=== PATIENT | male | born 1935 | race Caucasian/White ===

== ENCOUNTER 2016-07-31 14:08 | Inpatient (IN) | payer OTHER, BC ==
[2016-07-31] MEDS ORDERED: cefTAZidime PENTAHYDRATE 1 GM/50ML PRE-DOCKED (RESTRICTED TO ID) IVPB ONE (15:18)
[2016-07-31] MEDS ORDERED: ACETAMINOPHEN 325 MG TABLET (FP) PO ONE (15:20)
[2016-07-31] MEDS ORDERED: SODIUM CHLORIDE 500 ML IV STA (15:20)
[2016-07-31 15:59] LABS: MCH 38.5 pg (25.7-33.7); MCHC 33.9 g/dl (32.0-35.9); MEAN CELL VOLUME 113.4 fl (80-96); MEAN PLT VOLUME 7.4 fl (7.5-11.1); PLATELET COUNT 828 K/MM3 (134-434); RDW 15.4 % (11.9-15.9); WHITE BLOOD COUNT 18.1 K/mm3 (4.0-10.0)
[2016-07-31 16:08] LABS: URINE APPEARANCE TURBID; URINE BILIRUBIN NEGATIVE (NEGATIVE); URINE COLOR DKYELLOW; URINE GLUCOSE (UA) NEGATIVE (NEGATIVE); URINE KETONE NEGATIVE (NEGATIVE); URINE NITRITE NEGATIVE (NEGATIVE); URINE UROBILINOGEN NEGATIVE E.U./dl (0.2-1.0)
[2016-07-31 16:11] LABS: INR 1.41 (0.82-1.09); PROTHROMBIN TIME (PATIENT) 15.6 SEC (9.98-11.88)
[2016-07-31 16:12] LABS: URINE BLOOD 2+ (NEGATIVE); URINE LEUK ESTERASE 3+ (NEGATIVE); URINE PROTEIN 1+ (NEGATIVE)
[2016-07-31 16:14] LABS: URINE HYALINE CAST 4 /lpf; URINE MUCUS RARE; URINE RBC 10 /hpf (0-3); URINE WBC 479 /hpf (3-5)
--- NOTE | 2016-07-31 16:19 | PDOC ---
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 His PMD sent a urine sample which shows a UTI. PMD notes that the patient has resistance to PO antibiotics. The patient reports that he has diffused abdominal pain. Patient does ambulate with the help of a cane or with assistance. He reports diarrhea, once or twice a week, which is his baseline. The patient denies chest pain, shortness of breath, headache and dizziness. Denies fever, chills, nausea, vomit, diarrhea and constipation. Denies dysuria, frequency, urgency and hematuria. Allergies: Sulfa, doxycycline, Cymbalta Past surgical history: Cholecystectomy, splenectomy Social history: No alcohol, tobacco or drug use reported PMD - Dr. Ashish Schneider Griddle Attendant - Dr. Groves <Hernando Pineda - Last Filed: 07/31/16 16:41> <Suhas Grimes - Last Filed: 07/31/16 16:53> <Noemí Chamorro - Last Filed: 07/31/16 17:27> - General Chief Complaint: Urinary Problem Stated Complaint: UTI, (PCP SENT) Time Seen by Provider: 07/31/16 14:53 Past History <Hernando Pineda - Last Filed: 07/31/16 16:41> - Past Medical History Anemia: No Asthma: No Cancer: Yes (bladder CA) Cardiac Disorders: Yes (ATRIAL FIBRILLATION, CAD) CVA: Yes (R HEMIPARESIS) COPD: Yes CHF: Yes Dementia: No Diabetes: Yes (NIDDM) GI Disorders: Yes (GERD) Disorders: Yes (BPH, TURP) HTN: Yes Hypercholesterolemia: Yes Liver Disease: No Seizures: Yes Thyroid Disease: No - Surgical History Abdominal Surgery: Yes (spleenectomy) Appendectomy: No Cardiac Surgery: No Cholecystectomy: Yes Lung Surgery: No Neurologic Surgery: No Orthopedic Surgery: No - Immunization History Immunization Up to Date: Yes - Psycho/Social/Smoking Cessation Hx Anxiety: No Suicidal Ideation: No Smoking Status: No Smoking History: Never smoked Have you smoked in the past 12 months: No Number of Cigarettes Smoked Daily: 0 If you are a former smoker, when did you quit?: 2008 Hx Alcohol Use: No Drug/Substance Use Hx: Yes Substance Use Type: None Hx Substance Use Treatment: No <Suhas Grimes - Last Filed: 07/31/16 16:53> <Noemí Chamorro - Last Filed: 07/31/16 17:27> - Past Medical History Allergies/Adverse Reactions: Allergies Allergy/AdvReac Type Severity Reaction Status Date / Time doxycycline Allergy Mild Rash AND Verified 08/06/15 19:16 VOMITING Sulfa (Sulfonamide Allergy Verified 07/31/16 14:21 Antibiotics) duloxetine HCl AdvReac Severe HALLUCINATI Verified 08/06/15 19:16 [From Cyalta] ONS Home Medications: Ambulatory Orders Furosemide [Lasix -] 40 mg PO DAILY 03/25/15 Pantoprazole Sodium [Protonix -] 40 mg PO DAILY 03/25/15 Metformin HCl 500 mg PO BID 06/08/15 Albuterol Sulfate Inhaler - [Ventolin HFA Inhaler -] 2 inh PO Q4H 10/28/15 Albuterol 2.5/Ipratropium 0.5 [Duoneb -] 1 amp NEB QIDR amp 11/04/15 Dabigatran Etexilate Mesylate [Pradaxa -] 150 mg PO BID #60 cap 11/04/15 Digoxin 125 mcg PO DAILY #30 tablet 11/04/15 Diltiazem Cd [Cardizem Cd -] 120 mg PO DAILY #30 cap.cd.24h 11/04/15 Finasteride 5 mg PO DAILY #30 tablet 11/04/15 Fluoxetine HCl [Prozac] 10 mg PO DAILY #30 capsule 11/04/15 Hydroxyurea [Hydrea 500Mg Capsule -] 500 mg PO BID #60 capsule 11/04/15 Lamotrigine [Lamictal -] 25 mg PO DAILY #30 tablet 11/04/15 Magnesium Oxide [Mag-Ox -] 400 mg PO BID #30 tablet 11/04/15 Tamsulosin HCl 0.8 mg PO DAILY #30 cap.er.24h 11/04/15 Review of Systems - Review of Systems Able to Perform ROS?: Yes Comments:: 07/31/16 16:20 CONSTITUTIONAL: No fever, no chills, no fatigue EYES: No visual changes ENT: No ear pain, no sore throat CARDIOVASCULAR: No chest pain, no palpitations RESPIRATORY: No cough, no SOB GI: No abdominal pain, no nausea, no vomiting, no constipation, no diarrhea GENITOURINARY: No dysuria, no frequency, no hematuria MUSKULOSKELETAL: No backpain, no joint pain, no myalgias SKIN: No rash NEURO: No headache <Hernando Pineda - Last Filed: 07/31/16 16:41> *Physical Exam - Vital Signs Last Vital Signs Temp Pulse Resp BP Pulse Ox 97.7 F 60 18 129/55 97 07/31/16 14:12 07/31/16 14:12 07/31/16 14:12 07/31/16 14:12 07/31/16 14:12 - Physical Exam Comments: 07/31/16 16:21 CONSTITUTIONAL: Well-appearing; well-nourished; in no apparent distress HEAD: Normocephalic; atraumatic EYES: PERRL; EOM intact ENMT: External appears normal; normal oropharynx NECK: Supple; non-tender; no cervical lymphadenopathy CARD: +Irregularly irregular. Normal S1, S2; no murmurs, rubs, or gallops RESP: Normal chest excursion with respiration; breath sounds clear and equal bilaterally; no wheezes, rhonchi, or rales ABD: Soft, non-distended; non-tender; no palpable organomegaly, no palpable hernias EXT: Normal ROM in all four extremities; non-tender to palpation; distal pulses intact SKIN: Warm, dry, no rash NEURO: +right lower facial droop with flattening of nasal labial fold. Dense hemipligia right upper extremity, right lower extremity 2/5 strength. 5/5 strength in left upper and lower extremities. <Hernando Pineda - Last Filed: 07/31/16 16:41> - Vital Signs Last Vital Signs Temp Pulse Resp BP Pulse Ox 97.7 F 60 18 129/55 97 07/31/16 14:12 07/31/16 14:12 07/31/16 14:12 07/31/16 14:12 07/31/16 14:12 <Suhas Grimes - Last Filed: 07/31/16 16:53> - Vital Signs Last Vital Signs Temp Pulse Resp BP Pulse Ox 97.7 F 60 18 129/55 97 07/31/16 14:12 07/31/16 14:12 07/31/16 14:12 07/31/16 14:12 07/31/16 14:12 <Noemí Chamorro - Last Filed: 07/31/16 17:27> Heart Score/ECG Review - ECG Intrepretation Comment:: 07/31/16 17:24 EKG obtained at 16:43. Reviewed and interpreted by Dr. Grimes at 16:43. Afib with ventricular rate of 63 bpm. QTc interval of [address] elevation or depression to suggest infarction. No T wave morphology abnormality to suggest ischemia. <Noemí Chamorro - Last Filed: 07/31/16 17:27> ED Treatment Course - LABORATORY CBC & Chemistry Diagram: 07/31/16 15:30 07/31/16 15:30 - ADDITIONAL ORDERS Additional order review: Laboratory Results 07/31/16 07/31/16 15:30 15:30 INR 1.41 H Urine Color Dkyellow Urine Appearance Turbid Urine pH 7.0 Ur Specific [place] 1.008 Urine Protein 1+ H Urine Glucose (UA) Negative Urine Ketones Negative Urine Blood 2+ H Urine Nitrite Negative Urine Bilirubin Negative Urine Urobilinogen Negative Ur Leukocyte Esterase 3+ H Urine RBC 10 Urine WBC 479 Ur Epithelial Cells Rare Hyaline Casts 4 Urine Mucus Rare 07/31/16 15:30 RBC 2.72 L MCV 113.4 H MCHC 33.9 RDW 15.4 D MPV 7.4 L Neutrophils % Y Lymphocytes % Y <Hernando Pineda - Last Filed: 07/31/16 16:41> - LABORATORY CBC & Chemistry Diagram: 07/31/16 15:30 07/31/16 15:30 - ADDITIONAL ORDERS Additional order review: Laboratory Results 07/31/16 07/31/16 15:30 15:30 INR 1.41 H Urine Color Dkyellow Urine Appearance Turbid Urine pH 7.0 Ur Specific [place] 1.008 Urine Protein 1+ H Urine Glucose (UA) Negative Urine Ketones Negative Urine Blood 2+ H Urine Nitrite Negative Urine Bilirubin Negative Urine Urobilinogen Negative Ur Leukocyte Esterase 3+ H Urine RBC 10 Urine WBC 479 Ur Epithelial Cells Rare Hyaline Casts 4 Urine Mucus Rare 07/31/16 15:30 RBC 2.72 L MCV 113.4 H MCHC 33.9 RDW 15.4 D MPV 7.4 L Neutrophils % Y Lymphocytes % Y <Cornelio,Boris - Last Filed: 07/31/16 16:53> - LABORATORY CBC & Chemistry Diagram: 07/31/16 15:30 07/31/16 15:30 - ADDITIONAL ORDERS Additional order review: Laboratory Results 07/31/16 07/31/16 07/31/16 15:30 15:30 15:30 INR 1.41 H Sodium 134 L Potassium 4.0 D Chloride 94 L D Carbon Dioxide 30 D Anion Gap 10 BUN 18 Creatinine 1.5 H Creat Clearance w eGFR 45.03 Random Glucose 164 H D Calcium 8.5 Total Bilirubin 0.4 AST 12 L D ALT 8 L D Alkaline Phosphatase 207 H D Total Protein 5.9 L D Albumin 2.3 L Urine Color Dkyellow Urine Appearance Turbid Urine pH 7.0 Ur Specific [place] 1.008 Urine Protein 1+ H Urine Glucose (UA) Negative Urine Ketones Negative Urine Blood 2+ H Urine Nitrite Negative Urine Bilirubin Negative Urine Urobilinogen Negative Ur Leukocyte Esterase 3+ H Urine RBC 10 Urine WBC 479 Ur Epithelial Cells Rare Hyaline Casts 4 Urine Mucus Rare 07/31/16 15:30 RBC 2.72 L MCV 113.4 H MCHC 33.9 RDW 15.4 D MPV 7.4 L Neutrophils % 85.0 H D Lymphocytes % 7.0 L D Monocytes % 7.0 Eosinophils % 1.0 - Medications Given in the ED: ED Medications Discontinued Medications Generic Name Dose Route Start Last Admin Trade Name Freq PRN Reason Stop Dose Admin Acetaminophen 650 mg 07/31/16 15:20 07/31/16 16:28 Tylenol - PO 07/31/16 15:21 650 mg ONCE ONE Administration Ceftazidime 1 gm 07/31/16 15:18 07/31/16 16:28 Fortaz 1 Gm Ivpb (Pre-Docked) IVPB 07/31/16 15:19 1 gm ONCE ONE Administration Protocol Sodium Chloride 500 mls @ 500 mls/hr 07/31/16 15:20 07/31/16 16:28 Normal Saline - IV 07/31/16 16:19 500 mls/hr ASDIR STA Administration <Noemí Chamorro - Last Filed: 07/31/16 17:27> Medical Decision Making - Medical Decision Making 07/31/16 16:54 Patient is an 81-year-old male with multiple comorbidities, history of multidrug resistant UTIs, referred to the ER for pyuria caused by an organism that is resistant to all by mouth antibiotics. In the ER, patient is awake and alert, afebrile, nontoxic appearing. Review of previous medical records revealed urine culture positive for pseudomonas which was sensitive to ceftazidime. Review of infectious disease consultation also revealed the patient was started on ceftazidime previously. CBC reveals leukocytosis and proper cytosis. Urinalysis consistent with pyuria with hematuria. We'll administer 1 g of soft as. Will admit. <Suhas Grimes - Last Filed: 07/31/16 16:53> *DC/Admit/Observation/Transfer - Attestations Scribe Attestion: 07/31/16 16:21 Documentation prepared by Hernando Pineda, acting as medical imaging director for Suhas Grimes MD <Hernando Pineda - Last Filed: 07/31/16 16:41> - Discharge Dispostion Admit: Yes - Attestations Physician Attestion: 07/31/16 16:54 The documentation was prepared by the scribe under my direct supervision. I have reviewed the documentation which correctly represents the findings, medical decision-making and critical action taken by me. <Suhas Grimes - Last Filed: 07/31/16 16:53> <Noemí Chamorro - Last Filed: 07/31/16 17:27> Diagnosis at time of Disposition: UTI (urinary tract infection) Qualifiers: Urinary tract infection type: acute cystitis Hematuria presence: with hematuria Qualified Code(s): N30.01 - Acute cystitis with hematuria - Referrals
[2016-07-31] MEDS ORDERED: ACETAMINOPHEN 325 MG TABLET (FP) ONE (16:20)
[2016-07-31 16:23] LABS: ALBUMIN 2.3 g/dl (3.4-5.0); BILIRUBIN,TOTAL 0.4 mg/dL (0.2-1.0); CALCIUM 8.5 mg/dL (8.5-10.1); CREATININE 1.5 mg/dL (0.7-1.3); TOT PROT 5.9 g/dl (6.4-8.2)
[2016-07-31 16:48] LABS: PLATELET COMMENT2 NO CLOTTING DETECTED; PLATELET ESTIMATE INCREASED (NORMAL)
--- NOTE | 2016-07-31 18:05 | HP ---
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 His PMD sent a urine sample which shows a UTI. PMD notes that the patient has resistance to PO antibiotics. The patient reports that he has diffused abdominal pain. Patient does ambulate with the help of a cane or with assistance. He reports diarrhea, once or twice a week, which is his baseline. The patient denies chest pain, shortness of breath, headache and dizziness. Denies fever, chills, nausea, vomit, diarrhea and constipation. Denies dysuria, frequency, urgency and hematuria. History Source: Patient, Medical Record - Past Medical History DIRECTOR QUALITY SYSTEMS: Yes: CVA Cardiovascular: Yes: AFIB, CAD, Hyperlipdemia Pulmonary: Yes: COPD Gastrointestinal: Yes: Gastritis, GERD Renal/: Yes: BPH, Cancer (superficial bladder cancer) Heme/Onc: Yes: Myeloproliferative Synd (thrombocytosis) Endocrine: Yes: Diabetes Mellitus - Past Surgical History Past Surgical History: Yes: Cholecystectomy, Splenectomy, TURP - Smoking History Smoking history: Never smoked Have you smoked in the past 12 months: No Aproximately how many cigarettes per day: 0 If you are a former smoker, when did you quit?: 2008 - Alcohol/Substance Use Hx Alcohol Use: No - Social History ADL: Family Assistance (h/o CVA with excellent improvement. h/o r sided weakness with speech deficits. Returned to [place] in [place]. 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.) History of Recent Travel: No Home Medications - Allergies Allergies/Adverse Reactions: Allergies Allergy/AdvReac Type Severity Reaction Status Date / Time doxycycline Allergy Mild Rash AND Verified 08/06/15 19:16 VOMITING Sulfa (Sulfonamide Allergy Verified 07/31/16 14:21 Antibiotics) duloxetine HCl AdvReac Severe HALLUCINATI Verified 08/06/15 19:16 [From Cymbalta] ONS - Home Medications Home Medications: Ambulatory Orders Furosemide [Lasix -] 40 mg PO DAILY 03/25/15 Metformin HCl 500 mg PO DAILY 06/08/15 Dabigatran Etexilate Mesylate [Pradaxa -] 150 mg PO BID #60 cap 11/04/15 Digoxin 125 mcg PO DAILY #30 tablet 11/04/15 Finasteride 5 mg PO DAILY #30 tablet 11/04/15 Hydroxyurea [Hydrea 500Mg Capsule -] 500 mg PO BID #60 capsule 11/04/15 Magnesium Oxide [Mag-Ox -] 400 mg PO BID #30 tablet 11/04/15 Atorvastatin Ca [Lipitor] 10 mg PO HS 07/31/16 Fluoxetine HCl 10 mg PO DAILY 07/31/16 Gabapentin 100 mg PO BID 07/31/16 Tamsulosin HCl 0.4 mg PO BID 07/31/16 Review of Systems - Review of Systems Constitutional: reports: Loss of Appetite, Weakness Eyes: reports: No Symptoms HENT: reports: No Symptoms Neck: reports: No Symptoms Cardiovascular: reports: No Symptoms Respiratory: reports: No Symptoms Gastrointestinal: reports: No Symptoms Genitourinary: reports: Burning, Other Musculoskeletal: reports: No Symptoms Integumentary: reports: No Symptoms Neurological: reports: No Symptoms, Pre-Existing Deficit Endocrine: reports: No Symptoms Hematology/Lymphatic: reports: No Symptoms Psychiatric: reports: No Symptoms Physical Examination Vital Signs: Vital Signs Temperature 97.7 F 07/31/16 14:12 Pulse Rate 60 07/31/16 14:12 Respiratory Rate 18 07/31/16 14:12 Blood Pressure 129/55 07/31/16 14:12 O2 Sat by Pulse Oximetry (%) 97 07/31/16 14:12 Constitutional: Yes: Mild Distress Eyes: Yes: WNL HENT: Yes: WNL Neck: Yes: WNL Cardiovascular: Yes: WNL Respiratory: Yes: WNL Gastrointestinal: Yes: WNL Musculoskeletal: Yes: Muscle Weakness Extremities: Yes: WNL Edema: No Peripheral Pulses WNL: Yes Integumentary: Yes: WNL Wound/Incision: Yes: Clean/Dry Neurological: Yes: WNL ...Motor Strength: WNL Psychiatric: Yes: WNL Problem List - Problems (1) UTI (urinary tract infection) Code(s): N39.0 - URINARY TRACT INFECTION, SITE NOT SPECIFIED Qualifiers: Urinary tract infection type: acute cystitis Hematuria presence: with hematuria Qualified Code(s): N30.01 - Acute cystitis with hematuria (2) Abdominal pain Code(s): R10.9 - UNSPECIFIED ABDOMINAL PAIN (3) Acute cystitis Code(s): N30.00 - ACUTE CYSTITIS WITHOUT HEMATURIA (4) Acute kidney failure Code(s): N17.9 - ACUTE KIDNEY FAILURE, UNSPECIFIED (5) Afib Code(s): I48.91 - UNSPECIFIED ATRIAL FIBRILLATION (6) Anemia Code(s): D64.9 - ANEMIA, UNSPECIFIED Assessment/Plan IV ABX ZOSYN 3.375GM Q 8HRS OBTAIN URINE CULTURE FROM DR LIN DVT PROPHYLAXIS IVF RENAL AND ID EVAL
[2016-07-31] MEDS ORDERED: HYDROXYUREA 500 MG CAPSULE PO SCH (18:15)
[2016-07-31 18:32] VITALS: BMI 20.5
[2016-07-31] MEDS: MAGNESIUM OXIDE 400 MG TABLET (FP) PO SCH (21:48)
[2016-07-31] MEDS: GABAPENTIN 100 MG CAPSULE (FP) PO SCH (21:48)
[2016-07-31] MEDS: ATORVASTATIN CA 10 MG TABLET (FP) PO SCH (21:48)
[2016-07-31] MEDS: HYDROXYUREA 500 MG CAPSULE PO SCH (21:48)
[2016-07-31] MEDS: DABIGATRAN ETEXILATE MESYLATE 150 MG CAPSULE PO SCH (21:48)
[2016-08-01] MEDS: metFORMIN HCL 500 MG TABLET (FP) PO SCH ×3 (06:46→18:52)
[2016-08-01] MEDS: GABAPENTIN 100 MG CAPSULE (FP) PO SCH ×3 (06:46→23:08)
[2016-08-01 07:41] LABS: MCH 38.5 pg (25.7-33.7); MCHC 34.3 g/dl (32.0-35.9); MEAN CELL VOLUME 112.2 fl (80-96); MEAN PLT VOLUME 7.3 fl (7.5-11.1); PLATELET COUNT 750 K/MM3 (134-434); RDW 15.2 % (11.9-15.9); WHITE BLOOD COUNT 16.8 K/mm3 (4.0-10.0)
[2016-08-01 08:30] LABS: ANION GAP 8 (8-16); CALCIUM 8.7 mg/dL (8.5-10.1); CO2 32 mmol/L (21-32)
[2016-08-01 08:47] LABS: ALK PHOS 174 U/L (45-117); BILIRUBIN,TOTAL 0.3 mg/dL (0.2-1.0); CREATININE 1.2 mg/dL (0.7-1.3); DIGOXIN LEVEL 1.1527 ng/ml (0.8-2.0); GLUCOSE,RANDOM 79 mg/dL (74-106); SGOT/AST 10 U/L (15-37); SGPT/ALT < 6 U/L (12-78)
[2016-08-01] MEDS ORDERED: PT OWN MED DRAWER 7, Y5N ONE ×3 (09:12→21:08)
--- NOTE | 2016-08-01 10:45 | PN ---
Progress Note (short form) - Note Progress Note: Chief Complaint: Events noted, notes reviewed, denies any chest pain or dyspnea , UTI for IV antibiotics History of Present Illness: Seen and examined. Full consult dictated - Current Medication List Current Medications Acetaminophen (Tylenol -) 650 mg PO Q6H PRN PRN Reason: FEVER OR PAIN Atorvastatin Calcium (Lipitor -) 10 mg PO HS [facility] Last Admin: 07/31/16 21:48 Dose: 10 mg Dabigatran (Pradaxa -) 150 mg PO BID [facility] Last Admin: 07/31/16 21:48 Dose: 150 mg Digoxin (Lanoxin -) 0.125 mg PO DAILY [facility] Finasteride (Proscar -) 5 mg PO DAILY [facility] Fluoxetine HCl (Prozac -) 10 mg PO DAILY [facility] Furosemide (Lasix -) 40 mg PO DAILY [facility] Gabapentin (Neurontin -) 100 mg PO TID [facility] Last Admin: 08/01/16 06:46 Dose: 100 mg Hydroxyurea (Hydrea -) 500 mg PO BID [facility] Last Admin: 07/31/16 21:48 Dose: 500 mg Magnesium Oxide (Mag-Ox -) 400 mg PO BID [facility] Last Admin: 07/31/16 21:48 Dose: 400 mg Metformin HCl (Glucophage -) 500 mg PO BID@0700,1630 [facility] Last Admin: 08/01/16 06:46 Dose: 500 mg Tamsulosin HCl (Flomax -) 0.4 mg PO DAILY@0830 [facility] Review of Systems Cardiovascular: As noted above Respiratory: denies: Cough or Sputum Production Gastrointestinal: denies: Nausea, Vomiting, Diarrhea, Constipation or Abdominal Discomfort Musculoskeletal: No Symptoms Reported Endocrine: No Symptoms Reported - Objective Vital Signs: Last Vital Signs Temp Pulse Resp BP Pulse Ox 97.7 F 70 18 150/63 96 08/01/16 06:00 08/01/16 06:00 08/01/16 06:00 08/01/16 06:00 07/31/16 18:03 Constitutional: No Distress, Calm Neck: Supple Negative JVD NO Bruit Respiratory: Diminished Breath sounds at the Bases Cardiovascular: S1 S2 Irregularly Irregular Gastrointestinal: Soft Benign Normal Bowel Sounds Ext: No Edema Labs: CBC, BMP 08/01/16 06:15 08/01/16 06:15 Hepatic Panel Total Bilirubin 0.3 mg/dL (0.2-1.0) D 08/01/16 06:15 AST 10 U/L (15-37) L 08/01/16 06:15 ALT < 6 U/L (12-78) L D 08/01/16 06:15 Alkaline Phosphatase 174 U/L (45-117) H 08/01/16 06:15 Albumin 2.0 g/dl (3.4-5.0) L 08/01/16 06:15 INR, PTT INR 1.41 (0.82-1.09) H 07/31/16 15:30 Assessment/Plan ASSESSMENT: 1. UTI, uro-sepsis 2. LV diastolic dysfunction with chronic class I NYHA classification LV failure , currently euvolumic 3. Permanent AF [id number] score of 8 on A/C with NOAC's 4. CAD angina pectoris, stable 5. HTN 6. NIDDM 7. Hypercholesterolemia 8. History of fronto-temporal stroke with residual deficit 9. Mylelodysplastic syndrome, Anemia and thrombocytosis PLAN: 1. Antibiotics as per ID and primary service 2. To resume Cardizem CD, unless it was D/C as outpatient, office records to be reviewed 3. Recommend ACEI or ARBS unless it is absolutely contraindicated 4. Continue Lipitor 5. Continue Pradaxa with caution, and with close monitoring of CBC 6. Continue Digoxin with close monitoring of level [facility] Cleaning M.D.
[2016-08-01] MEDS: HYDROXYUREA 500 MG CAPSULE PO SCH ×2 (10:58→23:07)
[2016-08-01] MEDS: FUROSEMIDE 40 MG TABLET (FP) PO SCH (10:58)
[2016-08-01] MEDS: FINASTERIDE 5 MG TABLET (FP) PO SCH (10:58)
[2016-08-01] MEDS: DIGOXIN 0.125 MG TABLET (FP) PO SCH (10:58)
[2016-08-01] MEDS: TAMSULOSIN HCL 0.4 MG CAP.ER.24H (FP) PO SCH (10:58)
[2016-08-01] MEDS: MAGNESIUM OXIDE 400 MG TABLET (FP) PO SCH ×2 (10:58→23:07)
[2016-08-01] MEDS: DABIGATRAN ETEXILATE MESYLATE 150 MG CAPSULE PO SCH ×2 (10:59→23:08)
--- NOTE | 2016-08-01 11:27 | PN ---
Progress Note (short form) - Note Progress Note: ID Asymptomatic and afebrile Selected Entries 08/01/16 08/01/16 06:00 10:58 Temperature 97.7 F Pulse Rate 68 Respiratory 18 Rate Blood Pressure 150/63 Lung Clear Cor S1 S2 Abd Soft nontender Ext NO edema Microbiology Laboratory Tests 07/31/16 07/31/16 08/01/16 15:30 15:30 06:15 WBC 18.1 H D 16.8 H BUN Creatinine Ur Leukocyte Esterase 3+ H Urine WBC 479 08/01/16 06:15 WBC BUN 16 Creatinine 1.2 Ur Leukocyte Esterase Urine WBC Assessment Treat for UTI pseudomonas Plan Fortaz 1 gr q8H Vero MALDONADO Problem List - Problems (1) Leukocytosis Code(s): D72.829 - ELEVATED WHITE BLOOD CELL COUNT, UNSPECIFIED (2) UTI (urinary tract infection) Code(s): N39.0 - URINARY TRACT INFECTION, SITE NOT SPECIFIED Qualifiers: Urinary tract infection type: acute cystitis Hematuria presence: with hematuria Qualified Code(s): N30.01 - Acute cystitis with hematuria
--- NOTE | 2016-08-01 12:44 | PN ---
Progress Note, Physician Chief Complaint: AWAKE ALERT FEELS BETTER - Current Medication List Current Medications: Active Medications Acetaminophen (Tylenol -) 650 mg PO Q6H PRN PRN Reason: FEVER OR PAIN Atorvastatin Calcium (Lipitor -) 10 mg PO HS [facility] Last Admin: 07/31/16 21:48 Dose: 10 mg Dabigatran (Pradaxa -) 150 mg PO BID [facility] Last Admin: 08/01/16 10:59 Dose: 150 mg Digoxin (Lanoxin -) 0.125 mg PO DAILY [facility] Last Admin: 08/01/16 10:58 Dose: 0.125 mg Finasteride (Proscar -) 5 mg PO DAILY [facility] Last Admin: 08/01/16 10:58 Dose: 5 mg Fluoxetine HCl (Prozac -) 10 mg PO DAILY [facility] Furosemide (Lasix -) 40 mg PO DAILY [facility] Last Admin: 08/01/16 10:58 Dose: 40 mg Gabapentin (Neurontin -) 100 mg PO TID [facility] Last Admin: 08/01/16 06:46 Dose: 100 mg Hydroxyurea (Hydrea -) 500 mg PO BID [facility] Last Admin: 08/01/16 10:58 Dose: 500 mg Ceftazidime 1 gm/ Dextrose 50 mls @ 100 mls/hr IVPB Q8H-IV LIONEL PRN Reason: Protocol Magnesium Oxide (Mag-Ox -) 400 mg PO BID [facility] Last Admin: 08/01/16 10:58 Dose: 400 mg Metformin HCl (Glucophage -) 500 mg PO BID@0700,1630 [facility] Last Admin: 08/01/16 06:46 Dose: 500 mg Tamsulosin HCl (Flomax -) 0.4 mg PO DAILY@0830 [facility] Last Admin: 08/01/16 10:58 Dose: 0.4 mg - Objective Vital Signs: Vital Signs Temperature 97.7 F 08/01/16 06:00 Pulse Rate 68 08/01/16 10:58 Respiratory Rate 18 08/01/16 06:00 Blood Pressure 150/63 08/01/16 06:00 O2 Sat by Pulse Oximetry (%) 96 07/31/16 18:03 Constitutional: Yes: Mild Distress Eyes: Yes: WNL HENT: Yes: WNL Neck: Yes: WNL Cardiovascular: Yes: Pulse Irregular Respiratory: Yes: WNL Gastrointestinal: Yes: WNL Genitourinary: Yes: CVA Tenderness - Left, CVA Tenderness - Right Musculoskeletal: Yes: WNL Extremities: Yes: WNL Edema: No Peripheral Pulses WNL: Yes Integumentary: Yes: WNL Wound/Incision: Yes: Clean/Dry Neurological: Yes: WNL ...Motor Strength: WNL Labs: CBC, BMP 08/01/16 06:15 08/01/16 06:15 INR, PTT INR 1.41 (0.82-1.09) H 07/31/16 15:30 Problem List - Problems (1) UTI (urinary tract infection) Code(s): N39.0 - URINARY TRACT INFECTION, SITE NOT SPECIFIED Qualifiers: Urinary tract infection type: acute cystitis Hematuria presence: with hematuria Qualified Code(s): N30.01 - Acute cystitis with hematuria (2) Abdominal pain Code(s): R10.9 - UNSPECIFIED ABDOMINAL PAIN (3) Acute cystitis Code(s): N30.00 - ACUTE CYSTITIS WITHOUT HEMATURIA (4) Acute kidney failure Code(s): N17.9 - ACUTE KIDNEY FAILURE, UNSPECIFIED (5) Afib Code(s): I48.91 - UNSPECIFIED ATRIAL FIBRILLATION (6) Anemia Code(s): D64.9 - ANEMIA, UNSPECIFIED Assessment/Plan IV ABX FORTAZ IV PER ID OBTAIN URINE CULTURE FROM DR LIN DVT PROPHYLAXIS IVF RENAL AND ID EVAL
--- NOTE | 2016-08-01 12:54 | CONS ---
DATE OF CONSULTATION: 08/01/2016 Consultation requested by Bri Dumas MD; Ashish Schneider MD CHIEF COMPLAINT: Urinary tract infection, cardiovascular evaluation. The patient is an 81-year-old male known to our service with known history of coronary artery disease, angina pectoris, in addition, history of diastolic left ventricular dysfunction with chronic class 1 [place] [employer] classification left ventricular failure, permanent atrial fibrillation, on Pradaxa therapy, cerebrovascular disease with residual deficit, hypertensive cardiovascular disease, diabetes mellitus, hypercholesterolemia, chronic obstructive pulmonary disease, bladder carcinoma post intervention, and myeloproliferative disease, who presented to [facility] for management of a resistant urinary tract infection, possible urosepsis. Urine culture was obtained as an outpatient when patient had presented with hematuria and, upon evaluation, patient was noted to have resistant organism, requiring hospitalization and intravenous antibiotic therapy initiation. Patient denies any chest discomfort. Denies any dyspnea, orthopnea, paroxysmal nocturnal dyspnea or peripheral edema. Patient denies any palpitation, dizziness, lightheadedness, or syncope. PAST MEDICAL HISTORY: Coronary artery disease, angina pectoris, diastolic left ventricular dysfunction, with chronic class I [place] [employer] classification left ventricular failure, permanent atrial fibrillation, on anticoagulation therapy, [id number] score of 8, hypertensive cardiovascular disease, diabetes mellitus, hypercholesterolemia, cerebrovascular disease with residual deficit, chronic obstructive pulmonary disease, myeloproliferative syndrome, bladder carcinoma, post intervention, cholecystectomy, splenectomy. SOCIAL HISTORY: Noncontributory. FAMILY HISTORY: Positive for coronary artery disease. ALLERGIES: DOXYCYCLINE, SULFA, DULOXETINE. Medical therapy currently includes acetaminophen 650 mg every 6 hours as needed, Lipitor 10 mg once a day, Pradaxa 150 mg twice a day, digoxin 0.125 mg once a day, Proscar 5 mg once a day, Prozac 10 mg once a day, Lasix 40 mg once a day, Neurontin 100 mg 3 times a day, hydroxyurea 500 mg twice a day, magnesium oxide 400 mg twice a day, metformin 500 mg twice a day, Flomax 0.4 mg once a day. REVIEW OF SYSTEMS: Head and Neck: Denies headache, photophobia, blurring of vision. Respiratory: No cough or sputum production. Cardiovascular: As noted above. Gastrointestinal: Denies nausea, vomiting, diarrhea, abdominal discomfort. Genitourinary: As noted above. Musculoskeletal: Right-sided weakness. PHYSICAL EXAMINATION: Vital Signs: Blood pressure is 150/63 mmHg. Pulse rate is 70 beats per minute. Head and Neck: Pupils are equally reactive to light and accommodation. Extraocular muscles are intact. Anicteric sclerae. Negative JVD. No bruit appreciated. Chest: Clear to auscultation and percussion. Cardiovascular: S1, S2, irregularly irregular. No murmurs appreciated. Abdomen: Soft, benign. Normoactive bowel sound. Extremities: Negative edema. 1+ distal pulses. No calf tenderness. CBC revealed white cell count 16.8, hemoglobin 9.9, platelet count 750. Basic metabolic profile revealed sodium 140, potassium 3.9, BUN 16, creatinine 1.2, glucose 79, AST 10, ALT less than 6, INR 1.41. Chest x-ray report was noted. EKG not available. ASSESSMENT: 1. Urinary tract infection, urosepsis, for intravenous antibiotic therapy initiation. 2. Left ventricular diastolic dysfunction with chronic class 1 [place] [employer] classification left ventricular failure, currently euvolemic. 3. Permanent atrial fibrillation, [id number] score of 8, on anticoagulation therapy with Pradaxa. 4. Coronary artery disease, angina pectoris. 5. Hypertension. 6. Gpi-[id number] diabetes mellitus. 7. Hypercholesterolemia. 8. History of cerebrovascular disease with residual deficit. 9. History of myelodysplastic syndrome, anemia, thrombocytosis. PLAN: 1. Antibiotics as per ID and primary service. 2. To resume Cardizem CD therapy unless it was discontinued as outpatient. Office records are to be reviewed. 3. Recommend MISSAEL inhibitors or angiotensin receptor blockers unless it is absolutely contraindicated. 4. Continuation of Lipitor therapy. 5. Continuation of Pradaxa therapy with caution and with close monitoring of CBC. 6. Continuation of digoxin therapy with close monitoring of level. Thank you for the kind referral. IRMA HARO M.D. GANGA/[id number]
--- NOTE | 2016-08-01 14:24 | CONS ---
DATE OF CONSULTATION: DATE OF DICTATION: 08/01/2016 This is an 81-year-old male, from the custodial, with multiple co-morbidities, sent specifically to treat urinary tract infection, with a positive culture, from the facility, resistant to oral antibiotics. I do not currently have this urine culture but I am familiar with the patient, having treated him for urinary tract infections in the past. His last culture had a Pseudomonas, which was treated with ceftazidime. He has a history of a bladder cancer, in remission, with TURP and cystoscopy in October of 2015. He is also status post CVA with right hemiplegia, atrial fibrillation, on Pradaxa, diabetes, and myeloproliferative disorder. He has been afebrile here and appears at baseline, in no distress and no complaints. Additional past medical history includes cholecystectomy and splenectomy. Medications include Lasix, Protonix, metformin, albuterol, digoxin, Pradaxa, diltiazem, finasteride, Prozac, hydroxyurea, Lamictal, and tamsulosin. Allergies to DOXYCYCLINE, SULFA, and CYMBALTA. SOCIAL HISTORY: Former smoker, quit in 2008. Prior history of alcohol abuse. Family history reviewed and noncontributory. REVIEW OF SYSTEMS: Respiratory: No cough or shortness of breath. Cardiac: History of atrial fibrillation. No chest pain, palpitations, syncope. Gastrointestinal: No abdominal pain, nausea, vomiting, diarrhea. Genitourinary: Denies dysuria, hematuria. PHYSICAL EXAMINATION: General: An elderly male in no acute distress. Vital Signs: Temperature was 97.6, pulse 68, blood pressure 150/63, respirations 18. Neck: Supple without adenopathy. Lungs: Clear to percussion and auscultation with diminished breath sounds. Heart: S1, S2. Irregularly irregular rhythm without audible murmur. Abdomen: Soft, nontender, positive bowel sounds, no organomegaly. Extremities: Without clubbing, cyanosis or edema. The white count is 18.1, hemoglobin 10.5, hematocrit 30.9, platelets of 828, INR 1.41, BUN 16, creatinine 1.2, alkaline phosphatase 174, AST 10, bilirubin 0.3. Urinalysis with 3+ leukocyte esterase, 10 RBCs, 500 WBCs. Blood and urine cultures pending. ASSESSMENT: An 81-year-old male with a history of bladder tumor in the past, presents now for treatment of urinary tract infection resistant to oral antibiotics, according to the admitting notes. Previous urine cultures dated October 2015 with Pseudomonas aeruginosa. Currently the patient is afebrile and nontoxic but does have a leukocytosis. Would treat him with a dose of ceftazidime 1 g IV q.8 hours, pending blood and urine cultures. Additional medical problems include myelodysplastic syndrome, status post splenectomy, atrial fibrillation, hypertension, [id number] diabetes mellitus, history of stroke. MADISON LOBATO M.D. VINAY/[id number]
--- NOTE | 2016-08-01 15:00 | CONSULT ---
Consult Consult Specialty:: Nephrology ( Drs. Archer/ Vaughn) Reason for Consultation:: many thanks for the kind referral. 81 y/o male with multiple co-morbid conditions, CAD, Angina, Class 1 CHF, Ch. Atrial Fibrillation ,CVA, Hypercholesterolemia, COPD, CA Bladder, Myeloproliferative disorder, admitted for management of resistant urinary tract infection. has h/o cholecystectomy, Splenectomy - History of Present Illness Chief Complaint: urinary tract infection, with resistant organism. 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 Cardio/Vascular: Yes: AFIB, CAD, Hyperlipdemia Pulmonary: Yes: COPD Gastrointestinal: Yes: Gastritis, GERD Renal/: Yes: BPH, Cancer (superficial bladder cancer) Heme/Onc: Yes: Anemia Endocrine: Yes: Diabetes Mellitus - Past Surgical History Past Surgical History: Yes: Cholecystectomy, Splenectomy, TURP - Alcohol/Substance Use Hx Alcohol Use: No - Smoking History Smoking history: Never smoked Have you smoked in the past 12 months: No Aproximately how many cigarettes per day: 0 If you are a former smoker, when did you quit?: 2008 - Social History Usual Living Arrangement: Other (staying with neice) ADL: Family Assistance (h/o CVA with excellent improvement. h/o r sided weakness with speech deficits. Returned to [place] in ADL. 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.) History of Recent Travel: No Home Medications - Allergies Allergies/Adverse Reactions: Allergies Allergy/AdvReac Type Severity Reaction Status Date / Time doxycycline Allergy Mild Rash AND Verified 08/06/15 19:16 VOMITING Sulfa (Sulfonamide Allergy Verified 07/31/16 14:21 Antibiotics) duloxetine HCl AdvReac Severe HALLUCINATI Verified 08/06/15 19:16 [From Cymbalta] ONS - Home Medications Home Medications: Ambulatory Orders Furosemide [Lasix -] 40 mg PO DAILY 03/25/15 Metformin HCl 500 mg PO DAILY 06/08/15 Dabigatran Etexilate Mesylate [Pradaxa -] 150 mg PO BID #60 cap 11/04/15 Digoxin 125 mcg PO DAILY #30 tablet 11/04/15 Finasteride 5 mg PO DAILY #30 tablet 11/04/15 Hydroxyurea [Hydrea 500Mg Capsule -] 500 mg PO BID #60 capsule 11/04/15 Magnesium Oxide [Mag-Ox -] 400 mg PO BID #30 tablet 11/04/15 Atorvastatin Ca [Lipitor] 10 mg PO HS 07/31/16 Fluoxetine HCl 10 mg PO DAILY 07/31/16 Gabapentin 100 mg PO BID 07/31/16 Tamsulosin HCl 0.4 mg PO BID 07/31/16 Review of Systems - Review of Systems Constitutional: reports: No Symptoms Eyes: reports: No Symptoms Neck: reports: No Symptoms Genitourinary: reports: Burning, Urgency Musculoskeletal: reports: Back Pain Hematology/Lymphatic: reports: Easily Bruised Physical Exam Vital Signs: Vital Signs Temperature 97.7 F 08/01/16 06:00 Pulse Rate 68 08/01/16 10:58 Respiratory Rate 18 08/01/16 06:00 Blood Pressure 150/63 08/01/16 06:00 O2 Sat by Pulse Oximetry (%) 97 08/01/16 09:00 Constitutional: Yes: No Distress, Anxious Eyes: Yes: WNL HENT: Yes: Atraumatic, Normocephalic Neck: Yes: Supple Cardiovascular: Yes: Regular Rate and Rhythm, S1, S2 Respiratory: Yes: Diminished, Rhonchi Gastrointestinal: Yes: Normal Bowel Sounds, Soft Renal/: Yes: WNL, CVA Tenderness - Right Neurological: Yes: Alert Psychiatric: Yes: Alert Labs: CBC, BMP 08/01/16 06:15 08/01/16 06:15 Problem List - Problems (1) UTI (urinary tract infection) Code(s): N39.0 - URINARY TRACT INFECTION, SITE NOT SPECIFIED Qualifiers: Urinary tract infection type: acute cystitis Hematuria presence: with hematuria Qualified Code(s): N30.01 - Acute cystitis with hematuria (2) CHEMA (acute kidney injury) Code(s): N17.9 - ACUTE KIDNEY FAILURE, UNSPECIFIED (3) Abdominal pain Code(s): R10.9 - UNSPECIFIED ABDOMINAL PAIN (4) Acute cystitis Code(s): N30.00 - ACUTE CYSTITIS WITHOUT HEMATURIA (5) Acute kidney failure Code(s): N17.9 - ACUTE KIDNEY FAILURE, UNSPECIFIED (6) Afib Code(s): I48.91 - UNSPECIFIED ATRIAL FIBRILLATION (7) Anemia Code(s): D64.9 - ANEMIA, UNSPECIFIED (8) Cerebrovascular accident Code(s): I63.9 - CEREBRAL INFARCTION, UNSPECIFIED (9) Congestive heart failure Code(s): I50.9 - HEART FAILURE, UNSPECIFIED Qualifiers: Congestive heart failure type: unspecified congestive heart failure type Congestive heart failure chronicity: unspecified congestive heart failure chronicity Qualified Code(s): I50.9 - Heart failure, unspecified (10) Cystitis Code(s): N30.90 - CYSTITIS, UNSPECIFIED WITHOUT HEMATURIA (11) Diabetes Code(s): E11.9 - TYPE 2 DIABETES MELLITUS WITHOUT COMPLICATIONS Qualifiers: Diabetes mellitus type: type 2 Diabetes mellitus complication status: with unspecified complications Qualified Code(s): E11.8 - Type 2 diabetes mellitus with unspecified complications; Z79.4 - senior living (current) use of insulin (12) HTN (hypertension) Code(s): I10 - ESSENTIAL (PRIMARY) HYPERTENSION Qualifiers: Hypertension type: essential hypertension Qualified Code(s): I10 - Essential (primary) hypertension (13) Positive urine culture Code(s): R82.7 - ABNORMAL FINDINGS ON MICROBIOLOGICAL EXAMINAT * DO NOT USE * Assessment/Plan 81 y/o male admitted with Acute Urinary Tract Infection. Has multiple co-morbid conditions. On Imipenam Acute kidney failure superimposed on chronic Kidney disease, most likely because of Hemodynamic factors related to the Urosepsis, and Cardiac status. Agree with the current management. Will monitor the renal functions with you. Thank you. Daniela Archer MD
[2016-08-01] MEDS: FLUoxetine HCL 10 MG CAPSULE (FP) PO SCH (17:50)
[2016-08-01] MEDS: CEFTAZIDIME PENTAHYDRATE 1 GM in DEXTROSE 5%-WATER - 50 ML IVPB SCH (17:51)
[2016-08-01] MEDS: ATORVASTATIN CA 10 MG TABLET (FP) PO SCH (23:07)
[2016-08-02] MEDS ORDERED: PT OWN MED DRAWER 7, Y5N ONE ×5 (01:57→20:46)
[2016-08-02] MEDS: CEFTAZIDIME PENTAHYDRATE 1 GM in DEXTROSE 5%-WATER - 50 ML IVPB SCH ×3 (02:01→18:10)
[2016-08-02] MEDS: GABAPENTIN 100 MG CAPSULE (FP) PO SCH ×3 (06:58→22:26)
[2016-08-02] MEDS: metFORMIN HCL 500 MG TABLET (FP) PO SCH ×2 (06:59→18:06)
[2016-08-02 08:41] LABS: ALK PHOS 164 U/L (45-117); ANION GAP 8 (8-16); BILIRUBIN,TOTAL 0.5 mg/dL (0.2-1.0); CALCIUM 7.8 mg/dL (8.5-10.1); CO2 32 mmol/L (21-32); CREATININE 1.2 mg/dL (0.7-1.3); GLUCOSE,RANDOM 82 mg/dL (74-106); SGOT/AST 10 U/L (15-37); SGPT/ALT < 6 U/L (12-78); TOT PROT 5.2 g/dl (6.4-8.2)
[2016-08-02] MEDS: TAMSULOSIN HCL 0.4 MG CAP.ER.24H (FP) PO SCH (08:55)
[2016-08-02] MEDS: FINASTERIDE 5 MG TABLET (FP) PO SCH (09:01)
[2016-08-02] MEDS: DABIGATRAN ETEXILATE MESYLATE 150 MG CAPSULE PO SCH ×2 (09:01→22:27)
[2016-08-02] MEDS: HYDROXYUREA 500 MG CAPSULE PO SCH ×2 (09:01→22:24)
[2016-08-02] MEDS: FUROSEMIDE 40 MG TABLET (FP) PO SCH (09:01)
[2016-08-02] MEDS: DIGOXIN 0.125 MG TABLET (FP) PO SCH (09:01)
[2016-08-02] MEDS: MAGNESIUM OXIDE 400 MG TABLET (FP) PO SCH ×2 (09:01→22:26)
[2016-08-02] MEDS: FLUoxetine HCL 10 MG CAPSULE (FP) PO SCH (09:01)
--- NOTE | 2016-08-02 09:56 | PN ---
Progress Note, Physician Chief Complaint: ID Asymptomatic Ceftazidime started - Current Medication List Current Medications: Active Medications Acetaminophen (Tylenol -) 650 mg PO Q6H PRN PRN Reason: FEVER OR PAIN Atorvastatin Calcium (Lipitor -) 10 mg PO HS COUNTS INCLUDE 234 BEDS AT THE [facility] Last Admin: 08/01/16 23:07 Dose: 10 mg Dabigatran (Pradaxa -) 150 mg PO BID COUNTS INCLUDE 234 BEDS AT THE [facility] Last Admin: 08/02/16 09:01 Dose: 150 mg Digoxin (Lanoxin -) 0.125 mg PO DAILY COUNTS INCLUDE 234 BEDS AT THE [facility] Last Admin: 08/02/16 09:01 Dose: 0.125 mg Finasteride (Proscar -) 5 mg PO DAILY COUNTS INCLUDE 234 BEDS AT THE [facility] Last Admin: 08/02/16 09:01 Dose: 5 mg Fluoxetine HCl (Prozac -) 10 mg PO DAILY COUNTS INCLUDE 234 BEDS AT THE [facility] Last Admin: 08/02/16 09:01 Dose: 10 mg Furosemide (Lasix -) 40 mg PO DAILY COUNTS INCLUDE 234 BEDS AT THE [facility] Last Admin: 08/02/16 09:01 Dose: 40 mg Gabapentin (Neurontin -) 100 mg PO TID COUNTS INCLUDE 234 BEDS AT THE [facility] Last Admin: 08/02/16 06:58 Dose: 100 mg Hydroxyurea (Hydrea -) 500 mg PO BID COUNTS INCLUDE 234 BEDS AT THE [facility] Last Admin: 08/02/16 09:01 Dose: 500 mg Ceftazidime 1 gm/ Dextrose 50 mls @ 100 mls/hr IVPB Q8H-IV [facility] PRN Reason: Protocol Last Admin: 08/02/16 09:00 Dose: 100 mls/hr Magnesium Oxide (Mag-Ox -) 400 mg PO BID COUNTS INCLUDE 234 BEDS AT THE [facility] Last Admin: 08/02/16 09:01 Dose: 400 mg Metformin HCl (Glucophage -) 500 mg PO BID@0700,1630 COUNTS INCLUDE 234 BEDS AT THE [facility] Last Admin: 08/02/16 06:59 Dose: 500 mg Tamsulosin HCl (Flomax -) 0.4 mg PO DAILY@0830 COUNTS INCLUDE 234 BEDS AT THE [facility] Last Admin: 08/02/16 08:55 Dose: 0.4 mg - Objective Vital Signs: Vital Signs Temperature 97.7 F 08/02/16 06:00 Pulse Rate 68 08/02/16 09:01 Respiratory Rate 20 08/02/16 06:00 Blood Pressure 136/72 08/02/16 06:00 O2 Sat by Pulse Oximetry (%) 93 L 08/01/16 21:00 Constitutional: Yes: Well Nourished, No Distress Eyes: Yes: WNL, Conjunctiva Clear HENT: Yes: WNL, Atraumatic Neck: Yes: WNL, Supple Cardiovascular: Yes: Regular Rate and Rhythm, S1 Respiratory: Yes: WNL, Regular, CTA Bilaterally, Tachypnea Gastrointestinal: No: Tenderness, Tenderness, Epigastrium Edema: No Labs: CBC, BMP 08/01/16 06:15 08/02/16 06:15 INR, PTT INR 1.41 (0.82-1.09) H 07/31/16 15:30 Problem List - Problems (1) Leukocytosis Code(s): D72.829 - ELEVATED WHITE BLOOD CELL COUNT, UNSPECIFIED (2) UTI (urinary tract infection) Code(s): N39.0 - URINARY TRACT INFECTION, SITE NOT SPECIFIED Qualifiers: Urinary tract infection type: acute cystitis Hematuria presence: with hematuria Qualified Code(s): N30.01 - Acute cystitis with hematuria Assessment/Plan Microbiology 10/28/15 18:28 Urine - Urine Clean Catch Urine Culture - Final Pseudomonas Aeruginosa 07/31/16 16:55 Blood - Peripheral Venous Blood Culture - Preliminary NO GROWTH OBTAINED AFTER 24 HOURS, INCUBATION TO CONTINUE FOR 4 DAYS. 07/31/16 16:55 Blood - Peripheral Venous Blood Culture - Preliminary NO GROWTH OBTAINED AFTER 24 HOURS, INCUBATION TO CONTINUE FOR 4 DAYS. Laboratory Tests 07/31/16 08/01/16 08/02/16 15:30 06:15 06:15 WBC 18.1 H D 16.8 H Hgb 9.9 L Hct 28.9 L Plt Count 750 H BUN 16 Assessment On therapy Ceftazidime day 1 for urinary infection. Elevated WBC but has myelodysplasia Appears asymptomatic Plan Continue antibiotic another 24hours then reassess Check repeat CBC
--- NOTE | 2016-08-02 11:11 | PN ---
Progress Note, Physician Chief Complaint: in bed watching tv no distress elevated wbc but trending down and no fever - Current Medication List Current Medications: Active Medications Acetaminophen (Tylenol -) 650 mg PO Q6H PRN PRN Reason: FEVER OR PAIN Atorvastatin Calcium (Lipitor -) 10 mg PO HS [facility] Last Admin: 08/01/16 23:07 Dose: 10 mg Dabigatran (Pradaxa -) 150 mg PO BID [facility] Last Admin: 08/02/16 09:01 Dose: 150 mg Digoxin (Lanoxin -) 0.125 mg PO DAILY [facility] Last Admin: 08/02/16 09:01 Dose: 0.125 mg Finasteride (Proscar -) 5 mg PO DAILY [facility] Last Admin: 08/02/16 09:01 Dose: 5 mg Fluoxetine HCl (Prozac -) 10 mg PO DAILY [facility] Last Admin: 08/02/16 09:01 Dose: 10 mg Furosemide (Lasix -) 40 mg PO DAILY [facility] Last Admin: 08/02/16 09:01 Dose: 40 mg Gabapentin (Neurontin -) 100 mg PO TID [facility] Last Admin: 08/02/16 06:58 Dose: 100 mg Hydroxyurea (Hydrea -) 500 mg PO BID [facility] Last Admin: 08/02/16 09:01 Dose: 500 mg Ceftazidime 1 gm/ Dextrose 50 mls @ 100 mls/hr IVPB Q8H-IV [facility] PRN Reason: Protocol Last Admin: 08/02/16 09:00 Dose: 100 mls/hr Magnesium Oxide (Mag-Ox -) 400 mg PO BID [facility] Last Admin: 08/02/16 09:01 Dose: 400 mg Metformin HCl (Glucophage -) 500 mg PO BID@0700,1630 [facility] Last Admin: 08/02/16 06:59 Dose: 500 mg Tamsulosin HCl (Flomax -) 0.4 mg PO DAILY@0830 [facility] Last Admin: 08/02/16 08:55 Dose: 0.4 mg - Objective Vital Signs: Vital Signs Temperature 97.7 F 08/02/16 06:00 Pulse Rate 68 08/02/16 09:01 Respiratory Rate 20 08/02/16 06:00 Blood Pressure 136/72 08/02/16 06:00 O2 Sat by Pulse Oximetry (%) 93 L 08/01/16 21:00 Constitutional: Yes: Calm Cardiovascular: Yes: Regular Rate and Rhythm, S1, S2 Respiratory: Yes: CTA Bilaterally Gastrointestinal: Yes: Normal Bowel Sounds, Soft Edema: No Labs: CBC, BMP 08/01/16 06:15 08/02/16 06:15 INR, PTT INR 1.41 (0.82-1.09) H 07/31/16 15:30 Problem List - Problems (1) UTI (urinary tract infection) Assessment/Plan: iv fortax for another 24 hrs will recheck cbc in am Code(s): N39.0 - URINARY TRACT INFECTION, SITE NOT SPECIFIED Qualifiers: Urinary tract infection type: acute cystitis Hematuria presence: with hematuria Qualified Code(s): N30.01 - Acute cystitis with hematuria (2) Afib Assessment/Plan: pradaxa cardizem Code(s): I48.91 - UNSPECIFIED ATRIAL FIBRILLATION (3) Congestive heart failure Assessment/Plan: digoxin lasix Code(s): I50.9 - HEART FAILURE, UNSPECIFIED Qualifiers: Congestive heart failure type: unspecified congestive heart failure type Congestive heart failure chronicity: unspecified congestive heart failure chronicity Qualified Code(s): I50.9 - Heart failure, unspecified (4) Myelodysplasia (myelodysplastic syndrome) Assessment/Plan: hydroxyurea Code(s): D46.9 - MYELODYSPLASTIC SYNDROME, UNSPECIFIED
--- NOTE | 2016-08-02 12:13 | PN ---
Progress Note, Physician Chief Complaint: Does not feel well, but could not specify History of Present Illness: Patient was seen and examined. Awake and alert. Chart was reviewed Denies chest pain or shortness of breath - Current Medication List Current Medications: Active Medications Acetaminophen (Tylenol -) 650 mg PO Q6H PRN PRN Reason: FEVER OR PAIN Atorvastatin Calcium (Lipitor -) 10 mg PO HS [facility] Last Admin: 08/01/16 23:07 Dose: 10 mg Dabigatran (Pradaxa -) 150 mg PO BID [facility] Last Admin: 08/02/16 09:01 Dose: 150 mg Digoxin (Lanoxin -) 0.125 mg PO DAILY [facility] Last Admin: 08/02/16 09:01 Dose: 0.125 mg Finasteride (Proscar -) 5 mg PO DAILY [facility] Last Admin: 08/02/16 09:01 Dose: 5 mg Fluoxetine HCl (Prozac -) 10 mg PO DAILY [facility] Last Admin: 08/02/16 09:01 Dose: 10 mg Furosemide (Lasix -) 40 mg PO DAILY [facility] Last Admin: 08/02/16 09:01 Dose: 40 mg Gabapentin (Neurontin -) 100 mg PO TID [facility] Last Admin: 08/02/16 06:58 Dose: 100 mg Hydroxyurea (Hydrea -) 500 mg PO BID [facility] Last Admin: 08/02/16 09:01 Dose: 500 mg Ceftazidime 1 gm/ Dextrose 50 mls @ 100 mls/hr IVPB Q8H-IV [facility] PRN Reason: Protocol Last Admin: 08/02/16 09:00 Dose: 100 mls/hr Magnesium Oxide (Mag-Ox -) 400 mg PO BID [facility] Last Admin: 08/02/16 09:01 Dose: 400 mg Metformin HCl (Glucophage -) 500 mg PO BID@0700,1630 [facility] Last Admin: 08/02/16 06:59 Dose: 500 mg Tamsulosin HCl (Flomax -) 0.4 mg PO DAILY@0830 [facility] Last Admin: 08/02/16 08:55 Dose: 0.4 mg - Objective Vital Signs: Vital Signs Temperature 97.8 F 08/02/16 09:00 Pulse Rate 68 08/02/16 09:01 Respiratory Rate 18 08/02/16 09:00 Blood Pressure 126/52 08/02/16 09:00 O2 Sat by Pulse Oximetry (%) 93 L 08/02/16 09:00 Neck: Yes: Supple Cardiovascular: Yes: Pulse Irregular, S1, S2 Respiratory: Yes: Diminished Gastrointestinal: Yes: Normal Bowel Sounds, Soft. No: Tenderness Edema: No Labs: CBC, BMP 08/01/16 06:15 08/02/16 06:15 Problem List - Problems (1) UTI (urinary tract infection) Code(s): N39.0 - URINARY TRACT INFECTION, SITE NOT SPECIFIED Qualifiers: Urinary tract infection type: acute cystitis Hematuria presence: with hematuria Qualified Code(s): N30.01 - Acute cystitis with hematuria (2) Afib Code(s): I48.91 - UNSPECIFIED ATRIAL FIBRILLATION (3) Anemia Code(s): D64.9 - ANEMIA, UNSPECIFIED Qualifiers: Anemia type: unspecified type Qualified Code(s): D64.9 - Anemia, unspecified (4) Cerebrovascular accident Code(s): I63.9 - CEREBRAL INFARCTION, UNSPECIFIED (5) Diabetes Code(s): E11.9 - TYPE 2 DIABETES MELLITUS WITHOUT COMPLICATIONS Qualifiers: Diabetes mellitus type: type 2 Diabetes mellitus complication status: without complication Diabetes mellitus [facility] insulin use: without [facility] use Qualified Code(s): E11.9 - Type 2 diabetes mellitus without complications (6) Diastolic dysfunction Code(s): I51.9 - HEART DISEASE, UNSPECIFIED (7) HTN (hypertension) Code(s): I10 - ESSENTIAL (PRIMARY) HYPERTENSION Qualifiers: Hypertension type: essential hypertension Qualified Code(s): I10 - Essential (primary) hypertension (8) Hyperlipidemia Code(s): E78.5 - HYPERLIPIDEMIA, UNSPECIFIED Qualifiers: Hyperlipidemia type: pure hypercholesterolemia Qualified Code(s): E78.0 - Pure hypercholesterolemia (9) Myelodysplasia (myelodysplastic syndrome) Code(s): D46.9 - MYELODYSPLASTIC SYNDROME, UNSPECIFIED (10) Thrombocytopenia Code(s): D69.6 - THROMBOCYTOPENIA, UNSPECIFIED (11) CAD (coronary artery disease) Code(s): I25.10 - ATHSCL HEART DISEASE OF [place] CORONARY ARTERY W/O ANG PCTRS Qualifiers: Coronary Disease-Associated Artery/Lesion type: [place] artery [place] vs. transplanted heart: [place] heart Associated angina: without angina Qualified Code(s): I25.10 - Atherosclerotic heart disease of [place] coronary artery without angina pectoris Assessment/Plan 1. UTI 2. LV diastolic dysfunction with chronic class I NYHA classification LV failure , currently euvolumic 3. Permanent AF [id number] score of 8 on A/C with NOAC 4. CAD angina pectoris, stable 5. HTN 6. NIDDM 7. Hypercholesterolemia 8. History of fronto-temporal stroke with residual deficit 9. Mylelodysplastic syndrome, Anemia and thrombocytosis PLAN: 1. Antibiotics as per ID 2. To decide whether to give Cardizem 3. Recommend ACEI or ARB unless it is absolutely contraindicated 4. Continue Lipitor 5. Continue Pradaxa with caution and with close monitoring of CBC 6. Continue Digoxin with close monitoring of level Further plans are to follow Tc Bass MD
[2016-08-02 16:18] LABS: BASOPHIL 0.6 % (0-2.0); EOSINOPHIL 0.9 % (0-4.5); MCH 38.2 pg (25.7-33.7); MCHC 33.5 g/dl (32.0-35.9); MEAN CELL VOLUME 114.1 fl (80-96); MEAN PLT VOLUME 7.5 fl (7.5-11.1); NEUTROPHILS 77.3 % (42.8-82.8); PLATELET COUNT 817 K/MM3 (134-434); RDW 15.6 % (11.9-15.9); WHITE BLOOD COUNT 15.4 K/mm3 (4.0-10.0)
--- NOTE | 2016-08-02 16:18 | EKG ---
Test Reason : Blood Pressure : / mmHG Vent. Rate : 063 BPM Atrial Rate : 073 BPM P-R Int : 000 ms QRS Dur : 082 ms QT Int : 348 ms P-R-T Axes : 000 088 226 degrees QTc Int : 356 ms ATRIAL FIBRILLATION WITH PREMATURE VENTRICULAR COMPLEX LOW VOLTAGE QRS CANNOT RULE OUT SEPTAL INFARCT (CITED ON OR BEFORE 20-JUL-2007) ABNORMAL ECG WHEN COMPARED WITH ECG OF 28-OCT-2015 18:52, VENTRICULAR ECTOPIES ARE SEEN Confirmed by SUSIE CANNON MD ([id number]) on 08/02/2016 4:17:40 PM Referred By: Confirmed By:SUSIE CANNON MD
[2016-08-02] MEDS: ATORVASTATIN CA 10 MG TABLET (FP) PO SCH (22:24)
[2016-08-03] MEDS ORDERED: PT OWN MED DRAWER 7, Y5N ONE ×6 (00:59→21:29)
[2016-08-03] MEDS: CEFTAZIDIME PENTAHYDRATE 1 GM in DEXTROSE 5%-WATER - 50 ML IVPB SCH ×3 (01:08→17:29)
[2016-08-03] MEDS: GABAPENTIN 100 MG CAPSULE (FP) PO SCH ×3 (06:26→22:47)
[2016-08-03] MEDS: metFORMIN HCL 500 MG TABLET (FP) PO SCH (06:26)
[2016-08-03 07:36] LABS: BASOPHIL 0.8 % (0-2.0); MCH 37.6 pg (25.7-33.7); MCHC 33.2 g/dl (32.0-35.9); MEAN CELL VOLUME 113.3 fl (80-96); MEAN PLT VOLUME 7.3 fl (7.5-11.1); NEUTROPHILS 80.3 % (42.8-82.8); PLATELET COUNT 727 K/MM3 (134-434); RDW 15.2 % (11.9-15.9); WHITE BLOOD COUNT 15.4 K/mm3 (4.0-10.0)
[2016-08-03] MEDS: HYDROXYUREA 500 MG CAPSULE PO SCH ×2 (10:00→22:47)
[2016-08-03] MEDS: DIGOXIN 0.125 MG TABLET (FP) PO SCH (10:00)
[2016-08-03] MEDS: TAMSULOSIN HCL 0.4 MG CAP.ER.24H (FP) PO SCH (10:00)
[2016-08-03] MEDS: FUROSEMIDE 40 MG TABLET (FP) PO SCH (10:01)
[2016-08-03] MEDS: DABIGATRAN ETEXILATE MESYLATE 150 MG CAPSULE PO SCH ×2 (10:01→22:47)
[2016-08-03] MEDS: MAGNESIUM OXIDE 400 MG TABLET (FP) PO SCH ×2 (10:01→22:47)
[2016-08-03] MEDS: FINASTERIDE 5 MG TABLET (FP) PO SCH (10:01)
[2016-08-03] MEDS: FLUoxetine HCL 10 MG CAPSULE (FP) PO SCH (10:01)
--- NOTE | 2016-08-03 10:11 | PN ---
Progress Note, Physician Chief Complaint: wbc trending down day 4 of iv abx - Current Medication List Current Medications: Active Medications Acetaminophen (Tylenol -) 650 mg PO Q6H PRN PRN Reason: FEVER OR PAIN Atorvastatin Calcium (Lipitor -) 10 mg PO HS [facility] Last Admin: 08/02/16 22:24 Dose: 10 mg Dabigatran (Pradaxa -) 150 mg PO BID [facility] Last Admin: 08/03/16 10:01 Dose: 150 mg Digoxin (Lanoxin -) 0.125 mg PO DAILY [facility] Last Admin: 08/03/16 10:00 Dose: 0.125 mg Finasteride (Proscar -) 5 mg PO DAILY [facility] Last Admin: 08/03/16 10:01 Dose: 5 mg Fluoxetine HCl (Prozac -) 10 mg PO DAILY [facility] Last Admin: 08/03/16 10:01 Dose: 10 mg Furosemide (Lasix -) 40 mg PO DAILY [facility] Last Admin: 08/03/16 10:01 Dose: 40 mg Gabapentin (Neurontin -) 100 mg PO TID [facility] Last Admin: 08/03/16 06:26 Dose: 100 mg Hydroxyurea (Hydrea -) 500 mg PO BID [facility] Last Admin: 08/03/16 10:00 Dose: 500 mg Ceftazidime 1 gm/ Dextrose 50 mls @ 100 mls/hr IVPB Q8H-IV [facility] PRN Reason: Protocol Last Admin: 08/03/16 10:01 Dose: 100 mls/hr Magnesium Oxide (Mag-Ox -) 400 mg PO BID [facility] Last Admin: 08/03/16 10:01 Dose: 400 mg Metformin HCl (Glucophage -) 500 mg PO ACBK [facility] Last Admin: 08/03/16 06:26 Dose: 500 mg Tamsulosin HCl (Flomax -) 0.4 mg PO DAILY@0830 [facility] Last Admin: 08/03/16 10:00 Dose: 0.4 mg - Objective Vital Signs: Vital Signs Temperature 98.3 F 08/03/16 06:00 Pulse Rate 91 H 08/03/16 10:00 Respiratory Rate 20 08/03/16 06:00 Blood Pressure 131/66 08/03/16 06:00 O2 Sat by Pulse Oximetry (%) 93 L 08/02/16 21:00 Constitutional: Yes: Calm, Thin, Other ([place]) Cardiovascular: Yes: Pulse Irregular, S1, S2 Respiratory: Yes: CTA Bilaterally Gastrointestinal: Yes: Soft Edema: No Neurological: Yes: Alert, Oriented (to name) Labs: CBC, BMP 08/03/16 05:35 08/02/16 06:15 INR, PTT INR 1.41 (0.82-1.09) H 07/31/16 15:30 Problem List - Problems (1) UTI (urinary tract infection) Assessment/Plan: cbc trending down will have ID asses to see if more iv abx needed Code(s): N39.0 - URINARY TRACT INFECTION, SITE NOT SPECIFIED Qualifiers: Urinary tract infection type: acute cystitis Hematuria presence: with hematuria Qualified Code(s): N30.01 - Acute cystitis with hematuria (2) Afib Assessment/Plan: pradaxa cardizem Code(s): I48.91 - UNSPECIFIED ATRIAL FIBRILLATION (3) Congestive heart failure Assessment/Plan: digoxin lasix Code(s): I50.9 - HEART FAILURE, UNSPECIFIED Qualifiers: Congestive heart failure type: unspecified congestive heart failure type Congestive heart failure chronicity: unspecified congestive heart failure chronicity Qualified Code(s): I50.9 - Heart failure, unspecified (4) Myelodysplasia (myelodysplastic syndrome) Assessment/Plan: hydroxyurea Code(s): D46.9 - MYELODYSPLASTIC SYNDROME, UNSPECIFIED
--- NOTE | 2016-08-03 11:08 | CONSULT ---
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
--- NOTE | 2016-08-03 11:44 | PN ---
Progress Note (short form) - Note Progress Note: Renal Follow up for CHEMA Pt seen and examined at the bedside no acute complaints no sob or chest pain no fever or chills Vital Signs Temperature 97.6 F 08/03/16 10:00 Pulse Rate 91 H 08/03/16 10:00 Respiratory Rate 18 08/03/16 10:00 Blood Pressure 136/75 08/03/16 10:00 O2 Sat by Pulse Oximetry (%) 96 08/03/16 09:00 Intake & Output 07/31/16 08/01/16 08/02/16 08/03/16 23:59 23:59 23:59 23:59 Intake Total 380 789 8356 170 Output Total 1 1 Balance 632 306 5310 169 Weight 135 lb 157 lb 0.2 oz 156 lb 0.2 oz 153 lb 8 oz Gen: NAD HEENT: NC/AT CVS: RRR, No M/R Lungs: CTA Abd: soft NT/ND, No bladder distension Ext: No edema, clubbing or cyanosis CBC, BMP 08/03/16 05:35 08/02/16 06:15 Current Medications Acetaminophen (Tylenol -) 650 mg PO Q6H PRN PRN Reason: FEVER OR PAIN Atorvastatin Calcium (Lipitor -) 10 mg PO HS [facility] Last Admin: 08/02/16 22:24 Dose: 10 mg Dabigatran (Pradaxa -) 150 mg PO BID [facility] Last Admin: 08/03/16 10:01 Dose: 150 mg Digoxin (Lanoxin -) 0.125 mg PO DAILY [facility] Last Admin: 08/03/16 10:00 Dose: 0.125 mg Finasteride (Proscar -) 5 mg PO DAILY [facility] Last Admin: 08/03/16 10:01 Dose: 5 mg Fluoxetine HCl (Prozac -) 10 mg PO DAILY [facility] Last Admin: 08/03/16 10:01 Dose: 10 mg Furosemide (Lasix -) 40 mg PO DAILY [facility] Last Admin: 08/03/16 10:01 Dose: 40 mg Gabapentin (Neurontin -) 100 mg PO TID [facility] Last Admin: 08/03/16 06:26 Dose: 100 mg Hydroxyurea (Hydrea -) 500 mg PO BID [facility] Last Admin: 08/03/16 10:00 Dose: 500 mg Ceftazidime 1 gm/ Dextrose 50 mls @ 100 mls/hr IVPB Q8H-IV [facility] PRN Reason: Protocol Last Admin: 08/03/16 10:01 Dose: 100 mls/hr Magnesium Oxide (Mag-Ox -) 400 mg PO BID [facility] Last Admin: 08/03/16 10:01 Dose: 400 mg Metformin HCl (Glucophage -) 500 mg PO ACBK [facility] Last Admin: 08/03/16 06:26 Dose: 500 mg Tamsulosin HCl (Flomax -) 0.4 mg PO DAILY@0830 [facility] Last Admin: 08/03/16 10:00 Dose: 0.4 mg A/p 81 y/o Gentleman with PMhx of AFib, CVA, Hypertension, DM who presented with UTI and CHEMA with normal baseline renal function. #CHEMA secondary to hemodynamic changes from UTI Renal function now improve to baseline good urine output continue to trend BUN/Cr ok to start MISSAEL/ARB as per Cardiology will need to monitor renal function following (inpatient vs. outpatient) #UTI Continue IV Ceftazidime Gabe Mendes DO
--- NOTE | 2016-08-03 13:33 | PN ---
Progress Note, Physician Chief Complaint: Not in distress History of Present Illness: Patient was seen and examined. Awake and alert. Chart was reviewed Denies chest pain or shortness of breath Denies palpitations and denies abdominal pain - Current Medication List Current Medications: Active Medications Acetaminophen (Tylenol -) 650 mg PO Q6H PRN PRN Reason: FEVER OR PAIN Atorvastatin Calcium (Lipitor -) 10 mg PO HS [facility] Last Admin: 08/02/16 22:24 Dose: 10 mg Dabigatran (Pradaxa -) 150 mg PO BID [facility] Last Admin: 08/03/16 10:01 Dose: 150 mg Digoxin (Lanoxin -) 0.125 mg PO DAILY [facility] Last Admin: 08/03/16 10:00 Dose: 0.125 mg Finasteride (Proscar -) 5 mg PO DAILY [facility] Last Admin: 08/03/16 10:01 Dose: 5 mg Fluoxetine HCl (Prozac -) 10 mg PO DAILY [facility] Last Admin: 08/03/16 10:01 Dose: 10 mg Furosemide (Lasix -) 40 mg PO DAILY [facility] Last Admin: 08/03/16 10:01 Dose: 40 mg Gabapentin (Neurontin -) 100 mg PO TID [facility] Last Admin: 08/03/16 06:26 Dose: 100 mg Hydroxyurea (Hydrea -) 500 mg PO BID [facility] Last Admin: 08/03/16 10:00 Dose: 500 mg Ceftazidime 1 gm/ Dextrose 50 mls @ 100 mls/hr IVPB Q8H-IV [facility] PRN Reason: Protocol Last Admin: 08/03/16 10:01 Dose: 100 mls/hr Magnesium Oxide (Mag-Ox -) 400 mg PO BID [facility] Last Admin: 08/03/16 10:01 Dose: 400 mg Metformin HCl (Glucophage -) 500 mg PO ACBK [facility] Last Admin: 08/03/16 06:26 Dose: 500 mg Tamsulosin HCl (Flomax -) 0.4 mg PO DAILY@0830 [facility] Last Admin: 08/03/16 10:00 Dose: 0.4 mg - Objective Vital Signs: Vital Signs Temperature 97.6 F 08/03/16 10:00 Pulse Rate 91 H 08/03/16 10:00 Respiratory Rate 18 08/03/16 10:00 Blood Pressure 136/75 08/03/16 10:00 O2 Sat by Pulse Oximetry (%) 96 08/03/16 09:00 Neck: Yes: Supple Cardiovascular: Yes: Pulse Irregular, S1, S2 Respiratory: Yes: Diminished Gastrointestinal: Yes: Normal Bowel Sounds, Soft. No: Tenderness Edema: No Labs: CBC, BMP 08/03/16 05:35 08/02/16 06:15 Problem List - Problems (1) UTI (urinary tract infection) Code(s): N39.0 - URINARY TRACT INFECTION, SITE NOT SPECIFIED Qualifiers: Urinary tract infection type: acute cystitis Hematuria presence: with hematuria Qualified Code(s): N30.01 - Acute cystitis with hematuria (2) Afib Code(s): I48.91 - UNSPECIFIED ATRIAL FIBRILLATION Qualifiers: Atrial fibrillation type: persistent Qualified Code(s): I48.1 - Persistent atrial fibrillation (3) Anemia Code(s): D64.9 - ANEMIA, UNSPECIFIED Qualifiers: Anemia type: unspecified type Qualified Code(s): D64.9 - Anemia, unspecified (4) Cerebrovascular accident Code(s): I63.9 - CEREBRAL INFARCTION, UNSPECIFIED (5) Diabetes Code(s): E11.9 - TYPE 2 DIABETES MELLITUS WITHOUT COMPLICATIONS Qualifiers: Diabetes mellitus type: type 2 Diabetes mellitus complication status: without complication Diabetes mellitus adjunct [employer] for [employer] terminology insulin use: without usp use Qualified Code(s): E11.9 - Type 2 diabetes mellitus without complications (6) Diastolic dysfunction Code(s): I51.9 - HEART DISEASE, UNSPECIFIED (7) HTN (hypertension) Code(s): I10 - ESSENTIAL (PRIMARY) HYPERTENSION Qualifiers: Hypertension type: essential hypertension Qualified Code(s): I10 - Essential (primary) hypertension (8) Hyperlipidemia Code(s): E78.5 - HYPERLIPIDEMIA, UNSPECIFIED Qualifiers: Hyperlipidemia type: pure hypercholesterolemia Qualified Code(s): E78.0 - Pure hypercholesterolemia (9) Myelodysplasia (myelodysplastic syndrome) Code(s): D46.9 - MYELODYSPLASTIC SYNDROME, UNSPECIFIED (10) Thrombocytopenia Code(s): D69.6 - THROMBOCYTOPENIA, UNSPECIFIED (11) CAD (coronary artery disease) Code(s): I25.10 - ATHSCL HEART DISEASE OF [place] CORONARY ARTERY W/O ANG PCTRS Qualifiers: Coronary Disease-Associated Artery/Lesion type: [place] artery [place] vs. transplanted heart: [place] heart Associated angina: without angina Qualified Code(s): I25.10 - Atherosclerotic heart disease of [place] coronary artery without angina pectoris Assessment/Plan 1. UTI 2. LV diastolic dysfunction with chronic class I NYHA classification LV failure , currently euvolumic 3. Permanent AF [id number] score of 8 on A/C with NOAC 4. CAD angina pectoris, stable 5. HTN 6. NIDDM 7. Hypercholesterolemia 8. History of fronto-temporal stroke with residual deficit 9. Mylelodysplastic syndrome, Anemia and thrombocytosis PLAN: 1. Antibiotics as per ID 2. Consider Cardizem CD 120 mg QD as tolerated 3. Add Ramipril 2.5 mg once a day 4. Continue Lipitor 5. Continue Pradaxa with caution and with close monitoring of CBC 6. Continue Digoxin with close monitoring of level Further plans are to follow Tc Bass MD
--- NOTE | 2016-08-03 18:19 | PN ---
Progress Note, Physician - Current Medication List Current Medications: Active Medications Acetaminophen (Tylenol -) 650 mg PO Q6H PRN PRN Reason: FEVER OR PAIN Atorvastatin Calcium (Lipitor -) 10 mg PO HS [facility] Last Admin: 08/02/16 22:24 Dose: 10 mg Dabigatran (Pradaxa -) 150 mg PO BID [facility] Last Admin: 08/03/16 10:01 Dose: 150 mg Digoxin (Lanoxin -) 0.125 mg PO DAILY [facility] Last Admin: 08/03/16 10:00 Dose: 0.125 mg Diltiazem HCl (Cardizem Cd -) 120 mg PO DAILY [facility] Last Admin: 08/03/16 14:26 Dose: 120 mg Finasteride (Proscar -) 5 mg PO DAILY [facility] Last Admin: 08/03/16 10:01 Dose: 5 mg Fluoxetine HCl (Prozac -) 10 mg PO DAILY [facility] Last Admin: 08/03/16 10:01 Dose: 10 mg Furosemide (Lasix -) 40 mg PO DAILY [facility] Last Admin: 08/03/16 10:01 Dose: 40 mg Gabapentin (Neurontin -) 100 mg PO TID [facility] Last Admin: 08/03/16 14:26 Dose: 100 mg Hydroxyurea (Hydrea -) 500 mg PO BID [facility] Last Admin: 08/03/16 10:00 Dose: 500 mg Ceftazidime 1 gm/ Dextrose 50 mls @ 100 mls/hr IVPB Q8H-IV [facility] PRN Reason: Protocol Last Admin: 08/03/16 17:29 Dose: 100 mls/hr Magnesium Oxide (Mag-Ox -) 400 mg PO BID [facility] Last Admin: 08/03/16 10:01 Dose: 400 mg Metformin HCl (Glucophage -) 500 mg PO ACBK [facility] Last Admin: 08/03/16 06:26 Dose: 500 mg Ramipril (Altace -) 2.5 mg PO DAILY [facility] Tamsulosin HCl (Flomax -) 0.4 mg PO DAILY@0830 [facility] Last Admin: 08/03/16 10:00 Dose: 0.4 mg - Objective Vital Signs: Vital Signs Temperature 98.4 F 08/03/16 14:25 Pulse Rate 76 08/03/16 14:25 Respiratory Rate 18 08/03/16 14:25 Blood Pressure 131/75 08/03/16 14:25 O2 Sat by Pulse Oximetry (%) 96 02/14/17 09:00 Labs: CBC, BMP 08/03/16 05:35 08/02/16 06:15 INR, PTT INR 1.41 (0.82-1.09) H 07/31/16 15:30
--- NOTE | 2016-08-03 21:16 | PN ---
Progress Note, Physician History of Present Illness: Awake, responsive No complaints offered No urinary tract complaints Afebrile - Current Medication List Current Medications: Active Medications Acetaminophen (Tylenol -) 650 mg PO Q6H PRN PRN Reason: FEVER OR PAIN Atorvastatin Calcium (Lipitor -) 10 mg PO HS [facility] Last Admin: 08/02/16 22:24 Dose: 10 mg Dabigatran (Pradaxa -) 150 mg PO BID [facility] Last Admin: 08/03/16 10:01 Dose: 150 mg Digoxin (Lanoxin -) 0.125 mg PO DAILY [facility] Last Admin: 08/03/16 10:00 Dose: 0.125 mg Diltiazem HCl (Cardizem Cd -) 120 mg PO DAILY [facility] Last Admin: 08/03/16 14:26 Dose: 120 mg Finasteride (Proscar -) 5 mg PO DAILY [facility] Last Admin: 08/03/16 10:01 Dose: 5 mg Fluoxetine HCl (Prozac -) 10 mg PO DAILY [facility] Last Admin: 08/03/16 10:01 Dose: 10 mg Furosemide (Lasix -) 40 mg PO DAILY [facility] Last Admin: 08/03/16 10:01 Dose: 40 mg Gabapentin (Neurontin -) 100 mg PO TID [facility] Last Admin: 08/03/16 14:26 Dose: 100 mg Hydroxyurea (Hydrea -) 500 mg PO BID [facility] Last Admin: 08/03/16 10:00 Dose: 500 mg Ceftazidime 1 gm/ Dextrose 50 mls @ 100 mls/hr IVPB Q8H-IV [facility] PRN Reason: Protocol Last Admin: 08/03/16 17:29 Dose: 100 mls/hr Magnesium Oxide (Mag-Ox -) 400 mg PO BID [facility] Last Admin: 08/03/16 10:01 Dose: 400 mg Metformin HCl (Glucophage -) 500 mg PO ACBK [facility] Last Admin: 08/03/16 06:26 Dose: 500 mg Ramipril (Altace -) 2.5 mg PO DAILY [facility] Tamsulosin HCl (Flomax -) 0.4 mg PO DAILY@0830 [facility] Last Admin: 08/03/16 10:00 Dose: 0.4 mg - Objective Vital Signs: Vital Signs Temperature 98.4 F 08/03/16 18:43 Pulse Rate 76 08/03/16 18:43 Respiratory Rate 18 08/03/16 18:43 Blood Pressure 136/76 08/03/16 18:43 O2 Sat by Pulse Oximetry (%) 96 08/03/16 09:00 Constitutional: Yes: No Distress Eyes: Yes: Conjunctiva Clear Cardiovascular: Yes: Regular Rate and Rhythm, S1, S2 Respiratory: Yes: CTA Bilaterally Gastrointestinal: Yes: Normal Bowel Sounds, Soft Edema: No Labs: CBC, BMP 08/03/16 05:35 08/02/16 06:15 INR, PTT INR 1.41 (0.82-1.09) H 07/31/16 15:30 Assessment/Plan Pseudomonas UTI Leukocytosis/ MDS Continue ceftazidime
[2016-08-03] MEDS: ATORVASTATIN CA 10 MG TABLET (FP) PO SCH (22:47)
[2016-08-04] MEDS ORDERED: PT OWN MED DRAWER 7, Y5N ONE ×4 (02:06→20:29)
[2016-08-04] MEDS: CEFTAZIDIME PENTAHYDRATE 1 GM in DEXTROSE 5%-WATER - 50 ML IVPB SCH ×3 (02:37→17:47)
[2016-08-04] MEDS: GABAPENTIN 100 MG CAPSULE (FP) PO SCH ×3 (06:31→22:33)
[2016-08-04] MEDS: metFORMIN HCL 500 MG TABLET (FP) PO SCH (06:31)
--- NOTE | 2016-08-04 08:32 | PN ---
Progress Note, Physician - Current Medication List Current Medications: Active Medications Acetaminophen (Tylenol -) 650 mg PO Q6H PRN PRN Reason: FEVER OR PAIN Atorvastatin Calcium (Lipitor -) 10 mg PO HS [facility] Last Admin: 08/03/16 22:47 Dose: 10 mg Dabigatran (Pradaxa -) 150 mg PO BID [facility] Last Admin: 08/03/16 22:47 Dose: 150 mg Digoxin (Lanoxin -) 0.125 mg PO DAILY [facility] Last Admin: 08/03/16 10:00 Dose: 0.125 mg Diltiazem HCl (Cardizem Cd -) 120 mg PO DAILY [facility] Last Admin: 08/03/16 14:26 Dose: 120 mg Finasteride (Proscar -) 5 mg PO DAILY [facility] Last Admin: 08/03/16 10:01 Dose: 5 mg Fluoxetine HCl (Prozac -) 10 mg PO DAILY [facility] Last Admin: 08/03/16 10:01 Dose: 10 mg Furosemide (Lasix -) 40 mg PO DAILY [facility] Last Admin: 08/03/16 10:01 Dose: 40 mg Gabapentin (Neurontin -) 100 mg PO TID [facility] Last Admin: 08/04/16 06:31 Dose: 100 mg Hydroxyurea (Hydrea -) 500 mg PO BID [facility] Last Admin: 08/03/16 22:47 Dose: 500 mg Ceftazidime 1 gm/ Dextrose 50 mls @ 100 mls/hr IVPB Q8H-IV [facility] PRN Reason: Protocol Last Admin: 08/04/16 02:37 Dose: 100 mls/hr Magnesium Oxide (Mag-Ox -) 400 mg PO BID [facility] Last Admin: 08/03/16 22:47 Dose: 400 mg Metformin HCl (Glucophage -) 500 mg PO ACBK [facility] Last Admin: 08/04/16 06:31 Dose: 500 mg Ramipril (Altace -) 2.5 mg PO DAILY [facility] Tamsulosin HCl (Flomax -) 0.4 mg PO DAILY@0830 [facility] Last Admin: 08/03/16 10:00 Dose: 0.4 mg - Objective Vital Signs: Vital Signs Temperature 97.3 F L 08/04/16 06:00 Pulse Rate 66 08/04/16 06:00 Respiratory Rate 18 08/04/16 06:00 Blood Pressure 138/61 08/04/16 06:00 O2 Sat by Pulse Oximetry (%) 96 08/03/16 09:00 Cardiovascular: Yes: S1, S2 Respiratory: Yes: Regular, CTA Bilaterally Gastrointestinal: Yes: Normal Bowel Sounds, Soft Neurological: Yes: Pre-Existing Deficit Labs: CBC, BMP 08/03/16 05:35 08/02/16 06:15 INR, PTT INR 1.41 (0.82-1.09) H 07/31/16 15:30 Assessment/Plan - Problems (1) UTI (urinary tract infection) Assessment/Plan: cbc trending down will have ID asses to see if more iv abx needed Code(s): N39.0 - URINARY TRACT INFECTION, SITE NOT SPECIFIED Qualifiers: Urinary tract infection type: acute cystitis Hematuria presence: with hematuria Qualified Code(s): N30.01 - Acute cystitis with hematuria (2) Afib Assessment/Plan: pradaxa cardizem Code(s): I48.91 - UNSPECIFIED ATRIAL FIBRILLATION (3) Congestive heart failure Assessment/Plan: digoxin lasix Code(s): I50.9 - HEART FAILURE, UNSPECIFIED Qualifiers: Congestive heart failure type: unspecified congestive heart failure type Congestive heart failure chronicity: unspecified congestive heart failure chronicity Qualified Code(s): I50.9 - Heart failure, unspecified (4) Myelodysplasia (myelodysplastic syndrome) Assessment/Plan: hydroxyurea Code(s): D46.9 - MYELODYSPLASTIC SYNDROME, UNSPECIFIED
[2016-08-04] MEDS ORDERED: POTASSIUM CHLORIDE TABS 20 MEQ TABLET.ER (FP) PO ONE (09:00)
[2016-08-04] MEDS: FUROSEMIDE 40 MG TABLET (FP) PO SCH (09:29)
[2016-08-04] MEDS: MAGNESIUM OXIDE 400 MG TABLET (FP) PO SCH ×2 (09:29→22:32)
[2016-08-04] MEDS: FINASTERIDE 5 MG TABLET (FP) PO SCH (09:29)
[2016-08-04] MEDS: HYDROXYUREA 500 MG CAPSULE PO SCH ×2 (09:30→22:32)
[2016-08-04] MEDS: DIGOXIN 0.125 MG TABLET (FP) PO SCH (09:30)
[2016-08-04] MEDS: RAMIPRIL 2.5 MG CAPSULE (FP) PO SCH (09:30)
[2016-08-04] MEDS: TAMSULOSIN HCL 0.4 MG CAP.ER.24H (FP) PO SCH (09:30)
[2016-08-04] MEDS: DABIGATRAN ETEXILATE MESYLATE 150 MG CAPSULE PO SCH ×2 (09:31→22:32)
[2016-08-04] MEDS: FLUoxetine HCL 10 MG CAPSULE (FP) PO SCH (09:31)
[2016-08-04] MEDS: ACETAMINOPHEN 325 MG TABLET (FP) PO PRN (09:33)
--- NOTE | 2016-08-04 11:56 | PN ---
Progress Note, Physician History of Present Illness: Afebrile, no complaints. - Current Medication List Current Medications: Active Medications Acetaminophen (Tylenol -) 650 mg PO Q6H PRN PRN Reason: FEVER OR PAIN Last Admin: 08/04/16 09:33 Dose: 650 mg Atorvastatin Calcium (Lipitor -) 10 mg PO HS [facility] Last Admin: 08/03/16 22:47 Dose: 10 mg Dabigatran (Pradaxa -) 150 mg PO BID [facility] Last Admin: 08/04/16 09:31 Dose: 150 mg Digoxin (Lanoxin -) 0.125 mg PO DAILY [facility] Last Admin: 08/04/16 09:30 Dose: 0.125 mg Diltiazem HCl (Cardizem Cd -) 120 mg PO DAILY [facility] Last Admin: 08/04/16 09:30 Dose: 120 mg Finasteride (Proscar -) 5 mg PO DAILY [facility] Last Admin: 08/04/16 09:29 Dose: 5 mg Fluoxetine HCl (Prozac -) 10 mg PO DAILY [facility] Last Admin: 08/04/16 09:31 Dose: 10 mg Furosemide (Lasix -) 40 mg PO DAILY [facility] Last Admin: 08/04/16 09:29 Dose: 40 mg Gabapentin (Neurontin -) 100 mg PO TID [facility] Last Admin: 08/04/16 06:31 Dose: 100 mg Hydroxyurea (Hydrea -) 500 mg PO BID [facility] Last Admin: 08/04/16 09:30 Dose: 500 mg Ceftazidime 1 gm/ Dextrose 50 mls @ 100 mls/hr IVPB Q8H-IV [facility] PRN Reason: Protocol Last Admin: 08/04/16 09:30 Dose: 100 mls/hr Magnesium Oxide (Mag-Ox -) 400 mg PO BID [facility] Last Admin: 08/04/16 09:29 Dose: 400 mg Metformin HCl (Glucophage -) 500 mg PO ACBK [facility] Last Admin: 08/04/16 06:31 Dose: 500 mg Ramipril (Altace -) 2.5 mg PO DAILY [facility] Last Admin: 08/04/16 09:30 Dose: 2.5 mg Tamsulosin HCl (Flomax -) 0.4 mg PO DAILY@0830 [facility] Last Admin: 08/04/16 09:30 Dose: 0.4 mg - Objective Vital Signs: Vital Signs Temperature 98.5 F 08/04/16 09:06 Pulse Rate 73 08/04/16 09:30 Respiratory Rate 20 08/04/16 09:06 Blood Pressure 110/62 08/04/16 09:06 O2 Sat by Pulse Oximetry (%) 96 08/03/16 09:00 Constitutional: Yes: No Distress, Calm Neck: Yes: Supple Cardiovascular: Yes: Pulse Irregular Respiratory: Yes: Regular, Diminished Gastrointestinal: Yes: Normal Bowel Sounds, Soft Edema: No Labs: CBC, BMP 08/03/16 05:35 08/02/16 06:15 INR, PTT INR 1.41 (0.82-1.09) H 07/31/16 15:30 Problem List - Problems (1) CAD (coronary artery disease) Code(s): I25.10 - ATHSCL HEART DISEASE OF [place] CORONARY ARTERY W/O ANG PCTRS Qualifiers: Coronary Disease-Associated Artery/Lesion type: [place] artery [place] vs. transplanted heart: [place] heart Associated angina: without angina Qualified Code(s): I25.10 - Atherosclerotic heart disease of [place] coronary artery without angina pectoris (2) Afib Code(s): I48.91 - UNSPECIFIED ATRIAL FIBRILLATION Qualifiers: Atrial fibrillation type: persistent Qualified Code(s): I48.1 - Persistent atrial fibrillation (3) Cerebral infarction Code(s): I63.9 - CEREBRAL INFARCTION, UNSPECIFIED (4) Myelodysplasia (myelodysplastic syndrome) Code(s): D46.9 - MYELODYSPLASTIC SYNDROME, UNSPECIFIED (5) Positive urine culture Code(s): R82.7 - ABNORMAL FINDINGS ON MICROBIOLOGICAL EXAMINAT * DO NOT USE * (6) Diabetes Code(s): E11.9 - TYPE 2 DIABETES MELLITUS WITHOUT COMPLICATIONS Qualifiers: Diabetes mellitus type: type 2 Diabetes mellitus complication status: without complication Diabetes mellitus rodent exterminator insulin use: without correction use Qualified Code(s): E11.9 - Type 2 diabetes mellitus without complications (7) Diastolic dysfunction Code(s): I51.9 - HEART DISEASE, UNSPECIFIED (8) HTN (hypertension) Code(s): I10 - ESSENTIAL (PRIMARY) HYPERTENSION Qualifiers: Hypertension type: essential hypertension Qualified Code(s): I10 - Essential (primary) hypertension (9) Hyperlipidemia Code(s): E78.5 - HYPERLIPIDEMIA, UNSPECIFIED Qualifiers: Hyperlipidemia type: pure hypercholesterolemia Qualified Code(s): E78.0 - Pure hypercholesterolemia Assessment/Plan 1. Pseudomonas UTI 2. LV diastolic dysfunction with chronic class I NYHA classification LV failure , currently euvolumic 3. Permanent AF [id number] score of 8 on A/C with NOAC 4. CAD angina pectoris, stable 5. HTN 6. NIDDM 7. Hypercholesterolemia 8. History of fronto-temporal stroke with residual deficit 9. Mylelodysplastic syndrome, leukocytosis, anemia and thrombocytosis PLAN: 1. Antibiotic course as per ID 2. Continue Cardizem CD 120 mg QD as tolerated 3. Continue Ramipril 2.5 mg once a day 4. Continue Lipitor 10 qhs, Lasix 40 qd 5. Continue Pradaxa 150 bid with close monitoring of CBC 6. Continue Digoxin 0.125 qd with close monitoring of level 7. Replete K as you are
--- NOTE | 2016-08-04 13:29 | PN ---
Progress Note (short form) - Note Progress Note: Renal Follow up for CHEMA Pt seen and examined at the bedside no acute complaints No SOB, chest pain, Abd pain, N/V/D Vital Signs Temperature 98.5 F 08/04/16 09:06 Pulse Rate 73 08/04/16 09:30 Respiratory Rate 20 08/04/16 09:06 Blood Pressure 110/62 08/04/16 09:06 O2 Sat by Pulse Oximetry (%) 94 L 08/04/16 09:00 Intake & Output 08/01/16 08/02/16 08/03/16 08/04/16 23:59 23:59 23:59 23:59 Intake Total 950 1370 720 330 Output Total 1 1 Balance 949 1370 719 330 Weight 157 lb 0.2 oz 156 lb 0.2 oz 153 lb 8 oz Gen: NAD HEENT: NC/AT CVS: RRR, No M/R Lungs: CTA Abd: soft NT/ND, No bladder distension Ext: No edema, clubbing or cyanosis CBC, BMP 08/03/16 05:35 08/02/16 06:15 Current Medications Acetaminophen (Tylenol -) 650 mg PO Q6H PRN PRN Reason: FEVER OR PAIN Last Admin: 08/04/16 09:33 Dose: 650 mg Atorvastatin Calcium (Lipitor -) 10 mg PO HS [facility] Last Admin: 08/03/16 22:47 Dose: 10 mg Dabigatran (Pradaxa -) 150 mg PO BID [facility] Last Admin: 08/04/16 09:31 Dose: 150 mg Digoxin (Lanoxin -) 0.125 mg PO DAILY [facility] Last Admin: 08/04/16 09:30 Dose: 0.125 mg Diltiazem HCl (Cardizem Cd -) 120 mg PO DAILY [facility] Last Admin: 08/04/16 09:30 Dose: 120 mg Finasteride (Proscar -) 5 mg PO DAILY [facility] Last Admin: 08/04/16 09:29 Dose: 5 mg Fluoxetine HCl (Prozac -) 10 mg PO DAILY [facility] Last Admin: 08/04/16 09:31 Dose: 10 mg Furosemide (Lasix -) 40 mg PO DAILY [facility] Last Admin: 08/04/16 09:29 Dose: 40 mg Gabapentin (Neurontin -) 100 mg PO TID [facility] Last Admin: 08/04/16 06:31 Dose: 100 mg Hydroxyurea (Hydrea -) 500 mg PO BID [facility] Last Admin: 08/04/16 09:30 Dose: 500 mg Ceftazidime 1 gm/ Dextrose 50 mls @ 100 mls/hr IVPB Q8H-IV [facility] PRN Reason: Protocol Last Admin: 08/04/16 09:30 Dose: 100 mls/hr Magnesium Oxide (Mag-Ox -) 400 mg PO BID [facility] Last Admin: 08/04/16 09:29 Dose: 400 mg Metformin HCl (Glucophage -) 500 mg PO ACBK [facility] Last Admin: 08/04/16 06:31 Dose: 500 mg Ramipril (Altace -) 2.5 mg PO DAILY [facility] Last Admin: 08/04/16 09:30 Dose: 2.5 mg Tamsulosin HCl (Flomax -) 0.4 mg PO DAILY@0830 [facility] Last Admin: 08/04/16 09:30 Dose: 0.4 mg A/p 81 y/o Gentleman with PMhx of AFib, CVA, Hypertension, DM who presented with UTI and CHEMA with normal baseline renal function. #CHEMA secondary to hemodynamic changes from UTI Renal function improved no recent labs started on ACEi yesterday check BMP in AM to monitor BUN/Cr and K levels #UTI Continue IV Ceftazidime Gabe Mendes DO
--- NOTE | 2016-08-04 13:57 | CONSULT ---
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 ID consult managed abx for Pseudomonas aeroginosa UTI, now on Ceftazadine. He was was by Renal for CHEMA on CKD. Cardiology consult adjusted cardiac medications. He was seen by PT, and on he was Minimum to Moderate Assist in Transfers, and ambulated 12 feet Contact Guard x2 people with Quad Cane. He notes R body pain, but is unable to further clarify given aphasia and refuses R body exam. Physiatry is being consulted for further recommendations. 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 Cardio/Vascular: Yes: AFIB, CAD, Hyperlipdemia Pulmonary: Yes: COPD Gastrointestinal: Yes: Gastritis, GERD Renal/: Yes: BPH, Cancer (superficial bladder cancer) Endocrine: Yes: Diabetes Mellitus - Past Surgical History Past Surgical History: Yes: Cholecystectomy, Splenectomy, TURP - Alcohol/Substance Use Hx Alcohol Use: No - Smoking History Smoking history: Never smoked Have you smoked in the past 12 months: No Aproximately how many cigarettes per day: 0 If you are a former smoker, when did you quit?: 2008 - Social History Usual Living Arrangement: Other (staying with neice in house with stairs and ambulates with quad cane) ADL: Family Assistance (h/o CVA with excellent improvement. h/o r sided weakness with speech deficits. Returned to [place] in ADL. 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.) History of Recent Travel: No Home Medications - Allergies Allergies/Adverse Reactions: Allergies Allergy/AdvReac Type Severity Reaction Status Date / Time doxycycline Allergy Mild Rash AND Verified 08/06/15 19:16 VOMITING Sulfa (Sulfonamide Allergy Verified 07/31/16 14:21 Antibiotics) duloxetine HCl AdvReac Severe HALLUCINATI Verified 08/06/15 19:16 [From Cymbalta] ONS - Home Medications Home Medications: Ambulatory Orders Furosemide [Lasix -] 40 mg PO DAILY 03/25/15 Metformin HCl 500 mg PO DAILY 06/08/15 Dabigatran Etexilate Mesylate [Pradaxa -] 150 mg PO BID #60 cap 11/04/15 Digoxin 125 mcg PO DAILY #30 tablet 11/04/15 Finasteride 5 mg PO DAILY #30 tablet 11/04/15 Hydroxyurea [Hydrea 500Mg Capsule -] 500 mg PO BID #60 capsule 11/04/15 Magnesium Oxide [Mag-Ox -] 400 mg PO BID #30 tablet 11/04/15 Atorvastatin Ca [Lipitor] 10 mg PO HS 07/31/16 Fluoxetine HCl 10 mg PO DAILY 07/31/16 Gabapentin 100 mg PO BID 07/31/16 Tamsulosin HCl 0.4 mg PO BID 07/31/16 Family Disease History - Family Disease History Family History: Unable to Obtain Review of Systems Findings/Remarks: denies fevers, chills, changes in vision/ hearing, CP, SOB, abdominal pain, nausea, vomiting, constipation, diarrhea, numbness/ paresthesias. Notes R body/ RUE/ RLE pain since CVA as well as dysuria. Physical Exam Vital Signs: Vital Signs Temperature 98.5 F 08/04/16 09:06 Pulse Rate 73 08/04/16 09:30 Respiratory Rate 20 08/04/16 09:06 Blood Pressure 110/62 08/04/16 09:06 O2 Sat by Pulse Oximetry (%) 94 L 08/04/16 09:00 Musculoskeletal: Yes: Other (General: calm elderly M sitting in bed NAD, AAO x3, aphasic but follows commands and answers questions HEENT: NCAT OP clear N/M: L shoulder flexion to 120 degrees, 4+/5 LUE/ LLE, Pinprick Intact LUE / LLE. Refuses RUE/ RLE MMT/ ROM/ sensory exam, refuses reflex exam x4 extremities. 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 and aphasia, with chronic R body pain 13) BMI WNL 14) Up to date flu shot/ pneumovax Recommendations: 1) PT for bed mobility transfers ambulation stairs, caregiver training, strengthening/ stretching x4 extremities 2) Falls, safety precautions 3) Cardiopulmonary precautions, diabetic precautions 4) RUE edema- consider compression glove/ sleeve (would have to be custom- ordered); RUE elevation for edema control for short- term relief if patient amenable 5) Unable to better assess cause of pain as pt refuses exam 6) May increase gabapentin 100mg TID to max of 700mg BID (based on creatinine clearance 48) 7) DVT ppx: on Pradaxa 8) Denies constipation on current bowel regimen 9) Skin protection: float heels, q2 hour turning 10) Continue medical management 11) Discharge planning: depending on his progress and how much help he has at home, he may be able to return home with services, otherwise will need short- stay inpatient rehabilitation. Thank you for this referral.
--- NOTE | 2016-08-04 20:00 | CONSULT ---
Consult - text type - Consultation Consultation Note: The patient is a 81 year old male presenting with his family, with a significant past medical history of 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 His PMD sent a urine sample which shows a UTI. PMD notes that the patient has resistance to PO antibiotics. The patient reports that he has diffused abdominal pain. Patient does ambulate with the help of a cane or with assistance. He reports diarrhea, once or twice a week, which is his baseline. The patient denies chest pain, shortness of breath, headache and dizziness. Denies fever, chills, nausea, vomit, diarrhea and constipation. Denies dysuria, frequency, urgency and hematuria. Allergies: Sulfa, doxycycline, Cymbalta Past surgical history: Cholecystectomy, splenectomy Social history: No alcohol, tobacco or drug use reported - Past Medical History Cancer: Yes (bladder CA) Cardiac Disorders: Yes (ATRIAL FIBRILLATION, CAD) CVA: Yes (R HEMIPARESIS) COPD: Yes CHF: Yes Diabetes: Yes (NIDDM) GI Disorders: Yes (GERD) Disorders: Yes (BPH, TURP) HTN: Yes Hypercholesterolemia: Yes Seizures: Yes - Surgical History Abdominal Surgery: Yes (spleenectomy) - Psycho/Social/Smoking Cessation Hx nonsmoker - Past Medical History Allergies/Adverse Reactions: Allergies Allergy/AdvReac Type Severity Reaction Status Date / Time doxycycline Allergy Mild Rash AND Verified 08/06/15 19:16 VOMITING Sulfa (Sulfonamide Allergy Verified 07/31/16 14:21 Antibiotics) duloxetine HCl AdvReac Severe HALLUCINATI Verified 08/06/15 19:16 [From Cymbalta] ONS Home Medications: Ambulatory Orders Furosemide [Lasix -] 40 mg PO DAILY 03/25/15 Pantoprazole Sodium [Protonix -] 40 mg PO DAILY 03/25/15 Metformin HCl 500 mg PO BID 06/08/15 Albuterol Sulfate Inhaler - [Ventolin HFA Inhaler -] 2 inh PO Q4H 10/28/15 Albuterol 2.5/Ipratropium 0.5 [Duoneb -] 1 amp NEB QIDR amp 11/04/15 Dabigatran Etexilate Mesylate [Pradaxa -] 150 mg PO BID #60 cap 11/04/15 Digoxin 125 mcg PO DAILY #30 tablet 11/04/15 Diltiazem Cd [Cardizem Cd -] 120 mg PO DAILY #30 cap.cd.24h 11/04/15 Finasteride 5 mg PO DAILY #30 tablet 11/04/15 Fluoxetine HCl [Prozac] 10 mg PO DAILY #30 capsule 11/04/15 Hydroxyurea [Hydrea 500Mg Capsule -] 500 mg PO BID #60 capsule 11/04/15 Lamotrigine [Lamictal -] 25 mg PO DAILY #30 tablet 11/04/15 Magnesium Oxide [Mag-Ox -] 400 mg PO BID #30 tablet 11/04/15 Tamsulosin HCl 0.8 mg PO DAILY #30 cap.er.24h 11/04/15 - Vital Signs Last Vital Signs Temp Pulse Resp BP Pulse Ox 97.4 F L 66 22 104/50 94 L 08/04/16 19:21 08/04/16 19:21 08/04/16 19:21 08/04/16 19:21 08/04/16 09:00 HEENT: WIL, EOM Intact Oropharynx: No thrush, No mucositis Neck: Supple Nodes: Without adenopathy Breasts: Without masses Cor: RSR, No murmurs, No gallops Lungs: Clear to P&A Abd: Soft, Normal bowel sounds, No organomegaly Ext:No significant edema Skin: No rashes, Integument intact Labs reviewed Current Medications Acetaminophen (Tylenol -) 650 mg PO Q6H PRN PRN Reason: FEVER OR PAIN Last Admin: 08/04/16 09:33 Dose: 650 mg Atorvastatin Calcium (Lipitor -) 10 mg PO HS [facility] Last Admin: 08/03/16 22:47 Dose: 10 mg Dabigatran (Pradaxa -) 150 mg PO BID [facility] Last Admin: 08/04/16 09:31 Dose: 150 mg Digoxin (Lanoxin -) 0.125 mg PO DAILY [facility] Last Admin: 08/04/16 09:30 Dose: 0.125 mg Diltiazem HCl (Cardizem Cd -) 120 mg PO DAILY [facility] Last Admin: 08/04/16 09:30 Dose: 120 mg Finasteride (Proscar -) 5 mg PO DAILY [facility] Last Admin: 08/04/16 09:29 Dose: 5 mg Fluoxetine HCl (Prozac -) 10 mg PO DAILY [facility] Last Admin: 08/04/16 09:31 Dose: 10 mg Furosemide (Lasix -) 40 mg PO DAILY [facility] Last Admin: 08/04/16 09:29 Dose: 40 mg Gabapentin (Neurontin -) 100 mg PO TID [facility] Last Admin: 08/04/16 14:43 Dose: 100 mg Hydroxyurea (Hydrea -) 500 mg PO BID [facility] Last Admin: 08/04/16 09:30 Dose: 500 mg Ceftazidime 1 gm/ Dextrose 50 mls @ 100 mls/hr IVPB Q8H-IV [facility] PRN Reason: Protocol Last Admin: 08/04/16 17:47 Dose: 100 mls/hr Magnesium Oxide (Mag-Ox -) 400 mg PO BID [facility] Last Admin: 08/04/16 09:29 Dose: 400 mg Metformin HCl (Glucophage -) 500 mg PO ACBK [facility] Last Admin: 08/04/16 06:31 Dose: 500 mg Ramipril (Altace -) 2.5 mg PO DAILY [facility] Last Admin: 08/04/16 09:30 Dose: 2.5 mg Tamsulosin HCl (Flomax -) 0.4 mg PO DAILY@0830 [facility] Last Admin: 08/04/16 09:30 Dose: 0.4 mg a/p Patient is an 81-year-old male with multiple comorbidities, history of multidrug resistant UTIs, referred for pyuria . Being treated for pseudomonas UTI Afib/h/o CVA--on pradaxa MPD --on hydrea 500mg bid will increase to 500mg bid TUE, WEd, Tue, Sat, Sun and 1000mg AM and 500mg PM on Tuesday and h/o gi bleed. on pradaxa for afib. has not been on ASA 81mg Monitor CBC /renal function even as out patient once every 2 weeks and titrate hydrea
[2016-08-04] MEDS: ATORVASTATIN CA 10 MG TABLET (FP) PO SCH (22:32)
[2016-08-05] MEDS: CEFTAZIDIME PENTAHYDRATE 1 GM in DEXTROSE 5%-WATER - 50 ML IVPB SCH ×3 (02:36→18:09)
[2016-08-05] MEDS: GABAPENTIN 100 MG CAPSULE (FP) PO SCH ×3 (06:52→21:38)
[2016-08-05] MEDS: metFORMIN HCL 500 MG TABLET (FP) PO SCH (06:52)
[2016-08-05 09:05] LABS: CALCIUM 8.1 mg/dL (8.5-10.1); CREATININE 1.5 mg/dL (0.7-1.3); MAGNESIUM 2.2 mg/dL (1.8-2.4); PHOSPHOROUS 3.6 mg/dL (2.5-4.9)
[2016-08-05] MEDS ORDERED: PT OWN MED DRAWER 7, Y5N ONE ×3 (09:33→21:05)
[2016-08-05] MEDS: RAMIPRIL 2.5 MG CAPSULE (FP) PO SCH (09:36)
[2016-08-05] MEDS: TAMSULOSIN HCL 0.4 MG CAP.ER.24H (FP) PO SCH (09:36)
[2016-08-05] MEDS: DABIGATRAN ETEXILATE MESYLATE 150 MG CAPSULE PO SCH ×2 (09:36→21:38)
[2016-08-05] MEDS: FINASTERIDE 5 MG TABLET (FP) PO SCH (09:37)
[2016-08-05] MEDS: DIGOXIN 0.125 MG TABLET (FP) PO SCH (09:37)
[2016-08-05] MEDS: HYDROXYUREA 500 MG CAPSULE PO SCH ×3 (09:37→21:36)
[2016-08-05] MEDS: FLUoxetine HCL 10 MG CAPSULE (FP) PO SCH (09:37)
[2016-08-05] MEDS: MAGNESIUM OXIDE 400 MG TABLET (FP) PO SCH ×2 (09:37→21:38)
[2016-08-05] MEDS: FUROSEMIDE 40 MG TABLET (FP) PO SCH (09:37)
--- NOTE | 2016-08-05 12:36 | PN ---
Progress Note (short form) - Note Progress Note: Renal Follow up for CHEMA Pt seen and examined at the bedside no acute complaints Vital Signs Temperature 98.3 F 08/05/16 09:57 Pulse Rate 76 08/05/16 09:57 Respiratory Rate 20 08/05/16 09:57 Blood Pressure 120/73 08/05/16 09:57 O2 Sat by Pulse Oximetry (%) 94 L 08/04/16 21:00 Intake & Output 08/02/16 08/03/16 08/04/16 08/05/16 23:59 23:59 23:59 23:59 Intake Total 0810 603 2199 250 Output Total 1 Balance 4168 804 1758 250 Weight 156 lb 0.2 oz 153 lb 8 oz Gen: NAD HEENT: NC/AT CVS: RRR, No M/R Lungs: CTA Abd: soft NT/ND, No bladder distension Ext: No edema, clubbing or cyanosis CBC, BMP 08/03/16 05:35 08/05/16 06:00 Current Medications Acetaminophen (Tylenol -) 650 mg PO Q6H PRN PRN Reason: FEVER OR PAIN Last Admin: 08/04/16 09:33 Dose: 650 mg Atorvastatin Calcium (Lipitor -) 10 mg PO HS [facility] Last Admin: 08/04/16 22:32 Dose: 10 mg Dabigatran (Pradaxa -) 150 mg PO BID [facility] Last Admin: 08/05/16 09:36 Dose: 150 mg Digoxin (Lanoxin -) 0.125 mg PO DAILY [facility] Last Admin: 08/05/16 09:37 Dose: 0.125 mg Diltiazem HCl (Cardizem Cd -) 120 mg PO DAILY [facility] Last Admin: 08/05/16 09:37 Dose: 120 mg Finasteride (Proscar -) 5 mg PO DAILY [facility] Last Admin: 08/05/16 09:37 Dose: 5 mg Fluoxetine HCl (Prozac -) 10 mg PO DAILY [facility] Last Admin: 08/05/16 09:37 Dose: 10 mg Furosemide (Lasix -) 40 mg PO DAILY [facility] Last Admin: 08/05/16 09:37 Dose: 40 mg Gabapentin (Neurontin -) 100 mg PO TID [facility] Last Admin: 08/05/16 06:52 Dose: 100 mg Hydroxyurea (Hydrea -) 500 mg PO BID [facility] Last Admin: 08/05/16 09:37 Dose: 500 mg Hydroxyurea (Hydrea -) 500 mg PO TuTh@1000 [facility] Last Admin: 08/05/16 09:41 Dose: 500 mg Ceftazidime 1 gm/ Dextrose 50 mls @ 100 mls/hr IVPB Q8H-IV [facility] PRN Reason: Protocol Last Admin: 08/05/16 09:36 Dose: 100 mls/hr Magnesium Oxide (Mag-Ox -) 400 mg PO BID [facility] Last Admin: 08/05/16 09:37 Dose: 400 mg Metformin HCl (Glucophage -) 500 mg PO ACBK [facility] Last Admin: 08/05/16 06:52 Dose: 500 mg Ramipril (Altace -) 2.5 mg PO DAILY [facility] Last Admin: 08/05/16 09:36 Dose: 2.5 mg Tamsulosin HCl (Flomax -) 0.4 mg PO DAILY@0830 [facility] Last Admin: 08/05/16 09:36 Dose: 0.4 mg A/p 81 y/o Gentleman with PMhx of AFib, CVA, Hypertension, DM who presented with UTI and CHEMA with normal baseline renal function. #CHEMA secondary to hemodynamic changes from UTI Cr peaked to 1.5 today -> ? secondary to ACEi? as there is no obvious change in clinical status (no hypotension or nephrotoxin exposure) Can continue ACEi and trend BUN/cr for now no hyperkalemia continue treatment of UTI keep MAP > 65 #UTI Continue IV Ceftazidime Gabe Mendes DO
--- NOTE | 2016-08-05 14:44 | PN ---
Progress Note, Physician Chief Complaint: patient on iv abx - Current Medication List Current Medications: Active Medications Acetaminophen (Tylenol -) 650 mg PO Q6H PRN PRN Reason: FEVER OR PAIN Last Admin: 08/04/16 09:33 Dose: 650 mg Atorvastatin Calcium (Lipitor -) 10 mg PO HS [facility] Last Admin: 08/04/16 22:32 Dose: 10 mg Dabigatran (Pradaxa -) 150 mg PO BID [facility] Last Admin: 08/05/16 09:36 Dose: 150 mg Digoxin (Lanoxin -) 0.125 mg PO DAILY [facility] Last Admin: 08/05/16 09:37 Dose: 0.125 mg Diltiazem HCl (Cardizem Cd -) 120 mg PO DAILY [facility] Last Admin: 08/05/16 09:37 Dose: 120 mg Finasteride (Proscar -) 5 mg PO DAILY [facility] Last Admin: 08/05/16 09:37 Dose: 5 mg Fluoxetine HCl (Prozac -) 10 mg PO DAILY [facility] Last Admin: 08/05/16 09:37 Dose: 10 mg Furosemide (Lasix -) 40 mg PO DAILY [facility] Last Admin: 08/05/16 09:37 Dose: 40 mg Gabapentin (Neurontin -) 100 mg PO TID [facility] Last Admin: 08/05/16 06:52 Dose: 100 mg Hydroxyurea (Hydrea -) 500 mg PO BID [facility] Last Admin: 08/05/16 09:37 Dose: 500 mg Hydroxyurea (Hydrea -) 500 mg PO TuTh@1000 [facility] Last Admin: 08/05/16 09:41 Dose: 500 mg Ceftazidime 1 gm/ Dextrose 50 mls @ 100 mls/hr IVPB Q8H-IV [facility]ION[facility] PRN Reason: Protocol Last Admin: 08/05/16 09:36 Dose: 100 mls/hr Magnesium Oxide (Mag-Ox -) 400 mg PO BID [facility] Last Admin: 08/05/16 09:37 Dose: 400 mg Metformin HCl (Glucophage -) 500 mg PO ACBK [facility] Last Admin: 08/05/16 06:52 Dose: 500 mg Ramipril (Altace -) 2.5 mg PO DAILY [facility] Last Admin: 08/05/16 09:36 Dose: 2.5 mg Tamsulosin HCl (Flomax -) 0.4 mg PO DAILY@0830 [facility] Last Admin: 08/05/16 09:36 Dose: 0.4 mg - Objective Vital Signs: Vital Signs Temperature 98.3 F 08/05/16 09:57 Pulse Rate 76 08/05/16 09:57 Respiratory Rate 20 08/05/16 09:57 Blood Pressure 120/73 08/05/16 09:57 O2 Sat by Pulse Oximetry (%) 93 L 08/05/16 09:00 Constitutional: Yes: Calm, Other ([place]) Cardiovascular: Yes: Regular Rate and Rhythm, S1, S2 Respiratory: Yes: CTA Bilaterally Gastrointestinal: Yes: Normal Bowel Sounds, Soft Neurological: Yes: Alert, Oriented Labs: CBC, BMP 08/03/16 05:35 08/05/16 06:00 INR, PTT INR 1.41 (0.82-1.09) H 07/31/16 15:30 Problem List - Problems (1) UTI (urinary tract infection) Assessment/Plan: continue iv abx for total 10 days today is day5 Microbiology 07/31/16 15:30 Urine - Urine Clean Catch Urine Culture - Final Pseudomonas Aeruginosa Code(s): N39.0 - URINARY TRACT INFECTION, SITE NOT SPECIFIED Qualifiers: Urinary tract infection type: acute cystitis Hematuria presence: with hematuria Qualified Code(s): N30.01 - Acute cystitis with hematuria (2) Afib Assessment/Plan: pradaxa cardizem Code(s): I48.91 - UNSPECIFIED ATRIAL FIBRILLATION Qualifiers: Atrial fibrillation type: persistent Qualified Code(s): I48.1 - Persistent atrial fibrillation (3) Congestive heart failure Assessment/Plan: digoxin lasix Code(s): I50.9 - HEART FAILURE, UNSPECIFIED Qualifiers: Congestive heart failure type: unspecified congestive heart failure type Congestive heart failure chronicity: unspecified congestive heart failure chronicity Qualified Code(s): I50.9 - Heart failure, unspecified (4) Myelodysplasia (myelodysplastic syndrome) Assessment/Plan: hydroxyurea per heme Code(s): D46.9 - MYELODYSPLASTIC SYNDROME, UNSPECIFIED (5) Malignant neoplasm of bladder Assessment/Plan: ficcozola consult bllader Ultrasound Code(s): C67.9 - MALIGNANT NEOPLASM OF BLADDER, UNSPECIFIED Qualifiers: Bladder location: trigone of urinary bladder Qualified Code(s): C67.0 - Malignant neoplasm of trigone of bladder (6) CHEMA (acute kidney injury) Assessment/Plan: now improved on acei Code(s): N17.9 - ACUTE KIDNEY FAILURE, UNSPECIFIED
--- NOTE | 2016-08-05 14:51 | PN ---
Progress Note (short form) - Note Progress Note: ID Ceftazidime Afebrile Selected Entries 08/05/16 09:57 Temperature 98.3 F Pulse Rate 76 Respiratory 20 Rate Blood Pressure 120/73 Lung Clear Cor S1 S2 RR Abd Soft notender Laboratory Tests 08/03/16 08/05/16 05:35 06:00 WBC 15.4 H Hgb 9.9 L Hct 29.7 L Plt Count 727 H Creatinine 1.5 H D Assessment Pseudomonal infection vs colonization with bladder tumor Plan Patient is asymptomatic would consider stopping his antibiotics completely as likely to remain colonized Discussed with Dr Cara Pham MD Problem List - Problems (1) Leukocytosis Code(s): D72.829 - ELEVATED WHITE BLOOD CELL COUNT, UNSPECIFIED (2) UTI (urinary tract infection) Code(s): N39.0 - URINARY TRACT INFECTION, SITE NOT SPECIFIED Qualifiers: Qualified Code(s): N30.01 - Acute cystitis with hematuria
--- NOTE | 2016-08-05 16:14 | PN ---
Progress Note, Physician History of Present Illness: Afebrile, no complaints. - Current Medication List Current Medications: Active Medications Acetaminophen (Tylenol -) 650 mg PO Q6H PRN PRN Reason: FEVER OR PAIN Last Admin: 08/04/16 09:33 Dose: 650 mg Atorvastatin Calcium (Lipitor -) 10 mg PO HS [facility] Last Admin: 08/04/16 22:32 Dose: 10 mg Dabigatran (Pradaxa -) 150 mg PO BID [facility] Last Admin: 08/05/16 09:36 Dose: 150 mg Digoxin (Lanoxin -) 0.125 mg PO DAILY [facility] Last Admin: 08/05/16 09:37 Dose: 0.125 mg Diltiazem HCl (Cardizem Cd -) 120 mg PO DAILY [facility] Last Admin: 08/05/16 09:37 Dose: 120 mg Finasteride (Proscar -) 5 mg PO DAILY [facility] Last Admin: 08/05/16 09:37 Dose: 5 mg Fluoxetine HCl (Prozac -) 10 mg PO DAILY [facility] Last Admin: 08/05/16 09:37 Dose: 10 mg Furosemide (Lasix -) 40 mg PO DAILY [facility] Last Admin: 08/05/16 09:37 Dose: 40 mg Gabapentin (Neurontin -) 100 mg PO TID [facility] Last Admin: 08/05/16 15:27 Dose: 100 mg Hydroxyurea (Hydrea -) 500 mg PO BID [facility] Last Admin: 08/05/16 09:37 Dose: 500 mg Hydroxyurea (Hydrea -) 500 mg PO TuTh@1000 [facility] Last Admin: 08/05/16 09:41 Dose: 500 mg Ceftazidime 1 gm/ Dextrose 50 mls @ 100 mls/hr IVPB Q8H-IV [facility] PRN Reason: Protocol Last Admin: 08/05/16 09:36 Dose: 100 mls/hr Magnesium Oxide (Mag-Ox -) 400 mg PO BID [facility] Last Admin: 08/05/16 09:37 Dose: 400 mg Metformin HCl (Glucophage -) 500 mg PO ACBK [facility] Last Admin: 08/05/16 06:52 Dose: 500 mg Ramipril (Altace -) 2.5 mg PO DAILY [facility] Last Admin: 08/05/16 09:36 Dose: 2.5 mg Tamsulosin HCl (Flomax -) 0.4 mg PO DAILY@0830 [facility] Last Admin: 08/05/16 09:36 Dose: 0.4 mg - Objective Vital Signs: Vital Signs Temperature 98.5 F 08/05/16 15:57 Pulse Rate 86 08/05/16 15:57 Respiratory Rate 20 08/05/16 09:57 Blood Pressure 115/63 08/05/16 15:57 O2 Sat by Pulse Oximetry (%) 93 L 08/05/16 09:00 Constitutional: Yes: No Distress, Calm Neck: Yes: Supple Cardiovascular: Yes: Pulse Irregular Respiratory: Yes: Regular, Diminished Gastrointestinal: Yes: Normal Bowel Sounds, Soft Edema: No Labs: CBC, BMP 08/03/16 05:35 08/05/16 06:00 INR, PTT INR 1.41 (0.82-1.09) H 07/31/16 15:30 Problem List - Problems (1) CAD (coronary artery disease) Code(s): I25.10 - ATHSCL HEART DISEASE OF [place] CORONARY ARTERY W/O ANG PCTRS Qualifiers: Coronary Disease-Associated Artery/Lesion type: [place] artery [place] vs. transplanted heart: [place] heart Associated angina: without angina Qualified Code(s): I25.10 - Atherosclerotic heart disease of [place] coronary artery without angina pectoris (2) Afib Code(s): I48.91 - UNSPECIFIED ATRIAL FIBRILLATION Qualifiers: Atrial fibrillation type: persistent Qualified Code(s): I48.1 - Persistent atrial fibrillation (3) Cerebral infarction Code(s): I63.9 - CEREBRAL INFARCTION, UNSPECIFIED (4) Myelodysplasia (myelodysplastic syndrome) Code(s): D46.9 - MYELODYSPLASTIC SYNDROME, UNSPECIFIED (5) Positive urine culture Code(s): R82.7 - ABNORMAL FINDINGS ON MICROBIOLOGICAL EXAMINAT * DO NOT USE * (6) Diabetes Code(s): E11.9 - TYPE 2 DIABETES MELLITUS WITHOUT COMPLICATIONS Qualifiers: Diabetes mellitus type: type 2 Diabetes mellitus complication status: without complication Diabetes mellitus superintendent terminal insulin use: without superintendent terminal use Qualified Code(s): E11.9 - Type 2 diabetes mellitus without complications (7) Diastolic dysfunction Code(s): I51.9 - HEART DISEASE, UNSPECIFIED (8) HTN (hypertension) Code(s): I10 - ESSENTIAL (PRIMARY) HYPERTENSION Qualifiers: Hypertension type: essential hypertension Qualified Code(s): I10 - Essential (primary) hypertension (9) Hyperlipidemia Code(s): E78.5 - HYPERLIPIDEMIA, UNSPECIFIED Qualifiers: Hyperlipidemia type: pure hypercholesterolemia Qualified Code(s): E78.0 - Pure hypercholesterolemia (10) CHEMA (acute kidney injury) Code(s): N17.9 - ACUTE KIDNEY FAILURE, UNSPECIFIED Assessment/Plan 1. Pseudomonas UTI 2. LV diastolic dysfunction with chronic class I NYHA classification LV failure , currently euvolumic 3. Permanent AF [id number] score of 8 on A/C with NOAC 4. CAD angina pectoris, stable 5. HTN 6. NIDDM 7. Hypercholesterolemia 8. History of fronto-temporal stroke with residual deficit 9. Mylelodysplastic syndrome, leukocytosis, anemia and thrombocytosis 10. CHEMA PLAN: 1. Antibiotic course d/marie per ID 2. Continue Cardizem CD 120 mg QD as tolerated 3. Continue Ramipril 2.5 mg once a day with caution and monitor renal recovery 4. Continue Lipitor 10 qhs, Lasix 40 qd 5. Continue Pradaxa 150 bid with close monitoring of CBC 6. Continue Digoxin 0.125 qd with close monitoring of level
--- NOTE | 2016-08-05 20:15 | PN ---
Progress Note (short form) - Note Progress Note: Patient seen and examined NO new c/o Last Vital Signs Temp Pulse Resp BP Pulse Ox 97.7 F 68 20 123/54 93 L 08/05/16 18:05 08/05/16 18:05 08/05/16 18:05 08/05/16 18:05 08/05/16 09:00 HEENT: WIL, EOM Intact Oropharynx: No thrush, No mucositis Cor: RSR, No murmurs, No gallops Lungs: Clear to P&A Abd: Soft, Normal bowel sounds, No organomegaly Ext:No significant edema Skin: No rashes, Integument intact Abnormal Lab Results 08/05/16 06:00 BUN 24 H D Creatinine 1.5 H D Random Glucose 71 L Calcium 8.1 L Current Medications Acetaminophen (Tylenol -) 650 mg PO Q6H PRN PRN Reason: FEVER OR PAIN Last Admin: 08/04/16 09:33 Dose: 650 mg Atorvastatin Calcium (Lipitor -) 10 mg PO HS [facility] Last Admin: 08/04/16 22:32 Dose: 10 mg Dabigatran (Pradaxa -) 150 mg PO BID [facility] Last Admin: 08/05/16 09:36 Dose: 150 mg Digoxin (Lanoxin -) 0.125 mg PO DAILY [facility] Last Admin: 08/05/16 09:37 Dose: 0.125 mg Diltiazem HCl (Cardizem Cd -) 120 mg PO DAILY [facility] Last Admin: 08/05/16 09:37 Dose: 120 mg Finasteride (Proscar -) 5 mg PO DAILY [facility] Last Admin: 08/05/16 09:37 Dose: 5 mg Fluoxetine HCl (Prozac -) 10 mg PO DAILY [facility] Last Admin: 08/05/16 09:37 Dose: 10 mg Furosemide (Lasix -) 40 mg PO DAILY [facility] Last Admin: 08/05/16 09:37 Dose: 40 mg Gabapentin (Neurontin -) 100 mg PO TID [facility] Last Admin: 08/05/16 15:27 Dose: 100 mg Hydroxyurea (Hydrea -) 500 mg PO BID [facility] Last Admin: 08/05/16 09:37 Dose: 500 mg Hydroxyurea (Hydrea -) 500 mg PO TuTh@1000 [facility] Last Admin: 08/05/16 09:41 Dose: 500 mg Ceftazidime 1 gm/ Dextrose 50 mls @ 100 mls/hr IVPB Q8H-IV [facility] PRN Reason: Protocol Last Admin: 08/05/16 18:09 Dose: 100 mls/hr Magnesium Oxide (Mag-Ox -) 400 mg PO BID [facility] Last Admin: 08/05/16 09:37 Dose: 400 mg Metformin HCl (Glucophage -) 500 mg PO ACBK [facility] Last Admin: 08/05/16 06:52 Dose: 500 mg Ramipril (Altace -) 2.5 mg PO DAILY [facility] Last Admin: 08/05/16 09:36 Dose: 2.5 mg Tamsulosin HCl (Flomax -) 0.4 mg PO DAILY@0830 [facility] Last Admin: 08/05/16 09:36 Dose: 0.4 mg A/P Patient is an 81-year-old male with multiple comorbidities, history of multidrug resistant UTIs, referred for pyuria . Being treated for pseudomonas UTI Afib/h/o CVA--on pradaxa MPD --on hydrea 500mg bid will increase to 500mg bid TUE, Tue, Tue, Sat, Tue and 1000mg AM and 500mg PM on Tuesday and h/o gi bleed. on pradaxa for afib. has not been on ASA 81mg. will discuss with cardiology/gi team Monitor CBC /renal function even as out patient once every 2 weeks and titrate hydrea
[2016-08-05] MEDS: ATORVASTATIN CA 10 MG TABLET (FP) PO SCH (21:37)
[2016-08-06] MEDS ORDERED: PT OWN MED DRAWER 7, Y5N ONE ×5 (01:50→21:24)
[2016-08-06] MEDS: ACETAMINOPHEN 325 MG TABLET (FP) PO PRN (01:53)
[2016-08-06] MEDS: CEFTAZIDIME PENTAHYDRATE 1 GM in DEXTROSE 5%-WATER - 50 ML IVPB SCH ×3 (01:54→18:12)
[2016-08-06] MEDS: GABAPENTIN 100 MG CAPSULE (FP) PO SCH ×3 (06:17→21:32)
[2016-08-06] MEDS: metFORMIN HCL 500 MG TABLET (FP) PO SCH (06:17)
[2016-08-06 08:14] LABS: BASOPHIL 1.3 % (0-2.0); EOSINOPHIL 2.2 % (0-4.5); MCH 38.9 pg (25.7-33.7); MCHC 33.3 g/dl (32.0-35.9); MEAN CELL VOLUME 116.6 fl (80-96); MEAN PLT VOLUME 7.2 fl (7.5-11.1); NEUTROPHILS 73.2 % (42.8-82.8); PLATELET COUNT 597 K/MM3 (134-434); RDW 15.9 % (11.9-15.9); WHITE BLOOD COUNT 11.9 K/mm3 (4.0-10.0)
[2016-08-06 09:31] LABS: ALBUMIN 1.8 g/dl (3.4-5.0); ANION GAP 9 (8-16); BILIRUBIN,TOTAL 0.3 mg/dL (0.2-1.0); CALCIUM 7.7 mg/dL (8.5-10.1); CO2 31 mmol/L (21-32); CREATININE 1.5 mg/dL (0.7-1.3); GLUCOSE,RANDOM 73 mg/dL (74-106); MAGNESIUM 2.5 mg/dL (1.8-2.4); PHOSPHOROUS 3.4 mg/dL (2.5-4.9); SGOT/AST 7 U/L (15-37); SGPT/ALT < 6 U/L (12-78)
[2016-08-06 09:32] LABS: ALK PHOS 135 U/L (45-117)
--- NOTE | 2016-08-06 09:51 | DS ---
Physical Examination Vital Signs: Vital Signs Temperature 98.2 F 08/06/16 06:00 Pulse Rate 100 H 08/06/16 06:00 Respiratory Rate 18 08/06/16 06:00 Blood Pressure 149/76 08/06/16 06:00 O2 Sat by Pulse Oximetry (%) 95 08/05/16 21:00 Constitutional: Yes: Calm, Thin, Other ([place]) Cardiovascular: Yes: Regular Rate and Rhythm, S1, S2 Respiratory: Yes: CTA Bilaterally Gastrointestinal: Yes: Normal Bowel Sounds, Soft Edema: No Neurological: Yes: Alert, Oriented Labs: CBC, BMP 08/06/16 05:48 08/06/16 05:48 Discharge Summary Reason For Visit: UTI Current Active Problems CAD (coronary artery disease) (Acute) Thrombocytopenia (Acute) UTI (urinary tract infection) (Acute) Hospital Course: PCP: Ashish Schneider - Admission Chief Complaint: FAILED ON PO ABX FOR UTI, CULTURE +SENS TO IV ABX ONLY History of Present Illness: The patient is a 81 year old male presenting with his family, with a significant past medical history of 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 His PMD sent a urine sample which shows a UTI. PMD notes that the patient has resistance to PO antibiotics. The patient reports that he has diffused abdominal pain. Patient does ambulate with the help of a cane or with assistance. He reports diarrhea, once or twice a week, which is his baseline. The patient denies chest pain, shortness of breath, headache and dizziness. Denies fever, chills, nausea, vomit, diarrhea and constipation. Denies dysuria, frequency, urgency and hematuria. History Source: Patient, Medical Record - Past Medical History HAND I BLOCKER: Yes: CVA Cardiovascular: Yes: AFIB, CAD, Hyperlipdemia Pulmonary: Yes: COPD Gastrointestinal: Yes: Gastritis, GERD Renal/: Yes: BPH, Cancer (superficial bladder cancer) Heme/Onc: Yes: Myeloproliferative Synd (thrombocytosis) Endocrine: Yes: Diabetes Mellitus got 6 days of iv abx - Instructions Referrals: Ashish Schneider MD [Primary Care Provider] - - Home Medications Comprehensive Discharge Medication List: Ambulatory Orders Furosemide [Lasix -] 40 mg PO DAILY 03/25/15 Metformin HCl 500 mg PO DAILY 06/08/15 Dabigatran Etexilate Mesylate [Pradaxa -] 150 mg PO BID #60 cap 11/04/15 Digoxin 125 mcg PO DAILY #30 tablet 11/04/15 Finasteride 5 mg PO DAILY #30 tablet 11/04/15 Hydroxyurea [Hydrea 500Mg Capsule -] 500 mg PO BID #60 capsule 11/04/15 Magnesium Oxide [Mag-Ox -] 400 mg PO BID #30 tablet 11/04/15 Atorvastatin Ca [Lipitor] 10 mg PO HS 07/31/16 Fluoxetine HCl 10 mg PO DAILY 07/31/16 Gabapentin 100 mg PO BID 07/31/16 Tamsulosin HCl 0.4 mg PO BID 07/31/16
[2016-08-06] MEDS: FUROSEMIDE 40 MG TABLET (FP) PO SCH (10:09)
[2016-08-06] MEDS: RAMIPRIL 2.5 MG CAPSULE (FP) PO SCH (10:09)
[2016-08-06] MEDS: DIGOXIN 0.125 MG TABLET (FP) PO SCH (10:09)
[2016-08-06] MEDS: FINASTERIDE 5 MG TABLET (FP) PO SCH (10:09)
[2016-08-06] MEDS: TAMSULOSIN HCL 0.4 MG CAP.ER.24H (FP) PO SCH (10:09)
[2016-08-06] MEDS: DABIGATRAN ETEXILATE MESYLATE 150 MG CAPSULE PO SCH ×2 (10:10→21:32)
[2016-08-06] MEDS: HYDROXYUREA 500 MG CAPSULE PO SCH ×2 (10:10→21:31)
[2016-08-06] MEDS: FLUoxetine HCL 10 MG CAPSULE (FP) PO SCH (10:10)
[2016-08-06] MEDS: MAGNESIUM OXIDE 400 MG TABLET (FP) PO SCH ×2 (10:10→21:32)
--- NOTE | 2016-08-06 10:12 | PN ---
Progress Note, Physician Chief Complaint: spoke to niece she says the urine was thick purulent she wants 7 days of abx - Current Medication List Current Medications: Active Medications Acetaminophen (Tylenol -) 650 mg PO Q6H PRN PRN Reason: FEVER OR PAIN Last Admin: 08/06/16 01:53 Dose: 650 mg Atorvastatin Calcium (Lipitor -) 10 mg PO HS [facility] Last Admin: 08/05/16 21:37 Dose: 10 mg Dabigatran (Pradaxa -) 150 mg PO BID [facility] Last Admin: 08/05/16 21:38 Dose: 150 mg Digoxin (Lanoxin -) 0.125 mg PO DAILY [facility] Last Admin: 08/05/16 09:37 Dose: 0.125 mg Diltiazem HCl (Cardizem Cd -) 120 mg PO DAILY [facility] Last Admin: 08/05/16 09:37 Dose: 120 mg Finasteride (Proscar -) 5 mg PO DAILY [facility] Last Admin: 08/05/16 09:37 Dose: 5 mg Fluoxetine HCl (Prozac -) 10 mg PO DAILY [facility] Last Admin: 08/05/16 09:37 Dose: 10 mg Furosemide (Lasix -) 40 mg PO DAILY [facility] Last Admin: 08/05/16 09:37 Dose: 40 mg Gabapentin (Neurontin -) 100 mg PO TID [facility] Last Admin: 08/06/16 06:17 Dose: 100 mg Hydroxyurea (Hydrea -) 500 mg PO BID [facility] Last Admin: 08/05/16 21:36 Dose: 500 mg Hydroxyurea (Hydrea -) 500 mg PO TuTh@1000 [facility] Last Admin: 08/05/16 09:41 Dose: 500 mg Ceftazidime 1 gm/ Dextrose 50 mls @ 100 mls/hr IVPB Q8H-IV [facility] PRN Reason: Protocol Last Admin: 08/06/16 01:54 Dose: 100 mls/hr Magnesium Oxide (Mag-Ox -) 400 mg PO BID [facility] Last Admin: 08/05/16 21:38 Dose: 400 mg Metformin HCl (Glucophage -) 500 mg PO ACBK [facility] Last Admin: 08/06/16 06:17 Dose: 500 mg Ramipril (Altace -) 2.5 mg PO DAILY [facility] Last Admin: 08/05/16 09:36 Dose: 2.5 mg Tamsulosin HCl (Flomax -) 0.4 mg PO DAILY@0830 [facility] Last Admin: 08/05/16 09:36 Dose: 0.4 mg - Objective Vital Signs: Vital Signs Temperature 98.2 F 08/06/16 06:00 Pulse Rate 100 H 08/06/16 06:00 Respiratory Rate 18 08/06/16 06:00 Blood Pressure 149/76 08/06/16 06:00 O2 Sat by Pulse Oximetry (%) 95 08/05/16 21:00 Constitutional: Yes: Calm, Thin, Other ([place] Cardiovascular: Yes: Regular Rate and Rhythm, S1, S2 Respiratory: Yes: CTA Bilaterally Gastrointestinal: Yes: Normal Bowel Sounds, Soft Neurological: Yes: Alert, Oriented Labs: CBC, BMP 08/06/16 05:48 08/06/16 05:48 INR, PTT INR 1.41 (0.82-1.09) H 07/31/16 15:30 Problem List - Problems (1) UTI (urinary tract infection) Assessment/Plan: continue iv abx for total 7 days today is day5 as it was astarted on 08/01 in evening Microbiology 07/31/16 15:30 Urine - Urine Clean Catch Urine Culture - Final Pseudomonas Aeruginosa Code(s): N39.0 - URINARY TRACT INFECTION, SITE NOT SPECIFIED Qualifiers: Urinary tract infection type: acute cystitis Hematuria presence: with hematuria Qualified Code(s): N30.01 - Acute cystitis with hematuria (2) Afib Code(s): I48.91 - UNSPECIFIED ATRIAL FIBRILLATION Qualifiers: Atrial fibrillation type: persistent Qualified Code(s): I48.1 - Persistent atrial fibrillation (3) Congestive heart failure Code(s): I50.9 - HEART FAILURE, UNSPECIFIED Qualifiers: Congestive heart failure type: unspecified congestive heart failure type Congestive heart failure chronicity: unspecified congestive heart failure chronicity Qualified Code(s): I50.9 - Heart failure, unspecified (4) Myelodysplasia (myelodysplastic syndrome) Code(s): D46.9 - MYELODYSPLASTIC SYNDROME, UNSPECIFIED (5) Malignant neoplasm of bladder Code(s): C67.9 - MALIGNANT NEOPLASM OF BLADDER, UNSPECIFIED Qualifiers: Bladder location: trigone of urinary bladder Qualified Code(s): C67.0 - Malignant neoplasm of trigone of bladder (6) CHEMA (acute kidney injury) Code(s): N17.9 - ACUTE KIDNEY FAILURE, UNSPECIFIED
--- NOTE | 2016-08-06 12:42 | PN ---
Progress Note (short form) - Note Progress Note: Renal Follow up for CHEMA Pt seen and examined at the bedside no complaints. no sob, chest pain, fever or chills Vital Signs Temperature 98.2 F 08/06/16 06:00 Pulse Rate 62 08/06/16 10:09 Respiratory Rate 18 08/06/16 06:00 Blood Pressure 149/76 08/06/16 06:00 O2 Sat by Pulse Oximetry (%) 95 08/05/16 21:00 Intake & Output 08/03/16 08/04/16 08/05/16 08/06/16 23:59 23:59 23:59 23:59 Intake Total 720 1370 1250 170 Output Total 1 Balance 719 1370 1250 170 Weight 153 lb 8 oz Gen: NAD HEENT: NC/AT CVS: RRR, No M/R Lungs: CTA Abd: soft NT/ND, No bladder distension Ext: No edema, clubbing or cyanosis CBC, BMP 08/06/16 05:48 08/06/16 05:48 Current Medications Acetaminophen (Tylenol -) 650 mg PO Q6H PRN PRN Reason: FEVER OR PAIN Last Admin: 08/06/16 01:53 Dose: 650 mg Atorvastatin Calcium (Lipitor -) 10 mg PO HS [facility] Last Admin: 08/05/16 21:37 Dose: 10 mg Dabigatran (Pradaxa -) 150 mg PO BID [facility] Last Admin: 08/06/16 10:10 Dose: 150 mg Digoxin (Lanoxin -) 0.125 mg PO DAILY [facility] Last Admin: 08/06/16 10:09 Dose: 0.125 mg Diltiazem HCl (Cardizem Cd -) 120 mg PO DAILY [facility] Last Admin: 08/06/16 10:09 Dose: 120 mg Finasteride (Proscar -) 5 mg PO DAILY [facility] Last Admin: 08/06/16 10:09 Dose: 5 mg Fluoxetine HCl (Prozac -) 10 mg PO DAILY [facility] Last Admin: 08/06/16 10:10 Dose: 10 mg Furosemide (Lasix -) 40 mg PO DAILY [facility] Last Admin: 08/06/16 10:09 Dose: 40 mg Gabapentin (Neurontin -) 100 mg PO TID [facility] Last Admin: 08/06/16 06:17 Dose: 100 mg Hydroxyurea (Hydrea -) 500 mg PO BID [facility] Last Admin: 08/06/16 10:10 Dose: 500 mg Hydroxyurea (Hydrea -) 500 mg PO TuTh@1000 [facility] Last Admin: 08/05/16 09:41 Dose: 500 mg Ceftazidime 1 gm/ Dextrose 50 mls @ 100 mls/hr IVPB Q8H-IV [facility] PRN Reason: Protocol Last Admin: 08/06/16 10:10 Dose: 100 mls/hr Magnesium Oxide (Mag-Ox -) 400 mg PO BID [facility] Last Admin: 08/06/16 10:10 Dose: 400 mg Metformin HCl (Glucophage -) 500 mg PO ACBK [facility] Last Admin: 08/06/16 06:17 Dose: 500 mg Ramipril (Altace -) 2.5 mg PO DAILY [facility] Last Admin: 08/06/16 10:09 Dose: 2.5 mg Tamsulosin HCl (Flomax -) 0.4 mg PO DAILY@0830 [facility] Last Admin: 08/06/16 10:09 Dose: 0.4 mg A/p 81 y/o Gentleman with PMhx of AFib, CVA, Hypertension, DM who presented with UTI and CHEMA with normal baseline renal function. 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
--- NOTE | 2016-08-06 17:46 | PN ---
Progress Note (short form) - Note Progress Note: Patient seen and examined No complaints of chest pains, SOB, GI upset, dysuria Last Vital Signs Temp Pulse Resp BP Pulse Ox 97.7 F 71 20 117/51 95 08/06/16 14:41 08/06/16 14:41 08/06/16 14:41 08/06/16 14:41 08/06/16 09:00 HEENT: WIL, EOM Intact Oropharynx: No thrush, No mucositis Cor: atrial fib Lungs: Diminished breath sounds bilaterally Abd: Soft, Normal bowel sounds, No organomegaly Ext:No significant edema Skin: No rashes, Integument intact CBC, BMP 08/06/16 05:48 08/06/16 05:48 Current Medications Generic Name Dose Route Start Last Admin Trade Name Freq PRN Reason Stop Dose Admin Acetaminophen 650 mg 07/31/16 18:07 08/06/16 01:53 Tylenol - PO 650 mg Q6H PRN Administration FEVER OR PAIN Atorvastatin Calcium 10 mg 07/31/16 22:00 08/05/16 21:37 Lipitor - PO 10 mg HS [facility] Administration Dabigatran 150 mg 07/31/16 22:00 08/06/16 10:10 Pradaxa - PO 150 mg BID [facility] Administration Digoxin 0.125 mg 08/01/16 10:00 08/06/16 10:09 Lanoxin - PO 0.125 mg DAILY [facility] Administration Diltiazem HCl 120 mg 08/03/16 13:45 08/06/16 10:09 Cardizem Cd - PO 120 mg DAILY [facility] Administration Finasteride 5 mg 08/01/16 10:00 08/06/16 10:09 Proscar - PO 5 mg DAILY [facility] Administration Fluoxetine HCl 10 mg 08/01/16 10:00 08/06/16 10:10 Prozac - PO 10 mg DAILY [facility] Administration Furosemide 40 mg 08/01/16 10:00 08/06/16 10:09 Lasix - PO 40 mg DAILY [facility] Administration Gabapentin 100 mg 07/31/16 22:00 08/06/16 14:00 Neurontin - PO 100 mg TID [facility] Administration Hydroxyurea 500 mg 07/31/16 22:00 08/06/16 10:10 Hydrea - PO 500 mg BID [facility] Administration Hydroxyurea 500 mg 08/05/16 10:00 08/05/16 09:41 Hydrea - PO 500 mg TuTh@1000 [facility] Administration Ceftazidime 1 gm/ Dextrose 50 mls @ 100 mls/hr 08/01/16 18:00 08/06/16 10:10 IVPB 100 mls/hr Q8H-IV [facility] Administration Protocol Magnesium Oxide 400 mg 07/31/16 22:00 08/06/16 10:10 Mag-Ox - PO 400 mg BID [facility] Administration Metformin HCl 500 mg 08/03/16 07:00 08/06/16 06:17 Glucophage - PO 500 mg ACBK [facility] Administration Ramipril 2.5 mg 08/04/16 10:00 08/06/16 10:09 Altace - PO 2.5 mg DAILY [facility] Administration Tamsulosin HCl 0.4 mg 08/01/16 08:30 08/06/16 10:09 Flomax - PO 0.4 mg DAILY@0830 [facility] Administration Impression: History of resistant UTI on antibiotics Hx of multiple strokes Hx of MPD Atrial fib - on Pradaxa HX of GI bleeding Ideally ASA-81 mg daily should be considered to decrease risk of thrombotic events from MPD. Pradaxa per Rx for AF. Hydrea regimen as previously outlined with careful monitoring of CBC q 2 weeks.
--- NOTE | 2016-08-06 17:49 | PN ---
Progress Note, Physician History of Present Illness: Afebrile, no complaints. - Current Medication List Current Medications: Active Medications Acetaminophen (Tylenol -) 650 mg PO Q6H PRN PRN Reason: FEVER OR PAIN Last Admin: 08/06/16 01:53 Dose: 650 mg Atorvastatin Calcium (Lipitor -) 10 mg PO HS [facility] Last Admin: 08/05/16 21:37 Dose: 10 mg Dabigatran (Pradaxa -) 150 mg PO BID [facility] Last Admin: 08/06/16 10:10 Dose: 150 mg Digoxin (Lanoxin -) 0.125 mg PO DAILY [facility] Last Admin: 08/06/16 10:09 Dose: 0.125 mg Diltiazem HCl (Cardizem Cd -) 120 mg PO DAILY [facility] Last Admin: 08/06/16 10:09 Dose: 120 mg Finasteride (Proscar -) 5 mg PO DAILY [facility] Last Admin: 08/06/16 10:09 Dose: 5 mg Fluoxetine HCl (Prozac -) 10 mg PO DAILY [facility] Last Admin: 08/06/16 10:10 Dose: 10 mg Furosemide (Lasix -) 40 mg PO DAILY [facility] Last Admin: 08/06/16 10:09 Dose: 40 mg Gabapentin (Neurontin -) 100 mg PO TID [facility] Last Admin: 08/06/16 14:00 Dose: 100 mg Hydroxyurea (Hydrea -) 500 mg PO BID [facility] Last Admin: 08/06/16 10:10 Dose: 500 mg Hydroxyurea (Hydrea -) 500 mg PO TuTh@1000 [facility] Last Admin: 08/05/16 09:41 Dose: 500 mg Ceftazidime 1 gm/ Dextrose 50 mls @ 100 mls/hr IVPB Q8H-IV [facility] PRN Reason: Protocol Last Admin: 08/06/16 10:10 Dose: 100 mls/hr Magnesium Oxide (Mag-Ox -) 400 mg PO BID [facility] Last Admin: 08/06/16 10:10 Dose: 400 mg Metformin HCl (Glucophage -) 500 mg PO ACBK [facility] Last Admin: 08/06/16 06:17 Dose: 500 mg Ramipril (Altace -) 2.5 mg PO DAILY [facility] Last Admin: 08/06/16 10:09 Dose: 2.5 mg Tamsulosin HCl (Flomax -) 0.4 mg PO DAILY@0830 [facility] Last Admin: 08/06/16 10:09 Dose: 0.4 mg - Objective Vital Signs: Vital Signs Temperature 97.7 F 08/06/16 14:41 Pulse Rate 71 08/06/16 14:41 Respiratory Rate 20 08/06/16 14:41 Blood Pressure 117/51 08/06/16 14:41 O2 Sat by Pulse Oximetry (%) 95 08/06/16 09:00 Constitutional: Yes: No Distress, Calm Neck: Yes: Supple Cardiovascular: Yes: Pulse Irregular Respiratory: Yes: Regular, Diminished Gastrointestinal: Yes: Normal Bowel Sounds, Soft Edema: Yes Edema: LLE: Trace, RLE: Trace Labs: CBC, BMP 08/06/16 05:48 08/06/16 05:48 INR, PTT INR 1.41 (0.82-1.09) H 07/31/16 15:30 Problem List - Problems (1) CAD (coronary artery disease) Code(s): I25.10 - ATHSCL HEART DISEASE OF [place] CORONARY ARTERY W/O ANG PCTRS Qualifiers: Coronary Disease-Associated Artery/Lesion type: [place] artery [place] vs. transplanted heart: [place] heart Associated angina: without angina Qualified Code(s): I25.10 - Atherosclerotic heart disease of [place] coronary artery without angina pectoris (2) Afib Code(s): I48.91 - UNSPECIFIED ATRIAL FIBRILLATION Qualifiers: Atrial fibrillation type: persistent Qualified Code(s): I48.1 - Persistent atrial fibrillation (3) Cerebral infarction Code(s): I63.9 - CEREBRAL INFARCTION, UNSPECIFIED (4) Myelodysplasia (myelodysplastic syndrome) Code(s): D46.9 - MYELODYSPLASTIC SYNDROME, UNSPECIFIED (5) Positive urine culture Code(s): R82.7 - ABNORMAL FINDINGS ON MICROBIOLOGICAL EXAMINAT * DO NOT USE * (6) Diabetes Code(s): E11.9 - TYPE 2 DIABETES MELLITUS WITHOUT COMPLICATIONS Qualifiers: Diabetes mellitus type: type 2 Diabetes mellitus complication status: without complication Diabetes mellitus jail insulin use: without jail use Qualified Code(s): E11.9 - Type 2 diabetes mellitus without complications (7) Diastolic dysfunction Code(s): I51.9 - HEART DISEASE, UNSPECIFIED (8) HTN (hypertension) Code(s): I10 - ESSENTIAL (PRIMARY) HYPERTENSION Qualifiers: Hypertension type: essential hypertension Qualified Code(s): I10 - Essential (primary) hypertension (9) Hyperlipidemia Code(s): E78.5 - HYPERLIPIDEMIA, UNSPECIFIED Qualifiers: Hyperlipidemia type: pure hypercholesterolemia Qualified Code(s): E78.0 - Pure hypercholesterolemia (10) CHEMA (acute kidney injury) Code(s): N17.9 - ACUTE KIDNEY FAILURE, UNSPECIFIED Assessment/Plan 1. Pseudomonas UTI 2. LV diastolic dysfunction with chronic class I NYHA classification LV failure , currently euvolumic 3. Permanent AF [id number] score of 8 on A/C with NOAC 4. CAD angina pectoris, stable 5. HTN 6. NIDDM 7. Hypercholesterolemia 8. History of fronto-temporal stroke with residual deficit 9. Mylelodysplastic syndrome, leukocytosis, anemia and thrombocytosis 10. CHEMA PLAN: 1. Antibiotic course d/marie per ID 2. Continue Cardizem CD 120 mg QD as tolerated 3. Continue Ramipril 2.5 mg once a day with caution and monitor renal recovery 4. Continue Lipitor 10 qhs, Lasix 40 qd 5. Continue Pradaxa 150 bid and start ASA 81 qd per heme with close monitoring of CBC 6. Continue Digoxin 0.125 qd with close monitoring of level
[2016-08-06] MEDS: ATORVASTATIN CA 10 MG TABLET (FP) PO SCH (21:32)
[2016-08-07] MEDS ORDERED: PT OWN MED DRAWER 7, Y5N ONE ×4 (01:57→16:27)
[2016-08-07] MEDS: CEFTAZIDIME PENTAHYDRATE 1 GM in DEXTROSE 5%-WATER - 50 ML IVPB SCH ×3 (02:13→17:22)
[2016-08-07] MEDS: GABAPENTIN 100 MG CAPSULE (FP) PO SCH ×3 (06:12→21:28)
[2016-08-07] MEDS: metFORMIN HCL 500 MG TABLET (FP) PO SCH (06:12)
[2016-08-07] MEDS ORDERED: ASPIRIN 81 MG CHEWABLE TABLETS PO SCH (10:00)
[2016-08-07] MEDS: FUROSEMIDE 40 MG TABLET (FP) PO SCH (10:12)
[2016-08-07] MEDS: HYDROXYUREA 500 MG CAPSULE PO SCH ×2 (10:13→21:28)
[2016-08-07] MEDS: FINASTERIDE 5 MG TABLET (FP) PO SCH (10:13)
[2016-08-07] MEDS: DABIGATRAN ETEXILATE MESYLATE 150 MG CAPSULE PO SCH ×2 (10:13→21:28)
[2016-08-07] MEDS: MAGNESIUM OXIDE 400 MG TABLET (FP) PO SCH ×2 (10:13→21:28)
[2016-08-07] MEDS: DIGOXIN 0.125 MG TABLET (FP) PO SCH (10:13)
[2016-08-07] MEDS: RAMIPRIL 2.5 MG CAPSULE (FP) PO SCH (10:13)
[2016-08-07] MEDS: TAMSULOSIN HCL 0.4 MG CAP.ER.24H (FP) PO SCH (10:13)
[2016-08-07] MEDS: FLUoxetine HCL 10 MG CAPSULE (FP) PO SCH (10:16)
--- NOTE | 2016-08-07 12:19 | PN ---
Progress Note (short form) - Note Progress Note: on IV abx for uti bladder wall thickening on sono (has had this finding in the past) no hematuria no intervention at this time
--- NOTE | 2016-08-07 12:37 | PN ---
Progress Note (short form) - Note Progress Note: Renal Follow up for CHEMA Pt seen and examined at the bedside no complaints Vital Signs Temperature 98.1 F 08/07/16 10:00 Pulse Rate 99 H 08/07/16 10:13 Respiratory Rate 20 08/07/16 10:00 Blood Pressure 131/71 08/07/16 10:00 O2 Sat by Pulse Oximetry (%) 92 L 08/06/16 21:00 Intake & Output 08/04/16 08/05/16 08/06/16 08/07/16 23:59 23:59 23:59 23:59 Intake Total 1370 1250 1220 220 Output Total 1100 Balance 1370 1250 120 220 Gen: NAD HEENT: NC/AT CVS: RRR, No M/R Lungs: CTA Abd: soft NT/ND, No bladder distension Ext: No edema, clubbing or cyanosis CBC, BMP 08/06/16 05:48 08/06/16 05:48 Current Medications Acetaminophen (Tylenol -) 650 mg PO Q6H PRN PRN Reason: FEVER OR PAIN Last Admin: 08/06/16 01:53 Dose: 650 mg Aspirin (Asa -) 81 mg PO DAILY [facility] Last Admin: 08/07/16 10:13 Dose: 81 mg Atorvastatin Calcium (Lipitor -) 10 mg PO HS [facility] Last Admin: 08/06/16 21:32 Dose: 10 mg Dabigatran (Pradaxa -) 150 mg PO BID [facility] Last Admin: 08/07/16 10:13 Dose: 150 mg Digoxin (Lanoxin -) 0.125 mg PO DAILY [facility] Last Admin: 08/07/16 10:13 Dose: 0.125 mg Diltiazem HCl (Cardizem Cd -) 120 mg PO DAILY [facility] Last Admin: 08/07/16 10:13 Dose: 120 mg Finasteride (Proscar -) 5 mg PO DAILY [facility] Last Admin: 08/07/16 10:13 Dose: 5 mg Fluoxetine HCl (Prozac -) 10 mg PO DAILY [facility] Last Admin: 08/07/16 10:16 Dose: 10 mg Furosemide (Lasix -) 40 mg PO DAILY [facility] Last Admin: 08/07/16 10:12 Dose: 40 mg Gabapentin (Neurontin -) 100 mg PO TID [facility] Last Admin: 08/07/16 06:12 Dose: 100 mg Hydroxyurea (Hydrea -) 500 mg PO BID [facility] Last Admin: 08/07/16 10:13 Dose: 500 mg Hydroxyurea (Hydrea -) 500 mg PO TuTh@1000 [facility] Last Admin: 08/05/16 09:41 Dose: 500 mg Ceftazidime 1 gm/ Dextrose 50 mls @ 100 mls/hr IVPB Q8H-IV [facility] PRN Reason: Protocol Last Admin: 08/07/16 10:12 Dose: 100 mls/hr Magnesium Oxide (Mag-Ox -) 400 mg PO BID [facility] Last Admin: 08/07/16 10:13 Dose: 400 mg Metformin HCl (Glucophage -) 500 mg PO ACBK [facility] Last Admin: 08/07/16 06:12 Dose: 500 mg Ramipril (Altace -) 2.5 mg PO DAILY [facility] Last Admin: 08/07/16 10:13 Dose: 2.5 mg Tamsulosin HCl (Flomax -) 0.4 mg PO DAILY@0830 [facility] Last Admin: 08/07/16 10:13 Dose: 0.4 mg A/p 81 y/o Gentleman with PMhx of AFib, CVA, Hypertension, DM who presented with UTI and CHEMA with normal baseline renal function. #CHEMA secondary to hemodynamic changes from UTI no new labs today Check BMP in AM Continue ACEi for now #Hypertensin BP is at [place] on current meds #Anemia Hgb slowly downtrending Check stool occult blood and iron studies no indication for transfusion #UTI Continue IV Ceftazidime Gabe Mendes DO
--- NOTE | 2016-08-07 12:38 | PN ---
Progress Note, Physician Chief Complaint: calm at baseline - Current Medication List Current Medications: Active Medications Acetaminophen (Tylenol -) 650 mg PO Q6H PRN PRN Reason: FEVER OR PAIN Last Admin: 08/06/16 01:53 Dose: 650 mg Aspirin (Asa -) 81 mg PO DAILY [facility] Last Admin: 08/07/16 10:13 Dose: 81 mg Atorvastatin Calcium (Lipitor -) 10 mg PO HS [facility] Last Admin: 08/06/16 21:32 Dose: 10 mg Dabigatran (Pradaxa -) 150 mg PO BID [facility] Last Admin: 08/07/16 10:13 Dose: 150 mg Digoxin (Lanoxin -) 0.125 mg PO DAILY [facility] Last Admin: 08/07/16 10:13 Dose: 0.125 mg Diltiazem HCl (Cardizem Cd -) 120 mg PO DAILY [facility] Last Admin: 08/07/16 10:13 Dose: 120 mg Finasteride (Proscar -) 5 mg PO DAILY [facility] Last Admin: 08/07/16 10:13 Dose: 5 mg Fluoxetine HCl (Prozac -) 10 mg PO DAILY [facility] Last Admin: 08/07/16 10:16 Dose: 10 mg Furosemide (Lasix -) 40 mg PO DAILY [facility] Last Admin: 08/07/16 10:12 Dose: 40 mg Gabapentin (Neurontin -) 100 mg PO TID [facility] Last Admin: 08/07/16 06:12 Dose: 100 mg Hydroxyurea (Hydrea -) 500 mg PO BID [facility] Last Admin: 08/07/16 10:13 Dose: 500 mg Hydroxyurea (Hydrea -) 500 mg PO TuTh@1000 [facility] Last Admin: 08/05/16 09:41 Dose: 500 mg Ceftazidime 1 gm/ Dextrose 50 mls @ 100 mls/hr IVPB Q8H-IV [facility] PRN Reason: Protocol Last Admin: 08/07/16 10:12 Dose: 100 mls/hr Magnesium Oxide (Mag-Ox -) 400 mg PO BID [facility] Last Admin: 08/07/16 10:13 Dose: 400 mg Metformin HCl (Glucophage -) 500 mg PO ACBK [facility] Last Admin: 08/07/16 06:12 Dose: 500 mg Ramipril (Altace -) 2.5 mg PO DAILY [facility] Last Admin: 08/07/16 10:13 Dose: 2.5 mg Tamsulosin HCl (Flomax -) 0.4 mg PO DAILY@0830 [facility] Last Admin: 08/07/16 10:13 Dose: 0.4 mg - Objective Vital Signs: Vital Signs Temperature 98.1 F 08/07/16 10:00 Pulse Rate 99 H 08/07/16 10:13 Respiratory Rate 20 08/07/16 10:00 Blood Pressure 131/71 08/07/16 10:00 O2 Sat by Pulse Oximetry (%) 92 L 08/06/16 21:00 Labs: CBC, BMP 08/06/16 05:48 08/06/16 05:48 INR, PTT INR 1.41 (0.82-1.09) H 07/31/16 15:30 Problem List - Problems (1) CAD (coronary artery disease) Code(s): I25.10 - ATHSCL HEART DISEASE OF [place] CORONARY ARTERY W/O ANG PCTRS Qualifiers: Coronary Disease-Associated Artery/Lesion type: [place] artery [place] vs. transplanted heart: [place] heart Associated angina: without angina Qualified Code(s): I25.10 - Atherosclerotic heart disease of [place] coronary artery without angina pectoris (2) UTI (urinary tract infection) Code(s): N39.0 - URINARY TRACT INFECTION, SITE NOT SPECIFIED Qualifiers: Urinary tract infection type: acute cystitis Hematuria presence: with hematuria Qualified Code(s): N30.01 - Acute cystitis with hematuria (3) Afib Code(s): I48.91 - UNSPECIFIED ATRIAL FIBRILLATION Qualifiers: Atrial fibrillation type: persistent Qualified Code(s): I48.1 - Persistent atrial fibrillation Assessment/Plan (1) UTI (urinary tract infection) Assessment/Plan: continue iv abx for total 7 days today is day6 as it was astarted on 08/01 in evening Microbiology 07/31/16 15:30 Urine - Urine Clean Catch Urine Culture - Final Pseudomonas Aeruginosa Code(s): N39.0 - URINARY TRACT INFECTION, SITE NOT SPECIFIED Qualifiers: Urinary tract infection type: acute cystitis Hematuria presence: with hematuria Qualified Code(s): N30.01 - Acute cystitis with hematuria (2) Afib Code(s): I48.91 - UNSPECIFIED ATRIAL FIBRILLATION Qualifiers: Atrial fibrillation type: persistent Qualified Code(s): I48.1 - Persistent atrial fibrillation (3) Congestive heart failure Code(s): I50.9 - HEART FAILURE, UNSPECIFIED Qualifiers: Congestive heart failure type: unspecified congestive heart failure type Congestive heart failure chronicity: unspecified congestive heart failure chronicity Qualified Code(s): I50.9 - Heart failure, unspecified (4) Myelodysplasia (myelodysplastic syndrome) Code(s): D46.9 - MYELODYSPLASTIC SYNDROME, UNSPECIFIED (5) Malignant neoplasm of bladder Code(s): C67.9 - MALIGNANT NEOPLASM OF BLADDER, UNSPECIFIED Qualifiers: Bladder location: trigone of urinary bladder Qualified Code(s): C67.0 - Malignant neoplasm of trigone of bladder (6) CHEMA (acute kidney injury) Code(s): N17.9 - ACUTE KIDNEY FAILURE, UNSPECIFIED [employer]
--- NOTE | 2016-08-07 14:18 | PN ---
Progress Note, Physician Chief Complaint: Not in distress History of Present Illness: Patient was seen and examined. Awake and alert. Chart was reviewed Denies chest pain or shortness of breath - Current Medication List Current Medications: Active Medications Acetaminophen (Tylenol -) 650 mg PO Q6H PRN PRN Reason: FEVER OR PAIN Last Admin: 08/06/16 01:53 Dose: 650 mg Aspirin (Asa -) 81 mg PO DAILY [facility] Last Admin: 08/07/16 10:13 Dose: 81 mg Atorvastatin Calcium (Lipitor -) 10 mg PO HS [facility] Last Admin: 08/06/16 21:32 Dose: 10 mg Dabigatran (Pradaxa -) 150 mg PO BID [facility] Last Admin: 08/07/16 10:13 Dose: 150 mg Digoxin (Lanoxin -) 0.125 mg PO DAILY [facility] Last Admin: 08/07/16 10:13 Dose: 0.125 mg Diltiazem HCl (Cardizem Cd -) 120 mg PO DAILY [facility] Last Admin: 08/07/16 10:13 Dose: 120 mg Finasteride (Proscar -) 5 mg PO DAILY [facility] Last Admin: 08/07/16 10:13 Dose: 5 mg Fluoxetine HCl (Prozac -) 10 mg PO DAILY [facility] Last Admin: 08/07/16 10:16 Dose: 10 mg Furosemide (Lasix -) 40 mg PO DAILY [facility] Last Admin: 08/07/16 10:12 Dose: 40 mg Gabapentin (Neurontin -) 100 mg PO TID [facility] Last Admin: 08/07/16 06:12 Dose: 100 mg Hydroxyurea (Hydrea -) 500 mg PO BID [facility] Last Admin: 08/07/16 10:13 Dose: 500 mg Hydroxyurea (Hydrea -) 500 mg PO TuTh@1000 [facility] Last Admin: 08/05/16 09:41 Dose: 500 mg Ceftazidime 1 gm/ Dextrose 50 mls @ 100 mls/hr IVPB Q8H-IV [facility] PRN Reason: Protocol Last Admin: 08/07/16 10:12 Dose: 100 mls/hr Magnesium Oxide (Mag-Ox -) 400 mg PO BID [facility] Last Admin: 08/07/16 10:13 Dose: 400 mg Metformin HCl (Glucophage -) 500 mg PO ACBK [facility] Last Admin: 08/07/16 06:12 Dose: 500 mg Ramipril (Altace -) 2.5 mg PO DAILY [facility] Last Admin: 08/07/16 10:13 Dose: 2.5 mg Tamsulosin HCl (Flomax -) 0.4 mg PO DAILY@0830 [facility] Last Admin: 08/07/16 10:13 Dose: 0.4 mg - Objective Vital Signs: Vital Signs Temperature 98.0 F 08/07/16 14:00 Pulse Rate 82 08/07/16 14:00 Respiratory Rate 20 08/07/16 14:00 Blood Pressure 108/60 08/07/16 14:00 O2 Sat by Pulse Oximetry (%) 93 L 08/07/16 10:00 Neck: Yes: Supple Cardiovascular: Yes: Pulse Irregular, S1, S2 Respiratory: Yes: Diminished Gastrointestinal: Yes: Normal Bowel Sounds, Soft. No: Tenderness Edema: No Labs: CBC, BMP 08/06/16 05:48 08/06/16 05:48 Problem List - Problems (1) UTI (urinary tract infection) Code(s): N39.0 - URINARY TRACT INFECTION, SITE NOT SPECIFIED Qualifiers: Urinary tract infection type: acute cystitis Hematuria presence: with hematuria Qualified Code(s): N30.01 - Acute cystitis with hematuria (2) Afib Code(s): I48.91 - UNSPECIFIED ATRIAL FIBRILLATION Qualifiers: Atrial fibrillation type: persistent Qualified Code(s): I48.1 - Persistent atrial fibrillation (3) Anemia Code(s): D64.9 - ANEMIA, UNSPECIFIED Qualifiers: Anemia type: unspecified type Qualified Code(s): D64.9 - Anemia, unspecified (4) Cerebrovascular accident Code(s): I63.9 - CEREBRAL INFARCTION, UNSPECIFIED (5) Diabetes Code(s): E11.9 - TYPE 2 DIABETES MELLITUS WITHOUT COMPLICATIONS Qualifiers: Diabetes mellitus type: type 2 Diabetes mellitus complication status: without complication Diabetes mellitus intermediate manager insulin use: without penitentiary use Qualified Code(s): E11.9 - Type 2 diabetes mellitus without complications (6) Diastolic dysfunction Code(s): I51.9 - HEART DISEASE, UNSPECIFIED (7) HTN (hypertension) Code(s): I10 - ESSENTIAL (PRIMARY) HYPERTENSION Qualifiers: Hypertension type: essential hypertension Qualified Code(s): I10 - Essential (primary) hypertension (8) Hyperlipidemia Code(s): E78.5 - HYPERLIPIDEMIA, UNSPECIFIED Qualifiers: Hyperlipidemia type: pure hypercholesterolemia Qualified Code(s): E78.0 - Pure hypercholesterolemia (9) Myelodysplasia (myelodysplastic syndrome) Code(s): D46.9 - MYELODYSPLASTIC SYNDROME, UNSPECIFIED (10) Thrombocytopenia Code(s): D69.6 - THROMBOCYTOPENIA, UNSPECIFIED (11) CAD (coronary artery disease) Code(s): I25.10 - ATHSCL HEART DISEASE OF [place] CORONARY ARTERY W/O ANG PCTRS Qualifiers: Coronary Disease-Associated Artery/Lesion type: [place] artery [place] vs. transplanted heart: [place] heart Associated angina: without angina Qualified Code(s): I25.10 - Atherosclerotic heart disease of [place] coronary artery without angina pectoris Assessment/Plan 1. UTI 2. LV diastolic dysfunction with chronic class I NYHA classification LV failure , currently euvolumic 3. Permanent AF [id number] score of 8 on A/C with NOAC 4. CAD angina pectoris, stable 5. HTN 6. NIDDM 7. Hypercholesterolemia 8. History of fronto-temporal stroke with residual deficit 9. Mylelodysplastic syndrome, Anemia and thrombocytosis PLAN: 1. Antibiotics as per ID 2. Consider Cardizem CD 120 mg QD as tolerated 3. Continue Ramipril 2.5 mg once a day 4. Continue Lipitor 5. Continue Pradaxa with caution and with close monitoring of CBC 6. Continue Digoxin with close monitoring of level Further plans are to follow Tc Bass MD
[2016-08-07] MEDS: ATORVASTATIN CA 10 MG TABLET (FP) PO SCH (21:27)
[2016-08-07] MEDS: ACETAMINOPHEN 325 MG TABLET (FP) PO PRN (21:48)
[2016-08-08] MEDS: CEFTAZIDIME PENTAHYDRATE 1 GM in DEXTROSE 5%-WATER - 50 ML IVPB SCH ×3 (01:20→21:14)
[2016-08-08] MEDS: ACETAMINOPHEN 325 MG TABLET (FP) PO PRN (02:58)
[2016-08-08] MEDS: GABAPENTIN 100 MG CAPSULE (FP) PO SCH ×3 (06:29→22:30)
[2016-08-08] MEDS: metFORMIN HCL 500 MG TABLET (FP) PO SCH (06:29)
[2016-08-08 08:07] LABS: BASOPHIL 1.2 % (0-2.0); EOSINOPHIL 1.4 % (0-4.5); MCHC 32.9 g/dl (32.0-35.9); MEAN CELL VOLUME 115.7 fl (80-96); MEAN PLT VOLUME 7.3 fl (7.5-11.1); NEUTROPHILS 76.1 % (42.8-82.8); PLATELET COUNT 473 K/MM3 (134-434); RDW 15.9 % (11.9-15.9); WHITE BLOOD COUNT 11.4 K/mm3 (4.0-10.0)
[2016-08-08] MEDS: TAMSULOSIN HCL 0.4 MG CAP.ER.24H (FP) PO SCH (09:14)
--- NOTE | 2016-08-08 09:21 | PN ---
Progress Note, Physician Chief Complaint: no complaints listening to headphones - Current Medication List Current Medications: Active Medications Acetaminophen (Tylenol -) 650 mg PO Q6H PRN PRN Reason: FEVER OR PAIN Last Admin: 08/08/16 02:58 Dose: 650 mg Aspirin (Asa -) 81 mg PO DAILY [facility] Last Admin: 08/07/16 10:13 Dose: 81 mg Atorvastatin Calcium (Lipitor -) 10 mg PO HS [facility] Last Admin: 08/07/16 21:27 Dose: 10 mg Dabigatran (Pradaxa -) 150 mg PO BID [facility] Last Admin: 08/07/16 21:28 Dose: 150 mg Digoxin (Lanoxin -) 0.125 mg PO DAILY [facility] Last Admin: 08/07/16 10:13 Dose: 0.125 mg Diltiazem HCl (Cardizem Cd -) 120 mg PO DAILY [facility] Last Admin: 08/07/16 10:13 Dose: 120 mg Finasteride (Proscar -) 5 mg PO DAILY [facility] Last Admin: 08/07/16 10:13 Dose: 5 mg Fluoxetine HCl (Prozac -) 10 mg PO DAILY [facility] Last Admin: 08/07/16 10:16 Dose: 10 mg Furosemide (Lasix -) 40 mg PO DAILY [facility] Last Admin: 08/07/16 10:12 Dose: 40 mg Gabapentin (Neurontin -) 100 mg PO TID [facility] Last Admin: 08/08/16 06:29 Dose: 100 mg Hydroxyurea (Hydrea -) 500 mg PO BID [facility] Last Admin: 08/07/16 21:28 Dose: 500 mg Hydroxyurea (Hydrea -) 500 mg PO TuTh@1000 [facility] Last Admin: 08/05/16 09:41 Dose: 500 mg Ceftazidime 1 gm/ Dextrose 50 mls @ 100 mls/hr IVPB Q8H-IV [facility] PRN Reason: Protocol Last Admin: 08/08/16 01:20 Dose: 100 mls/hr Magnesium Oxide (Mag-Ox -) 400 mg PO BID [facility] Last Admin: 08/07/16 21:28 Dose: 400 mg Metformin HCl (Glucophage -) 500 mg PO ACBK [facility] Last Admin: 08/08/16 06:29 Dose: 500 mg Ramipril (Altace -) 2.5 mg PO DAILY [facility] Last Admin: 08/07/16 10:13 Dose: 2.5 mg Tamsulosin HCl (Flomax -) 0.4 mg PO DAILY@0830 [facility] Last Admin: 08/08/16 09:14 Dose: 0.4 mg - Objective Vital Signs: Vital Signs Temperature 97.3 F L 08/08/16 06:00 Pulse Rate 80 08/08/16 06:00 Respiratory Rate 18 08/08/16 06:00 Blood Pressure 115/45 08/08/16 06:00 O2 Sat by Pulse Oximetry (%) 94 L 08/07/16 22:00 Constitutional: Yes: Calm Neck: Yes: WNL Cardiovascular: Yes: WNL Respiratory: Yes: WNL Gastrointestinal: Yes: WNL Edema: No Labs: CBC, BMP 08/08/16 07:15 INR, PTT INR 1.41 (0.82-1.09) H 07/31/16 15:30 Problem List - Problems (1) CAD (coronary artery disease) Code(s): I25.10 - ATHSCL HEART DISEASE OF [place] CORONARY ARTERY W/O ANG PCTRS Qualifiers: Coronary Disease-Associated Artery/Lesion type: [place] artery [place] vs. transplanted heart: [place] heart Associated angina: without angina Qualified Code(s): I25.10 - Atherosclerotic heart disease of [place] coronary artery without angina pectoris (2) UTI (urinary tract infection) Code(s): N39.0 - URINARY TRACT INFECTION, SITE NOT SPECIFIED Qualifiers: Urinary tract infection type: acute cystitis Hematuria presence: with hematuria Qualified Code(s): N30.01 - Acute cystitis with hematuria (3) Afib Code(s): I48.91 - UNSPECIFIED ATRIAL FIBRILLATION Qualifiers: Atrial fibrillation type: persistent Qualified Code(s): I48.1 - Persistent atrial fibrillation (4) Anemia Code(s): D64.9 - ANEMIA, UNSPECIFIED Qualifiers: Anemia type: unspecified type Qualified Code(s): D64.9 - Anemia, unspecified Assessment/Plan (1) UTI (urinary tract infection) Assessment/Plan: continue iv abx for total 7 days today is day7 as it was astarted on 08/01 in evening f/u with id Microbiology 07/31/16 15:30 Urine - Urine Clean Catch Urine Culture - Final Pseudomonas Aeruginosa Code(s): N39.0 - URINARY TRACT INFECTION, SITE NOT SPECIFIED Qualifiers: Urinary tract infection type: acute cystitis Hematuria presence: with hematuria Qualified Code(s): N30.01 - Acute cystitis with hematuria (2) Afib Code(s): I48.91 - UNSPECIFIED ATRIAL FIBRILLATION Qualifiers: Atrial fibrillation type: persistent Qualified Code(s): I48.1 - Persistent atrial fibrillation noac stopped 2/2 gib (3) Congestive heart failure Code(s): I50.9 - HEART FAILURE, UNSPECIFIED Qualifiers: Congestive heart failure type: unspecified congestive heart failure type Congestive heart failure chronicity: unspecified congestive heart failure chronicity Qualified Code(s): I50.9 - Heart failure, unspecified (4) Myelodysplasia (myelodysplastic syndrome) Code(s): D46.9 - MYELODYSPLASTIC SYNDROME, UNSPECIFIED appreciate heme note asa stopped 2/2 gib (5) Malignant neoplasm of bladder Code(s): C67.9 - MALIGNANT NEOPLASM OF BLADDER, UNSPECIFIED Qualifiers: Bladder location: trigone of urinary bladder Qualified Code(s): C67.0 - Malignant neoplasm of trigone of bladder (6) CHEMA (acute kidney injury) Code(s): N17.9 - ACUTE KIDNEY FAILURE, UNSPECIFIED (7) Anemia Code(s): D64.9 - ANEMIA, UNSPECIFIED Qualifiers: Anemia type: unspecified type Qualified Code(s): D64.9 - Anemia, unspecified hgb 9 -> 6 fobt +wally - prbc x 2 with lasix - 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
[2016-08-08] MEDS ORDERED: PT OWN MED DRAWER 7, Y5N ONE ×3 (09:33→16:25)
[2016-08-08] MEDS: FUROSEMIDE 40 MG TABLET (FP) PO SCH (09:35)
[2016-08-08] MEDS: DIGOXIN 0.125 MG TABLET (FP) PO SCH (09:35)
[2016-08-08] MEDS: HYDROXYUREA 500 MG CAPSULE PO SCH ×2 (09:35→22:30)
[2016-08-08] MEDS: FINASTERIDE 5 MG TABLET (FP) PO SCH (09:35)
[2016-08-08] MEDS: MAGNESIUM OXIDE 400 MG TABLET (FP) PO SCH ×2 (09:35→22:29)
[2016-08-08] MEDS: FLUoxetine HCL 10 MG CAPSULE (FP) PO SCH (09:38)
[2016-08-08 09:40] LABS: CALCIUM 7.7 mg/dL (8.5-10.1); CREATININE 1.7 mg/dL (0.7-1.3); MAGNESIUM 2.8 mg/dL (1.8-2.4); PHOSPHOROUS 3.4 mg/dL (2.5-4.9)
[2016-08-08 09:41] LABS: FERRITIN 15.725 ng/ml (16.4-293.9)
[2016-08-08 10:45] LABS: ACANTHOCYTES 1+; ANISOCYTOSIS 2+; FRAGMENTED CELL 1+; HYPOCHROMIA 2+; MICROCYTOSIS 1+; OVALOCYTES 1+; POIKILOCYTOSIS 3+; POLYCHROMASIA 1+; TEAR DROP CELLS 1+
[2016-08-08] MEDS: INSULIN SLIDING SCALE (NOVOLOG) 1 VIAL SQ SCH ×3 (12:18→22:05)
--- NOTE | 2016-08-08 14:37 | CON.GI ---
Consult Consult Specialty:: GI Referred by:: Dr Schneider Reason for Consultation:: GI bleed - History of Present Illness Chief Complaint: Diffuse abdominal pain History of Present Illness: 81 M with h/o CVA, AF on AC, DM, MDS with thrombocytosis on hydroxyurea, HTN, Bladder Ca, admitted with UTI. Called because of anemia and acute drop in Hgb. Hgb 10.3-->5.7. Nurse reports black stool yesterday, none today. No abdominal pain at rest. 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 Cardio/Vascular: Yes: AFIB, CAD, Hyperlipdemia Pulmonary: Yes: COPD Gastrointestinal: Yes: Gastritis, GERD Renal/: Yes: BPH, Cancer (superficial bladder cancer) Endocrine: Yes: Diabetes Mellitus - Past Surgical History Past Surgical History: Yes: Cholecystectomy, Splenectomy, TURP - Alcohol/Substance Use Hx Alcohol Use: No - Smoking History Smoking history: Never smoked Have you smoked in the past 12 months: No Aproximately how many cigarettes per day: 0 If you are a former smoker, when did you quit?: 2008 - Social History Usual Living Arrangement: Other (staying with neice in house with stairs and ambulates with quad cane) ADL: Family Assistance (h/o CVA with excellent improvement. h/o r sided weakness with speech deficits. Returned to [place] in ADL. 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.) History of Recent Travel: No Home Medications - Allergies Allergies/Adverse Reactions: Allergies Allergy/AdvReac Type Severity Reaction Status Date / Time doxycycline Allergy Mild Rash AND Verified 08/06/15 19:16 VOMITING Sulfa (Sulfonamide Allergy Verified 07/31/16 14:21 Antibiotics) duloxetine HCl AdvReac Severe HALLUCINATI Verified 08/06/15 19:16 [From Cymbalta] ONS - Home Medications Home Medications: Ambulatory Orders Furosemide [Lasix -] 40 mg PO DAILY 03/25/15 Metformin HCl 500 mg PO DAILY 06/08/15 Dabigatran Etexilate Mesylate [Pradaxa -] 150 mg PO BID #60 cap 11/04/15 Digoxin 125 mcg PO DAILY #30 tablet 11/04/15 Finasteride 5 mg PO DAILY #30 tablet 11/04/15 Magnesium Oxide [Mag-Ox -] 400 mg PO BID #30 tablet 11/04/15 Atorvastatin Ca [Lipitor] 10 mg PO HS 07/31/16 Fluoxetine HCl 10 mg PO DAILY 07/31/16 Gabapentin 100 mg PO BID 07/31/16 Tamsulosin HCl 0.4 mg PO BID 07/31/16 Atorvastatin Ca [Lipitor] 10 mg PO HS tablet 08/06/16 Dabigatran Etexilate Mesylate [Pradaxa -] 150 mg PO BID cap 08/06/16 Digoxin [Lanoxin -] 0.125 mg PO DAILY tablet 08/06/16 Diltiazem Cd [Cardizem Cd -] 120 mg PO DAILY cap.cd.24h 08/06/16 Finasteride [Proscar -] 5 mg PO DAILY tablet 08/06/16 Fluoxetine HCl [Prozac -] 10 mg PO DAILY capsule 08/06/16 Furosemide [Lasix -] 40 mg PO DAILY tablet 08/06/16 Gabapentin [Neurontin -] 100 mg PO TID capsule 08/06/16 Hydroxyurea [Hydrea 500Mg Capsule -] 500 mg PO BID capsule 08/06/16 Hydroxyurea [Hydrea 500Mg Capsule -] 500 mg PO TuTh@1000 capsule 08/06/16 Magnesium Oxide [Mag-Ox -] 400 mg PO BID tablet 08/06/16 Metformin HCl [Glucophage -] 500 mg PO ACBK tablet 08/06/16 Ramipril [Altace] 2.5 mg PO DAILY capsule 08/06/16 Tamsulosin HCl [Flomax -] 0.4 mg PO DAILY@0830 cap.er.24h 08/06/16 Physical Exam-GI Vital Signs: Vital Signs Temperature 97.6 F 08/08/16 14:12 Pulse Rate 63 08/08/16 14:12 Respiratory Rate 18 08/08/16 14:12 Blood Pressure 96/48 08/08/16 14:12 O2 Sat by Pulse Oximetry (%) 94 L 08/07/16 22:00 Constitutional: Yes: Well Nourished, No Distress HENT: Yes: Normocephalic Neck: Yes: Supple Cardiovascular: Yes: Pulse Irregular Respiratory: Yes: Accessory Muscle Use Gastrointestinal Inspection: Yes: WNL ...Auscultate: Yes: Hyperactive Bowel Sounds ...Palpate: Yes: Soft, Tenderness, Rebound (LLQ) Labs: CBC, BMP 08/08/16 07:15 08/08/16 07:15 INR, PTT INR 1.41 (0.82-1.09) H 07/31/16 15:30 Assessment/Plan 81 M with above history now with UGIB and significant drop in Hgb. Assessment: UGIB-patient had EGD and colon exactly 1 year ago, done by myself. Normal colon , no bleed on upper endoscopy but review of the photos suggests possible gastric varix, which may be the source of the bleeding. No active bleeding at this time. Plan: Will need EGD. Re-check H&H and transfuse to Hgb >8.0. Will do tomorrow. Start octreotide drip Start protonix drip Transfer to ICU if repeat Hgb suggests significant bleed Repeat CBC stat to verify acute drop U/S with doppler to assess liver and poss splenic vein thrombosis IF he has gastric varices, may need to be transferred to [facility] for definitive management with cyanoacrylate glue. Notify me if bleeding resumes MD Antoine [phone]
[2016-08-08] MEDS ORDERED: OCTREOTIDE ACETATE 1,200 MCG in DEXTROSE 5%-WATER - 488 ML IVPB SCH (15:30)
--- NOTE | 2016-08-08 15:49 | PN ---
Progress Note (short form) - Note Progress Note: Renal Follow up for CHEMA Pt seen and examined at the bedside reports discomfort in his abd and legs + melena denies cp or sob Cr bumped to 1.7, Hgb was 5.8 today Vital Signs Temperature 98.5 F 08/08/16 15:28 Pulse Rate 62 08/08/16 15:28 Respiratory Rate 28 H 08/08/16 15:28 Blood Pressure 93/41 08/08/16 15:28 O2 Sat by Pulse Oximetry (%) 94 L 08/07/16 22:00 Intake & Output 08/05/16 08/06/16 08/07/16 08/08/16 23:59 23:59 23:59 23:59 Intake Total 1250 1220 1170 350 Output Total 1100 Balance 8759 427 1398 350 Gen: NAD HEENT: NC/AT CVS: RRR, No M/R Lungs: CTA Abd: soft NT/ND, No bladder distension Ext: No edema, clubbing or cyanosis CBC, BMP 08/08/16 07:15 08/08/16 07:15 Current Medications Acetaminophen (Tylenol -) 650 mg PO Q6H PRN PRN Reason: FEVER OR PAIN Last Admin: 08/08/16 02:58 Dose: 650 mg Atorvastatin Calcium (Lipitor -) 10 mg PO HS [facility] Last Admin: 08/07/16 21:27 Dose: 10 mg Digoxin (Lanoxin -) 0.125 mg PO DAILY [facility] Last Admin: 08/08/16 09:35 Dose: 0.125 mg Diltiazem HCl (Cardizem Cd -) 120 mg PO DAILY [facility] Last Admin: 08/08/16 09:35 Dose: 120 mg Finasteride (Proscar -) 5 mg PO DAILY [facility] Last Admin: 08/08/16 09:35 Dose: 5 mg Fluoxetine HCl (Prozac -) 10 mg PO DAILY [facility] Last Admin: 08/08/16 09:38 Dose: 10 mg Furosemide (Lasix -) 40 mg PO DAILY [facility] Last Admin: 08/08/16 09:35 Dose: 40 mg Furosemide (Lasix Injection -) 20 mg IVPUSH BID@0600,1400 [facility] Stop: 08/09/16 06:01 Gabapentin (Neurontin -) 100 mg PO TID [facility] Last Admin: 08/08/16 14:01 Dose: 100 mg Hydroxyurea (Hydrea -) 500 mg PO BID [facility] Last Admin: 08/08/16 09:35 Dose: 500 mg Hydroxyurea (Hydrea -) 500 mg PO TuTh@1000 [facility] Last Admin: 08/05/16 09:41 Dose: 500 mg Ceftazidime 1 gm/ Dextrose 50 mls @ 100 mls/hr IVPB Q8H-IV [facility] PRN Reason: Protocol Last Admin: 08/08/16 11:45 Dose: 100 mls/hr Octreotide Acetate 1,200 mcg/ (Dextrose) 500 mls @ 20.83 mls/hr IVPB ASDIR [facility] PRN Reason: 50 MCG/HR Insulin Aspart (Novolog Vial Sliding Scale -) 0 vial SQ ACHS [facility] PRN Reason: Protocol Last Admin: 08/08/16 12:18 Dose: Not Given Magnesium Oxide (Mag-Ox -) 400 mg PO BID [facility] Last Admin: 08/08/16 09:35 Dose: 400 mg Ramipril (Altace -) 2.5 mg PO DAILY [facility] Last Admin: 08/07/16 10:13 Dose: 2.5 mg Tamsulosin HCl (Flomax -) 0.4 mg PO DAILY@0830 [facility] Last Admin: 08/08/16 09:14 Dose: 0.4 mg A/p 81 y/o Gentleman with PMhx of AFib, CVA, Hypertension, DM who presented with UTI and CHEMA with normal baseline renal function. #CHEMA Cr scooby to 1.7 today likely related to renal hypoperufsion from acute anemia/ blood loss Hold ACEi for now Transfuse to keep Hgb >7 keep MAP > 65 avoid nephrotoxins holding IVF as pt getting blood re-evaulate for need for fluid in AM #Anemia secondary to GIB + Melena getting PRBC transfusion Gi follow up #UTI Continue IV Ceftazidime Gabe Mendes DO
[2016-08-08 16:28] LABS: MCH 36.5 pg (25.7-33.7); MCHC 32.8 g/dl (32.0-35.9); MEAN CELL VOLUME 111.1 fl (80-96); MEAN PLT VOLUME 7.6 fl (7.5-11.1); PLATELET COUNT 423 K/MM3 (134-434); RDW 18.9 % (11.9-15.9)
[2016-08-08] MEDS: FUROSEMIDE 40 MG/4 ML INJECTABLE VIAL IVPUSH SCH ×2 (18:00→23:05)
[2016-08-08] MEDS: PANTOPRAZOLE SODIUM 80 MG in SODIUM CHLORIDE 100 ML IVPB SCH (18:30)
--- NOTE | 2016-08-08 20:59 | CONSULT ---
Consult Consult Specialty:: Pulm/CC - History of Present Illness History of Present Illness: Pt is an 81yr old man with PMHx of HTN, CHF, a-fib (on Pradaxa), CVA with rt side residual, myeloproliferative disorder with associated thrombocytosis, bladder CA and DM. he presents to the ER on 07/31 from PCP office for UTI and abdominal pain and diarrhea. Pt found to have pseudomonas UTI. Now transferred to the ICU after drop in hemoglobin to 5.8 with episode of melana and concern for gastric varix. Limited assessment due to limited hearing. Pt denies chest pain/sob/n/v/diarrhea. Endorses diffuse abdominal and bilateral foot pain. - History Source History Provided By: Patient Limitations to Obtaining History: Poor Historian (and hard of hearing) - Past Medical History DIRECTOR CLIENT SERVICES: Yes: CVA Cardio/Vascular: Yes: AFIB, CAD, Hyperlipdemia Pulmonary: Yes: COPD Gastrointestinal: Yes: Gastritis, GERD Renal/: Yes: BPH, Cancer (superficial bladder cancer) Endocrine: Yes: Diabetes Mellitus - Past Surgical History Past Surgical History: Yes: Cholecystectomy, Splenectomy, TURP - Alcohol/Substance Use Hx Alcohol Use: No - Smoking History Smoking history: Never smoked Have you smoked in the past 12 months: No Aproximately how many cigarettes per day: 0 If you are a former smoker, when did you quit?: 2008 - Social History Usual Living Arrangement: Other (staying with neice in house with stairs and ambulates with quad cane) ADL: Family Assistance (h/o CVA with excellent improvement. h/o r sided weakness with speech deficits. Returned to I in ADL. 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.) History of Recent Travel: No Home Medications - Allergies Allergies/Adverse Reactions: Allergies Allergy/AdvReac Type Severity Reaction Status Date / Time doxycycline Allergy Mild Rash AND Verified 08/06/15 19:16 VOMITING Sulfa (Sulfonamide Allergy Verified 07/31/16 14:21 Antibiotics) duloxetine HCl AdvReac Severe HALLUCINATI Verified 08/06/15 19:16 [From Cymbalta] ONS - Home Medications Home Medications: Ambulatory Orders Furosemide [Lasix -] 40 mg PO DAILY 03/25/15 Metformin HCl 500 mg PO DAILY 06/08/15 Dabigatran Etexilate Mesylate [Pradaxa -] 150 mg PO BID #60 cap 11/04/15 Digoxin 125 mcg PO DAILY #30 tablet 11/04/15 Finasteride 5 mg PO DAILY #30 tablet 11/04/15 Magnesium Oxide [Mag-Ox -] 400 mg PO BID #30 tablet 11/04/15 Atorvastatin Ca [Lipitor] 10 mg PO HS 07/31/16 Fluoxetine HCl 10 mg PO DAILY 07/31/16 Gabapentin 100 mg PO BID 07/31/16 Tamsulosin HCl 0.4 mg PO BID 07/31/16 Atorvastatin Ca [Lipitor] 10 mg PO HS tablet 08/06/16 Dabigatran Etexilate Mesylate [Pradaxa -] 150 mg PO BID cap 08/06/16 Digoxin [Lanoxin -] 0.125 mg PO DAILY tablet 08/06/16 Diltiazem Cd [Cardizem Cd -] 120 mg PO DAILY cap.cd.24h 08/06/16 Finasteride [Proscar -] 5 mg PO DAILY tablet 08/06/16 Fluoxetine HCl [Prozac -] 10 mg PO DAILY capsule 08/06/16 Furosemide [Lasix -] 40 mg PO DAILY tablet 08/06/16 Gabapentin [Neurontin -] 100 mg PO TID capsule 08/06/16 Hydroxyurea [Hydrea 500Mg Capsule -] 500 mg PO BID capsule 08/06/16 Hydroxyurea [Hydrea 500Mg Capsule -] 500 mg PO TuTh@1000 capsule 08/06/16 Magnesium Oxide [Mag-Ox -] 400 mg PO BID tablet 08/06/16 Metformin HCl [Glucophage -] 500 mg PO ACBK tablet 08/06/16 Ramipril [Altace] 2.5 mg PO DAILY capsule 08/06/16 Tamsulosin HCl [Flomax -] 0.4 mg PO DAILY@0830 cap.er.24h 08/06/16 Review of Systems - Review of Systems Cardiovascular: denies: Chest Pain Respiratory: denies: SOB Gastrointestinal: reports: Melena Physical Exam Vital Signs: Vital Signs Period Temp Pulse Resp BP Sys/Vidal Pulse Ox Last 24 Hr 97.3 F-98.5 F 62-91 18-28 93-134/41-57 94 Intake & Output 08/05/16 08/06/16 08/07/16 08/08/16 23:59 23:59 23:59 23:59 Intake Total 1250 1220 1170 350 Output Total 1100 Balance 4925 260 7323 350 Constitutional: Yes: Well Nourished, No Distress, Calm Eyes: Yes: WNL, Other (pupils bilaterally sluggish) HENT: Yes: WNL, Other (glasses) Cardiovascular: Yes: Pulse Irregular, S1, S2 Respiratory: Yes: Other (no adventitious breath sounds appreciated). No: Rales , Rhonchi, Wheezes Gastrointestinal: Yes: Normal Bowel Sounds, Tenderness ...Rectal Exam: Yes: Deferred Extremities: Yes: Cool, Other (bilateral foot pain to touch) Edema: No Peripheral Pulses WNL: Yes (+2 bilateral pedal pulses) Integumentary: Yes: Skin Tear (BLE) Neurological: Yes: Confusion Labs: Abnormal Lab Results 08/08/16 08/08/16 08/08/16 07:15 07:15 10:20 WBC 11.4 H RBC 1.49 L D Hgb 5.7 L* D Hct 17.2 L D MCV 115.7 H RDW Plt Count 473 H D MPV 7.3 L Retic Count Sodium 135 L Potassium 5.2 H Chloride 97 L BUN 75 H D Creatinine 1.7 H Calcium 7.7 L Magnesium 2.8 H Ferritin 15.725 L Crossmatch See Detail 08/08/16 08/08/16 11:45 15:55 WBC 14.0 H RBC 1.83 L D Hgb 6.7 L* D Hct 20.3 L D MCV 111.1 H RDW 18.9 H D Plt Count MPV Retic Count 2.96 H D Sodium Potassium Chloride BUN Creatinine Calcium Magnesium Ferritin Crossmatch Imaging - Results Ultrasound: Report Reviewed Assessment/Plan Pt is an 81yr old man with PMHx of HTN, CHF, a-fib (on Pradaxa), CVA with rt side residual, myeloproliferative disorder with associated thrombocytosis, bladder CA and DM. Now in the ICU for management of pseudomonas UTI, CHEMA and GIB with concern for gastric varix. Pulm: -O2 support prn for sat >94% -Incentive spirometer -f/u chest xray in a.m to rule out vascular congestion ID: -ID following -Antibiotics per ID GI: GI bleed with concern for gastric varix -Dr. Schultz following -PPI/Octreotide -Monitor h/h -Hold a/c -NPO for EGD in a.m Cardiovascular -Cardiology following -BP/Rate control -Lasix prn -Monitor h/h in setting of GIB, transfuse for hemoglobin >8 -Consider lower extremity imaging as pt with significant BLE pain with minimal touch Renal/Urology -Renal following -Monitor BUN/Cr -Renal dose medication -Continue Finasteride/flomax -I/Os Heme: -Heme following -Continue Hydrea Neuro -Will increase neurontin 100TID --> 2OO tid -Pain management Endo: -BGM -Glycemic control Prophylactic -Fall precautions -Aspiration precautions
[2016-08-08] MEDS: ATORVASTATIN CA 10 MG TABLET (FP) PO SCH (22:29)
[2016-08-08 23:54] LABS: BASOPHIL 1.1 % (0-2.0); EOSINOPHIL 0.7 % (0-4.5); MCH 35.1 pg (25.7-33.7); MCHC 33.9 g/dl (32.0-35.9); MEAN CELL VOLUME 103.4 fl (80-96); MEAN PLT VOLUME 7.3 fl (7.5-11.1); NEUTROPHILS 73.2 % (42.8-82.8); PLATELET COUNT 387 K/MM3 (134-434); WHITE BLOOD COUNT 13.9 K/mm3 (4.0-10.0)
[2016-08-09] MEDS: PANTOPRAZOLE SODIUM 80 MG in SODIUM CHLORIDE 100 ML IVPB SCH ×2 (02:53→15:05)
[2016-08-09] MEDS: CEFTAZIDIME PENTAHYDRATE 1 GM in DEXTROSE 5%-WATER - 50 ML IVPB SCH ×3 (03:39→17:03)
[2016-08-09 04:16] LABS: CALCIUM 7.7 mg/dL (8.5-10.1); CREATININE 1.7 mg/dL (0.7-1.3); MAGNESIUM 2.8 mg/dL (1.8-2.4); PHOSPHOROUS 4.2 mg/dL (2.5-4.9)
[2016-08-09] MEDS: FUROSEMIDE 40 MG/4 ML INJECTABLE VIAL IVPUSH SCH (05:01)
[2016-08-09] MEDS: GABAPENTIN 100 MG CAPSULE (FP) PO SCH ×3 (05:01→22:50)
[2016-08-09] MEDS ORDERED: DEXTROSE 50%-WATER 50 ML VIAL IVPUSH ONE (05:40)
[2016-08-09] MEDS ORDERED: INSULIN REGULAR HUMAN 100 UNITS/ML *VIAL IVPUSH ONE (05:41)
[2016-08-09 06:06] LABS: SERUM IRON 25 ug/dL (38-169); TOTAL IRON BINDING CAPACITY 203 ug/dL (250-450); UIBC 178 ug/dL (111-343)
[2016-08-09] MEDS: INSULIN SLIDING SCALE (NOVOLOG) 1 VIAL SQ SCH ×4 (06:15→22:56)
[2016-08-09] MEDS ORDERED: CALCIUM CHLORIDE 1 GM/10 ML *DISP.SYRIN ONE (07:54)
[2016-08-09] MEDS ORDERED: ePHEDrine SULFATE 50 MG/1 ML AMPULE ONE (07:54)
[2016-08-09] MEDS ORDERED: PHENYLEPHRINE HCL 10 MG/1 ML SINGLE DOSE VIAL ONE (07:54)
[2016-08-09] MEDS ORDERED: LIDOCAINE HCL/PF 1% SDV 5ML VIAL ONE (07:54)
[2016-08-09] MEDS: TAMSULOSIN HCL 0.4 MG CAP.ER.24H (FP) PO SCH (08:19)
[2016-08-09] MEDS ORDERED: PT OWN MED DRAWER 7, Y5N ONE ×3 (08:42→22:53)
--- NOTE | 2016-08-09 08:49 | PN ---
Progress Note (short form) - Note Progress Note: ADDENDUM: S/P endoscopy. Normal exam with no sign of bleeding Similar experience last year. Colon done last year with only hemorrhoids and diverticulosis. Likely diverticular bleed. Will manage conservatively. diabetic diet as ordered. Would hold AC for the next 24 hours. Please notify me if bleeding resumes
--- NOTE | 2016-08-09 08:54 | PN ---
Progress Note, Physician History of Present Illness: awake s/p egd - Current Medication List Current Medications: Active Medications Acetaminophen (Tylenol -) 650 mg PO Q6H PRN PRN Reason: FEVER OR PAIN Last Admin: 08/08/16 02:58 Dose: 650 mg Atorvastatin Calcium (Lipitor -) 10 mg PO HS [facility] Last Admin: 08/08/16 22:29 Dose: 10 mg Digoxin (Lanoxin -) 0.125 mg PO DAILY [facility] Last Admin: 08/08/16 09:35 Dose: 0.125 mg Diltiazem HCl (Cardizem Cd -) 120 mg PO DAILY [facility] Last Admin: 08/08/16 09:35 Dose: 120 mg Finasteride (Proscar -) 5 mg PO DAILY [facility] Last Admin: 08/08/16 09:35 Dose: 5 mg Fluoxetine HCl (Prozac -) 10 mg PO DAILY [facility] Last Admin: 08/08/16 09:38 Dose: 10 mg Furosemide (Lasix -) 40 mg PO DAILY [facility] Last Admin: 08/08/16 09:35 Dose: 40 mg Gabapentin (Neurontin -) 200 mg PO TID [facility] Last Admin: 08/09/16 05:01 Dose: Not Given Hydroxyurea (Hydrea -) 500 mg PO BID [facility] Last Admin: 08/08/16 22:30 Dose: 500 mg Hydroxyurea (Hydrea -) 500 mg PO TuTh@1000 [facility] Last Admin: 08/05/16 09:41 Dose: 500 mg Ceftazidime 1 gm/ Dextrose 50 mls @ 100 mls/hr IVPB Q8H-IV [facility] PRN Reason: Protocol Last Admin: 08/09/16 03:39 Dose: 100 mls/hr Octreotide Acetate 1,200 mcg/ (Dextrose) 500 mls @ 20.83 mls/hr IVPB ASDIR [facility] PRN Reason: 50 MCG/HR Last Admin: 08/08/16 19:45 Dose: 20.83 mls/hr Pantoprazole Sodium 80 mg/ (Sodium Chloride) 100 mls @ 10 mls/hr IVPB Q10H [facility] PRN Reason: 8 MG/HR Last Admin: 08/09/16 02:53 Dose: 10 mls/hr Insulin Aspart (Novolog Vial Sliding Scale -) 0 vial SQ ACHS [facility] PRN Reason: Protocol Last Admin: 08/09/16 06:15 Dose: 4 units Magnesium Oxide (Mag-Ox -) 400 mg PO BID [facility] Last Admin: 08/08/16 22:29 Dose: 400 mg Tamsulosin HCl (Flomax -) 0.4 mg PO DAILY@0830 [facility] Last Admin: 08/09/16 08:19 Dose: Not Given - Objective Vital Signs: Vital Signs Temperature 97.5 F L 08/09/16 08:25 Pulse Rate 78 08/09/16 08:25 Respiratory Rate 21 08/09/16 08:25 Blood Pressure 111/66 08/09/16 08:25 O2 Sat by Pulse Oximetry (%) 96 08/09/16 08:13 Cardiovascular: Yes: S1, S2 Respiratory: Yes: Regular, CTA Bilaterally Gastrointestinal: Yes: Normal Bowel Sounds, Soft. No: Tenderness Labs: CBC, BMP 08/08/16 23:41 08/09/16 00:20 INR, PTT INR 1.41 (0.82-1.09) H 07/31/16 15:30 Assessment/Plan (1) UTI (urinary tract infection) Assessment/Plan: continue iv abx for total 7 days dc abx f/u with id Microbiology 07/31/16 15:30 Urine - Urine Clean Catch Urine Culture - Final Pseudomonas Aeruginosa Code(s): N39.0 - URINARY TRACT INFECTION, SITE NOT SPECIFIED Qualifiers: Urinary tract infection type: acute cystitis Hematuria presence: with hematuria Qualified Code(s): N30.01 - Acute cystitis with hematuria (2) Afib Code(s): I48.91 - UNSPECIFIED ATRIAL FIBRILLATION Qualifiers: Atrial fibrillation type: persistent Qualified Code(s): I48.1 - Persistent atrial fibrillation no ac--- stopped 2/2 gib (3) Congestive heart failure monitor Code(s): I50.9 - HEART FAILURE, UNSPECIFIED Qualifiers: Congestive heart failure type: unspecified congestive heart failure type Congestive heart failure chronicity: unspecified congestive heart failure chronicity Qualified Code(s): I50.9 - Heart failure, unspecified (4) Myelodysplasia (myelodysplastic syndrome) Code(s): D46.9 - MYELODYSPLASTIC SYNDROME, UNSPECIFIED appreciate heme note asa stopped 2/2 gib (5) Malignant neoplasm of bladder Code(s): C67.9 - MALIGNANT NEOPLASM OF BLADDER, UNSPECIFIED Qualifiers: Bladder location: trigone of urinary bladder Qualified Code(s): C67.0 - Malignant neoplasm of trigone of bladder (6) CHEMA (acute kidney injury) Code(s): N17.9 - ACUTE KIDNEY FAILURE, UNSPECIFIED (7) Anemia Code(s): D64.9 - ANEMIA, UNSPECIFIED Qualifiers: Anemia type: unspecified type Qualified Code(s): D64.9 - Anemia, unspecified hgb 9 -> 6 fobt +wally - prbc x 2 with lasix - gi--s/p egd - monitor labs
[2016-08-09 09:04] LABS: BASOPHIL 1.1 % (0-2.0); MCH 34.3 pg (25.7-33.7); MCHC 34.2 g/dl (32.0-35.9); MEAN CELL VOLUME 100.1 fl (80-96); MEAN PLT VOLUME 7.5 fl (7.5-11.1); NEUTROPHILS 71.4 % (42.8-82.8); PLATELET COUNT 287 K/MM3 (134-434); RDW 19.8 % (11.9-15.9); WHITE BLOOD COUNT 12.8 K/mm3 (4.0-10.0)
[2016-08-09 09:19] LABS: INR 2.17 (0.82-1.09); PROTHROMBIN TIME (PATIENT) 24.2 SEC (9.98-11.88)
[2016-08-09 09:22] LABS: ACTIVATED PTT 76.6 SECONDS (26.9-34.4)
[2016-08-09] MEDS: HYDROXYUREA 500 MG CAPSULE PO SCH ×2 (09:50→23:25)
[2016-08-09] MEDS: DIGOXIN 0.125 MG TABLET (FP) PO SCH (09:50)
[2016-08-09] MEDS: FLUoxetine HCL 10 MG CAPSULE (FP) PO SCH (09:51)
[2016-08-09] MEDS: MAGNESIUM OXIDE 400 MG TABLET (FP) PO SCH ×2 (09:51→22:51)
[2016-08-09] MEDS: FUROSEMIDE 40 MG TABLET (FP) PO SCH (09:51)
[2016-08-09] MEDS: FINASTERIDE 5 MG TABLET (FP) PO SCH (09:51)
--- NOTE | 2016-08-09 10:50 | PN ---
Progress Note, Physician History of Present Illness: Underwent endoscopic evaluation for acute anemia and GI bleed referable to diverticular since resolved. A/c to be resumed after 24 hrs per GI recs. Receiving pRBC. - Current Medication List Current Medications: Active Medications Acetaminophen (Tylenol -) 650 mg PO Q6H PRN PRN Reason: FEVER OR PAIN Last Admin: 08/08/16 02:58 Dose: 650 mg Atorvastatin Calcium (Lipitor -) 10 mg PO HS [facility] Last Admin: 08/08/16 22:29 Dose: 10 mg Digoxin (Lanoxin -) 0.125 mg PO DAILY [facility] Last Admin: 08/09/16 09:50 Dose: 0.125 mg Diltiazem HCl (Cardizem Cd -) 120 mg PO DAILY [facility] Last Admin: 08/09/16 09:50 Dose: 120 mg Finasteride (Proscar -) 5 mg PO DAILY [facility] Last Admin: 08/09/16 09:51 Dose: 5 mg Fluoxetine HCl (Prozac -) 10 mg PO DAILY [facility] Last Admin: 08/09/16 09:51 Dose: 10 mg Furosemide (Lasix -) 40 mg PO DAILY [facility] Last Admin: 08/09/16 09:51 Dose: 40 mg Gabapentin (Neurontin -) 200 mg PO TID [facility] Last Admin: 08/09/16 05:01 Dose: Not Given Hydroxyurea (Hydrea -) 500 mg PO BID [facility] Last Admin: 08/09/16 09:50 Dose: 500 mg Hydroxyurea (Hydrea -) 500 mg PO TuTh@1000 [facility] Last Admin: 08/05/16 09:41 Dose: 500 mg Ceftazidime 1 gm/ Dextrose 50 mls @ 100 mls/hr IVPB Q8H-IV [facility] PRN Reason: Protocol Last Admin: 08/09/16 09:37 Dose: 100 mls/hr Octreotide Acetate 1,200 mcg/ (Dextrose) 500 mls @ 20.83 mls/hr IVPB [facility] PRN Reason: 50 MCG/HR Last Admin: 08/08/16 19:45 Dose: 20.83 mls/hr Pantoprazole Sodium 80 mg/ (Sodium Chloride) 100 mls @ 10 mls/hr IVPB Q10H [facility] PRN Reason: 8 MG/HR Last Admin: 08/09/16 02:53 Dose: 10 mls/hr Insulin Aspart (Novolog Vial Sliding Scale -) 0 vial SQ ACHS [facility] PRN Reason: Protocol Last Admin: 08/09/16 06:15 Dose: 4 units Magnesium Oxide (Mag-Ox -) 400 mg PO BID [facility] Last Admin: 08/09/16 09:51 Dose: 400 mg Tamsulosin HCl (Flomax -) 0.4 mg PO DAILY@0830 [facility] Last Admin: 08/09/16 08:19 Dose: Not Given - Objective Vital Signs: Vital Signs Temperature 97.5 F L 08/09/16 10:13 Pulse Rate 82 08/09/16 10:13 Respiratory Rate 22 08/09/16 10:13 Blood Pressure 110/66 08/09/16 10:13 O2 Sat by Pulse Oximetry (%) 96 08/09/16 08:13 Constitutional: Yes: No Distress, Calm Neck: Yes: Supple Cardiovascular: Yes: Regular Rate and Rhythm Respiratory: Yes: Regular, Diminished Gastrointestinal: Yes: Soft, Hypoactive Bowel Sounds Edema: No Labs: CBC, BMP 08/09/16 08:45 INR, PTT INR 2.17 (0.82-1.09) H D 08/09/16 08:45 Problem List - Problems (1) CAD (coronary artery disease) Code(s): I25.10 - ATHSCL HEART DISEASE OF [place] CORONARY ARTERY W/O ANG PCTRS Qualifiers: Coronary Disease-Associated Artery/Lesion type: [place] artery [place] vs. transplanted heart: [place] heart Associated angina: without angina Qualified Code(s): I25.10 - Atherosclerotic heart disease of [place] coronary artery without angina pectoris (2) Afib Code(s): I48.91 - UNSPECIFIED ATRIAL FIBRILLATION Qualifiers: Atrial fibrillation type: persistent Qualified Code(s): I48.1 - Persistent atrial fibrillation (3) Cerebral infarction Code(s): I63.9 - CEREBRAL INFARCTION, UNSPECIFIED (4) Myelodysplasia (myelodysplastic syndrome) Code(s): D46.9 - MYELODYSPLASTIC SYNDROME, UNSPECIFIED (5) Positive urine culture Code(s): R82.7 - ABNORMAL FINDINGS ON MICROBIOLOGICAL EXAMINAT * DO NOT USE * (6) Diabetes Code(s): E11.9 - TYPE 2 DIABETES MELLITUS WITHOUT COMPLICATIONS Qualifiers: Diabetes mellitus type: type 2 Diabetes mellitus complication status: without complication 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9 - ACUTE KIDNEY FAILURE, UNSPECIFIED Assessment/Plan 1. Pseudomonas UTI post abx course 2. LV diastolic dysfunction with chronic class I NYHA classification LV failure , currently euvolumic 3. Permanent AF [id number] score of 8 on A/C with NOAC 4. CAD angina pectoris, stable 5. HTN 6. NIDDM 7. Hypercholesterolemia 8. History of fronto-temporal stroke with residual deficit 9. Mylelodysplastic syndrome, leukocytosis, anemia and thrombocytosis 10. CHEMA 11. Resolved diverticular bleed PLAN: 1. Continue Cardizem CD 120 mg QD as tolerated 2. Continue Ramipril 2.5 mg once a day with caution and monitor renal recovery 3. Continue Lipitor 10 qhs, Lasix 40 qd 4. Resume Pradaxa 150 bid tomorrow per GI recs, ASA will need to be d/marie despite MDS due to recurrent GI bleed 5. Continue Digoxin 0.125 qd with close monitoring of level 6. Protonix gtt and d/c Octreotide gtt 7. Monitor Hgb post transfusion and transfuse for Hgb<8.0
[2016-08-09 11:00] LABS: ALBUMIN 1.8 g/dl (3.4-5.0); BILIRUBIN,TOTAL 0.6 mg/dL (0.2-1.0); CALCIUM 7.7 mg/dL (8.5-10.1); CREATININE 1.9 mg/dL (0.7-1.3); MAGNESIUM 2.7 mg/dL (1.8-2.4); PHOSPHOROUS 3.4 mg/dL (2.5-4.9); TOT PROT 4.3 g/dl (6.4-8.2)
--- NOTE | 2016-08-09 11:57 | PN ---
Progress Note (short form) - Note Progress Note: Patient seen and examined Transferred down to ICU after GI bleeding and fall in Hct. This associated with the administration of ASA-81 mg. Underwent EGD - no obvious bleeding site detected - presumed diverticular bleed. Last Vital Signs Temp Pulse Resp BP Pulse Ox 97.5 F L 82 22 110/66 96 08/09/16 10:13 08/09/16 10:13 08/09/16 10:13 08/09/16 10:13 08/09/16 08:13 HEENT: WIL, EOM Intact Oropharynx: No thrush, No mucositis, dentures -upper and lower Cor: irregular rhythm Lungs:diminished breath sounds , rales at bases Abd: Soft, Normal bowel sounds, No organomegaly Ext:No significant edema Skin: No rashes, Integument intact right sided hemiparesis CBC, BMP 08/09/16 08:45 08/09/16 08:45 INR, PTT INR 2.17 (0.82-1.09) H D 08/09/16 08:45 Abnormal Lab Results 08/08/16 08/08/16 08/08/16 07:15 10:20 11:45 WBC RBC Hgb Hct MCV RDW MPV Retic Count 2.96 H D INR PTT (Actin FS) Sodium Potassium Chloride BUN Creatinine Random Glucose Calcium Magnesium Iron 25 L TIBC 203 L Iron Saturation 12 L AST ALT B-Natriuretic Peptide Total Protein Albumin Crossmatch See Detail 08/08/16 08/08/16 08/09/16 15:55 23:41 00:20 WBC 14.0 H 13.9 H RBC 1.83 L D 2.09 L Hgb 6.7 L* D 7.3 L Hct 20.3 L D 21.6 L MCV 111.1 H 103.4 H RDW 18.9 H D 22.0 H D MPV 7.3 L Retic Count INR PTT (Actin FS) Sodium 135 L Potassium 5.6 H Chloride 96 L BUN 90 H Creatinine 1.7 H Random Glucose 229 H D Calcium 7.7 L Magnesium 2.8 H Iron TIBC Iron Saturation AST ALT B-Natriuretic Peptide Total Protein Albumin Crossmatch 08/09/16 08/09/16 08/09/16 08:45 08:45 08:45 WBC 12.8 H RBC 2.22 L Hgb 7.6 L Hct 22.2 L MCV 100.1 H RDW 19.8 H MPV Retic Count INR 2.17 H D PTT (Actin FS) 76.6 H D Sodium Potassium Chloride BUN 85 H Creatinine 1.9 H Random Glucose 118 H D Calcium 7.7 L Magnesium 2.7 H Iron TIBC Iron Saturation AST 9 L D ALT 7 L B-Natriuretic Peptide Total Protein 4.3 L Albumin 1.8 L Crossmatch 08/09/16 08:45 WBC RBC Hgb Hct MCV RDW MPV Retic Count INR PTT (Actin FS) Sodium Potassium Chloride BUN Creatinine Random Glucose Calcium Magnesium Iron TIBC Iron Saturation AST ALT B-Natriuretic Peptide 924.01 H Total Protein Albumin Crossmatch Current Medications Generic Name Dose Route Start Last Admin Trade Name Freq PRN Reason Stop Dose Admin Acetaminophen 650 mg 07/31/16 18:07 08/08/16 02:58 Tylenol - PO 650 mg Q6H PRN Administration FEVER OR PAIN Atorvastatin Calcium 10 mg 07/31/16 22:00 08/08/16 22:29 Lipitor - PO 10 mg HS [facility] Administration Digoxin 0.125 mg 08/01/16 10:00 08/09/16 09:50 Lanoxin - PO 0.125 mg DAILY [facility] Administration Diltiazem HCl 120 mg 08/03/16 13:45 08/09/16 09:50 Cardizem Cd - PO 120 mg DAILY [facility] Administration Finasteride 5 mg 08/01/16 10:00 08/09/16 09:51 Proscar - PO 5 mg DAILY [facility] Administration Fluoxetine HCl 10 mg 08/01/16 10:00 08/09/16 09:51 Prozac - PO 10 mg DAILY [facility] Administration Furosemide 40 mg 08/01/16 10:00 08/09/16 09:51 Lasix - PO 40 mg DAILY [facility] Administration Gabapentin 200 mg 08/08/16 22:00 08/09/16 05:01 Neurontin - PO Not Given TID [facility] Hydroxyurea 500 mg 07/31/16 22:00 08/09/16 09:50 Hydrea - PO 500 mg BID [facility] Administration Hydroxyurea 500 mg 08/05/16 10:00 08/05/16 09:41 Hydrea - PO 500 mg TuTh@1000 [facility] Administration Ceftazidime 1 gm/ Dextrose 50 mls @ 100 mls/hr 08/01/16 18:00 08/09/16 09:37 IVPB 100 mls/hr Q8H-IV [facility] Administration Protocol Pantoprazole Sodium 80 mg/ 100 mls @ 10 mls/hr 08/08/16 17:30 08/09/16 02:53 Sodium Chloride IVPB 10 mls/hr Q10H [facility] Administration 8 MG/HR Insulin Aspart 0 vial 08/08/16 11:00 08/09/16 11:38 Novolog Vial Sliding Scale - SQ Not Given ACHS [facility] Protocol Magnesium Oxide 400 mg 07/31/16 22:00 08/09/16 09:51 Mag-Ox - PO 400 mg BID [facility] Administration Tamsulosin HCl 0.4 mg 08/01/16 08:30 08/09/16 08:19 Flomax - PO Not Given DAILY@0830 [facility] Impression: GI bleed presumed diverticular disease. Occurred on Pradaxa and with institution of ASA. MPD- on hydrea Anemia- for transfusion to HCT> 25% Atrial fib Multiple strokes Prolonged INR- etiology unclear- LFT's grossly normal , Pradaxa should not increase level to such magnitude . ?? meds, ?? antibiotics ?? 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
--- NOTE | 2016-08-09 12:02 | PN ---
Progress Note (short form) - Note Progress Note: Renal Follow up for CHEMA Pt seen and examined in the ICU awake and alert s/p EGD without source of bleeding getting 4th unit of prbc no further stools as per nurse pt without complaints. Vital Signs Temperature 97.5 F L 08/09/16 10:13 Pulse Rate 68 08/09/16 11:46 Respiratory Rate 22 08/09/16 11:46 Blood Pressure 121/50 08/09/16 11:46 O2 Sat by Pulse Oximetry (%) 96 08/09/16 08:13 Intake & Output 08/06/16 08/07/16 08/08/16 08/09/16 23:59 23:59 23:59 23:59 Intake Total 1220 2877 144 8096 Output Total 1100 520 Balance 120 6955 875 7342 Weight 151 lb 11.2 oz Gen: NAD HEENT: NC/AT CVS: RRR, No M/R Lungs: CTA Abd: soft NT/ND, No bladder distension Ext: No edema, clubbing or cyanosis CBC, BMP 08/09/16 08:45 08/09/16 08:45 Current Medications Acetaminophen (Tylenol -) 650 mg PO Q6H PRN PRN Reason: FEVER OR PAIN Last Admin: 08/08/16 02:58 Dose: 650 mg Atorvastatin Calcium (Lipitor -) 10 mg PO HS [facility]PL[facility] Last Admin: 08/08/16 22:29 Dose: 10 mg Digoxin (Lanoxin -) 0.125 mg PO DAILY [facility] Last Admin: 08/09/16 09:50 Dose: 0.125 mg Diltiazem HCl (Cardizem Cd -) 120 mg PO DAILY [facility] Last Admin: 08/09/16 09:50 Dose: 120 mg Finasteride (Proscar -) 5 mg PO DAILY [facility] Last Admin: 08/09/16 09:51 Dose: 5 mg Fluoxetine HCl (Prozac -) 10 mg PO DAILY [facility] Last Admin: 08/09/16 09:51 Dose: 10 mg Furosemide (Lasix -) 40 mg PO DAILY [facility] Last Admin: 08/09/16 09:51 Dose: 40 mg Gabapentin (Neurontin -) 200 mg PO TID [facility] Last Admin: 08/09/16 05:01 Dose: Not Given Hydroxyurea (Hydrea -) 500 mg PO BID [facility] Last Admin: 02/20/17 09:50 Dose: 500 mg Hydroxyurea (Hydrea -) 500 mg PO TuTh@1000 [facility] Last Admin: 08/05/16 09:41 Dose: 500 mg Ceftazidime 1 gm/ Dextrose 50 mls @ 100 mls/hr IVPB Q8H-IV [facility] PRN Reason: Protocol Last Admin: 08/09/16 09:37 Dose: 100 mls/hr Pantoprazole Sodium 80 mg/ (Sodium Chloride) 100 mls @ 10 mls/hr IVPB Q10H [facility] PRN Reason: 8 MG/HR Last Admin: 08/09/16 02:53 Dose: 10 mls/hr Insulin Aspart (Novolog Vial Sliding Scale -) 0 vial SQ ACHS [facility] PRN Reason: Protocol Last Admin: 08/09/16 11:38 Dose: Not Given Magnesium Oxide (Mag-Ox -) 400 mg PO BID [facility] Last Admin: 08/09/16 09:51 Dose: 400 mg Phytonadione ([place] Injection -) 5 mg SQ ONCE ONE Stop: 08/09/16 11:59 Tamsulosin HCl (Flomax -) 0.4 mg PO DAILY@0830 [facility] Last Admin: 08/09/16 08:19 Dose: Not Given A/p 81 y/o Gentleman with PMhx of AFib, CVA, Hypertension, DM who presented with UTI and CHEMA with normal baseline renal function. #CHEMA Renal function worsening in setting of acute bleed and hypovolemia consider holding all standing diuretics as pt with high bun and rising Cr Can give PRN IV lasix as needed trend BUN/Cr expect improvement with PRBC transfusion Check UA, FeUrea No indication for [employer]PER at [facility] time #Anemia secondary to GIB Continue Managemetn as per GI #UTI Continue IV Ceftazidime Gabe Mendes DO
[2016-08-09] MEDS ORDERED: PHYTONADIONE 10 MG/1 ML AMP SQ ONE (12:30)
--- NOTE | 2016-08-09 12:54 | PN ---
Progress Note (short form) - Note Progress Note: Patient seen and examined in the ICU. Awake and alert. No active bleeding noted on EGD. Will be receiving pRBCs and FFP. Denies CP or SOB. Constitutional: Yes: No Distress Eyes: Yes: WNL, (+) Pallor HENT: Yes: WNL, Other (glasses) Cardiovascular: Yes: Pulse Irregular, S1, S2 Respiratory: Yes: Few scattered Rhonchi, No Wheezes Gastrointestinal: Yes: Normal Bowel Sounds, Tenderness ...Rectal Exam: Yes: Deferred Extremities: Yes: (+) PP Edema: No Peripheral Pulses WNL: Yes (+2 bilateral pedal pulses) Integumentary: Yes: Skin Tear (BLE) Neurological: Yes: Confusion Labs: Laboratory Results - last 24 hr 08/08/16 08/08/16 08/08/16 07:15 10:20 15:55 WBC 14.0 H RBC 1.83 L D Hgb 6.7 L* D Hct 20.3 L D MCV 111.1 H MCHC 32.8 RDW 18.9 H D Plt Count 423 MPV 7.6 Neutrophils % Lymphocytes % Monocytes % Eosinophils % Basophils % INR PTT (Actin FS) Sodium Potassium Chloride Carbon Dioxide Anion Gap BUN Creatinine Creat Clearance w eGFR POC Glucometer Random Glucose Calcium Phosphorus Magnesium Iron 25 L TIBC 203 L Iron Saturation 12 L Total Bilirubin AST ALT Alkaline Phosphatase B-Natriuretic Peptide Total Protein Albumin Ur Random Sodium Ur Random Potassium Ur Random Chloride Urine Creatinine Blood Type O POSITIVE Antibody Screen Negative Crossmatch See Detail 08/08/16 08/08/16 08/08/16 17:18 22:03 23:41 WBC 13.9 H RBC 2.09 L Hgb 7.3 L Hct 21.6 L MCV 103.4 H MCHC 33.9 RDW 22.0 H D Plt Count 387 MPV 7.3 L Neutrophils % 73.2 Lymphocytes % 17.6 D Monocytes % 7.4 Eosinophils % 0.7 Basophils % 1.1 INR PTT (Actin FS) Sodium Potassium Chloride Carbon Dioxide Anion Gap BUN Creatinine Creat Clearance w eGFR POC Glucometer [phone] Random Glucose Calcium Phosphorus Magnesium Iron TIBC Iron Saturation Total Bilirubin AST ALT Alkaline Phosphatase B-Natriuretic Peptide Total Protein Albumin Ur Random Sodium Ur Random Potassium Ur Random Chloride Urine Creatinine Blood Type Antibody Screen Crossmatch 08/09/16 08/09/16 08/09/16 00:20 06:00 06:00 WBC RBC Hgb Hct MCV MCHC RDW Plt Count MPV Neutrophils % Lymphocytes % Monocytes % Eosinophils % Basophils % INR PTT (Actin FS) Sodium 135 L Potassium 5.6 H Chloride 96 L Carbon Dioxide 30 Anion Gap 9 BUN 90 H Creatinine 1.7 H Creat Clearance w eGFR POC Glucometer Random Glucose 229 H D Calcium 7.7 L Phosphorus 4.2 D Magnesium 2.8 H Iron TIBC Iron Saturation Total Bilirubin AST ALT Alkaline Phosphatase B-Natriuretic Peptide Total Protein Albumin Ur Random Sodium 41 Ur Random Potassium 37.9 Ur Random Chloride 55 Urine Creatinine 15.8 Blood Type Antibody Screen Crossmatch 08/09/16 08/09/16 08/09/16 06:09 08:45 08:45 WBC 12.8 H RBC 2.22 L Hgb 7.6 L Hct 22.2 L MCV 100.1 H MCHC 34.2 RDW 19.8 H Plt Count 287 D MPV 7.5 Neutrophils % 71.4 Lymphocytes % 16.3 Monocytes % 8.2 Eosinophils % 3.0 D Basophils % 1.1 INR PTT (Actin FS) Sodium 139 Potassium 4.6 Chloride 101 Carbon Dioxide 29 Anion Gap 9 BUN 85 H Creatinine 1.9 H Creat Clearance w eGFR 34.28 POC Glucometer [phone] Random Glucose 118 H D Calcium 7.7 L Phosphorus 3.4 Magnesium 2.7 H Iron TIBC Iron Saturation Total Bilirubin 0.6 D AST 9 L D ALT 7 L Alkaline Phosphatase 84 D B-Natriuretic Peptide Total Protein 4.3 L Albumin 1.8 L Ur Random Sodium Ur Random Potassium Ur Random Chloride Urine Creatinine Blood Type Antibody Screen Crossmatch 08/09/16 08/09/16 08/09/16 08:45 08:45 11:37 WBC RBC Hgb Hct MCV MCHC RDW Plt Count MPV Neutrophils % Lymphocytes % Monocytes % Eosinophils % Basophils % INR 2.17 H D PTT (Actin FS) 76.6 H D Sodium Potassium Chloride Carbon Dioxide Anion Gap BUN Creatinine Creat Clearance w eGFR POC Glucometer 98.38986 Random Glucose Calcium Phosphorus Magnesium Iron TIBC Iron Saturation Total Bilirubin AST ALT Alkaline Phosphatase B-Natriuretic Peptide 924.01 H Total Protein Albumin Ur Random Sodium Ur Random Potassium Ur Random Chloride Urine Creatinine Blood Type Antibody Screen Crossmatch Assessment/Plan (1) UTI (urinary tract infection) Assessment/Plan: Code(s): N39.0 - URINARY TRACT INFECTION, SITE NOT SPECIFIED Qualifiers: Urinary tract infection type: acute cystitis Hematuria presence: with hematuria Qualified Code(s): N30.01 - Acute cystitis with hematuria (2) Afib Code(s): I48.91 - UNSPECIFIED ATRIAL FIBRILLATION Qualifiers: Atrial fibrillation type: persistent Qualified Code(s): I48.1 - Persistent atrial fibrillation (3) Congestive heart failure Code(s): I50.9 - HEART FAILURE, UNSPECIFIED Qualifiers: Congestive heart failure type: unspecified congestive heart failure type Congestive heart failure chronicity: unspecified congestive heart failure chronicity Qualified Code(s): I50.9 - Heart failure, unspecified (4) Myelodysplasia (myelodysplastic syndrome) Code(s): D46.9 - MYELODYSPLASTIC SYNDROME, UNSPECIFIED (5) Malignant neoplasm of bladder Code(s): C67.9 - MALIGNANT NEOPLASM OF BLADDER, UNSPECIFIED Qualifiers: Bladder location: trigone of urinary bladder Qualified Code(s): 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
[2016-08-09 20:15] LABS: BASOPHIL 1.7 % (0-2.0); EOSINOPHIL 4.8 % (0-4.5); MCH 33.1 pg (25.7-33.7); MEAN CELL VOLUME 97.2 fl (80-96); MEAN PLT VOLUME 8.1 fl (7.5-11.1); NEUTROPHILS 73.7 % (42.8-82.8); PLATELET COUNT 248 K/MM3 (134-434); RDW 17.2 % (11.9-15.9); WHITE BLOOD COUNT 12.5 K/mm3 (4.0-10.0)
[2016-08-09 20:50] LABS: INR 1.8 (0.82-1.09)
[2016-08-09] MEDS: ATORVASTATIN CA 10 MG TABLET (FP) PO SCH (22:50)
[2016-08-10] MEDS: CEFTAZIDIME PENTAHYDRATE 1 GM in DEXTROSE 5%-WATER - 50 ML IVPB SCH ×3 (02:42→17:30)
[2016-08-10] MEDS: INSULIN SLIDING SCALE (NOVOLOG) 1 VIAL SQ SCH ×4 (05:59→22:48)
[2016-08-10] MEDS: GABAPENTIN 100 MG CAPSULE (FP) PO SCH ×3 (06:01→22:47)
[2016-08-10 07:40] LABS: BASOPHIL 1.8 % (0-2.0); EOSINOPHIL 5.2 % (0-4.5); MCH 32.2 pg (25.7-33.7); MCHC 34.5 g/dl (32.0-35.9); MEAN CELL VOLUME 93.4 fl (80-96); MEAN PLT VOLUME 7.7 fl (7.5-11.1); NEUTROPHILS 72.5 % (42.8-82.8); PLATELET COUNT 204 K/MM3 (134-434); RDW 14.6 % (11.9-15.9); WHITE BLOOD COUNT 11.7 K/mm3 (4.0-10.0)
[2016-08-10 08:04] LABS: INR 1.55 (0.82-1.09); PROTHROMBIN TIME (PATIENT) 17.2 SEC (9.98-11.88)
[2016-08-10 08:07] LABS: ACTIVATED PTT 62.2 SECONDS (26.9-34.4)
[2016-08-10 08:57] LABS: ALBUMIN 1.7 g/dl (3.4-5.0); BILIRUBIN,TOTAL 0.4 mg/dL (0.2-1.0); CALCIUM 7.1 mg/dL (8.5-10.1); CREATININE 1.7 mg/dL (0.7-1.3); MAGNESIUM 2.4 mg/dL (1.8-2.4)
--- NOTE | 2016-08-10 09:16 | PN ---
Progress Note, Physician Chief Complaint: Not in distress Events noted. Being transfused PRBC History of Present Illness: Patient was seen and examined. Awake and alert. Chart was reviewed Denies chest pain or shortness of breath Post GI work up for diverticular disease and anemia. No active bleed today - Current Medication List Current Medications: Active Medications Acetaminophen (Tylenol -) 650 mg PO Q6H PRN PRN Reason: FEVER OR PAIN Last Admin: 08/08/16 02:58 Dose: 650 mg Atorvastatin Calcium (Lipitor -) 10 mg PO HS [facility] Last Admin: 08/09/16 22:50 Dose: 10 mg Digoxin (Lanoxin -) 0.125 mg PO DAILY [facility] Last Admin: 08/09/16 09:50 Dose: 0.125 mg Diltiazem HCl (Cardizem Cd -) 120 mg PO DAILY [facility] Last Admin: 08/09/16 09:50 Dose: 120 mg Finasteride (Proscar -) 5 mg PO DAILY [facility] Last Admin: 08/09/16 09:51 Dose: 5 mg Fluoxetine HCl (Prozac -) 10 mg PO DAILY [facility] Last Admin: 08/09/16 09:51 Dose: 10 mg Gabapentin (Neurontin -) 200 mg PO TID [facility] Last Admin: 08/10/16 06:01 Dose: 200 mg Hydroxyurea (Hydrea -) 500 mg PO BID [facility] Last Admin: 08/09/16 23:25 Dose: 500 mg Hydroxyurea (Hydrea -) 500 mg PO TuTh@1000 [facility] Last Admin: 08/05/16 09:41 Dose: 500 mg Ceftazidime 1 gm/ Dextrose 50 mls @ 100 mls/hr IVPB Q8H-IV [facility] PRN Reason: Protocol Last Admin: 08/10/16 02:42 Dose: 100 mls/hr Pantoprazole Sodium 80 mg/ (Sodium Chloride) 100 mls @ 10 mls/hr IVPB Q10H [facility] PRN Reason: 8 MG/HR Last Admin: 08/09/16 15:05 Dose: 10 mls/hr Insulin Aspart (Novolog Vial Sliding Scale -) 0 vial SQ ACHS [facility] PRN Reason: Protocol Last Admin: 08/10/16 05:59 Dose: 2 units Magnesium Oxide (Mag-Ox -) 400 mg PO BID [facility] Last Admin: 08/09/16 22:51 Dose: 400 mg Tamsulosin HCl (Flomax -) 0.4 mg PO DAILY@0830 [facility] Last Admin: 08/09/16 08:19 Dose: Not Given - Objective Vital Signs: Vital Signs Temperature 97.8 F 08/10/16 05:48 Pulse Rate 66 08/10/16 08:00 Respiratory Rate 18 08/10/16 08:00 Blood Pressure 109/46 08/10/16 08:00 O2 Sat by Pulse Oximetry (%) 95 08/09/16 20:37 Neck: Yes: Supple Cardiovascular: Yes: Regular Rate and Rhythm, S1, S2 Respiratory: Yes: Diminished Gastrointestinal: Yes: Normal Bowel Sounds, Soft. No: Tenderness Edema: No Labs: CBC, BMP 08/10/16 07:25 08/10/16 07:25 INR, PTT INR 1.55 (0.82-1.09) H 08/10/16 07:25 Problem List - Problems (1) UTI (urinary tract infection) Code(s): N39.0 - URINARY TRACT INFECTION, SITE NOT SPECIFIED Qualifiers: Urinary tract infection type: acute cystitis Hematuria presence: with hematuria Qualified Code(s): N30.01 - Acute cystitis with hematuria (2) Afib Code(s): I48.91 - UNSPECIFIED ATRIAL FIBRILLATION Qualifiers: Atrial fibrillation type: persistent Qualified Code(s): I48.1 - Persistent atrial fibrillation (3) Anemia Code(s): D64.9 - ANEMIA, UNSPECIFIED Qualifiers: Anemia type: unspecified type Qualified Code(s): D64.9 - Anemia, unspecified (4) Cerebrovascular accident Code(s): I63.9 - CEREBRAL INFARCTION, UNSPECIFIED (5) Diabetes Code(s): E11.9 - TYPE 2 DIABETES MELLITUS WITHOUT COMPLICATIONS Qualifiers: Diabetes mellitus type: type 2 Diabetes mellitus complication status: without complication 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: without equipment operator intermodal yard use Qualified Code(s): E11.9 - Type 2 diabetes mellitus without complications (6) Diastolic dysfunction Code(s): I51.9 - HEART DISEASE, UNSPECIFIED (7) HTN (hypertension) Code(s): I10 - ESSENTIAL (PRIMARY) HYPERTENSION Qualifiers: Hypertension type: essential hypertension Qualified Code(s): I10 - Essential (primary) hypertension (8) Hyperlipidemia Code(s): E78.5 - HYPERLIPIDEMIA, UNSPECIFIED Qualifiers: Hyperlipidemia type: pure hypercholesterolemia Qualified Code(s): E78.0 - Pure hypercholesterolemia (9) Myelodysplasia (myelodysplastic syndrome) Code(s): D46.9 - MYELODYSPLASTIC SYNDROME, UNSPECIFIED (10) Thrombocytopenia Code(s): D69.6 - THROMBOCYTOPENIA, UNSPECIFIED (11) CAD (coronary artery disease) Code(s): I25.10 - ATHSCL HEART DISEASE OF [place] CORONARY ARTERY W/O ANG PCTRS Qualifiers: Coronary Disease-Associated Artery/Lesion type: [place] artery [place] vs. transplanted heart: [place] heart Associated angina: without angina Qualified Code(s): I25.10 - Atherosclerotic heart disease of [place] coronary artery without angina pectoris Assessment/Plan 1. Pseudomonas UTI 2. LV diastolic dysfunction with chronic class I NYHA classification LV failure , currently euvolumic 3. Permanent AF [id number] score of 8 on A/C with NOAC 4. CAD angina pectoris, stable 5. HTN 6. NIDDM 7. Hypercholesterolemia 8. History of fronto-temporal stroke with residual deficit 9. Mylelodysplastic syndrome, leukocytosis, anemia and thrombocytosis 10. CHEMA 11. Resolved diverticular bleed PLAN: 1. Continue Cardizem CD 120 mg QD as tolerated 2. Continue Ramipril 2.5 mg once a day with caution and monitor renal function 3. Continue Lipitor 10 mg QHS and Lasix 40 mg QD 4. Pradaxa is to be resumed as soon as when cleared by GI - longer duration off this would pose risk of stroke 5. Continue Digoxin 0.125 mg QD with close monitoring of level 6. Protonix IV 7. Transfuse PRBC for Hgb<8.0 and monitor CBC closely Further plans are to follow Tc Bass MD
--- NOTE | 2016-08-10 09:18 | PN ---
Progress Note, Physician History of Present Illness: GETTING PRBC RETENTION [facility] [place] - Current Medication List Current Medications: Active Medications Acetaminophen (Tylenol -) 650 mg PO Q6H PRN PRN Reason: FEVER OR PAIN Last Admin: 08/08/16 02:58 Dose: 650 mg Atorvastatin Calcium (Lipitor -) 10 mg PO HS [facility] Last Admin: 08/09/16 22:50 Dose: 10 mg Digoxin (Lanoxin -) 0.125 mg PO DAILY [facility] Last Admin: 08/09/16 09:50 Dose: 0.125 mg Diltiazem HCl (Cardizem Cd -) 120 mg PO DAILY [facility] Last Admin: 08/09/16 09:50 Dose: 120 mg Finasteride (Proscar -) 5 mg PO DAILY [facility] Last Admin: 08/09/16 09:51 Dose: 5 mg Fluoxetine HCl (Prozac -) 10 mg PO DAILY [facility] Last Admin: 08/09/16 09:51 Dose: 10 mg Gabapentin (Neurontin -) 200 mg PO TID [facility] Last Admin: 08/10/16 06:01 Dose: 200 mg Hydroxyurea (Hydrea -) 500 mg PO BID [facility] Last Admin: 08/09/16 23:25 Dose: 500 mg Hydroxyurea (Hydrea -) 500 mg PO TuTh@1000 [facility] Last Admin: 08/05/16 09:41 Dose: 500 mg Ceftazidime 1 gm/ Dextrose 50 mls @ 100 mls/hr IVPB Q8H-IV [facility] PRN Reason: Protocol Last Admin: 08/10/16 02:42 Dose: 100 mls/hr Pantoprazole Sodium 80 mg/ (Sodium Chloride) 100 mls @ 10 mls/hr IVPB Q10H [facility] PRN Reason: 8 MG/HR Last Admin: 08/09/16 15:05 Dose: 10 mls/hr Insulin Aspart (Novolog Vial Sliding Scale -) 0 vial SQ ACHS [facility] PRN Reason: Protocol Last Admin: 08/10/16 05:59 Dose: 2 units Magnesium Oxide (Mag-Ox -) 400 mg PO BID [facility] Last Admin: 08/09/16 22:51 Dose: 400 mg Tamsulosin HCl (Flomax -) 0.4 mg PO DAILY@0830 [facility] Last Admin: 08/09/16 08:19 Dose: Not Given - Objective Vital Signs: Vital Signs Temperature 97.8 F 08/10/16 05:48 Pulse Rate 66 08/10/16 08:00 Respiratory Rate 18 08/10/16 08:00 Blood Pressure 109/46 08/10/16 08:00 O2 Sat by Pulse Oximetry (%) 95 08/09/16 20:37 Cardiovascular: Yes: Tachycardia, S1, S2 Respiratory: Yes: Regular, CTA Bilaterally Gastrointestinal: Yes: Normal Bowel Sounds, Soft Labs: CBC, BMP 08/10/16 07:25 08/10/16 07:25 INR, PTT INR 1.55 (0.82-1.09) H 08/10/16 07:25 Assessment/Plan (1) UTI (urinary tract infection) Assessment/Plan: continue iv abx for total 7 days dc abx f/u with id Microbiology 07/31/16 15:30 Urine - Urine Clean Catch Urine Culture - Final Pseudomonas Aeruginosa Code(s): N39.0 - URINARY TRACT INFECTION, SITE NOT SPECIFIED Qualifiers: Urinary tract infection type: acute cystitis Hematuria presence: with hematuria Qualified Code(s): N30.01 - Acute cystitis with hematuria (2) Afib Code(s): I48.91 - UNSPECIFIED ATRIAL FIBRILLATION Qualifiers: Atrial fibrillation type: persistent Qualified Code(s): I48.1 - Persistent atrial fibrillation no ac--- stopped 2/2 gib (3) Congestive heart failure monitor Code(s): I50.9 - HEART FAILURE, UNSPECIFIED Qualifiers: Congestive heart failure type: unspecified congestive heart failure type Congestive heart failure chronicity: unspecified congestive heart failure chronicity Qualified Code(s): I50.9 - Heart failure, unspecified (4) Myelodysplasia (myelodysplastic syndrome) Code(s): D46.9 - MYELODYSPLASTIC SYNDROME, UNSPECIFIED appreciate heme note asa stopped 2/2 gib (5) Malignant neoplasm of bladder Code(s): C67.9 - MALIGNANT NEOPLASM OF BLADDER, UNSPECIFIED Qualifiers: Bladder location: trigone of urinary bladder Qualified Code(s): 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
[2016-08-10] MEDS ORDERED: PT OWN MED DRAWER 7, Y5N ONE ×2 (09:20→17:25)
[2016-08-10] MEDS: DIGOXIN 0.125 MG TABLET (FP) PO SCH (09:21)
[2016-08-10] MEDS: TAMSULOSIN HCL 0.4 MG CAP.ER.24H (FP) PO SCH (09:21)
[2016-08-10] MEDS: HYDROXYUREA 500 MG CAPSULE PO SCH ×3 (09:22→22:47)
[2016-08-10] MEDS: MAGNESIUM OXIDE 400 MG TABLET (FP) PO SCH ×2 (09:22→22:47)
[2016-08-10] MEDS: FLUoxetine HCL 10 MG CAPSULE (FP) PO SCH (09:23)
[2016-08-10] MEDS: FINASTERIDE 5 MG TABLET (FP) PO SCH (09:23)
[2016-08-10] MEDS: PANTOPRAZOLE SODIUM 80 MG in SODIUM CHLORIDE 100 ML IVPB SCH ×4 (09:24→22:47)
--- NOTE | 2016-08-10 13:27 | PN ---
Teaching Attending Note Name of Resident: Corey Campbell ATTENDING PHYSICIAN STATEMENT I saw and evaluated the patient. I reviewed the resident's note and discussed the case with the resident. I agree with the resident's findings and plan as documented. SUBJECTIVE: Patient seen and examined in the ICU. Awake and alert. Required additional pRBCs transfusion. No obvious source of significant loss. Intake & Output 08/07/16 08/08/16 08/09/16 08/10/16 23:59 23:59 23:59 23:59 Intake Total 1612 745 8383 400 Output Total 1220 800 Balance 8777 745 1465 -400 Weight 151 lb 11.2 oz 152 lb Last Vital Signs Temp Pulse Resp BP Pulse Ox 98 F 64 18 118/56 95 08/10/16 10:00 08/10/16 12:00 08/10/16 12:00 08/10/16 12:00 08/09/16 20:37 Active Medications Acetaminophen (Tylenol -) 650 mg PO Q6H PRN PRN Reason: FEVER OR PAIN Last Admin: 08/08/16 02:58 Dose: 650 mg Atorvastatin Calcium (Lipitor -) 10 mg PO HS [facility] Last Admin: 08/09/16 22:50 Dose: 10 mg Digoxin (Lanoxin -) 0.125 mg PO DAILY [facility] Last Admin: 08/10/16 09:21 Dose: 0.125 mg Diltiazem HCl (Cardizem Cd -) 120 mg PO DAILY [facility] Last Admin: 08/10/16 09:22 Dose: 120 mg Finasteride (Proscar -) 5 mg PO DAILY [facility] Last Admin: 08/10/16 09:23 Dose: 5 mg Fluoxetine HCl (Prozac -) 10 mg PO DAILY [facility] Last Admin: 08/10/16 09:23 Dose: 10 mg Gabapentin (Neurontin -) 200 mg PO TID [facility] Last Admin: 08/10/16 13:15 Dose: 200 mg Hydroxyurea (Hydrea -) 500 mg PO BID [facility] Last Admin: 08/10/16 09:22 Dose: 500 mg Hydroxyurea (Hydrea -) 500 mg PO TuTh@1000 [facility] Last Admin: 08/10/16 09:24 Dose: 500 mg Ceftazidime 1 gm/ Dextrose 50 mls @ 100 mls/hr IVPB Q8H-IV [facility] PRN Reason: Protocol Last Admin: 08/10/16 09:25 Dose: 100 mls/hr Pantoprazole Sodium 80 mg/ (Sodium Chloride) 100 mls @ 10 mls/hr IVPB Q10H [facility] PRN Reason: 8 MG/HR Last Admin: 08/10/16 09:24 Dose: 10 mls/hr Insulin Aspart (Novolog Vial Sliding Scale -) 0 vial SQ ACHS [facility] PRN Reason: Protocol Last Admin: 08/10/16 12:57 Dose: Not Given Magnesium Oxide (Mag-Ox -) 400 mg PO BID [facility] Last Admin: 08/10/16 09:22 Dose: 400 mg Tamsulosin HCl (Flomax -) 0.4 mg PO DAILY@0830 [facility] Last Admin: 08/10/16 09:21 Dose: 0.4 mg Constitutional: Yes: No Distress Eyes: Yes: WNL, (+) Pallor HENT: Yes: WNL, Other (glasses) Cardiovascular: Yes: Pulse Irregular, S1, S2 Respiratory: Yes: Few scattered Rhonchi, No Wheezes Gastrointestinal: Yes: Normal Bowel Sounds, Tenderness ...Rectal Exam: Yes: Deferred Extremities: Yes: (+) PP Edema: No Peripheral Pulses WNL: Yes (+2 bilateral pedal pulses) Integumentary: Yes: Skin Tear (BLE) Neurological: Yes: Confusion Labs: Laboratory Results - last 24 hr 08/08/16 08/09/16 08/09/16 10:20 16:19 19:35 WBC 12.5 H RBC 1.98 L Hgb 6.6 L* D Hct 19.3 L MCV 97.2 H MCHC 34.0 RDW 17.2 H D Plt Count 248 MPV 8.1 Neutrophils % 73.7 Lymphocytes % 11.8 D Monocytes % 8.0 Eosinophils % 4.8 H Basophils % 1.7 INR PTT (Actin FS) Sodium Potassium Chloride Carbon Dioxide Anion Gap BUN Creatinine Creat Clearance w eGFR POC Glucometer [phone] Random Glucose Calcium Phosphorus Magnesium Total Bilirubin AST ALT Alkaline Phosphatase Total Protein Albumin Stool Occult Blood Blood Type O POSITIVE Antibody Screen Negative Crossmatch See Detail 08/09/16 08/09/16 08/09/16 19:35 19:35 22:00 WBC RBC Hgb Hct MCV MCHC RDW Plt Count MPV Neutrophils % Lymphocytes % Monocytes % Eosinophils % Basophils % INR 1.80 H PTT (Actin FS) 72.6 H Sodium Potassium Chloride Carbon Dioxide Anion Gap BUN Creatinine Creat Clearance w eGFR POC Glucometer Random Glucose Calcium Phosphorus Magnesium Total Bilirubin AST ALT Alkaline Phosphatase Total Protein Albumin Stool Occult Blood Positive Blood Type Antibody Screen Crossmatch 08/09/16 08/10/16 08/10/16 22:51 00:15 05:30 WBC RBC Hgb Hct MCV MCHC RDW Plt Count MPV Neutrophils % Lymphocytes % Monocytes % Eosinophils % Basophils % INR PTT (Actin FS) Sodium Potassium Chloride Carbon Dioxide Anion Gap BUN Creatinine Creat Clearance w eGFR POC Glucometer [phone] Random Glucose Calcium Phosphorus Magnesium Total Bilirubin AST ALT Alkaline Phosphatase Total Protein Albumin Stool Occult Blood Positive Trace Blood Type Antibody Screen Crossmatch 08/10/16 08/10/16 08/10/16 05:57 07:25 07:25 WBC 11.7 H RBC 2.47 L D Hgb 8.0 L D Hct 23.1 L D MCV 93.4 MCHC 34.5 RDW 14.6 D Plt Count 204 MPV 7.7 Neutrophils % 72.5 Lymphocytes % 12.1 Monocytes % 8.4 Eosinophils % 5.2 H Basophils % 1.8 INR 1.55 H PTT (Actin FS) 62.2 H Sodium Potassium Chloride Carbon Dioxide Anion Gap BUN Creatinine Creat Clearance w eGFR POC Glucometer [phone] Random Glucose Calcium Phosphorus Magnesium Total Bilirubin AST ALT Alkaline Phosphatase Total Protein Albumin Stool Occult Blood Blood Type Antibody Screen Crossmatch 08/10/16 07:25 WBC RBC Hgb Hct MCV MCHC RDW Plt Count MPV Neutrophils % Lymphocytes % Monocytes % Eosinophils % Basophils % INR PTT (Actin FS) Sodium 143 Potassium 5.0 Chloride 106 Carbon Dioxide 30 Anion Gap 7 L BUN 86 H Creatinine 1.7 H Creat Clearance w eGFR 38.97 POC Glucometer Random Glucose 123 H Calcium 7.1 L Phosphorus 3.0 Magnesium 2.4 Total Bilirubin 0.4 D AST 7 L D ALT 10 L D Alkaline Phosphatase 68 Total Protein 4.0 L Albumin 1.7 L Stool Occult Blood Blood Type Antibody Screen Crossmatch Assessment/Plan (1) UTI (urinary tract infection) Assessment/Plan: Code(s): N39.0 - URINARY TRACT INFECTION, SITE NOT SPECIFIED Qualifiers: Urinary tract infection type: acute cystitis Hematuria presence: with hematuria Qualified Code(s): N30.01 - Acute cystitis with hematuria (2) Afib Code(s): I48.91 - UNSPECIFIED ATRIAL FIBRILLATION Qualifiers: Atrial fibrillation type: persistent Qualified Code(s): I48.1 - Persistent atrial fibrillation (3) Congestive heart failure Code(s): I50.9 - HEART FAILURE, UNSPECIFIED Qualifiers: Congestive heart failure type: unspecified congestive heart failure type Congestive heart failure chronicity: unspecified congestive heart failure chronicity Qualified Code(s): I50.9 - Heart failure, unspecified (4) Myelodysplasia (myelodysplastic syndrome) Code(s): D46.9 - MYELODYSPLASTIC SYNDROME, UNSPECIFIED (5) Malignant neoplasm of bladder Code(s): C67.9 - MALIGNANT NEOPLASM OF BLADDER, UNSPECIFIED Qualifiers: Bladder location: trigone of urinary bladder Qualified Code(s): 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
--- NOTE | 2016-08-10 14:50 | PN ---
Physical Exam: SUBJECTIVE: Patient seen and examined at bedside in ICU. Resting comfortably in bed & states he feels much better today after blood transfusion. Afebrile with good O2 saturation on 3L NC. No signs of active bleeding at present. OBJECTIVE: Vital Signs Period Temp Pulse Resp BP Sys/Vidal Pulse Ox Last 24 Hr 97.8 F-98.4 F 58-94 18-25 93-125/45-79 95 GENERAL: The patient is awake, alert, and fully oriented, in no acute distress. HEENT: Atraumatic, EOMI, PERRLA, No lymphadenopathy, moist membranes LUNGS: Breath sounds equal, clear to auscultation bilaterally HEART: Regular rate and rhythm, S1, S2 without murmur, rub or gallop. ABDOMEN: Soft, nondistended, normoactive bowel sounds but midlly tender to palpation RLQ EXTREMITIES: 2+ pulses, warm, well-perfused, no edema. NEUROLOGICAL: Cranial nerves II through XII grossly intact. Normal speech, gait not observed. PSYCH: Normal mood, normal affect. SKIN: Warm, dry, normal turgor, no rashes or lesions noted Laboratory Results - last 24 hr 08/08/16 08/09/16 08/09/16 10:20 16:19 19:35 WBC 12.5 H RBC 1.98 L Hgb 6.6 L* D Hct 19.3 L MCV 97.2 H MCHC 34.0 RDW 17.2 H D Plt Count 248 MPV 8.1 Neutrophils % 73.7 Lymphocytes % 11.8 D Monocytes % 8.0 Eosinophils % 4.8 H Basophils % 1.7 INR PTT (Actin FS) Sodium Potassium Chloride Carbon Dioxide Anion Gap BUN Creatinine Creat Clearance w eGFR POC Glucometer [phone] Random Glucose Calcium Phosphorus Magnesium Total Bilirubin AST ALT Alkaline Phosphatase Total Protein Albumin Stool Occult Blood Blood Type O POSITIVE Antibody Screen Negative Crossmatch See Detail 08/09/16 08/09/16 08/09/16 19:35 19:35 22:00 WBC RBC Hgb Hct MCV MCHC RDW Plt Count MPV Neutrophils % Lymphocytes % Monocytes % Eosinophils % Basophils % INR 1.80 H PTT (Actin FS) 72.6 H Sodium Potassium Chloride Carbon Dioxide Anion Gap BUN Creatinine Creat Clearance w eGFR POC Glucometer Random Glucose Calcium Phosphorus Magnesium Total Bilirubin AST ALT Alkaline Phosphatase Total Protein Albumin Stool Occult Blood Positive Blood Type Antibody Screen Crossmatch 08/09/16 08/10/16 08/10/16 22:51 00:15 05:30 WBC RBC Hgb Hct MCV MCHC RDW Plt Count MPV Neutrophils % Lymphocytes % Monocytes % Eosinophils % Basophils % INR PTT (Actin FS) Sodium Potassium Chloride Carbon Dioxide Anion Gap BUN Creatinine Creat Clearance w eGFR POC Glucometer [phone] Random Glucose Calcium Phosphorus Magnesium Total Bilirubin AST ALT Alkaline Phosphatase Total Protein Albumin Stool Occult Blood Positive Trace Blood Type Antibody Screen Crossmatch 08/10/16 08/10/16 08/10/16 05:57 07:25 07:25 WBC 11.7 H RBC 2.47 L D Hgb 8.0 L D Hct 23.1 L D MCV 93.4 MCHC 34.5 RDW 14.6 D Plt Count 204 MPV 7.7 Neutrophils % 72.5 Lymphocytes % 12.1 Monocytes % 8.4 Eosinophils % 5.2 H Basophils % 1.8 INR 1.55 H PTT (Actin FS) 62.2 H Sodium Potassium Chloride Carbon Dioxide Anion Gap BUN Creatinine Creat Clearance w eGFR POC Glucometer [phone] Random Glucose Calcium Phosphorus Magnesium Total Bilirubin AST ALT Alkaline Phosphatase Total Protein Albumin Stool Occult Blood Blood Type Antibody Screen Crossmatch 08/10/16 07:25 WBC RBC Hgb Hct MCV MCHC RDW Plt Count MPV Neutrophils % Lymphocytes % Monocytes % Eosinophils % Basophils % INR PTT (Actin FS) Sodium 143 Potassium 5.0 Chloride 106 Carbon Dioxide 30 Anion Gap 7 L BUN 86 H Creatinine 1.7 H Creat Clearance w eGFR 38.97 POC Glucometer Random Glucose 123 H Calcium 7.1 L Phosphorus 3.0 Magnesium 2.4 Total Bilirubin 0.4 D AST 7 L D ALT 10 L D Alkaline Phosphatase 68 Total Protein 4.0 L Albumin 1.7 L Stool Occult Blood Blood Type Antibody Screen Crossmatch Active Medications Generic Name Dose Route Start Last Admin Trade Name Freq PRN Reason Stop Dose Admin Acetaminophen 650 mg 07/31/16 18:07 08/08/16 02:58 Tylenol - PO 650 mg Q6H PRN Administration FEVER OR PAIN Atorvastatin Calcium 10 mg 07/31/16 22:00 08/09/16 22:50 Lipitor - PO 10 mg HS [facility] Administration Digoxin 0.125 mg 08/01/16 10:00 08/10/16 09:21 Lanoxin - PO 0.125 mg DAILY [facility] Administration Diltiazem HCl 120 mg 08/03/16 13:45 08/10/16 09:22 Cardizem Cd - PO 120 mg DAILY [facility] Administration Finasteride 5 mg 08/01/16 10:00 08/10/16 09:23 Proscar - PO 5 mg DAILY [facility] Administration Fluoxetine HCl 10 mg 08/01/16 10:00 08/10/16 09:23 Prozac - PO 10 mg DAILY [facility] Administration Gabapentin 200 mg 08/08/16 22:00 08/10/16 13:15 Neurontin - PO 200 mg TID [facility] Administration Hydroxyurea 500 mg 07/31/16 22:00 08/10/16 09:22 Hydrea - PO 500 mg BID [facility] Administration Hydroxyurea 500 mg 08/05/16 10:00 08/10/16 09:24 Hydrea - PO 500 mg TuTh@1000 [facility] Administration Ceftazidime 1 gm/ Dextrose 50 mls @ 100 mls/hr 08/01/16 18:00 08/10/16 09:25 IVPB 100 mls/hr Q8H-IV [facility] Administration Protocol Pantoprazole Sodium 80 mg/ 100 mls @ 10 mls/hr 08/08/16 17:30 08/10/16 09:24 Sodium Chloride IVPB 10 mls/hr Q10H [facility] Administration 8 MG/HR Insulin Aspart 0 vial 08/08/16 11:00 08/10/16 12:57 Novolog Vial Sliding Scale - SQ Not Given ACHS [facility] Protocol Magnesium Oxide 400 mg 07/31/16 22:00 08/10/16 09:22 Mag-Ox - PO 400 mg BID [facility] Administration Tamsulosin HCl 0.4 mg 08/01/16 08:30 08/10/16 09:21 Flomax - PO 0.4 mg DAILY@0830 [facility] Administration ASSESSMENT/PLAN: 81 year old male with PMH of GERD, HTN, CHF, a-fib (on Pradaxa), CVA with rt side residual, myeloproliferative disorder, bladder CA and DM. Seen in ED for Pseudomonas UTI. Sent to ICU after Hg drop to 5.8. Concern for gastric varices. #Acute GI Bleed, likely diverticular -no active bleeding noted on endoscopy, but low Hg noted last night with (+) FOBT, so was given 3u PRBC STAT -STAT Abdomen CT last night showed multiple diverticulae & partial vs complete SBO (patient has had BM since then) -has received 7units of PRBC thus far -monitoring H/H -Holding Pradaxa -continue PPI -on clear liquid diet, may upgrade later today -discussed case with GI, no bleeding scans are necessary at this moment, but patient will likely need outpatient capsule study #Pseudomonal UTI -Ceftazidime, day 10 -ID following #CHF/HTN -continue Digoxin, Enalapril -Holding Lasix due to renal function #A-Fib, on pradaxa -continue Cardizem CD 120mg but still holding AC for now -given Vitamin K & FFP yesterday for elevated INR, will trend -cardiology following #Acute on chronic renal failure -continue Flomax, Finasteride -monitoring renal function, stable at present -avoid nephrotoxic meds #Myeloproliferative disorder -continue Hydroxyurea -may be cause of elevated INR -heme/onc following #DM -ISS w/ FS ACHS Prophylaxis/FEN -SCDs, holding AC due to bleed, PPI -Clear liquid diet, monitoring electrolytes Visit type - Emergency Visit Emergency Visit: Yes ED Registration Date: 07/31/16 Care time: The patient presented to the Emergency Department on the above date and was hospitalized for further evaluation of their emergent condition. - New Patient This patient is new to me today: Yes Date on this admission: 08/10/16 - Critical Care Critical Care patient: Yes Total Critical Care Time (in minutes): 45 Critical Care Statement: The care of this patient involved high complexity decision making to prevent further life threatening deterioration of the patient 's condition and/or to evalute & treat vital organ system(s) failure or risk of failure.
[2016-08-10 17:37] LABS: BASOPHIL 1.9 % (0-2.0); EOSINOPHIL 5.3 % (0-4.5); MCH 30.9 pg (25.7-33.7); MEAN CELL VOLUME 90.9 fl (80-96); MEAN PLT VOLUME 8.1 fl (7.5-11.1); NEUTROPHILS 63.6 % (42.8-82.8); PLATELET COUNT 235 K/MM3 (134-434); RDW 15.9 % (11.9-15.9); WHITE BLOOD COUNT 11.6 K/mm3 (4.0-10.0)
--- NOTE | 2016-08-10 18:20 | PN ---
Progress Note (short form) - Note Progress Note: Patient seen and examined Black tarry melanotic stools Received 1 unit of packed cells with Hct 23%- 25%. Received 2 units of packed cells last P.M. Coagulation studies remain elevated with elevated INR and PTT. Last Vital Signs Temp Pulse Resp BP Pulse Ox 97.8 F 58 L 18 96/48 95 08/10/16 14:00 08/10/16 16:00 08/10/16 16:00 08/10/16 16:00 08/09/16 20:37 CBC, BMP 08/10/16 16:00 08/10/16 07:25 Oropharynx- no thrush, mucositis Cor:atrial fib Lungs: rales and diminished breath sounds bilaterally Abd: Soft, Normal bowel sounds, No organomegaly Ext:No significant edema Skin: No rashes, Integument intact Foey catheter Right sided hemiparesis Current Medications Generic Name Dose Route Start Last Admin Trade Name Freq PRN Reason Stop Dose Admin Acetaminophen 650 mg 07/31/16 18:07 08/08/16 02:58 Tylenol - PO 650 mg Q6H PRN Administration FEVER OR PAIN Atorvastatin Calcium 10 mg 07/31/16 22:00 08/09/16 22:50 Lipitor - PO 10 mg HS [facility] Administration Digoxin 0.125 mg 08/01/16 10:00 08/10/16 09:21 Lanoxin - PO 0.125 mg DAILY [facility] Administration Diltiazem HCl 120 mg 08/03/16 13:45 08/10/16 09:22 Cardizem Cd - PO 120 mg DAILY [facility] Administration Finasteride 5 mg 08/01/16 10:00 08/10/16 09:23 Proscar - PO 5 mg DAILY [facility] Administration Fluoxetine HCl 10 mg 08/01/16 10:00 08/10/16 09:23 Prozac - PO 10 mg DAILY [facility] Administration Gabapentin 200 mg 08/08/16 22:00 08/10/16 13:15 Neurontin - PO 200 mg TID [facility] Administration Hydroxyurea 500 mg 07/31/16 22:00 08/10/16 09:22 Hydrea - PO 500 mg BID [facility] Administration Hydroxyurea 500 mg 08/05/16 10:00 08/10/16 09:24 Hydrea - PO 500 mg TuTh@1000 [facility] Administration Ceftazidime 1 gm/ Dextrose 50 mls @ 100 mls/hr 08/01/16 18:00 08/10/16 17:30 IVPB 100 mls/hr Q8H-IV [facility] Administration Protocol Pantoprazole Sodium 80 mg/ 100 mls @ 10 mls/hr 08/08/16 17:30 08/10/16 09:24 Sodium Chloride IVPB 10 mls/hr Q10H [facility] Administration 8 MG/HR Insulin Aspart 0 vial 08/08/16 11:00 08/10/16 17:22 Novolog Vial Sliding Scale - SQ 2 units ACHS [facility] Administration Protocol Magnesium Oxide 400 mg 07/31/16 22:00 08/10/16 09:22 Mag-Ox - PO 400 mg BID [facility] Administration Tamsulosin HCl 0.4 mg 08/01/16 08:30 08/10/16 09:21 Flomax - PO 0.4 mg DAILY@0830 [facility] Administration Impression: GI bleeding Coagulopathy For transfusion of packed cells, and FFP, Vitamin K. Problem List - Problems (1) Acute cystitis Assessment/Plan: Reynolds in place, clear urine output Code(s): N30.00 - ACUTE CYSTITIS WITHOUT HEMATURIA (2) Afib Assessment/Plan: Chronic atrial fib- off a/c in view of GI bleeding. Code(s): I48.91 - UNSPECIFIED ATRIAL FIBRILLATION Qualifiers: Atrial fibrillation type: persistent Qualified Code(s): I48.1 - Persistent atrial fibrillation (3) Cerebral infarction Assessment/Plan: s/p cerebral infarct with right sided weakness Code(s): I63.9 - CEREBRAL INFARCTION, UNSPECIFIED (4) Leukocytosis Assessment/Plan: Myeloproliferative Disorder on hydrea therapy Code(s): D72.829 - ELEVATED WHITE BLOOD CELL COUNT, UNSPECIFIED (5) Rectal bleeding Assessment/Plan: Black tarry stool. Negative EGD. Bleeding seems to be coming from high up in gut however. Code(s): K62.5 - HEMORRHAGE OF ANUS AND RECTUM (6) Coagulopathy Assessment/Plan: Elevated INR/PTT. Unclear etiology. ?? Occult liver disease, ?? meds, ?? poor intake, ?? MPD , ?? CHF, ?? infection Plan for Vitamin K and FFP. Code(s): D68.9 - COAGULATION DEFECT, UNSPECIFIED
[2016-08-10] MEDS ORDERED: PHYTONADIONE 10 MG/1 ML AMP SQ ONE (18:33)
--- NOTE | 2016-08-10 19:02 | PN ---
Progress Note (short form) - Note Progress Note: Renal Follow up for CHEMA Pt seen and examined in the ICU awake and alert no acute complaints Vital Signs Temperature 97.8 F 08/10/16 14:00 Pulse Rate 76 08/10/16 18:00 Respiratory Rate 18 08/10/16 18:00 Blood Pressure 90/46 08/10/16 18:00 O2 Sat by Pulse Oximetry (%) 95 08/09/16 20:37 Intake & Output 08/07/16 08/08/16 08/09/16 08/10/16 23:59 23:59 23:59 23:59 Intake Total 9120 007 8981 920 Output Total 1220 2000 Balance 2732 957 8384 -1080 Weight 151 lb 11.2 oz 152 lb Gen: NAD HEENT: NC/AT CVS: RRR, No M/R Lungs: CTA Abd: soft NT/ND, No bladder distension Ext: No edema, clubbing or cyanosis CBC, BMP 08/10/16 16:00 08/10/16 07:25 Current Medications Acetaminophen (Tylenol -) 650 mg PO Q6H PRN PRN Reason: FEVER OR PAIN Last Admin: 08/08/16 02:58 Dose: 650 mg Atorvastatin Calcium (Lipitor -) 10 mg PO HS [facility] Last Admin: 08/09/16 22:50 Dose: 10 mg Digoxin (Lanoxin -) 0.125 mg PO DAILY [facility] Last Admin: 08/10/16 09:21 Dose: 0.125 mg Diltiazem HCl (Cardizem Cd -) 120 mg PO DAILY [facility] Last Admin: 08/10/16 09:22 Dose: 120 mg Finasteride (Proscar -) 5 mg PO DAILY [facility] Last Admin: 08/10/16 09:23 Dose: 5 mg Fluoxetine HCl (Prozac -) 10 mg PO DAILY [facility] Last Admin: 08/10/16 09:23 Dose: 10 mg Gabapentin (Neurontin -) 200 mg PO TID [facility] Last Admin: 08/10/16 13:15 Dose: 200 mg Hydroxyurea (Hydrea -) 500 mg PO BID [facility] Last Admin: 08/10/16 09:22 Dose: 500 mg Hydroxyurea (Hydrea -) 500 mg PO TuTh@1000 [facility] Last Admin: 08/10/16 09:24 Dose: 500 mg Ceftazidime 1 gm/ Dextrose 50 mls @ 100 mls/hr IVPB Q8H-IV [facility] PRN Reason: Protocol Last Admin: 08/10/16 17:30 Dose: 100 mls/hr Pantoprazole Sodium 80 mg/ (Sodium Chloride) 100 mls @ 10 mls/hr IVPB Q10H [facility] PRN Reason: 8 MG/HR Last Admin: 08/10/16 09:24 Dose: 10 mls/hr Insulin Aspart (Novolog Vial Sliding Scale -) 0 vial SQ ACHS [facility] PRN Reason: Protocol Last Admin: 08/10/16 17:22 Dose: 2 units Magnesium Oxide (Mag-Ox -) 400 mg PO BID [facility] Last Admin: 08/10/16 09:22 Dose: 400 mg Tamsulosin HCl (Flomax -) 0.4 mg PO DAILY@0830 [facility] Last Admin: 08/10/16 09:21 Dose: 0.4 mg A/p 81 y/o Gentleman with PMhx of AFib, CVA, Hypertension, DM who presented with UTI and CHEMA with normal baseline renal function. #CHEMA Renal function worsening in setting of acute bleed and hypovolemia Cr with mild improvement today pt is non-oliguric Continue Proscar and Flomax s/p prbc transfusion holding aCEi and diuretics at this time #Anemia secondary to GIB Continue Management as per GI #UTI Continue IV Ceftazidime Gabe Mendes DO
[2016-08-10 22:35] LABS: BASOPHIL 1.4 % (0-2.0); EOSINOPHIL 6.6 % (0-4.5); MCHC 35.1 g/dl (32.0-35.9); MEAN CELL VOLUME 91.1 fl (80-96); MEAN PLT VOLUME 8.5 fl (7.5-11.1); NEUTROPHILS 63.7 % (42.8-82.8); PLATELET COUNT 251 K/MM3 (134-434); RDW 16.2 % (11.9-15.9); WHITE BLOOD COUNT 10.2 K/mm3 (4.0-10.0)
[2016-08-10 22:46] LABS: INR 1.35 (0.82-1.09); PROTHROMBIN TIME (PATIENT) 14.9 SEC (9.98-11.88)
[2016-08-10] MEDS: ATORVASTATIN CA 10 MG TABLET (FP) PO SCH (22:47)
[2016-08-10 22:48] LABS: ACTIVATED PTT 49.2 SECONDS (26.9-34.4)
[2016-08-11] MEDS: CEFTAZIDIME PENTAHYDRATE 1 GM in DEXTROSE 5%-WATER - 50 ML IVPB SCH ×2 (02:00→09:02)
[2016-08-11] MEDS: PANTOPRAZOLE SODIUM 80 MG in SODIUM CHLORIDE 100 ML IVPB SCH ×2 (05:38→18:38)
[2016-08-11] MEDS: GABAPENTIN 100 MG CAPSULE (FP) PO SCH ×3 (06:09→21:20)
[2016-08-11] MEDS: INSULIN SLIDING SCALE (NOVOLOG) 1 VIAL SQ SCH ×4 (06:10→21:20)
[2016-08-11 06:41] LABS: BASOPHIL 1.2 % (0-2.0); EOSINOPHIL 6.4 % (0-4.5); MCH 31.3 pg (25.7-33.7); MCHC 34.1 g/dl (32.0-35.9); MEAN CELL VOLUME 91.8 fl (80-96); MEAN PLT VOLUME 8.2 fl (7.5-11.1); NEUTROPHILS 67.9 % (42.8-82.8); PLATELET COUNT 249 K/MM3 (134-434); RDW 16.4 % (11.9-15.9); WHITE BLOOD COUNT 12.6 K/mm3 (4.0-10.0)
[2016-08-11 06:58] LABS: INR 1.23 (0.82-1.09); PROTHROMBIN TIME (PATIENT) 13.6 SEC (9.98-11.88)
[2016-08-11 07:09] LABS: ALBUMIN 2.2 g/dl (3.4-5.0); CALCIUM 8.1 mg/dL (8.5-10.1); CREATININE 1.3 mg/dL (0.7-1.3); MAGNESIUM 2.6 mg/dL (1.8-2.4); PHOSPHOROUS 3.1 mg/dL (2.5-4.9)
[2016-08-11 07:11] LABS: BILIRUBIN,TOTAL 0.5 mg/dL (0.2-1.0); TOT PROT 4.6 g/dl (6.4-8.2)
--- NOTE | 2016-08-11 08:42 | PN ---
Progress Note, Physician History of Present Illness: S/P PRBC RETENTION [facility] IN COMFORTABLE-NO COMPLAINTS - Current Medication List Current Medications: Active Medications Acetaminophen (Tylenol -) 650 mg PO Q6H PRN PRN Reason: FEVER OR PAIN Last Admin: 08/08/16 02:58 Dose: 650 mg Atorvastatin Calcium (Lipitor -) 10 mg PO HS [facility] Last Admin: 08/10/16 22:47 Dose: 10 mg Digoxin (Lanoxin -) 0.125 mg PO DAILY [facility] Last Admin: 08/10/16 09:21 Dose: 0.125 mg Diltiazem HCl (Cardizem Cd -) 120 mg PO DAILY [facility] Last Admin: 08/10/16 09:22 Dose: 120 mg Finasteride (Proscar -) 5 mg PO DAILY [facility] Last Admin: 08/10/16 09:23 Dose: 5 mg Fluoxetine HCl (Prozac -) 10 mg PO DAILY [facility] Last Admin: 08/10/16 09:23 Dose: 10 mg Gabapentin (Neurontin -) 200 mg PO TID [facility] Last Admin: 08/11/16 06:09 Dose: 200 mg Hydroxyurea (Hydrea -) 500 mg PO BID [facility] Last Admin: 08/10/16 22:47 Dose: 500 mg Hydroxyurea (Hydrea -) 500 mg PO TuTh@1000 [facility] Last Admin: 08/10/16 09:24 Dose: 500 mg Ceftazidime 1 gm/ Dextrose 50 mls @ 100 mls/hr IVPB Q8H-IV [facility] PRN Reason: Protocol Last Admin: 08/11/16 02:00 Dose: 100 mls/hr Pantoprazole Sodium 80 mg/ (Sodium Chloride) 100 mls @ 10 mls/hr IVPB Q10H [facility] PRN Reason: 8 MG/HR Last Admin: 08/11/16 05:38 Dose: 10 mls/hr Insulin Aspart (Novolog Vial Sliding Scale -) 0 vial SQ ACHS [facility] PRN Reason: Protocol Last Admin: 08/11/16 06:10 Dose: 2 units Magnesium Oxide (Mag-Ox -) 400 mg PO BID [facility] Last Admin: 08/10/16 22:47 Dose: 400 mg Tamsulosin HCl (Flomax -) 0.4 mg PO DAILY@0830 [facility] Last Admin: 08/10/16 09:21 Dose: 0.4 mg - Objective Vital Signs: Vital Signs Temperature 98.6 F 02/22/17 06:00 Pulse Rate 60 08/11/16 08:00 Respiratory Rate 16 08/11/16 08:00 Blood Pressure 123/77 08/11/16 08:00 O2 Sat by Pulse Oximetry (%) 95 08/10/16 20:00 Cardiovascular: Yes: S1, S2 Respiratory: Yes: Regular, CTA Bilaterally Gastrointestinal: Yes: Normal Bowel Sounds, Soft Labs: CBC, BMP 08/11/16 05:20 08/11/16 05:20 INR, PTT INR 1.23 (0.82-1.09) H 08/11/16 05:20 Assessment/Plan (1) UTI (urinary tract infection) Assessment/Plan: continue iv abx for total 7 days dc abx f/u with id Microbiology 07/31/16 15:30 Urine - Urine Clean Catch Urine Culture - Final Pseudomonas Aeruginosa Code(s): N39.0 - URINARY TRACT INFECTION, SITE NOT SPECIFIED Qualifiers: Urinary tract infection type: acute cystitis Hematuria presence: with hematuria Qualified Code(s): N30.01 - Acute cystitis with hematuria (2) Afib Code(s): I48.91 - UNSPECIFIED ATRIAL FIBRILLATION Qualifiers: Atrial fibrillation type: persistent Qualified Code(s): I48.1 - Persistent atrial fibrillation no ac--- stopped 2/2 gib (3) Congestive heart failure monitor Code(s): I50.9 - HEART FAILURE, UNSPECIFIED Qualifiers: Congestive heart failure type: unspecified congestive heart failure type Congestive heart failure chronicity: unspecified congestive heart failure chronicity Qualified Code(s): I50.9 - Heart failure, unspecified (4) Myelodysplasia (myelodysplastic syndrome) Code(s): D46.9 - MYELODYSPLASTIC SYNDROME, UNSPECIFIED appreciate heme note asa stopped 2/2 gib (5) Malignant neoplasm of bladder Code(s): C67.9 - MALIGNANT NEOPLASM OF BLADDER, UNSPECIFIED Qualifiers: Bladder location: trigone of urinary bladder Qualified Code(s): C67.0 - Malignant neoplasm of trigone of bladder (6) CHEMA (acute kidney injury)--Retention [facility] Code(s): N17.9 - ACUTE KIDNEY FAILURE, UNSPECIFIED (7) Anemia Code(s): D64.9 - ANEMIA, UNSPECIFIED Qualifiers: Anemia type: unspecified type Qualified Code(s): D64.9 - Anemia, unspecified hgb 8.8 fobt +wally - prbc x 3 with lasix - gi--s/p egd - monitor labs
[2016-08-11] MEDS ORDERED: PT OWN MED DRAWER 7, Y5N ONE ×3 (08:59→20:48)
[2016-08-11] MEDS: TAMSULOSIN HCL 0.4 MG CAP.ER.24H (FP) PO SCH (09:03)
[2016-08-11] MEDS: DIGOXIN 0.125 MG TABLET (FP) PO SCH (09:03)
[2016-08-11] MEDS: FINASTERIDE 5 MG TABLET (FP) PO SCH (09:04)
[2016-08-11] MEDS: FLUoxetine HCL 10 MG CAPSULE (FP) PO SCH (09:04)
[2016-08-11] MEDS: HYDROXYUREA 500 MG CAPSULE PO SCH ×2 (09:04→21:52)
[2016-08-11] MEDS: MAGNESIUM OXIDE 400 MG TABLET (FP) PO SCH ×2 (09:04→21:20)
--- NOTE | 2016-08-11 11:18 | PN ---
Addendum entered and electronically signed by Corey Campbell RES 08/11/16 12:47: Stopped Ceftazidime. Original Note: Physical Exam: SUBJECTIVE: Patient seen and examined at bedside in ICU. Afebrile overnight and in a pleasant mood. Reports no new complaints and had multiple BM's last night. No signs of active bleeding. OBJECTIVE: Vital Signs Period Temp Pulse Resp BP Sys/Vidal Pulse Ox Last 24 Hr 97.3 F-98.6 F 54-76 16-20 90-125/45-77 94-95 GENERAL: The patient is awake, alert, and fully oriented, in no acute distress. HEENT: Atraumatic, EOMI, PERRLA, No lymphadenopathy, moist membranes LUNGS: Breath sounds equal, clear to auscultation bilaterally HEART: Regular rate and rhythm, S1, S2 without murmur, rub or gallop. ABDOMEN: Soft, nondistended, normoactive bowel sounds but mildly tender to palpation RLQ EXTREMITIES: 2+ pulses, warm, well-perfused, no edema. NEUROLOGICAL: Cranial nerves II through XII grossly intact. Normal speech, gait not observed. PSYCH: Normal mood, normal affect. SKIN: Warm, dry, normal turgor, no rashes or lesions noted Laboratory Results - last 24 hr 08/08/16 08/10/16 08/10/16 10:20 05:30 16:00 WBC 11.6 H RBC 2.84 L Hgb 8.8 L Hct 25.8 L MCV 90.9 MCHC 34.0 RDW 15.9 Plt Count 235 MPV 8.1 Neutrophils % 63.6 Lymphocytes % 18.6 D Monocytes % 10.6 H Eosinophils % 5.3 H Basophils % 1.9 INR PTT (Actin FS) Sodium Potassium Chloride Carbon Dioxide Anion Gap BUN Creatinine Creat Clearance w eGFR Random Glucose Calcium Phosphorus Magnesium Total Bilirubin AST ALT Alkaline Phosphatase Total Protein Albumin Stool Occult Blood Trace Crossmatch See Detail 08/10/16 08/10/16 08/10/16 22:00 22:00 22:00 WBC 10.2 H RBC 2.61 L Hgb 8.4 L Hct 23.8 L MCV 91.1 MCHC 35.1 RDW 16.2 H Plt Count 251 MPV 8.5 Neutrophils % 63.7 Lymphocytes % 15.3 Monocytes % 13.0 H Eosinophils % 6.6 H Basophils % 1.4 INR 1.35 H Cancelled PTT (Actin FS) 49.2 H Sodium Potassium Chloride Carbon Dioxide Anion Gap BUN Creatinine Creat Clearance w eGFR Random Glucose Calcium Phosphorus Magnesium Total Bilirubin AST ALT Alkaline Phosphatase Total Protein Albumin Stool Occult Blood Crossmatch 08/11/16 08/11/16 08/11/16 05:20 05:20 05:20 WBC 12.6 H RBC 2.81 L Hgb 8.8 L Hct 25.8 L MCV 91.8 MCHC 34.1 RDW 16.4 H Plt Count 249 MPV 8.2 Neutrophils % 67.9 Lymphocytes % 14.1 Monocytes % 10.4 H Eosinophils % 6.4 H Basophils % 1.2 INR 1.23 H PTT (Actin FS) 50.0 H Sodium 145 Potassium 4.3 Chloride 106 Carbon Dioxide 33 H Anion Gap 6 L BUN 79 H Creatinine 1.3 D Creat Clearance w eGFR 53.12 Random Glucose 120 H Calcium 8.1 L Phosphorus 3.1 Magnesium 2.6 H Total Bilirubin 0.5 D AST 6 L ALT 10 L Alkaline Phosphatase 73 Total Protein 4.6 L Albumin 2.2 L D Stool Occult Blood Crossmatch Active Medications Generic Name Dose Route Start Last Admin Trade Name Freq PRN Reason Stop Dose Admin Acetaminophen 650 mg 07/31/16 18:07 08/08/16 02:58 Tylenol - PO 650 mg Q6H PRN Administration FEVER OR PAIN Atorvastatin Calcium 10 mg 07/31/16 22:00 08/10/16 22:47 Lipitor - PO 10 mg HS [facility] Administration Digoxin 0.125 mg 08/01/16 10:00 08/11/16 09:03 Lanoxin - PO 0.125 mg DAILY [facility] Administration Diltiazem HCl 120 mg 08/03/16 13:45 08/11/16 09:04 Cardizem Cd - PO 120 mg DAILY [facility] Administration Finasteride 5 mg 08/01/16 10:00 08/11/16 09:04 Proscar - PO 5 mg DAILY [facility] Administration Fluoxetine HCl 10 mg 08/01/16 10:00 08/11/16 09:04 Prozac - PO 10 mg DAILY [facility] Administration Gabapentin 200 mg 08/08/16 22:00 08/11/16 06:09 Neurontin - PO 200 mg TID [facility] Administration Hydroxyurea 500 mg 07/31/16 22:00 08/11/16 09:04 Hydrea - PO 500 mg BID [facility] Administration Hydroxyurea 500 mg 08/05/16 10:00 08/10/16 09:24 Hydrea - PO 500 mg TuTh@1000 [facility] Administration Ceftazidime 1 gm/ Dextrose 50 mls @ 100 mls/hr 08/01/16 18:00 08/11/16 09:02 IVPB 100 mls/hr Q8H-IV [facility] Administration Protocol Pantoprazole Sodium 80 mg/ 100 mls @ 10 mls/hr 08/08/16 17:30 08/11/16 05:38 Sodium Chloride IVPB 10 mls/hr Q10H [facility] Administration 8 MG/HR Insulin Aspart 0 vial 08/08/16 11:00 08/11/16 06:10 Novolog Vial Sliding Scale - SQ 2 units ACHS [facility] Administration Protocol Magnesium Oxide 400 mg 07/31/16 22:00 08/11/16 09:04 Mag-Ox - PO 400 mg BID [facility] Administration Tamsulosin HCl 0.4 mg 08/01/16 08:30 08/11/16 09:03 Flomax - PO 0.4 mg DAILY@0830 [facility] Administration ASSESSMENT/PLAN: 81 year old male with PMH of GERD, HTN, CHF, a-fib (on Pradaxa), CVA with rt side residual, myeloproliferative disorder, bladder CA and DM. Seen in ED for Pseudomonas UTI. Sent to ICU after Hg drop to 5.8. Concern for gastric varices. #Acute GI Bleed, likely diverticular -hemoglobin stable over last 24 hours -had multiple dark bowel movements overnight -has received 7units of PRBC thus far -monitoring H/H -Pradaxa still being held -continue PPI -on clear liquid diet -discussed case with GI, no bleeding scans are necessary at this moment, but patient will likely need outpatient capsule study #Pseudomonal UTI -Ceftazidime, day 11 -ID following #CHF/HTN -continue Digoxin -Holding Lasix & Enalapril due to renal function #A-Fib, on pradaxa -continue Cardizem CD 120mg but still holding AC for now -given Vitamin K & FFP yesterday for elevated INR -cardiology following #Acute on chronic renal failure -continue Flomax, Finasteride -monitoring renal function, stable at present -avoid nephrotoxic meds #Myeloproliferative disorder -continue Hydroxyurea -may be cause of elevated INR -heme/onc following #DM -ISS w/ FS ACHS Prophylaxis/FEN -SCDs, holding AC due to bleed, PPI -Clear liquid diet, monitoring electrolytes Dispo: not actively bleeding & H/H stable, can be observed on floors Visit type - Emergency Visit Emergency Visit: Yes ED Registration Date: 07/31/16 Care time: The patient presented to the Emergency Department on the above date and was hospitalized for further evaluation of their emergent condition. - New Patient This patient is new to me today: No - Critical Care Critical Care patient: Yes Total Critical Care Time (in minutes): 45 Critical Care Statement: The care of this patient involved high complexity decision making to prevent further life threatening deterioration of the patient 's condition and/or to evalute & treat vital organ system(s) failure or risk of failure.
--- NOTE | 2016-08-11 11:48 | PN ---
Progress Note (short form) - Note Progress Note: Renal Follow up for CHEMA Pt seen and examined in the ICU awake and alert denies any pain denies any difficulty breathing good urine output Vital Signs Temperature 97.3 F L 08/11/16 10:00 Pulse Rate 75 08/11/16 11:22 Respiratory Rate 16 08/11/16 11:22 Blood Pressure 104/70 08/11/16 11:22 O2 Sat by Pulse Oximetry (%) 94 L 08/11/16 09:00 Intake & Output 08/08/16 08/09/16 08/10/16 08/11/16 23:59 23:59 23:59 23:59 Intake Total 705 5007 920 1270 Output Total 1220 3000 800 Balance 705 3537 -2080 470 Weight 151 lb 11.2 oz 152 lb 153 lb 6.4 oz Gen: NAD HEENT: NC/AT CVS: RRR, No M/R Lungs: CTA Abd: soft NT/ND, No bladder distension Ext: No edema, clubbing or cyanosis CBC, BMP 08/11/16 05:20 08/11/16 05:20 Laboratory Tests 08/11/16 05:20 Calcium 8.1 L Phosphorus 3.1 Magnesium 2.6 H Albumin 2.2 L D Current Medications Acetaminophen (Tylenol -) 650 mg PO Q6H PRN PRN Reason: FEVER OR PAIN Last Admin: 08/08/16 02:58 Dose: 650 mg Atorvastatin Calcium (Lipitor -) 10 mg PO HS [facility] Last Admin: 08/10/16 22:47 Dose: 10 mg Digoxin (Lanoxin -) 0.125 mg PO DAILY [facility] Last Admin: 08/11/16 09:03 Dose: 0.125 mg Diltiazem HCl (Cardizem Cd -) 120 mg PO DAILY [facility] Last Admin: 08/11/16 09:04 Dose: 120 mg Finasteride (Proscar -) 5 mg PO DAILY [facility] Last Admin: 08/11/16 09:04 Dose: 5 mg Fluoxetine HCl (Prozac -) 10 mg PO DAILY [facility] Last Admin: 08/11/16 09:04 Dose: 10 mg Gabapentin (Neurontin -) 200 mg PO TID [facility] Last Admin: 08/11/16 06:09 Dose: 200 mg Hydroxyurea (Hydrea -) 500 mg PO BID [facility] Last Admin: 08/11/16 09:04 Dose: 500 mg Hydroxyurea (Hydrea -) 500 mg PO TuTh@1000 [facility] Last Admin: 08/10/16 09:24 Dose: 500 mg Ceftazidime 1 gm/ Dextrose 50 mls @ 100 mls/hr IVPB Q8H-IV [facility] PRN Reason: Protocol Last Admin: 08/11/16 09:02 Dose: 100 mls/hr Pantoprazole Sodium 80 mg/ (Sodium Chloride) 100 mls @ 10 mls/hr IVPB Q10H [facility] PRN Reason: 8 MG/HR Last Admin: 08/11/16 05:38 Dose: 10 mls/hr Insulin Aspart (Novolog Vial Sliding Scale -) 0 vial SQ ACHS [facility] PRN Reason: Protocol Last Admin: 08/11/16 06:10 Dose: 2 units Magnesium Oxide (Mag-Ox -) 400 mg PO BID [facility] Last Admin: 08/11/16 09:04 Dose: 400 mg Tamsulosin HCl (Flomax -) 0.4 mg PO DAILY@0830 [facility] Last Admin: 08/11/16 09:03 Dose: 0.4 mg A/p 81 y/o Gentleman with PMhx of AFib, CVA, Hypertension, DM who presented with UTI and CHEMA with normal baseline renal function. #CHEMA secondary to acute GIB/Hemodynamic injury Renal function now improving toward baseline BUN remains elevated -? secondary to GIB pt is non-oliguric can resume Lasix as needed for SOB/increased RR (currently appears comfortable) holding ACEi for now (BP remains marginal) #Anemia secondary to GIB s/p upper endoscopy w/o clear source of bleeding for capsule endoscopy as outpatient trend CBC #UTI Continue IV Ceftazidime Gabe Mendes DO
--- NOTE | 2016-08-11 12:43 | PN ---
Progress Note, Physician History of Present Illness: Dark stools overnight, but Hgb stable, denies chest pain or dyspnea. - Current Medication List Current Medications: Active Medications Acetaminophen (Tylenol -) 650 mg PO Q6H PRN PRN Reason: FEVER OR PAIN Last Admin: 08/08/16 02:58 Dose: 650 mg Atorvastatin Calcium (Lipitor -) 10 mg PO HS [facility] Last Admin: 08/10/16 22:47 Dose: 10 mg Digoxin (Lanoxin -) 0.125 mg PO DAILY [facility] Last Admin: 08/11/16 09:03 Dose: 0.125 mg Diltiazem HCl (Cardizem Cd -) 120 mg PO DAILY [facility] Last Admin: 08/11/16 09:04 Dose: 120 mg Finasteride (Proscar -) 5 mg PO DAILY [facility] Last Admin: 08/11/16 09:04 Dose: 5 mg Fluoxetine HCl (Prozac -) 10 mg PO DAILY [facility] Last Admin: 08/11/16 09:04 Dose: 10 mg Gabapentin (Neurontin -) 200 mg PO TID [facility] Last Admin: 08/11/16 06:09 Dose: 200 mg Hydroxyurea (Hydrea -) 500 mg PO BID [facility] Last Admin: 08/11/16 09:04 Dose: 500 mg Hydroxyurea (Hydrea -) 500 mg PO TuTh@1000 [facility] Last Admin: 08/10/16 09:24 Dose: 500 mg Ceftazidime 1 gm/ Dextrose 50 mls @ 100 mls/hr IVPB Q8H-IV [facility] PRN Reason: Protocol Last Admin: 08/11/16 09:02 Dose: 100 mls/hr Pantoprazole Sodium 80 mg/ (Sodium Chloride) 100 mls @ 10 mls/hr IVPB Q10H [facility] PRN Reason: 8 MG/HR Last Admin: 08/11/16 05:38 Dose: 10 mls/hr Insulin Aspart (Novolog Vial Sliding Scale -) 0 vial SQ ACHS [facility] PRN Reason: Protocol Last Admin: 08/11/16 12:16 Dose: 4 units Magnesium Oxide (Mag-Ox -) 400 mg PO BID [facility] Last Admin: 08/11/16 09:04 Dose: 400 mg Tamsulosin HCl (Flomax -) 0.4 mg PO DAILY@0830 [facility] Last Admin: 08/11/16 09:03 Dose: 0.4 mg - Objective Vital Signs: Vital Signs Temperature 97.3 F L 08/11/16 10:00 Pulse Rate 75 08/11/16 12:00 Respiratory Rate 16 08/11/16 12:00 Blood Pressure 104/70 08/11/16 12:00 O2 Sat by Pulse Oximetry (%) 94 L 08/11/16 09:00 Constitutional: Yes: No Distress Neck: Yes: Supple Cardiovascular: Yes: Pulse Irregular Respiratory: Yes: Regular, Diminished Gastrointestinal: Yes: Normal Bowel Sounds, Soft Edema: No Labs: CBC, BMP 08/11/16 05:20 08/11/16 05:20 INR, PTT INR 1.23 (0.82-1.09) H 08/11/16 05:20 Problem List - Problems (1) CAD (coronary artery disease) Code(s): I25.10 - ATHSCL HEART DISEASE OF [place] CORONARY ARTERY W/O ANG PCTRS Qualifiers: Coronary Disease-Associated Artery/Lesion type: [place] artery [place] vs. transplanted heart: [place] heart Associated angina: without angina Qualified Code(s): I25.10 - Atherosclerotic heart disease of [place] coronary artery without angina pectoris (2) Afib Code(s): I48.91 - UNSPECIFIED ATRIAL FIBRILLATION Qualifiers: Atrial fibrillation type: persistent Qualified Code(s): I48.1 - Persistent atrial fibrillation (3) Cerebral infarction Code(s): I63.9 - CEREBRAL INFARCTION, UNSPECIFIED (4) Myelodysplasia (myelodysplastic syndrome) Code(s): D46.9 - MYELODYSPLASTIC SYNDROME, UNSPECIFIED (5) Positive urine culture Code(s): R82.7 - ABNORMAL FINDINGS ON MICROBIOLOGICAL EXAMINAT * DO NOT USE * (6) Diabetes Code(s): E11.9 - TYPE 2 DIABETES MELLITUS WITHOUT COMPLICATIONS Qualifiers: Diabetes mellitus type: type 2 Diabetes mellitus complication status: without complication Diabetes mellitus tank terminal gauger insulin use: without tank terminal gauger use Qualified Code(s): E11.9 - Type 2 diabetes mellitus without complications (7) Diastolic dysfunction Code(s): I51.9 - HEART DISEASE, UNSPECIFIED (8) HTN (hypertension) Code(s): I10 - ESSENTIAL (PRIMARY) HYPERTENSION Qualifiers: Hypertension type: essential hypertension Qualified Code(s): I10 - Essential (primary) hypertension (9) Hyperlipidemia Code(s): E78.5 - HYPERLIPIDEMIA, UNSPECIFIED Qualifiers: Hyperlipidemia type: pure hypercholesterolemia Qualified Code(s): E78.0 - Pure hypercholesterolemia (10) CHEMA (acute kidney injury) Code(s): N17.9 - ACUTE KIDNEY FAILURE, UNSPECIFIED Assessment/Plan 1. Pseudomonas UTI on abx course 2. LV diastolic dysfunction with chronic class I NYHA classification LV failure , currently euvolumic 3. Permanent AF [id number] score of 8 on A/C with NOAC 4. CAD angina pectoris, stable 5. HTN 6. NIDDM 7. Hypercholesterolemia 8. History of fronto-temporal stroke with residual deficit 9. Mylelodysplastic syndrome, leukocytosis, anemia and thrombocytosis 10. Acute on CKD resolved 11. Resolved diverticular bleed PLAN: 1. Continue Cardizem CD 120 mg QD 2. Resume Ramipril 2.5 mg once a day with renal recovery 3. Continue Lipitor 10 qhs 4. Resume Pradaxa 150 bid once hemostasis assured, ASA d/marie despite MDS due to recurrent GI bleed 5. Continue Digoxin 0.125 qd with close monitoring of level 6. Protonix gtt and complete abx course 7. Monitor Hgb post transfusion and transfuse for Hgb<8.0
--- NOTE | 2016-08-11 12:43 | PN ---
Teaching Attending Note Name of Resident: Corey Campbell ATTENDING PHYSICIAN STATEMENT I saw and evaluated the patient. I reviewed the resident's note and discussed the case with the resident. I agree with the resident's findings and plan as documented. SUBJECTIVE: Pt seen and examined in the ICU. Dark stools overnight but H/H stable this AM. Denies shortness of breath or chest pain. No abdominal pain. OBJECTIVE: Last Vital Signs Temp Pulse Resp BP Pulse Ox 97.3 F L 75 16 104/70 94 L 08/11/16 10:00 08/11/16 12:00 08/11/16 12:00 08/11/16 12:00 08/11/16 09:00 Intake & Output 08/08/16 08/09/16 08/10/16 08/11/16 23:59 23:59 23:59 23:59 Intake Total 705 5007 920 1270 Output Total 1220 3000 800 Balance 705 3787 -2080 470 Weight 151 lb 11.2 oz 152 lb 153 lb 6.4 oz Gen: NAD at rest Heart: RRR Lung: decreased breath sounds at the bases Abd: soft, mild TTP RLQ, no rebound Ext: no edema CBC, BMP 08/11/16 05:20 08/11/16 05:20 Active Medications Acetaminophen (Tylenol -) 650 mg PO Q6H PRN PRN Reason: FEVER OR PAIN Last Admin: 08/08/16 02:58 Dose: 650 mg Atorvastatin Calcium (Lipitor -) 10 mg PO HS [facility] Last Admin: 08/10/16 22:47 Dose: 10 mg Digoxin (Lanoxin -) 0.125 mg PO DAILY [facility] Last Admin: 08/11/16 09:03 Dose: 0.125 mg Diltiazem HCl (Cardizem Cd -) 120 mg PO DAILY [facility] Last Admin: 08/11/16 09:04 Dose: 120 mg Finasteride (Proscar -) 5 mg PO DAILY [facility] Last Admin: 08/11/16 09:04 Dose: 5 mg Fluoxetine HCl (Prozac -) 10 mg PO DAILY [facility] Last Admin: 08/11/16 09:04 Dose: 10 mg Gabapentin (Neurontin -) 200 mg PO TID [facility] Last Admin: 08/11/16 06:09 Dose: 200 mg Hydroxyurea (Hydrea -) 500 mg PO BID [facility] Last Admin: 08/11/16 09:04 Dose: 500 mg Hydroxyurea (Hydrea -) 500 mg PO TuTh@1000 [facility] Last Admin: 08/10/16 09:24 Dose: 500 mg Ceftazidime 1 gm/ Dextrose 50 mls @ 100 mls/hr IVPB Q8H-IV [facility] PRN Reason: Protocol Last Admin: 08/11/16 09:02 Dose: 100 mls/hr Pantoprazole Sodium 80 mg/ (Sodium Chloride) 100 mls @ 10 mls/hr IVPB Q10H [facility] PRN Reason: 8 MG/HR Last Admin: 08/11/16 05:38 Dose: 10 mls/hr Insulin Aspart (Novolog Vial Sliding Scale -) 0 vial SQ ACHS [facility] PRN Reason: Protocol Last Admin: 08/11/16 12:16 Dose: 4 units Magnesium Oxide (Mag-Ox -) 400 mg PO BID [facility] Last Admin: 08/11/16 09:04 Dose: 400 mg Tamsulosin HCl (Flomax -) 0.4 mg PO DAILY@0830 [facility] Last Admin: 08/11/16 09:03 Dose: 0.4 mg ASSESSMENT AND PLAN: GI Bleed likely Diverticular Acute Blood Loss Anemia UTI Atrial Fibrillation h/o CVA CHF HTN DM - monitor H/H - continue protonix - resume anticoagulation when ok with GI - d/c antibiotics - rate controlled - advance diet per GI - OOB to chair - rehab/PT - can monitor on floor
[2016-08-11] MEDS ORDERED: ACETAMINOPHEN 325 MG TABLET (FP) PO PRN (12:56)
[2016-08-11 16:38] LABS: MCH 31.7 pg (25.7-33.7); MCHC 34.5 g/dl (32.0-35.9); PLATELET COUNT 300 K/MM3 (134-434); RDW 16.6 % (11.9-15.9); WHITE BLOOD COUNT 11.8 K/mm3 (4.0-10.0)
[2016-08-11] MEDS: ATORVASTATIN CA 10 MG TABLET (FP) PO SCH (21:20)
[2016-08-12] MEDS: GABAPENTIN 100 MG CAPSULE (FP) PO SCH ×3 (05:55→21:48)
--- NOTE | 2016-08-12 07:15 | PN ---
Progress Note, Physician History of Present Illness: S/P PRBC RETENTION [place] IN COMFORTABLE-NO COMPLAINTS - Current Medication List Current Medications: Active Medications Acetaminophen (Tylenol -) 650 mg PO Q6H PRN PRN Reason: FEVER OR PAIN Atorvastatin Calcium (Lipitor -) 10 mg PO HS [facility] Last Admin: 08/11/16 21:20 Dose: 10 mg Digoxin (Lanoxin -) 0.125 mg PO DAILY [facility] Diltiazem HCl (Cardizem Cd -) 120 mg PO DAILY [facility] Finasteride (Proscar -) 5 mg PO DAILY [facility] Fluoxetine HCl (Prozac -) 10 mg PO DAILY [facility] Gabapentin (Neurontin -) 200 mg PO TID [facility] Last Admin: 08/12/16 05:55 Dose: 200 mg Hydroxyurea (Hydrea -) 500 mg PO BID [facility] Last Admin: 08/11/16 21:52 Dose: 500 mg Hydroxyurea (Hydrea -) 500 mg PO TuTh@1000 [facility] Pantoprazole Sodium 80 mg/ (Sodium Chloride) 100 mls @ 10 mls/hr IVPB Q10H [facility] PRN Reason: 8 MG/HR Last Admin: 08/11/16 18:38 Dose: 10 mls/hr Insulin Aspart (Novolog Vial Sliding Scale -) 1 vial SQ ACHS [facility] PRN Reason: Protocol Last Admin: 08/11/16 21:20 Dose: 2 units Magnesium Oxide (Mag-Ox -) 400 mg PO BID [facility] Last Admin: 08/11/16 21:20 Dose: 400 mg Tamsulosin HCl (Flomax -) 0.4 mg PO DAILY@0830 [facility] - Objective Vital Signs: Vital Signs Temperature 98 F 08/12/16 06:27 Pulse Rate 68 08/12/16 06:27 Respiratory Rate 20 08/12/16 06:27 Blood Pressure 119/52 08/12/16 06:27 O2 Sat by Pulse Oximetry (%) 100 08/11/16 19:43 Cardiovascular: Yes: S1, S2 Respiratory: Yes: Regular, CTA Bilaterally Gastrointestinal: Yes: Normal Bowel Sounds, Soft Labs: CBC, BMP 08/11/16 15:15 08/11/16 05:20 INR, PTT INR 1.23 (0.82-1.09) H 08/11/16 05:20 Assessment/Plan (1) UTI (urinary tract infection) Assessment/Plan: continue iv abx for total 7 days dc abx f/u with id Microbiology 07/31/16 15:30 Urine - Urine Clean Catch Urine Culture - Final Pseudomonas Aeruginosa Code(s): N39.0 - URINARY TRACT INFECTION, SITE NOT SPECIFIED Qualifiers: Urinary tract infection type: acute cystitis Hematuria presence: with hematuria Qualified Code(s): N30.01 - Acute cystitis with hematuria (2) Afib Code(s): I48.91 - UNSPECIFIED ATRIAL FIBRILLATION Qualifiers: Atrial fibrillation type: persistent Qualified Code(s): I48.1 - Persistent atrial fibrillation no ac--- stopped 2/2 gib (3) Congestive heart failure monitor Code(s): I50.9 - HEART FAILURE, UNSPECIFIED Qualifiers: Congestive heart failure type: unspecified congestive heart failure type Congestive heart failure chronicity: unspecified congestive heart failure chronicity Qualified Code(s): I50.9 - Heart failure, unspecified (4) Myelodysplasia (myelodysplastic syndrome) Code(s): D46.9 - MYELODYSPLASTIC SYNDROME, UNSPECIFIED appreciate heme note asa stopped 2/2 gib (5) Malignant neoplasm of bladder Code(s): C67.9 - MALIGNANT NEOPLASM OF BLADDER, UNSPECIFIED Qualifiers: Bladder location: trigone of urinary bladder Qualified Code(s): C67.0 - Malignant neoplasm of trigone of bladder (6) CHEMA (acute kidney injury)--Retention [place] [facility] Code(s): N17.9 - ACUTE KIDNEY FAILURE, UNSPECIFIED (7) Anemia Code(s): D64.9 - ANEMIA, UNSPECIFIED Qualifiers: Anemia type: unspecified type Qualified Code(s): D64.9 - Anemia, unspecified hgb 8.5 fobt +wally - prbc x 3 with lasix - gi--s/p egd - monitor labs
[2016-08-12] MEDS ORDERED: PT OWN MED DRAWER 7, Y5N ONE ×3 (07:47→21:06)
[2016-08-12] MEDS: PANTOPRAZOLE SODIUM 80 MG in SODIUM CHLORIDE 100 ML IVPB SCH ×3 (07:51→11:39)
[2016-08-12 08:25] LABS: EOSINOPHIL 5.3 % (0-4.5); MCH 31.5 pg (25.7-33.7); MCHC 33.7 g/dl (32.0-35.9); MEAN CELL VOLUME 93.4 fl (80-96); MEAN PLT VOLUME 8.1 fl (7.5-11.1); NEUTROPHILS 76.6 % (42.8-82.8); PLATELET COUNT 309 K/MM3 (134-434); RDW 16.9 % (11.9-15.9)
[2016-08-12 08:40] LABS: INR 1.13 (0.82-1.09); PROTHROMBIN TIME (PATIENT) 12.5 SEC (9.98-11.88)
[2016-08-12 08:43] LABS: ACTIVATED PTT 39.5 SECONDS (26.9-34.4)
[2016-08-12] MEDS: INSULIN SLIDING SCALE (NOVOLOG) 1 VIAL SQ SCH ×4 (09:09→21:58)
[2016-08-12 09:11] LABS: ALBUMIN 2.2 g/dl (3.4-5.0); BILIRUBIN,TOTAL 0.4 mg/dL (0.2-1.0); CALCIUM 7.7 mg/dL (8.5-10.1); CREATININE 1.2 mg/dL (0.7-1.3); MAGNESIUM 2.7 mg/dL (1.8-2.4); PHOSPHOROUS 2.7 mg/dL (2.5-4.9); TOT PROT 4.9 g/dl (6.4-8.2)
--- NOTE | 2016-08-12 10:13 | PN ---
Progress Note (short form) - Note Progress Note: PULMONARY c/o leg pain but no shortness of breath or chest pain. Last Vital Signs Temp Pulse Resp BP Pulse Ox 98 F 68 20 119/52 100 08/12/16 06:27 08/12/16 06:27 08/12/16 06:27 08/12/16 06:27 08/11/16 19:43 Gen: NAD at rest Heart: RRR Lung: decreased breath sounds at the bases Abd: soft, nontender Ext: no edema CBC, BMP 08/12/16 07:00 08/12/16 07:00 Active Medications Acetaminophen (Tylenol -) 650 mg PO Q6H PRN PRN Reason: FEVER OR PAIN Atorvastatin Calcium (Lipitor -) 10 mg PO HS [facility] Last Admin: 08/11/16 21:20 Dose: 10 mg Digoxin (Lanoxin -) 0.125 mg PO DAILY [facility] Diltiazem HCl (Cardizem Cd -) 120 mg PO DAILY [facility] Finasteride (Proscar -) 5 mg PO DAILY [facility] Fluoxetine HCl (Prozac -) 10 mg PO DAILY [facility] Gabapentin (Neurontin -) 200 mg PO TID [facility] Last Admin: 08/12/16 05:55 Dose: 200 mg Hydroxyurea (Hydrea -) 500 mg PO BID [facility] Last Admin: 08/11/16 21:52 Dose: 500 mg Hydroxyurea (Hydrea -) 500 mg PO TuTh@1000 [facility] Pantoprazole Sodium 80 mg/ (Sodium Chloride) 100 mls @ 10 mls/hr IVPB Q10H [facility] PRN Reason: 8 MG/HR Last Admin: 08/12/16 07:51 Dose: 8 mls/hr Insulin Aspart (Novolog Vial Sliding Scale -) 1 vial SQ ACHS [facility] PRN Reason: Protocol Last Admin: 08/12/16 09:09 Dose: Not Given Magnesium Oxide (Mag-Ox -) 400 mg PO BID [facility] Last Admin: 08/11/16 21:20 Dose: 400 mg Tamsulosin HCl (Flomax -) 0.4 mg PO DAILY@0830 [facility] A/P GI Bleed likely Diverticular Acute Blood Loss Anemia UTI Atrial Fibrillation LV Diastolic Dysfunction h/o CVA HTN DM - monitor H/H - continue protonix - resume anticoagulation when ok with GI - rate controlled - advance diet per GI - OOB to chair - rehab/PT - DVT prophylaxis
[2016-08-12] MEDS: DIGOXIN 0.125 MG TABLET (FP) PO SCH (11:11)
[2016-08-12] MEDS: MAGNESIUM OXIDE 400 MG TABLET (FP) PO SCH ×2 (11:11→21:48)
[2016-08-12] MEDS: TAMSULOSIN HCL 0.4 MG CAP.ER.24H (FP) PO SCH (11:11)
[2016-08-12] MEDS: FINASTERIDE 5 MG TABLET (FP) PO SCH (11:11)
[2016-08-12] MEDS: HYDROXYUREA 500 MG CAPSULE PO SCH ×3 (14:01→21:49)
[2016-08-12] MEDS: FLUoxetine HCL 10 MG CAPSULE (FP) PO SCH (14:02)
--- NOTE | 2016-08-12 14:07 | PN ---
Progress Note (short form) - Note Progress Note: Renal Follow up for CHEMA Pt seen and examined at the bedside no acute complaints no sob or chest pain Gen: NAD HEENT: NC/AT CVS: RRR, No M/R Lungs: Dec BS lung bases Abd: soft NT/ND, No bladder distension Ext: 1-2+ sacral edema CBC, BMP 08/12/16 07:00 08/12/16 07:00 Current Medications Acetaminophen (Tylenol -) 650 mg PO Q6H PRN PRN Reason: FEVER OR PAIN Atorvastatin Calcium (Lipitor -) 10 mg PO HS [facility] Last Admin: 08/11/16 21:20 Dose: 10 mg Digoxin (Lanoxin -) 0.125 mg PO DAILY [facility] Last Admin: 08/12/16 11:11 Dose: 0.125 mg Diltiazem HCl (Cardizem Cd -) 120 mg PO DAILY [facility] Last Admin: 08/12/16 11:11 Dose: 120 mg Finasteride (Proscar -) 5 mg PO DAILY [facility] Last Admin: 08/12/16 11:11 Dose: 5 mg Fluoxetine HCl (Prozac -) 10 mg PO DAILY [facility] Last Admin: 08/12/16 14:02 Dose: 10 mg Gabapentin (Neurontin -) 200 mg PO TID [facility] Last Admin: 08/12/16 14:03 Dose: 200 mg Hydroxyurea (Hydrea -) 500 mg PO BID [facility] Last Admin: 08/12/16 14:01 Dose: 500 mg Hydroxyurea (Hydrea -) 500 mg PO TuTh@1000 [facility] Last Admin: 08/12/16 14:01 Dose: 500 mg Pantoprazole Sodium 80 mg/ (Sodium Chloride) 100 mls @ 10 mls/hr IVPB Q10H [facility] PRN Reason: 8 MG/HR Last Admin: 08/12/16 11:39 Dose: Not Given Insulin Aspart (Novolog Vial Sliding Scale -) 1 vial SQ ACHS [facility] PRN Reason: Protocol Last Admin: 08/12/16 11:15 Dose: 2 units Magnesium Oxide (Mag-Ox -) 400 mg PO BID [facility] Last Admin: 08/12/16 11:11 Dose: 400 mg Tamsulosin HCl (Flomax -) 0.4 mg PO DAILY@0830 [facility] Last Admin: 08/12/16 11:11 Dose: 0.4 mg A/p 81 y/o Gentleman with PMhx of AFib, CVA, Hypertension, DM who presented with UTI and CHEMA with normal baseline renal function. #CHEMA secondary to acute GIB/Hemodynamic injury Renal function improve and at baseline restart Lasix 40mg BID as pt developing edema Restart ACEi in a few days if renal function stable on diuretics #Anemia secondary to GIB s/p upper endoscopy w/o clear source of bleeding for capsule endoscopy as outpatient trend CBC Gabe Mendes DO
[2016-08-12] MEDS: FUROSEMIDE 40 MG TABLET (FP) PO SCH (16:00)
--- NOTE | 2016-08-12 16:33 | PN ---
Progress Note, Physician History of Present Illness: Hgb stable, denies chest pain or dyspnea, undergoing voiding trial. - Current Medication List Current Medications: Active Medications Acetaminophen (Tylenol -) 650 mg PO Q6H PRN PRN Reason: FEVER OR PAIN Atorvastatin Calcium (Lipitor -) 10 mg PO HS [facility] Last Admin: 08/11/16 21:20 Dose: 10 mg Digoxin (Lanoxin -) 0.125 mg PO DAILY [facility] Last Admin: 08/12/16 11:11 Dose: 0.125 mg Diltiazem HCl (Cardizem Cd -) 120 mg PO DAILY [facility] Last Admin: 08/12/16 11:11 Dose: 120 mg Finasteride (Proscar -) 5 mg PO DAILY [facility] Last Admin: 08/12/16 11:11 Dose: 5 mg Fluoxetine HCl (Prozac -) 10 mg PO DAILY [facility] Last Admin: 08/12/16 14:02 Dose: 10 mg Furosemide (Lasix -) 40 mg PO BID@0600,1400 [facility] Last Admin: 08/12/16 16:00 Dose: 40 mg Gabapentin (Neurontin -) 200 mg PO TID [facility] Last Admin: 08/12/16 14:03 Dose: 200 mg Hydroxyurea (Hydrea -) 500 mg PO BID [facility] Last Admin: 08/12/16 14:01 Dose: 500 mg Hydroxyurea (Hydrea -) 500 mg PO TuTh@1000 [facility] Last Admin: 08/12/16 14:01 Dose: 500 mg Pantoprazole Sodium 80 mg/ (Sodium Chloride) 100 mls @ 10 mls/hr IVPB Q10H [facility] PRN Reason: 8 MG/HR Last Admin: 08/12/16 11:39 Dose: Not Given Insulin Aspart (Novolog Vial Sliding Scale -) 1 vial SQ ACHS [facility] PRN Reason: Protocol Last Admin: 08/12/16 11:15 Dose: 2 units Magnesium Oxide (Mag-Ox -) 400 mg PO BID [facility] Last Admin: 08/12/16 11:11 Dose: 400 mg Tamsulosin HCl (Flomax -) 0.4 mg PO DAILY@0830 [facility] Last Admin: 08/12/16 11:11 Dose: 0.4 mg - Objective Vital Signs: Vital Signs Temperature 97.4 F L 08/12/16 15:40 Pulse Rate 72 08/12/16 15:40 Respiratory Rate 18 08/12/16 15:40 Blood Pressure 122/54 08/12/16 15:40 O2 Sat by Pulse Oximetry (%) 100 08/11/16 19:43 Constitutional: Yes: No Distress, Calm Neck: Yes: Supple Cardiovascular: Yes: Pulse Irregular Respiratory: Yes: Regular, Diminished Gastrointestinal: Yes: Normal Bowel Sounds, Soft Edema: Yes Labs: CBC, BMP 08/12/16 07:00 08/12/16 07:00 INR, PTT INR 1.13 (0.82-1.09) 08/12/16 07:00 Problem List - Problems (1) CAD (coronary artery disease) Code(s): I25.10 - ATHSCL HEART DISEASE OF [place] CORONARY ARTERY W/O ANG PCTRS Qualifiers: Coronary Disease-Associated Artery/Lesion type: [place] artery [place] vs. transplanted heart: [place] heart Associated angina: without angina Qualified Code(s): I25.10 - Atherosclerotic heart disease of [place] coronary artery without angina pectoris (2) Afib Code(s): I48.91 - UNSPECIFIED ATRIAL FIBRILLATION Qualifiers: Atrial fibrillation type: persistent Qualified Code(s): I48.1 - Persistent atrial fibrillation (3) Cerebral infarction Code(s): I63.9 - CEREBRAL INFARCTION, UNSPECIFIED (4) Myelodysplasia (myelodysplastic syndrome) Code(s): D46.9 - MYELODYSPLASTIC SYNDROME, UNSPECIFIED (5) Diabetes Code(s): E11.9 - TYPE 2 DIABETES MELLITUS WITHOUT COMPLICATIONS Qualifiers: Diabetes mellitus type: type 2 Diabetes mellitus complication status: without complication Diabetes mellitus long term care social worker insulin use: without long term care social worker use Qualified Code(s): E11.9 - Type 2 diabetes mellitus without complications (6) Diastolic dysfunction Code(s): I51.9 - HEART DISEASE, UNSPECIFIED (7) HTN (hypertension) Code(s): I10 - ESSENTIAL (PRIMARY) HYPERTENSION Qualifiers: Hypertension type: essential hypertension Qualified Code(s): I10 - Essential (primary) hypertension (8) Hyperlipidemia Code(s): E78.5 - HYPERLIPIDEMIA, UNSPECIFIED Qualifiers: Hyperlipidemia type: pure hypercholesterolemia Qualified Code(s): E78.0 - Pure hypercholesterolemia Assessment/Plan 1. Pseudomonas UTI completed abx course 2. LV diastolic dysfunction with chronic class I NYHA classification LV failure , currently euvolumic 3. Permanent AF [id number] score of 8 on A/C with NOAC 4. CAD angina pectoris, stable 5. HTN 6. NIDDM 7. Hypercholesterolemia 8. History of fronto-temporal stroke with residual deficit 9. Mylelodysplastic syndrome, leukocytosis, anemia and thrombocytosis 10. Acute on CKD resolved 11. Resolved diverticular bleed PLAN: 1. Continue Cardizem CD 120 mg QD 2. Continue Lasix 40 bid and resume Ramipril 2.5 mg once a day with renal recovery 3. Continue Lipitor 10 qhs 4. Resume Pradaxa 150 bid once hemostasis assured, d/w GI, ASA d/marie despite MDS due to recurrent GI bleed 5. Continue Digoxin 0.125 qd with close monitoring of level 6. Change Protonix gtt to Protonix 40 qd 7. Monitor Hgb post transfusion and transfuse for Hgb<8.0
[2016-08-12] MEDS: ATORVASTATIN CA 10 MG TABLET (FP) PO SCH (21:48)
[2016-08-12] MEDS: DABIGATRAN ETEXILATE MESYLATE 150 MG CAPSULE PO SCH (21:48)
[2016-08-13] MEDS: GABAPENTIN 100 MG CAPSULE (FP) PO SCH ×3 (05:44→21:22)
[2016-08-13] MEDS: FUROSEMIDE 40 MG TABLET (FP) PO SCH ×2 (05:44→15:04)
[2016-08-13] MEDS: INSULIN SLIDING SCALE (NOVOLOG) 1 VIAL SQ SCH ×4 (06:11→21:24)
[2016-08-13 07:51] LABS: BASOPHIL 1.3 % (0-2.0); EOSINOPHIL 5.3 % (0-4.5); MCH 31.6 pg (25.7-33.7); MCHC 33.4 g/dl (32.0-35.9); MEAN CELL VOLUME 94.6 fl (80-96); NEUTROPHILS 70.8 % (42.8-82.8); PLATELET COUNT 342 K/MM3 (134-434); RDW 16.2 % (11.9-15.9); WHITE BLOOD COUNT 12.1 K/mm3 (4.0-10.0)
[2016-08-13 08:20] LABS: CALCIUM 7.5 mg/dL (8.5-10.1); CREATININE 1.2 mg/dL (0.7-1.3); MAGNESIUM 2.5 mg/dL (1.8-2.4); PHOSPHOROUS 2.4 mg/dL (2.5-4.9)
[2016-08-13] MEDS ORDERED: PT OWN MED DRAWER 7, Y5N ONE ×2 (09:22→11:08)
[2016-08-13] MEDS: DIGOXIN 0.125 MG TABLET (FP) PO SCH (09:25)
[2016-08-13] MEDS: HYDROXYUREA 500 MG CAPSULE PO SCH ×2 (09:25→21:22)
[2016-08-13] MEDS: TAMSULOSIN HCL 0.4 MG CAP.ER.24H (FP) PO SCH (09:25)
[2016-08-13] MEDS: PANTOPRAZOLE 40 MG TABLET (FP) PO SCH (09:26)
[2016-08-13] MEDS: MAGNESIUM OXIDE 400 MG TABLET (FP) PO SCH ×2 (09:26→21:23)
[2016-08-13] MEDS: FLUoxetine HCL 10 MG CAPSULE (FP) PO SCH (09:26)
[2016-08-13] MEDS: FINASTERIDE 5 MG TABLET (FP) PO SCH (09:26)
[2016-08-13] MEDS: DABIGATRAN ETEXILATE MESYLATE 150 MG CAPSULE PO SCH ×2 (09:26→21:21)
--- NOTE | 2016-08-13 12:01 | PN ---
Progress Note, Physician History of Present Illness: S/P PRBC RETENTION [place] IN COMFORTABLE-NO COMPLAINTS - Current Medication List Current Medications: Active Medications Acetaminophen (Tylenol -) 650 mg PO Q6H PRN PRN Reason: FEVER OR PAIN Atorvastatin Calcium (Lipitor -) 10 mg PO HS [facility] Last Admin: 08/12/16 21:48 Dose: 10 mg Dabigatran (Pradaxa -) 150 mg PO BID [facility] Last Admin: 08/13/16 09:26 Dose: 150 mg Digoxin (Lanoxin -) 0.125 mg PO DAILY [facility] Last Admin: 08/13/16 09:25 Dose: 0.125 mg Diltiazem HCl (Cardizem Cd -) 120 mg PO DAILY [facility] Last Admin: 08/13/16 09:25 Dose: 120 mg Finasteride (Proscar -) 5 mg PO DAILY [facility] Last Admin: 08/13/16 09:26 Dose: 5 mg Fluoxetine HCl (Prozac -) 10 mg PO DAILY [facility] Last Admin: 08/13/16 09:26 Dose: 10 mg Furosemide (Lasix -) 40 mg PO BID@0600,1400 [facility] Last Admin: 08/13/16 05:44 Dose: 40 mg Gabapentin (Neurontin -) 200 mg PO TID [facility] Last Admin: 08/13/16 05:44 Dose: 200 mg Hydroxyurea (Hydrea -) 500 mg PO BID [facility] Last Admin: 08/13/16 09:25 Dose: 500 mg Hydroxyurea (Hydrea -) 500 mg PO TuTh@1000 [facility] Last Admin: 08/12/16 14:01 Dose: 500 mg Insulin Aspart (Novolog Vial Sliding Scale -) 1 vial SQ ACHS [facility] PRN Reason: Protocol Last Admin: 08/13/16 06:11 Dose: Not Given Magnesium Oxide (Mag-Ox -) 400 mg PO BID [facility] Last Admin: 08/13/16 09:26 Dose: 400 mg Pantoprazole Sodium (Protonix -) 40 mg PO DAILY [facility] Last Admin: 08/13/16 09:26 Dose: 40 mg Tamsulosin HCl (Flomax -) 0.4 mg PO DAILY@0830 [facility] Last Admin: 08/13/16 09:25 Dose: 0.4 mg - Objective Vital Signs: Vital Signs Temperature 98.3 F 08/13/16 06:10 Pulse Rate 63 08/13/16 09:25 Respiratory Rate 18 08/13/16 06:10 Blood Pressure 110/60 08/13/16 06:10 O2 Sat by Pulse Oximetry (%) 96 08/12/16 21:00 Cardiovascular: Yes: Regular Rate and Rhythm Respiratory: Yes: Regular, CTA Bilaterally Gastrointestinal: Yes: Normal Bowel Sounds, Soft Labs: CBC, BMP 08/13/16 06:30 08/13/16 06:30 INR, PTT INR 1.13 (0.82-1.09) 08/12/16 07:00 Assessment/Plan (1) UTI (urinary tract infection) Assessment/Plan: continue iv abx for total 7 days dc abx f/u with id Microbiology 07/31/16 15:30 Urine - Urine Clean Catch Urine Culture - Final Pseudomonas Aeruginosa Code(s): N39.0 - URINARY TRACT INFECTION, SITE NOT SPECIFIED Qualifiers: Urinary tract infection type: acute cystitis Hematuria presence: with hematuria Qualified Code(s): N30.01 - Acute cystitis with hematuria (2) Afib Code(s): I48.91 - UNSPECIFIED ATRIAL FIBRILLATION Qualifiers: Atrial fibrillation type: persistent Qualified Code(s): I48.1 - Persistent atrial fibrillation on ac--- monitor (3) Congestive heart failure monitor Code(s): I50.9 - HEART FAILURE, UNSPECIFIED Qualifiers: Congestive heart failure type: unspecified congestive heart failure type Congestive heart failure chronicity: unspecified congestive heart failure chronicity Qualified Code(s): I50.9 - Heart failure, unspecified (4) Myelodysplasia (myelodysplastic syndrome) Code(s): D46.9 - MYELODYSPLASTIC SYNDROME, UNSPECIFIED appreciate heme note asa stopped 2/2 gib (5) Malignant neoplasm of bladder Code(s): C67.9 - MALIGNANT NEOPLASM OF BLADDER, UNSPECIFIED Qualifiers: Bladder location: trigone of urinary bladder Qualified Code(s): C67.0 - Malignant neoplasm of trigone of bladder (6) CHEMA (acute kidney injury)--Retention [facility] Code(s): N17.9 - ACUTE KIDNEY FAILURE, UNSPECIFIED (7) Anemia Code(s): D64.9 - ANEMIA, UNSPECIFIED Qualifiers: Anemia type: unspecified type Qualified Code(s): D64.9 - Anemia, unspecified hgb 8.5 fobt +wally - prbc x 3 with lasix - gi--s/p egd - monitor labs
--- NOTE | 2016-08-13 13:09 | PN ---
Progress Note (short form) - Note Progress Note: Renal Follow up for CHEMA Pt seen and examined at the bedside no complaints Vital Signs Temperature 98.3 F 08/13/16 06:10 Pulse Rate 63 08/13/16 09:25 Respiratory Rate 18 08/13/16 06:10 Blood Pressure 110/60 08/13/16 06:10 O2 Sat by Pulse Oximetry (%) 96 08/12/16 21:00 Intake & Output 08/10/16 08/11/16 08/12/16 08/13/16 23:59 23:59 23:59 23:59 Intake Total 920 2380 600 Output Total 3000 2200 600 Balance -2080 180 0 Weight 152 lb 153 lb 6.4 oz Gen: NAD HEENT: NC/AT CVS: RRR, No M/R Lungs: Dec BS lung bases Abd: soft NT/ND, No bladder distension Ext: 1-2+ sacral edema CBC, BMP 08/13/16 06:30 08/13/16 06:30 Current Medications Acetaminophen (Tylenol -) 650 mg PO Q6H PRN PRN Reason: FEVER OR PAIN Atorvastatin Calcium (Lipitor -) 10 mg PO HS [facility] Last Admin: 08/12/16 21:48 Dose: 10 mg Dabigatran (Pradaxa -) 150 mg PO BID [facility] Last Admin: 08/13/16 09:26 Dose: 150 mg Digoxin (Lanoxin -) 0.125 mg PO DAILY [facility] Last Admin: 08/13/16 09:25 Dose: 0.125 mg Diltiazem HCl (Cardizem Cd -) 120 mg PO DAILY [facility] Last Admin: 08/13/16 09:25 Dose: 120 mg Finasteride (Proscar -) 5 mg PO DAILY [facility] Last Admin: 08/13/16 09:26 Dose: 5 mg Fluoxetine HCl (Prozac -) 10 mg PO DAILY [facility] Last Admin: 08/13/16 09:26 Dose: 10 mg Furosemide (Lasix -) 40 mg PO BID@0600,1400 [facility] Last Admin: 08/13/16 05:44 Dose: 40 mg Gabapentin (Neurontin -) 200 mg PO TID [facility] Last Admin: 08/13/16 05:44 Dose: 200 mg Hydroxyurea (Hydrea -) 500 mg PO BID [facility] Last Admin: 08/13/16 09:25 Dose: 500 mg Hydroxyurea (Hydrea -) 500 mg PO TuTh@1000 [facility] Last Admin: 08/12/16 14:01 Dose: 500 mg Insulin Aspart (Novolog Vial Sliding Scale -) 1 vial SQ ACHS [facility] PRN Reason: Protocol Last Admin: 08/13/16 12:43 Dose: Not Given Magnesium Oxide (Mag-Ox -) 400 mg PO BID [facility] Last Admin: 08/13/16 09:26 Dose: 400 mg Pantoprazole Sodium (Protonix -) 40 mg PO DAILY [facility] Last Admin: 08/13/16 09:26 Dose: 40 mg Tamsulosin HCl (Flomax -) 0.4 mg PO DAILY@0830 [facility] Last Admin: 08/13/16 09:25 Dose: 0.4 mg A/p 81 y/o Gentleman with PMhx of AFib, CVA, Hypertension, DM who presented with UTI and CHEMA with normal baseline renal function. #CHEMA secondary to acute GIB/Hemodynamic injury Renal function improved and stable continue lasix BID Trend BUN/Cr holid off ACEi for now #Anemia secondary to GIB s/p upper endoscopy w/o clear source of bleeding for capsule endoscopy as outpatient trend CBC Hgb stable Gabe Mendes DO
[2016-08-13] MEDS ORDERED: INSULIN (NOVOLOG MIX 70/30) 100 UNITS/ML MDV SQ ONE (17:58)
[2016-08-13] MEDS ORDERED: INSULIN (NOVOLOG) ASPART 100 UNITS/ML 10ML VIAL ONE (17:58)
[2016-08-13] MEDS: ATORVASTATIN CA 10 MG TABLET (FP) PO SCH (21:21)
[2016-08-14] MEDS: GABAPENTIN 100 MG CAPSULE (FP) PO SCH ×3 (05:56→21:28)
[2016-08-14] MEDS: FUROSEMIDE 40 MG TABLET (FP) PO SCH (05:56)
[2016-08-14] MEDS: INSULIN SLIDING SCALE (NOVOLOG) 1 VIAL SQ SCH ×4 (06:00→21:28)
[2016-08-14 07:42] LABS: BASOPHIL 1.2 % (0-2.0); EOSINOPHIL 6.3 % (0-4.5); MCH 32.1 pg (25.7-33.7); MEAN CELL VOLUME 94.4 fl (80-96); MEAN PLT VOLUME 7.8 fl (7.5-11.1); NEUTROPHILS 67.2 % (42.8-82.8); PLATELET COUNT 410 K/MM3 (134-434); RDW 16.5 % (11.9-15.9); WHITE BLOOD COUNT 11.2 K/mm3 (4.0-10.0)
[2016-08-14 08:04] LABS: CALCIUM 7.9 mg/dL (8.5-10.1); CREATININE 1.3 mg/dL (0.7-1.3); MAGNESIUM 2.3 mg/dL (1.8-2.4)
--- NOTE | 2016-08-14 08:17 | PN ---
Progress Note (short form) - Note Progress Note: PULMONARY Denies shortness of breath or chest pain. Last Vital Signs Temp Pulse Resp BP Pulse Ox 98.2 F 74 18 130/56 96 08/14/16 06:41 08/14/16 06:41 08/14/16 06:41 08/14/16 06:41 08/13/16 21:00 Gen: NAD at rest Heart: RRR Lung: decreased breath sounds at the bases Abd: soft, nontender Ext: no edema CBC, BMP 08/14/16 06:00 Active Medications Acetaminophen (Tylenol -) 650 mg PO Q6H PRN PRN Reason: FEVER OR PAIN Atorvastatin Calcium (Lipitor -) 10 mg PO HS COUNTS INCLUDE 234 BEDS AT THE [facility] Last Admin: 08/13/16 21:21 Dose: 10 mg Dabigatran (Pradaxa -) 150 mg PO BID COUNTS INCLUDE 234 BEDS AT THE [facility] Last Admin: 08/13/16 21:21 Dose: 150 mg Digoxin (Lanoxin -) 0.125 mg PO DAILY COUNTS INCLUDE 234 BEDS AT THE [facility] Last Admin: 08/13/16 09:25 Dose: 0.125 mg Diltiazem HCl (Cardizem Cd -) 120 mg PO DAILY COUNTS INCLUDE 234 BEDS AT THE [facility] Last Admin: 08/13/16 09:25 Dose: 120 mg Finasteride (Proscar -) 5 mg PO DAILY COUNTS INCLUDE 234 BEDS AT THE [facility] Last Admin: 08/13/16 09:26 Dose: 5 mg Fluoxetine HCl (Prozac -) 10 mg PO DAILY COUNTS INCLUDE 234 BEDS AT THE [facility] Last Admin: 08/13/16 09:26 Dose: 10 mg Furosemide (Lasix -) 40 mg PO BID@0600,1400 COUNTS INCLUDE 234 BEDS AT THE [facility] Last Admin: 08/14/16 05:56 Dose: 40 mg Gabapentin (Neurontin -) 200 mg PO TID COUNTS INCLUDE 234 BEDS AT THE [facility] Last Admin: 08/14/16 05:56 Dose: 200 mg Hydroxyurea (Hydrea -) 500 mg PO BID COUNTS INCLUDE 234 BEDS AT THE [facility] Last Admin: 08/13/16 21:22 Dose: 500 mg Hydroxyurea (Hydrea -) 500 mg PO TuTh@1000 COUNTS [facility]CLUDE 234 BEDS AT [facility] Last Admin: 08/12/16 14:01 Dose: 500 mg Insulin Aspart (Novolog Vial Sliding Scale -) 1 vial SQ ACHS COUNTS INCLUDE 234 BEDS AT THE [facility] PRN Reason: Protocol Last Admin: 08/14/16 06:00 Dose: Not Given Magnesium Oxide (Mag-Ox -) 400 mg PO BID COUNTS INCLUDE 234 BEDS AT THE [facility] Last Admin: 08/13/16 21:23 Dose: 400 mg Pantoprazole Sodium (Protonix -) 40 mg PO DAILY COUNTS INCLUDE 234 BEDS AT THE [facility] Last Admin: 08/13/16 09:26 Dose: 40 mg Tamsulosin HCl (Flomax -) 0.4 mg PO DAILY@0830 COUNTS INCLUDE 234 BEDS AT THE [facility] Last Admin: 08/13/16 09:25 Dose: 0.4 mg A/P GI Bleed likely Diverticular Acute Blood Loss Anemia UTI Atrial Fibrillation LV Diastolic Dysfunction h/o CVA HTN DM - monitor H/H - continue protonix - continue anticoagulation - rate controlled - advance diet per GI - OOB to chair - rehab/PT - DVT prophylaxis
[2016-08-14] MEDS ORDERED: PT OWN MED DRAWER 7, Y5N ONE ×2 (09:19→21:15)
[2016-08-14] MEDS: DABIGATRAN ETEXILATE MESYLATE 150 MG CAPSULE PO SCH ×2 (09:24→21:29)
[2016-08-14] MEDS: TAMSULOSIN HCL 0.4 MG CAP.ER.24H (FP) PO SCH (09:24)
[2016-08-14] MEDS: DIGOXIN 0.125 MG TABLET (FP) PO SCH (09:24)
[2016-08-14] MEDS: FINASTERIDE 5 MG TABLET (FP) PO SCH (09:25)
[2016-08-14] MEDS: PANTOPRAZOLE 40 MG TABLET (FP) PO SCH (09:25)
[2016-08-14] MEDS: MAGNESIUM OXIDE 400 MG TABLET (FP) PO SCH ×2 (09:25→22:00)
[2016-08-14] MEDS: HYDROXYUREA 500 MG CAPSULE PO SCH ×2 (09:26→21:28)
[2016-08-14] MEDS: FLUoxetine HCL 10 MG CAPSULE (FP) PO SCH (09:26)
--- NOTE | 2016-08-14 11:18 | PN ---
Progress Note (short form) - Note Progress Note: Renal Follow up for CHEMA Pt seen and examined at the bedside reports discomfort in the right lower abd no N/V no sob or chest pain Vital Signs Temperature 98.2 F 08/14/16 06:41 Pulse Rate 60 08/14/16 09:24 Respiratory Rate 18 08/14/16 06:41 Blood Pressure 130/56 08/14/16 06:41 O2 Sat by Pulse Oximetry (%) 96 08/13/16 21:00 Intake & Output 08/11/16 08/12/16 08/13/16 08/14/16 23:59 23:59 23:59 23:59 Intake Total 2380 600 800 Output Total 2200 600 800 Balance 180 0 0 Weight 153 lb 6.4 oz Gen: NAD HEENT: NC/AT CVS: RRR, No M/R Lungs: Dec BS lung bases Abd: soft NT/ND, No bladder distension Ext: 1-2+ sacral edema CBC, BMP 08/14/16 06:00 08/14/16 06:00 Current Medications Acetaminophen (Tylenol -) 650 mg PO Q6H PRN PRN Reason: FEVER OR PAIN Atorvastatin Calcium (Lipitor -) 10 mg PO HS [facility] Last Admin: 08/13/16 21:21 Dose: 10 mg Dabigatran (Pradaxa -) 150 mg PO BID [facility] Last Admin: 08/14/16 09:24 Dose: 150 mg Digoxin (Lanoxin -) 0.125 mg PO DAILY [facility] Last Admin: 08/14/16 09:24 Dose: 0.125 mg Diltiazem HCl (Cardizem Cd -) 120 mg PO DAILY [facility] Last Admin: 08/14/16 09:24 Dose: 120 mg Finasteride (Proscar -) 5 mg PO DAILY [facility] Last Admin: 08/14/16 09:25 Dose: 5 mg Fluoxetine HCl (Prozac -) 10 mg PO DAILY [facility] Last Admin: 08/14/16 09:26 Dose: 10 mg Furosemide (Lasix -) 40 mg PO BID@0600,1400 [facility] Last Admin: 08/14/16 05:56 Dose: 40 mg Gabapentin (Neurontin -) 200 mg PO TID [facility] Last Admin: 08/14/16 05:56 Dose: 200 mg Hydroxyurea (Hydrea -) 500 mg PO BID [facility] Last Admin: 02/25/17 09:26 Dose: 500 mg Hydroxyurea (Hydrea -) 500 mg PO TuTh@1000 [facility] Last Admin: 08/12/16 14:01 Dose: 500 mg Insulin Aspart (Novolog Vial Sliding Scale -) 1 vial SQ ACHS [facility] PRN Reason: Protocol Last Admin: 08/14/16 06:00 Dose: Not Given Magnesium Oxide (Mag-Ox -) 400 mg PO BID [facility] Last Admin: 08/14/16 09:25 Dose: 400 mg Pantoprazole Sodium (Protonix -) 40 mg PO DAILY [facility] Last Admin: 08/14/16 09:25 Dose: 40 mg Tamsulosin HCl (Flomax -) 0.4 mg PO DAILY@0830 [facility] Last Admin: 08/14/16 09:24 Dose: 0.4 mg A/p 81 y/o Gentleman with PMhx of AFib, CVA, Hypertension, DM who presented with UTI and CHEMA with normal baseline renal function. #CHEMA secondary to acute GIB/Hemodynamic injury Renal function improved and stable continue oral lasix but decrease to 40mg once daily Continue proscar and flomax trend BUN/Cr #Anemia secondary to GIB s/p upper endoscopy w/o clear source of bleeding for capsule endoscopy as outpatient trend CBC Hgb stable Gabe Mendes DO
--- NOTE | 2016-08-14 13:26 | PN ---
Progress Note, Physician History of Present Illness: S/P PRBC RETENTION [facility] IN COMFORTABLE-NO COMPLAINTS - Current Medication List Current Medications: Active Medications Acetaminophen (Tylenol -) 650 mg PO Q6H PRN PRN Reason: FEVER OR PAIN Atorvastatin Calcium (Lipitor -) 10 mg PO HS [facility] Last Admin: 08/13/16 21:21 Dose: 10 mg Dabigatran (Pradaxa -) 150 mg PO BID [facility] Last Admin: 08/14/16 09:24 Dose: 150 mg Digoxin (Lanoxin -) 0.125 mg PO DAILY [facility] Last Admin: 08/14/16 09:24 Dose: 0.125 mg Diltiazem HCl (Cardizem Cd -) 120 mg PO DAILY [facility] Last Admin: 08/14/16 09:24 Dose: 120 mg Finasteride (Proscar -) 5 mg PO DAILY [facility] Last Admin: 08/14/16 09:25 Dose: 5 mg Fluoxetine HCl (Prozac -) 10 mg PO DAILY [facility] Last Admin: 08/14/16 09:26 Dose: 10 mg Furosemide (Lasix -) 40 mg PO DAILY [facility] Gabapentin (Neurontin -) 200 mg PO TID [facility] Last Admin: 08/14/16 05:56 Dose: 200 mg Hydroxyurea (Hydrea -) 500 mg PO BID [facility] Last Admin: 08/14/16 09:26 Dose: 500 mg Hydroxyurea (Hydrea -) 500 mg PO TuTh@1000 [facility] Last Admin: 08/12/16 14:01 Dose: 500 mg Insulin Aspart (Novolog Vial Sliding Scale -) 1 vial SQ ACHS [facility] PRN Reason: Protocol Last Admin: 08/14/16 12:40 Dose: 2 units Magnesium Oxide (Mag-Ox -) 400 mg PO BID [facility] Last Admin: 08/14/16 09:25 Dose: 400 mg Pantoprazole Sodium (Protonix -) 40 mg PO DAILY [facility] Last Admin: 08/14/16 09:25 Dose: 40 mg Tamsulosin HCl (Flomax -) 0.4 mg PO DAILY@0830 [facility] Last Admin: 08/14/16 09:24 Dose: 0.4 mg - Objective Vital Signs: Vital Signs Temperature 97.7 F 08/14/16 10:00 Pulse Rate 60 08/14/16 10:00 Respiratory Rate 18 08/14/16 10:00 Blood Pressure 128/57 08/14/16 10:00 O2 Sat by Pulse Oximetry (%) 96 08/13/16 21:00 Cardiovascular: Yes: S1, S2 Respiratory: Yes: Regular, CTA Bilaterally Gastrointestinal: Yes: Normal Bowel Sounds, Soft Labs: CBC, BMP 08/14/16 06:00 08/14/16 06:00 INR, PTT INR 1.13 (0.82-1.09) 08/12/16 07:00 Assessment/Plan (1) UTI (urinary tract infection) Assessment/Plan: dc abx Microbiology 07/31/16 15:30 Urine - Urine Clean Catch Urine Culture - Final Pseudomonas Aeruginosa Code(s): N39.0 - URINARY TRACT INFECTION, SITE NOT SPECIFIED Qualifiers: Urinary tract infection type: acute cystitis Hematuria presence: with hematuria Qualified Code(s): N30.01 - Acute cystitis with hematuria (2) Afib Code(s): I48.91 - UNSPECIFIED ATRIAL FIBRILLATION Qualifiers: Atrial fibrillation type: persistent Qualified Code(s): I48.1 - Persistent atrial fibrillation on ac--- monitor cbc (3) Congestive heart failure monitor Code(s): I50.9 - HEART FAILURE, UNSPECIFIED Qualifiers: Congestive heart failure type: unspecified congestive heart failure type Congestive heart failure chronicity: unspecified congestive heart failure chronicity Qualified Code(s): I50.9 - Heart failure, unspecified (4) Myelodysplasia (myelodysplastic syndrome) Code(s): D46.9 - MYELODYSPLASTIC SYNDROME, UNSPECIFIED appreciate heme note asa stopped 2/2 gib (5) Malignant neoplasm of bladder Code(s): C67.9 - MALIGNANT NEOPLASM OF BLADDER, UNSPECIFIED Qualifiers: Bladder location: trigone of urinary bladder Qualified Code(s): C67.0 - Malignant neoplasm of trigone of bladder (6) CHEMA (acute kidney injury)--Retention [facility] Code(s): N17.9 - ACUTE KIDNEY FAILURE, UNSPECIFIED (7) Anemia Code(s): D64.9 - ANEMIA, UNSPECIFIED Qualifiers: Anemia type: unspecified type Qualified Code(s): D64.9 - Anemia, unspecified hgb 8.1 fobt +wally - prbc - gi--gi bleed-- - monitor labs
--- NOTE | 2016-08-14 18:15 | PN ---
Progress Note (short form) - Note Progress Note: Patient seen and examined NO new c/o Last Vital Signs Temp Pulse Resp BP Pulse Ox 97.6 F 67 18 114/46 96 08/14/16 16:30 08/14/16 16:30 08/14/16 16:30 08/14/16 16:30 08/14/16 09:00 HEENT: NL Oropharynx: No thrush, No mucositis Cor: RSR, No murmurs, No gallops Lungs: Clear to P&A Abd: Soft, Normal bowel sounds, No organomegaly Ext:No significant edema Abnormal Lab Results 08/08/16 08/14/16 08/14/16 10:20 06:00 06:00 WBC 11.2 H RBC 2.58 L Hgb 8.3 L Hct 24.4 L RDW 16.5 H Eosinophils % 6.3 H Carbon Dioxide 33 H Anion Gap 5 L BUN 46 H Random Glucose 112 H Calcium 7.9 L Crossmatch See Detail 08/14/16 14:15 WBC RBC Hgb Hct RDW Eosinophils % Carbon Dioxide Anion Gap BUN Random Glucose Calcium Crossmatch See Detail Current Medications Acetaminophen (Tylenol -) 650 mg PO Q6H PRN PRN Reason: FEVER OR PAIN Atorvastatin Calcium (Lipitor -) 10 mg PO HS [facility] Last Admin: 08/13/16 21:21 Dose: 10 mg Dabigatran (Pradaxa -) 150 mg PO BID [facility] Last Admin: 08/14/16 09:24 Dose: 150 mg Digoxin (Lanoxin -) 0.125 mg PO DAILY [facility] Last Admin: 08/14/16 09:24 Dose: 0.125 mg Diltiazem HCl (Cardizem Cd -) 120 mg PO DAILY [facility] Last Admin: 08/14/16 09:24 Dose: 120 mg Finasteride (Proscar -) 5 mg PO DAILY [facility] Last Admin: 08/14/16 09:25 Dose: 5 mg Fluoxetine HCl (Prozac -) 10 mg PO DAILY [facility] Last Admin: 08/14/16 09:26 Dose: 10 mg Furosemide (Lasix -) 40 mg PO DAILY [facility] Gabapentin (Neurontin -) 200 mg PO TID [facility] Last Admin: 08/14/16 16:34 Dose: 200 mg Hydroxyurea (Hydrea -) 500 mg PO BID [facility] Last Admin: 08/14/16 09:26 Dose: 500 mg Hydroxyurea (Hydrea -) 500 mg PO TuTh@1000 [facility] Last Admin: 08/12/16 14:01 Dose: 500 mg Insulin Aspart (Novolog Vial Sliding Scale -) 1 vial SQ ACHS [facility] PRN Reason: Protocol Last Admin: 08/14/16 17:49 Dose: 4 units Magnesium Oxide (Mag-Ox -) 400 mg PO BID [facility] Last Admin: 08/14/16 09:25 Dose: 400 mg Pantoprazole Sodium (Protonix -) 40 mg PO DAILY [facility] Last Admin: 08/14/16 09:25 Dose: 40 mg Tamsulosin HCl (Flomax -) 0.4 mg PO DAILY@0830 [facility] Last Admin: 08/14/16 09:24 Dose: 0.4 mg A/P Patient is an 81-year-old male with multiple comorbidities, history of multidrug resistant UTIs, referred for pyuria . Being treated for pseudomonas UTI Afib/h/o CVA--on pradaxa MPD --on hydrea 500mg bid will increase to 500mg bid TUE, WEd, Tue, Sat, Sun and 1000mg AM and 500mg PM on Tuesday and h/o gi bleed. on pradaxa for afib. could not tolerate ASA IRon deficiency anemia --low ferritin--will consider IV vs PO iron
[2016-08-14] MEDS: ATORVASTATIN CA 10 MG TABLET (FP) PO SCH (21:28)
--- NOTE | 2016-08-14 21:59 | PN ---
Progress Note, Physician History of Present Illness: Hgb stable, denies chest pain or dyspnea. - Current Medication List Current Medications: Active Medications Acetaminophen (Tylenol -) 650 mg PO Q6H PRN PRN Reason: FEVER OR PAIN Atorvastatin Calcium (Lipitor -) 10 mg PO HS [facility] Last Admin: 08/14/16 21:28 Dose: 10 mg Dabigatran (Pradaxa -) 150 mg PO BID [facility] Last Admin: 08/14/16 21:29 Dose: 150 mg Digoxin (Lanoxin -) 0.125 mg PO DAILY [facility] Last Admin: 08/14/16 09:24 Dose: 0.125 mg Diltiazem HCl (Cardizem Cd -) 120 mg PO DAILY [facility] Last Admin: 08/14/16 09:24 Dose: 120 mg Finasteride (Proscar -) 5 mg PO DAILY [facility] Last Admin: 08/14/16 09:25 Dose: 5 mg Fluoxetine HCl (Prozac -) 10 mg PO DAILY [facility] Last Admin: 08/14/16 09:26 Dose: 10 mg Furosemide (Lasix -) 40 mg PO DAILY [facility] Gabapentin (Neurontin -) 200 mg PO TID [facility] Last Admin: 08/14/16 21:28 Dose: 200 mg Hydroxyurea (Hydrea -) 500 mg PO BID [facility] Last Admin: 08/14/16 21:28 Dose: 500 mg Hydroxyurea (Hydrea -) 500 mg PO TuTh@1000 [facility] Last Admin: 08/12/16 14:01 Dose: 500 mg Insulin Aspart (Novolog Vial Sliding Scale -) 1 vial SQ ACHS [facility] PRN Reason: Protocol Last Admin: 08/14/16 21:28 Dose: Not Given Magnesium Oxide (Mag-Ox -) 400 mg PO BID [facility] Last Admin: 08/14/16 09:25 Dose: 400 mg Pantoprazole Sodium (Protonix -) 40 mg PO DAILY [facility] Last Admin: 08/14/16 09:25 Dose: 40 mg Tamsulosin HCl (Flomax -) 0.4 mg PO DAILY@0830 [facility] Last Admin: 08/14/16 09:24 Dose: 0.4 mg - Objective Vital Signs: Vital Signs Temperature 97.6 F 08/14/16 16:30 Pulse Rate 67 08/14/16 16:30 Respiratory Rate 18 08/14/16 21:00 Blood Pressure 114/46 08/14/16 16:30 O2 Sat by Pulse Oximetry (%) 96 08/14/16 21:00 Constitutional: Yes: No Distress, Calm Neck: Yes: Supple Cardiovascular: Yes: Pulse Irregular Respiratory: Yes: Regular, Diminished Gastrointestinal: Yes: Normal Bowel Sounds, Soft Edema: No Labs: CBC, BMP 08/14/16 06:00 08/14/16 06:00 INR, PTT INR 1.13 (0.82-1.09) 08/12/16 07:00 Problem List - Problems (1) CAD (coronary artery disease) Code(s): I25.10 - ATHSCL HEART DISEASE OF [place] CORONARY ARTERY W/O ANG PCTRS Qualifiers: Coronary Disease-Associated Artery/Lesion type: [place] artery [place] vs. transplanted heart: [place] heart Associated angina: without angina Qualified Code(s): I25.10 - Atherosclerotic heart disease of [place] coronary artery without angina pectoris (2) Afib Code(s): I48.91 - UNSPECIFIED ATRIAL FIBRILLATION Qualifiers: Atrial fibrillation type: persistent Qualified Code(s): I48.1 - Persistent atrial fibrillation (3) Cerebral infarction Code(s): I63.9 - CEREBRAL INFARCTION, UNSPECIFIED (4) Myelodysplasia (myelodysplastic syndrome) Code(s): D46.9 - MYELODYSPLASTIC SYNDROME, UNSPECIFIED (5) Diabetes Code(s): E11.9 - TYPE 2 DIABETES MELLITUS WITHOUT COMPLICATIONS Qualifiers: Diabetes mellitus type: type 2 Diabetes mellitus complication status: without complication Diabetes mellitus assisted insulin use: without assisted use Qualified Code(s): E11.9 - Type 2 diabetes mellitus without complications (6) Diastolic dysfunction Code(s): I51.9 - HEART DISEASE, UNSPECIFIED (7) HTN (hypertension) Code(s): I10 - ESSENTIAL (PRIMARY) HYPERTENSION Qualifiers: Hypertension type: essential hypertension Qualified Code(s): I10 - Essential (primary) hypertension (8) Hyperlipidemia Code(s): E78.5 - HYPERLIPIDEMIA, UNSPECIFIED Qualifiers: Hyperlipidemia type: pure hypercholesterolemia Qualified Code(s): E78.0 - Pure hypercholesterolemia Assessment/Plan 1. Pseudomonas UTI completed abx course 2. LV diastolic dysfunction with chronic class I NYHA classification LV failure , currently euvolumic 3. Permanent AF [id number] score of 8 on A/C with NOAC 4. CAD angina pectoris, stable 5. HTN 6. NIDDM 7. Hypercholesterolemia 8. History of fronto-temporal stroke with residual deficit 9. Mylelodysplastic syndrome, leukocytosis, anemia and thrombocytosis 10. Acute on CKD resolved 11. Resolved diverticular bleed PLAN: 1. Continue Cardizem CD 120 mg QD 2. Continue Lasix 40 qd and resume Ramipril 2.5 mg once a day with renal recovery 3. Continue Lipitor 10 qhs 4. Continue Pradaxa 150 bid, ASA d/marie despite MDS due to recurrent GI bleed 5. Continue Digoxin 0.125 qd with close monitoring of level 6. Monitor Hgb post transfusion and transfuse for Hgb<8.0
[2016-08-15] MEDS: GABAPENTIN 100 MG CAPSULE (FP) PO SCH ×3 (06:38→21:38)
[2016-08-15] MEDS: INSULIN SLIDING SCALE (NOVOLOG) 1 VIAL SQ SCH ×4 (07:50→22:00)
[2016-08-15 07:57] LABS: BASOPHIL 1.4 % (0-2.0); EOSINOPHIL 6.5 % (0-4.5); MCH 31.8 pg (25.7-33.7); MCHC 33.6 g/dl (32.0-35.9); MEAN CELL VOLUME 94.8 fl (80-96); NEUTROPHILS 71.2 % (42.8-82.8); PLATELET COUNT 448 K/MM3 (134-434); RDW 16.2 % (11.9-15.9); WHITE BLOOD COUNT 11.6 K/mm3 (4.0-10.0)
[2016-08-15 08:18] LABS: ALBUMIN 2.3 g/dl (3.4-5.0); BILIRUBIN,TOTAL 0.4 mg/dL (0.2-1.0); CALCIUM 7.9 mg/dL (8.5-10.1); CREATININE 1.2 mg/dL (0.7-1.3); MAGNESIUM 2.2 mg/dL (1.8-2.4); TOT PROT 5.2 g/dl (6.4-8.2)
[2016-08-15] MEDS ORDERED: PT OWN MED DRAWER 7, Y5N ONE (08:36)
--- NOTE | 2016-08-15 09:28 | PN ---
Progress Note (short form) - Note Progress Note: PULMONARY Denies shortness of breath or chest pain. No bleeding noted but stools dark. Tolerating PO. Last Vital Signs Temp Pulse Resp BP Pulse Ox 96.8 F L 68 18 142/61 96 08/15/16 07:24 08/15/16 07:24 08/15/16 07:24 08/15/16 07:24 08/14/16 21:00 Gen: NAD at rest Heart: RRR Lung: decreased breath sounds at the bases Abd: soft, nontender Ext: no edema CBC, BMP 08/15/16 07:00 08/15/16 07:00 Active Medications Acetaminophen (Tylenol -) 650 mg PO Q6H PRN PRN Reason: FEVER OR PAIN Atorvastatin Calcium (Lipitor -) 10 mg PO HS [facility] Last Admin: 08/14/16 21:28 Dose: 10 mg Dabigatran (Pradaxa -) 150 mg PO BID [facility] Last Admin: 08/14/16 21:29 Dose: 150 mg Digoxin (Lanoxin -) 0.125 mg PO DAILY [facility] Last Admin: 08/14/16 09:24 Dose: 0.125 mg Diltiazem HCl (Cardizem Cd -) 120 mg PO DAILY [facility] Last Admin: 08/14/16 09:24 Dose: 120 mg Finasteride (Proscar -) 5 mg PO DAILY [facility] Last Admin: 08/14/16 09:25 Dose: 5 mg Fluoxetine HCl (Prozac -) 10 mg PO DAILY [facility] Last Admin: 08/14/16 09:26 Dose: 10 mg Furosemide (Lasix -) 40 mg PO DAILY [facility] Gabapentin (Neurontin -) 200 mg PO TID [facility] Last Admin: 08/15/16 06:38 Dose: 200 mg Hydroxyurea (Hydrea -) 500 mg PO BID [facility] Last Admin: 08/14/16 21:28 Dose: 500 mg Hydroxyurea (Hydrea -) 500 mg PO TuTh@1000 [facility] Last Admin: 08/12/16 14:01 Dose: 500 mg Insulin Aspart (Novolog Vial Sliding Scale -) 1 vial SQ ACHS [facility] PRN Reason: Protocol Last Admin: 08/15/16 07:50 Dose: Not Given Magnesium Oxide (Mag-Ox -) 400 mg PO BID [facility] Last Admin: 08/14/16 22:00 Dose: 400 mg Pantoprazole Sodium (Protonix -) 40 mg PO DAILY [facility] Last Admin: 08/14/16 09:25 Dose: 40 mg Ramipril (Altace -) 2.5 mg PO DAILY [facility] Tamsulosin HCl (Flomax -) 0.4 mg PO DAILY@0830 [facility] Last Admin: 08/14/16 09:24 Dose: 0.4 mg A/P GI Bleed likely Diverticular Acute Blood Loss Anemia UTI Atrial Fibrillation LV Diastolic Dysfunction h/o CVA HTN DM - monitor H/H - continue protonix - continue anticoagulation - rate controlled - PO per GI - OOB to chair - rehab/PT - DVT prophylaxis
--- NOTE | 2016-08-15 09:46 | PN ---
Progress Note, Physician History of Present Illness: S/P PRBC RETENTION [place] IN COMFORTABLE-NO COMPLAINTS - Current Medication List Current Medications: Active Medications Acetaminophen (Tylenol -) 650 mg PO Q6H PRN PRN Reason: FEVER OR PAIN Atorvastatin Calcium (Lipitor -) 10 mg PO HS [facility] Last Admin: 08/14/16 21:28 Dose: 10 mg Dabigatran (Pradaxa -) 150 mg PO BID [facility] Last Admin: 08/14/16 21:29 Dose: 150 mg Digoxin (Lanoxin -) 0.125 mg PO DAILY [facility] Last Admin: 08/14/16 09:24 Dose: 0.125 mg Diltiazem HCl (Cardizem Cd -) 120 mg PO DAILY [facility] Last Admin: 08/14/16 09:24 Dose: 120 mg Finasteride (Proscar -) 5 mg PO DAILY [facility] Last Admin: 08/14/16 09:25 Dose: 5 mg Fluoxetine HCl (Prozac -) 10 mg PO DAILY [facility] Last Admin: 08/14/16 09:26 Dose: 10 mg Furosemide (Lasix -) 40 mg PO DAILY [facility] Gabapentin (Neurontin -) 200 mg PO TID [facility] Last Admin: 08/15/16 06:38 Dose: 200 mg Hydroxyurea (Hydrea -) 500 mg PO BID [facility] Last Admin: 08/14/16 21:28 Dose: 500 mg Hydroxyurea (Hydrea -) 500 mg PO TuTh@1000 [facility] Last Admin: 08/12/16 14:01 Dose: 500 mg Insulin Aspart (Novolog Vial Sliding Scale -) 1 vial SQ ACHS [facility] PRN Reason: Protocol Last Admin: 08/15/16 07:50 Dose: Not Given Magnesium Oxide (Mag-Ox -) 400 mg PO BID [facility] Last Admin: 08/14/16 22:00 Dose: 400 mg Pantoprazole Sodium (Protonix -) 40 mg PO DAILY [facility] Last Admin: 08/14/16 09:25 Dose: 40 mg Ramipril (Altace -) 2.5 mg PO DAILY [facility] Tamsulosin HCl (Flomax -) 0.4 mg PO DAILY@0830 [facility] Last Admin: 08/14/16 09:24 Dose: 0.4 mg - Objective Vital Signs: Vital Signs Temperature 96.8 F L 08/15/16 07:24 Pulse Rate 68 08/15/16 07:24 Respiratory Rate 18 08/15/16 07:24 Blood Pressure 142/61 08/15/16 07:24 O2 Sat by Pulse Oximetry (%) 96 08/14/16 21:00 Cardiovascular: Yes: S1, S2 Respiratory: Yes: Regular, CTA Bilaterally Gastrointestinal: Yes: Normal Bowel Sounds, Soft Labs: CBC, BMP 08/15/16 07:00 08/15/16 07:00 INR, PTT INR 1.13 (0.82-1.09) 08/12/16 07:00 Assessment/Plan (1) UTI (urinary tract infection) Assessment/Plan: continue iv abx for total 7 days dc abx f/u with id Microbiology 07/31/16 15:30 Urine - Urine Clean Catch Urine Culture - Final Pseudomonas Aeruginosa Code(s): N39.0 - URINARY TRACT INFECTION, SITE NOT SPECIFIED Qualifiers: Urinary tract infection type: acute cystitis Hematuria presence: with hematuria Qualified Code(s): N30.01 - Acute cystitis with hematuria (2) Afib Code(s): I48.91 - UNSPECIFIED ATRIAL FIBRILLATION Qualifiers: Atrial fibrillation type: persistent Qualified Code(s): I48.1 - Persistent atrial fibrillation on ac--- monitor (3) Congestive heart failure monitor Code(s): I50.9 - HEART FAILURE, UNSPECIFIED Qualifiers: Congestive heart failure type: unspecified congestive heart failure type Congestive heart failure chronicity: unspecified congestive heart failure chronicity Qualified Code(s): I50.9 - Heart failure, unspecified (4) Myelodysplasia (myelodysplastic syndrome) Code(s): D46.9 - MYELODYSPLASTIC SYNDROME, UNSPECIFIED appreciate heme note asa stopped 2/2 gib (5) Malignant neoplasm of bladder Code(s): C67.9 - MALIGNANT NEOPLASM OF BLADDER, UNSPECIFIED Qualifiers: Bladder location: trigone of urinary bladder Qualified Code(s): C67.0 - Malignant neoplasm of trigone of bladder (6) CHEMA (acute kidney injury)--Retention [place] [facility] Code(s): N17.9 - ACUTE KIDNEY FAILURE, UNSPECIFIED (7) Anemia Code(s): D64.9 - ANEMIA, UNSPECIFIED Qualifiers: Anemia type: unspecified type Qualified Code(s): D64.9 - Anemia, unspecified hgb STABLE fobt +wally - prbc x 8 with lasix - gi--s/p gi bleed--probably diverticular - monitor labs
[2016-08-15] MEDS: MAGNESIUM OXIDE 400 MG TABLET (FP) PO SCH ×2 (10:41→21:38)
[2016-08-15] MEDS: DABIGATRAN ETEXILATE MESYLATE 150 MG CAPSULE PO SCH ×2 (10:42→21:38)
[2016-08-15] MEDS: TAMSULOSIN HCL 0.4 MG CAP.ER.24H (FP) PO SCH (10:42)
[2016-08-15] MEDS: FUROSEMIDE 40 MG TABLET (FP) PO SCH (10:42)
[2016-08-15] MEDS: DIGOXIN 0.125 MG TABLET (FP) PO SCH (10:43)
[2016-08-15] MEDS: PANTOPRAZOLE 40 MG TABLET (FP) PO SCH (10:43)
[2016-08-15] MEDS: FINASTERIDE 5 MG TABLET (FP) PO SCH (10:43)
[2016-08-15] MEDS: FLUoxetine HCL 10 MG CAPSULE (FP) PO SCH (10:44)
[2016-08-15] MEDS: HYDROXYUREA 500 MG CAPSULE PO SCH ×2 (10:44→21:38)
[2016-08-15] MEDS: RAMIPRIL 2.5 MG CAPSULE (FP) PO SCH (10:44)
[2016-08-15] MEDS: ATORVASTATIN CA 10 MG TABLET (FP) PO SCH (21:38)
[2016-08-16] MEDS: INSULIN SLIDING SCALE (NOVOLOG) 1 VIAL SQ SCH ×4 (06:24→23:27)
[2016-08-16] MEDS: GABAPENTIN 100 MG CAPSULE (FP) PO SCH ×3 (06:25→22:35)
[2016-08-16 08:23] LABS: MCH 31.9 pg (25.7-33.7); MCHC 33.6 g/dl (32.0-35.9); MEAN PLT VOLUME 8.1 fl (7.5-11.1); NEUTROPHILS 74.1 % (42.8-82.8); PLATELET COUNT 507 K/MM3 (134-434); RDW 16.4 % (11.9-15.9)
[2016-08-16] MEDS: TAMSULOSIN HCL 0.4 MG CAP.ER.24H (FP) PO SCH (08:48)
[2016-08-16 08:54] LABS: CREATININE 1.3 mg/dL (0.7-1.3); MAGNESIUM 2.3 mg/dL (1.8-2.4); PHOSPHOROUS 3.9 mg/dL (2.5-4.9)
[2016-08-16] MEDS ORDERED: PT OWN MED DRAWER 7, Y5N ONE (09:36)
[2016-08-16] MEDS: RAMIPRIL 2.5 MG CAPSULE (FP) PO SCH (09:40)
[2016-08-16] MEDS: DABIGATRAN ETEXILATE MESYLATE 150 MG CAPSULE PO SCH ×2 (09:41→22:36)
[2016-08-16] MEDS: DIGOXIN 0.125 MG TABLET (FP) PO SCH (09:41)
[2016-08-16] MEDS: MAGNESIUM OXIDE 400 MG TABLET (FP) PO SCH ×2 (09:41→22:34)
[2016-08-16] MEDS: FLUoxetine HCL 10 MG CAPSULE (FP) PO SCH (09:41)
[2016-08-16] MEDS: FUROSEMIDE 40 MG TABLET (FP) PO SCH (09:41)
[2016-08-16] MEDS: FINASTERIDE 5 MG TABLET (FP) PO SCH (09:41)
[2016-08-16] MEDS: HYDROXYUREA 500 MG CAPSULE PO SCH ×2 (09:41→22:33)
[2016-08-16] MEDS: PANTOPRAZOLE 40 MG TABLET (FP) PO SCH (09:41)
--- NOTE | 2016-08-16 10:56 | PN ---
Progress Note (short form) - Note Progress Note: Renal Follow up for CHEMA Pt seen and examined at the bedside no complaints Vital Signs Temperature 97.6 F 08/16/16 09:38 Pulse Rate 70 08/16/16 09:41 Respiratory Rate 20 08/16/16 09:38 Blood Pressure 127/58 08/16/16 09:38 O2 Sat by Pulse Oximetry (%) 95 08/15/16 21:00 Intake & Output 08/13/16 08/14/16 08/15/16 08/16/16 23:59 23:59 23:59 23:59 Intake Total 800 600 400 Output Total 800 350 Balance 0 600 50 Gen: NAD HEENT: NC/AT CVS: RRR, No M/R Lungs: Dec BS lung bases Abd: soft NT/ND, No bladder distension Ext: 1-2+ sacral edema CBC, BMP 08/16/16 06:30 08/16/16 06:30 Current Medications Acetaminophen (Tylenol -) 650 mg PO Q6H PRN PRN Reason: FEVER OR PAIN Atorvastatin Calcium (Lipitor -) 10 mg PO HS [facility] Last Admin: 08/15/16 21:38 Dose: 10 mg Dabigatran (Pradaxa -) 150 mg PO BID [facility] Last Admin: 08/16/16 09:41 Dose: 150 mg Digoxin (Lanoxin -) 0.125 mg PO DAILY [facility] Last Admin: 08/16/16 09:41 Dose: 0.125 mg Diltiazem HCl (Cardizem Cd -) 120 mg PO DAILY [facility] Last Admin: 08/16/16 09:41 Dose: 120 mg Finasteride (Proscar -) 5 mg PO DAILY [facility] Last Admin: 08/16/16 09:41 Dose: 5 mg Fluoxetine HCl (Prozac -) 10 mg PO DAILY [facility] Last Admin: 08/16/16 09:41 Dose: 10 mg Furosemide (Lasix -) 40 mg PO DAILY [facility] Last Admin: 08/16/16 09:41 Dose: 40 mg Gabapentin (Neurontin -) 200 mg PO TID [facility] Last Admin: 08/16/16 06:25 Dose: 200 mg Hydroxyurea (Hydrea -) 500 mg PO BID [facility] Last Admin: 08/16/16 09:41 Dose: 500 mg Hydroxyurea (Hydrea -) 500 mg PO TuTh@1000 [facility] Last Admin: 08/12/16 14:01 Dose: 500 mg Insulin Aspart (Novolog Vial Sliding Scale -) 1 vial SQ ACHS [facility] PRN Reason: Protocol Last Admin: 08/16/16 06:24 Dose: Not Given Magnesium Oxide (Mag-Ox -) 400 mg PO BID [facility] Last Admin: 08/16/16 09:41 Dose: 400 mg Pantoprazole Sodium (Protonix -) 40 mg PO DAILY [facility] Last Admin: 08/16/16 09:41 Dose: 40 mg Ramipril (Altace -) 2.5 mg PO DAILY [facility] Last Admin: 08/16/16 09:40 Dose: 2.5 mg Tamsulosin HCl (Flomax -) 0.4 mg PO DAILY@0830 [facility] Last Admin: 08/16/16 08:48 Dose: 0.4 mg A/p 81 y/o Gentleman with PMhx of AFib, CVA, Hypertension, DM who presented with UTI and CHEMA with normal baseline renal function. #CHEMA secondary to acute GIB/Hemodynamic injury Renal function improved and stable continue oral lasix Continue proscar and flomax trend BUN/Cr #Anemia secondary to GIB s/p upper endoscopy w/o clear source of bleeding for capsule endoscopy as outpatient trend CBC Hgb stable Gabe Mendes DO
--- NOTE | 2016-08-16 11:23 | PN ---
Progress Note, Physician History of Present Illness: Hgb stable, denies chest pain or dyspnea. - Current Medication List Current Medications: Active Medications Acetaminophen (Tylenol -) 650 mg PO Q6H PRN PRN Reason: FEVER OR PAIN Atorvastatin Calcium (Lipitor -) 10 mg PO HS [facility] Last Admin: 08/15/16 21:38 Dose: 10 mg Dabigatran (Pradaxa -) 150 mg PO BID [facility] Last Admin: 08/16/16 09:41 Dose: 150 mg Digoxin (Lanoxin -) 0.125 mg PO DAILY [facility] Last Admin: 08/16/16 09:41 Dose: 0.125 mg Diltiazem HCl (Cardizem Cd -) 120 mg PO DAILY [facility] Last Admin: 08/16/16 09:41 Dose: 120 mg Finasteride (Proscar -) 5 mg PO DAILY [facility] Last Admin: 08/16/16 09:41 Dose: 5 mg Fluoxetine HCl (Prozac -) 10 mg PO DAILY [facility] Last Admin: 08/16/16 09:41 Dose: 10 mg Furosemide (Lasix -) 40 mg PO DAILY [facility] Last Admin: 08/16/16 09:41 Dose: 40 mg Gabapentin (Neurontin -) 200 mg PO TID [facility] Last Admin: 08/16/16 06:25 Dose: 200 mg Hydroxyurea (Hydrea -) 500 mg PO BID [facility] Last Admin: 08/16/16 09:41 Dose: 500 mg Hydroxyurea (Hydrea -) 500 mg PO TuTh@1000 [facility] Last Admin: 08/12/16 14:01 Dose: 500 mg Insulin Aspart (Novolog Vial Sliding Scale -) 1 vial SQ ACHS [facility] PRN Reason: Protocol Last Admin: 08/16/16 06:24 Dose: Not Given Magnesium Oxide (Mag-Ox -) 400 mg PO BID [facility] Last Admin: 08/16/16 09:41 Dose: 400 mg Pantoprazole Sodium (Protonix -) 40 mg PO DAILY [facility] Last Admin: 08/16/16 09:41 Dose: 40 mg Ramipril (Altace -) 2.5 mg PO DAILY [facility] Last Admin: 08/16/16 09:40 Dose: 2.5 mg Tamsulosin HCl (Flomax -) 0.4 mg PO DAILY@0830 [facility] Last Admin: 08/16/16 08:48 Dose: 0.4 mg - Objective Vital Signs: Vital Signs Temperature 97.6 F 08/16/16 09:38 Pulse Rate 70 08/16/16 09:41 Respiratory Rate 20 08/16/16 09:38 Blood Pressure 127/58 08/16/16 09:38 O2 Sat by Pulse Oximetry (%) 95 08/15/16 21:00 Constitutional: Yes: No Distress, Calm Neck: Yes: Supple Cardiovascular: Yes: Pulse Irregular Respiratory: Yes: Regular, Diminished Gastrointestinal: Yes: Normal Bowel Sounds, Soft Edema: No Neurological: Yes: Pre-Existing Deficit, Weakness Labs: CBC, BMP 08/16/16 06:30 08/16/16 06:30 INR, PTT INR 1.13 (0.82-1.09) 08/12/16 07:00 Problem List - Problems (1) CAD (coronary artery disease) Code(s): I25.10 - ATHSCL HEART DISEASE OF [place] CORONARY ARTERY W/O ANG PCTRS Qualifiers: Coronary Disease-Associated Artery/Lesion type: [place] artery [place] vs. transplanted heart: [place] heart Associated angina: without angina Qualified Code(s): I25.10 - Atherosclerotic heart disease of [place] coronary artery without angina pectoris (2) Afib Code(s): I48.91 - UNSPECIFIED ATRIAL FIBRILLATION Qualifiers: Atrial fibrillation type: persistent Qualified Code(s): I48.1 - Persistent atrial fibrillation (3) Cerebral infarction Code(s): I63.9 - CEREBRAL INFARCTION, UNSPECIFIED (4) Myelodysplasia (myelodysplastic syndrome) Code(s): D46.9 - MYELODYSPLASTIC SYNDROME, UNSPECIFIED (5) Diabetes Code(s): E11.9 - TYPE 2 DIABETES MELLITUS WITHOUT COMPLICATIONS Qualifiers: Diabetes mellitus type: type 2 Diabetes mellitus complication status: without complication Diabetes mellitus usp insulin use: without usp use Qualified Code(s): E11.9 - Type 2 diabetes mellitus without complications (6) Diastolic dysfunction Code(s): I51.9 - HEART DISEASE, UNSPECIFIED (7) HTN (hypertension) Code(s): I10 - ESSENTIAL (PRIMARY) HYPERTENSION Qualifiers: Hypertension type: essential hypertension Qualified Code(s): I10 - Essential (primary) hypertension (8) Hyperlipidemia Code(s): E78.5 - HYPERLIPIDEMIA, UNSPECIFIED Qualifiers: Hyperlipidemia type: pure hypercholesterolemia Qualified Code(s): E78.0 - Pure hypercholesterolemia Assessment/Plan 1. Pseudomonas UTI completed abx course 2. LV diastolic dysfunction with chronic class I NYHA classification LV failure , currently euvolumic 3. Permanent AF [id number] score of 8 on A/C with NOAC 4. CAD angina pectoris, stable 5. HTN 6. NIDDM 7. Hypercholesterolemia 8. History of fronto-temporal stroke with residual deficit 9. Mylelodysplastic syndrome, leukocytosis, anemia and thrombocytosis 10. Acute on CKD resolved 11. Resolved diverticular bleed PLAN: 1. Continue Cardizem CD 120 mg QD 2. Continue Lasix 40 qd and Ramipril 2.5 mg once a day with renal recovery 3. Continue Lipitor 10 qhs 4. Continue Pradaxa 150 bid, ASA d/marie despite MDS due to recurrent GI bleed 5. Continue Digoxin 0.125 qd with close monitoring of level 6. Monitor Hgb post transfusion and transfuse for Hgb<8.0 7. D/c planning
[2016-08-16] MEDS ORDERED: INSULIN (NOVOLOG) ASPART 100 UNITS/ML 10ML VIAL ONE (12:11)
[2016-08-16] MEDS: ATORVASTATIN CA 10 MG TABLET (FP) PO SCH (22:34)
[2016-08-17] MEDS: GABAPENTIN 100 MG CAPSULE (FP) PO SCH ×2 (06:26→14:39)
[2016-08-17] MEDS ORDERED: INSULIN SLIDING SCALE (NOVOLOG) 1 VIAL SQ SCH (07:00)
--- NOTE | 2016-08-17 08:57 | DS ---
Physical Examination Vital Signs: Vital Signs Temperature 97.8 F 08/17/16 06:00 Pulse Rate 63 08/17/16 06:00 Respiratory Rate 18 08/17/16 06:00 Blood Pressure 129/48 08/17/16 06:00 O2 Sat by Pulse Oximetry (%) 95 08/15/16 21:00 Respiratory: Yes: Regular, CTA Bilaterally Gastrointestinal: Yes: Normal Bowel Sounds, Soft Edema: Yes Edema: RUE: 2+ Labs: CBC, BMP 08/16/16 06:30 08/16/16 06:30 Discharge Summary Reason For Visit: UTI Current Active Problems CAD (coronary artery disease) (Acute) Coagulopathy (Acute) Thrombocytopenia (Acute) UTI (urinary tract infection) (Acute) Hospital Course: The patient is a 81 year old male presenting with his family, with a significant past medical history of 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 His PMD sent a urine sample which shows a UTI. PMD notes that the patient has resistance to PO antibiotics. The patient reports that he has diffused abdominal pain. Patient does ambulate with the help of a cane or with assistance. He reports diarrhea, once or twice a week, which is his baseline. The patient denies chest pain, shortness of breath, headache and dizziness. Denies fever, chills, nausea, vomit, diarrhea and constipation. Denies dysuria, frequency, urgency and hematuria. History Source: Patient, Medical Record - Past Medical History [employer]: Yes: CVA Cardiovascular: Yes: AFIB, CAD, Hyperlipdemia Pulmonary: Yes: COPD Gastrointestinal: Yes: Gastritis, GERD Renal/: Yes: BPH, Cancer (superficial bladder cancer) Heme/Onc: Yes: Myeloproliferative Synd (thrombocytosis) Endocrine: Yes: Diabetes Mellitus - Past Surgical History Past Surgical History: Yes: Cholecystectomy, Splenectomy, TURP (1) UTI (urinary tract infection) Assessment/Plan: continue iv abx for total 7 days dc abx f/u with id Microbiology 07/31/16 15:30 Urine - Urine Clean Catch Urine Culture - Final Pseudomonas Aeruginosa Code(s): N39.0 - URINARY TRACT INFECTION, SITE NOT SPECIFIED Qualifiers: Urinary tract infection type: acute cystitis Hematuria presence: with hematuria Qualified Code(s): N30.01 - Acute cystitis with hematuria (2) Afib Code(s): I48.91 - UNSPECIFIED ATRIAL FIBRILLATION Qualifiers: Atrial fibrillation type: persistent Qualified Code(s): I48.1 - Persistent atrial fibrillation on ac--- monitor (3) Congestive heart failure monitor Code(s): I50.9 - HEART FAILURE, UNSPECIFIED Qualifiers: Congestive heart failure type: unspecified congestive heart failure type Congestive heart failure chronicity: unspecified congestive heart failure chronicity Qualified Code(s): I50.9 - Heart failure, unspecified (4) Myelodysplasia (myelodysplastic syndrome) Code(s): D46.9 - MYELODYSPLASTIC SYNDROME, UNSPECIFIED appreciate heme note asa stopped 2/2 gib (5) Malignant neoplasm of bladder Code(s): C67.9 - MALIGNANT NEOPLASM OF BLADDER, UNSPECIFIED Qualifiers: Bladder location: trigone of urinary bladder Qualified Code(s): C67.0 - Malignant neoplasm of trigone of bladder (6) CHEMA (acute kidney injury)--Retention [place] [facility] Code(s): N17.9 - ACUTE KIDNEY FAILURE, UNSPECIFIED (7) Anemia Code(s): D64.9 - ANEMIA, UNSPECIFIED Qualifiers: Anemia type: unspecified type Qualified Code(s): D64.9 - Anemia, unspecified hgb STABLE fobt +wally -s/p prbc x 8 with lasix - gi--s/p acute gi bleed--probably diverticular - monitor labs Condition: Improved - Instructions Diet, Activity, Other Instructions: cbc and bmp check in 2 weeks follow up with dr currie in 2 weeks Referrals: Ashish Schneider MD [Primary Care Provider] - Disposition: HOME - Home Medications Comprehensive Discharge Medication List: Ambulatory Orders Furosemide [Lasix -] 40 mg PO DAILY 03/25/15 Metformin HCl 500 mg PO DAILY 06/08/15 Dabigatran Etexilate Mesylate [Pradaxa -] 150 mg PO BID #60 cap 11/04/15 Digoxin 125 mcg PO DAILY #30 tablet 11/04/15 Finasteride 5 mg PO DAILY #30 tablet 11/04/15 Magnesium Oxide [Mag-Ox -] 400 mg PO BID #30 tablet 11/04/15 Atorvastatin Ca [Lipitor] 10 mg PO HS 07/31/16 Fluoxetine HCl 10 mg PO DAILY 07/31/16 Gabapentin 100 mg PO BID 07/31/16 Tamsulosin HCl 0.4 mg PO BID 07/31/16 Atorvastatin Ca [Lipitor] 10 mg PO HS tablet 08/06/16 Dabigatran Etexilate Mesylate [Pradaxa -] 150 mg PO BID cap 08/06/16 Digoxin [Lanoxin -] 0.125 mg PO DAILY tablet 08/06/16 Diltiazem Cd [Cardizem Cd -] 120 mg PO DAILY cap.cd.24h 08/06/16 Finasteride [Proscar -] 5 mg PO DAILY tablet 08/06/16 Fluoxetine HCl [Prozac -] 10 mg PO DAILY capsule 08/06/16 Furosemide [Lasix -] 40 mg PO DAILY tablet 08/06/16 Gabapentin [Neurontin -] 100 mg PO TID capsule 08/06/16 Hydroxyurea [Hydrea 500Mg Capsule -] 500 mg PO BID capsule 08/06/16 Hydroxyurea [Hydrea 500Mg Capsule -] 500 mg PO TuTh@1000 capsule 08/06/16 Magnesium Oxide [Mag-Ox -] 400 mg PO BID tablet 08/06/16 Metformin HCl [Glucophage -] 500 mg PO ACBK tablet 08/06/16 Ramipril [Altace] 2.5 mg PO DAILY capsule 08/06/16 Tamsulosin HCl [Flomax -] 0.4 mg PO DAILY@0830 cap.er.24h 08/06/16
[2016-08-17 10:25] VITALS: BP 120/70; PULSE 80; TEMP 98.2
[2016-08-17] MEDS: DABIGATRAN ETEXILATE MESYLATE 150 MG CAPSULE PO SCH (10:33)
[2016-08-17] MEDS: TAMSULOSIN HCL 0.4 MG CAP.ER.24H (FP) PO SCH (10:33)
[2016-08-17] MEDS: DIGOXIN 0.125 MG TABLET (FP) PO SCH (10:33)
[2016-08-17] MEDS: FUROSEMIDE 40 MG TABLET (FP) PO SCH (10:34)
[2016-08-17] MEDS: MAGNESIUM OXIDE 400 MG TABLET (FP) PO SCH (10:34)
[2016-08-17] MEDS: PANTOPRAZOLE 40 MG TABLET (FP) PO SCH (10:34)
[2016-08-17] MEDS: FINASTERIDE 5 MG TABLET (FP) PO SCH (10:34)
[2016-08-17] MEDS ORDERED: DOCUSATE SODIUM 100 MG CAPSULE (FP) PO PRN (10:40)
--- NOTE | 2016-08-17 10:40 | PN ---
Progress Note (short form) - Note Progress Note: Renal Follow up for CHEMA Pt seen and examined at the bedside reports some swelling in right arm (prior IV site) no sob, chest pain has constipation Vital Signs Temperature 98.2 F 08/17/16 09:00 Pulse Rate 80 08/17/16 09:00 Respiratory Rate 18 08/17/16 09:00 Blood Pressure 120/70 08/17/16 09:00 O2 Sat by Pulse Oximetry (%) 95 08/15/16 21:00 Intake & Output 08/14/16 08/15/16 08/16/16 08/17/16 23:59 23:59 23:59 23:59 Intake Total 026 668 0560 30 Output Total 350 Balance 375 95 5549 30 Gen: NAD HEENT: NC/AT CVS: RRR, No M/R Lungs: Dec BS lung bases Abd: soft NT/ND, No bladder distension Ext: 1-2+ sacral edema CBC, BMP 08/16/16 06:30 08/16/16 06:30 Current Medications Acetaminophen (Tylenol -) 650 mg PO Q6H PRN PRN Reason: FEVER OR PAIN Atorvastatin Calcium (Lipitor -) 10 mg PO HS [facility] Last Admin: 08/16/16 22:34 Dose: 10 mg Dabigatran (Pradaxa -) 150 mg PO BID [facility] Last Admin: 08/16/16 22:36 Dose: 150 mg Digoxin (Lanoxin -) 0.125 mg PO DAILY [facility] Last Admin: 08/16/16 09:41 Dose: 0.125 mg Diltiazem HCl (Cardizem Cd -) 120 mg PO DAILY [facility] Last Admin: 08/16/16 09:41 Dose: 120 mg Finasteride (Proscar -) 5 mg PO DAILY [facility] Last Admin: 08/16/16 09:41 Dose: 5 mg Fluoxetine HCl (Prozac -) 10 mg PO DAILY [facility] Last Admin: 08/16/16 09:41 Dose: 10 mg Furosemide (Lasix -) 40 mg PO DAILY [facility] Last Admin: 08/16/16 09:41 Dose: 40 mg Gabapentin (Neurontin -) 200 mg PO TID [facility] Last Admin: 08/17/16 06:26 Dose: 200 mg Hydroxyurea (Hydrea -) 500 mg PO BID [facility] Last Admin: 08/16/16 22:33 Dose: 500 mg Hydroxyurea (Hydrea -) 500 mg PO TuTh@1000 [facility] Last Admin: 08/12/16 14:01 Dose: 500 mg Insulin Aspart (Novolog Vial Sliding Scale -) 1 vial SQ BIDAC [facility] PRN Reason: Protocol Last Admin: 08/17/16 06:27 Dose: Not Given Magnesium Oxide (Mag-Ox -) 400 mg PO BID [facility] Last Admin: 08/16/16 22:34 Dose: 400 mg Pantoprazole Sodium (Protonix -) 40 mg PO DAILY [facility] Last Admin: 08/16/16 09:41 Dose: 40 mg Ramipril (Altace -) 2.5 mg PO DAILY [facility] Last Admin: 08/16/16 09:40 Dose: 2.5 mg Tamsulosin HCl (Flomax -) 0.4 mg PO DAILY@0830 [facility] Last Admin: 08/16/16 08:48 Dose: 0.4 mg A/p 81 y/o Gentleman with PMhx of AFib, CVA, Hypertension, DM who presented with UTI and CHEMA with normal baseline renal function. #CHEMA secondary to acute GIB/Hemodynamic injury no new labs today renal function stable continue Lasix daily and Ramipril Repeat labs in 3-4 days as outpatient #Anemia secondary to GIB s/p upper endoscopy w/o clear source of bleeding for capsule endoscopy as outpatient trend CBC Hgb stable #Right arm swelling likely due to IVF infusions in the arm elevate arm warm compress if pain monitor for now Gabe Mendes DO
--- NOTE | 2016-08-17 12:25 | PN ---
Progress Note, Physician Chief Complaint: Not in distress History of Present Illness: Patient was seen and examined. Awake and alert. Chart was reviewed Denies chest pain or shortness of breath - Current Medication List Current Medications: Active Medications Acetaminophen (Tylenol -) 650 mg PO Q6H PRN PRN Reason: FEVER OR PAIN Last Admin: 08/17/16 10:34 Dose: 650 mg Atorvastatin Calcium (Lipitor -) 10 mg PO HS [facility] Last Admin: 08/16/16 22:34 Dose: 10 mg Dabigatran (Pradaxa -) 150 mg PO BID [facility] Last Admin: 08/17/16 10:33 Dose: 150 mg Digoxin (Lanoxin -) 0.125 mg PO DAILY [facility] Last Admin: 08/17/16 10:33 Dose: 0.125 mg Diltiazem HCl (Cardizem Cd -) 120 mg PO DAILY [facility] Last Admin: 08/17/16 10:34 Dose: 120 mg Docusate Sodium (Colace -) 100 mg PO BID PRN PRN Reason: CONSTIPATION Finasteride (Proscar -) 5 mg PO DAILY [facility] Last Admin: 08/17/16 10:34 Dose: 5 mg Fluoxetine HCl (Prozac -) 10 mg PO DAILY [facility] Last Admin: 08/16/16 09:41 Dose: 10 mg Furosemide (Lasix -) 40 mg PO DAILY [facility] Last Admin: 08/17/16 10:34 Dose: 40 mg Gabapentin (Neurontin -) 200 mg PO TID [facility] Last Admin: 08/17/16 06:26 Dose: 200 mg Hydroxyurea (Hydrea -) 500 mg PO BID [facility] Last Admin: 08/16/16 22:33 Dose: 500 mg Hydroxyurea (Hydrea -) 500 mg PO TuTh@1000 [facility] Last Admin: 08/12/16 14:01 Dose: 500 mg Insulin Aspart (Novolog Vial Sliding Scale -) 1 vial SQ BIDAC [facility] PRN Reason: Protocol Last Admin: 08/17/16 06:27 Dose: Not Given Magnesium Oxide (Mag-Ox -) 400 mg PO BID [facility] Last Admin: 08/17/16 10:34 Dose: 400 mg Pantoprazole Sodium (Protonix -) 40 mg PO DAILY [facility] Last Admin: 08/17/16 10:34 Dose: 40 mg Ramipril (Altace -) 2.5 mg PO DAILY [facility] Last Admin: 08/16/16 09:40 Dose: 2.5 mg Tamsulosin HCl (Flomax -) 0.4 mg PO DAILY@0830 [facility] Last Admin: 08/17/16 10:33 Dose: 0.4 mg - Objective Vital Signs: Vital Signs Temperature 98.2 F 08/17/16 09:00 Pulse Rate 80 08/17/16 10:33 Respiratory Rate 18 08/17/16 09:00 Blood Pressure 120/70 08/17/16 09:00 O2 Sat by Pulse Oximetry (%) 95 08/15/16 21:00 Neck: Yes: Supple Cardiovascular: Yes: Pulse Irregular, S1, S2 Respiratory: Yes: Diminished Gastrointestinal: Yes: Normal Bowel Sounds, Soft. No: Tenderness Edema: No Labs: CBC, BMP 08/16/16 06:30 08/16/16 06:30 INR, PTT INR 1.13 (0.82-1.09) 08/12/16 07:00 Problem List - Problems (1) UTI (urinary tract infection) Code(s): N39.0 - URINARY TRACT INFECTION, SITE NOT SPECIFIED Qualifiers: Urinary tract infection type: acute cystitis Hematuria presence: with hematuria Qualified Code(s): N30.01 - Acute cystitis with hematuria (2) Afib Code(s): I48.91 - UNSPECIFIED ATRIAL FIBRILLATION Qualifiers: Atrial fibrillation type: persistent Qualified Code(s): I48.1 - Persistent atrial fibrillation (3) Anemia Code(s): D64.9 - ANEMIA, UNSPECIFIED Qualifiers: Anemia type: unspecified type Qualified Code(s): D64.9 - Anemia, unspecified (4) Cerebrovascular accident Code(s): I63.9 - CEREBRAL INFARCTION, UNSPECIFIED (5) Diabetes Code(s): E11.9 - TYPE 2 DIABETES MELLITUS WITHOUT COMPLICATIONS Qualifiers: Diabetes mellitus type: type 2 Diabetes mellitus complication status: without complication Diabetes mellitus mcfp insulin use: without mcfp use Qualified Code(s): E11.9 - Type 2 diabetes mellitus without complications (6) Diastolic dysfunction Code(s): I51.9 - HEART DISEASE, UNSPECIFIED (7) HTN (hypertension) Code(s): I10 - ESSENTIAL (PRIMARY) HYPERTENSION Qualifiers: Hypertension type: essential hypertension Qualified Code(s): I10 - Essential (primary) hypertension (8) Hyperlipidemia Code(s): E78.5 - HYPERLIPIDEMIA, UNSPECIFIED Qualifiers: Hyperlipidemia type: pure hypercholesterolemia Qualified Code(s): E78.0 - Pure hypercholesterolemia (9) Myelodysplasia (myelodysplastic syndrome) Code(s): D46.9 - MYELODYSPLASTIC SYNDROME, UNSPECIFIED (10) Thrombocytopenia Code(s): D69.6 - THROMBOCYTOPENIA, UNSPECIFIED (11) CAD (coronary artery disease) Code(s): I25.10 - ATHSCL HEART DISEASE OF [place] CORONARY ARTERY W/O ANG PCTRS Qualifiers: Coronary Disease-Associated Artery/Lesion type: [place] artery [place] vs. transplanted heart: [place] heart Associated angina: without angina Qualified Code(s): I25.10 - Atherosclerotic heart disease of [place] coronary artery without angina pectoris Assessment/Plan 1. Pseudomonas UTI 2. 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 Permanent AF [id number] score of 8 on A/C with NOAC 4. CAD angina pectoris, stable 5. HTN 6. NIDDM 7. Hypercholesterolemia 8. History of fronto-temporal stroke with residual deficit 9. Mylelodysplastic syndrome, leukocytosis, anemia and thrombocytosis 10. Acute on CKD resolved 11. Resolved diverticular bleed PLAN: 1. Continue Cardizem CD 120 mg QD 2. Continue Lasix and Ramipril and monitor renal function 3. Continue Lipitor 4. Continue Pradaxa 150 mg BID 5. Continue Digoxin with close monitoring of level 6. Monitor Hgb post transfusion and transfuse for Hgb<8.0 7. Discharge planning Tc Bass MD
[2016-08-17] MEDS: RAMIPRIL 2.5 MG CAPSULE (FP) PO SCH (14:40)
[2016-08-17] MEDS: FLUoxetine HCL 10 MG CAPSULE (FP) PO SCH (14:40)
[2016-08-17] MEDS: HYDROXYUREA 500 MG CAPSULE PO SCH ×2 (14:41)
== END 2016-08-17 15:08 | disposition home or self-care (01) | DRG 689 ==
LOC: JER 14:08 → JERBED 17:08 → J5S 19:39 → JICU 08-08 19:26 → J8W 08-11 23:45
PROVIDERS: ADMIT Family Medicine; ATTEND Family Medicine
PROC: 30233K1 Transfusion of Nonautologous Frozen Plasma into Peripheral Vein, Percutaneous Approach (ICD-10-PCS; principal; 2016-08-08)
PROC: 30233N1 Transfusion of Nonautologous Red Blood Cells into Peripheral Vein, Percutaneous Approach (ICD-10-PCS; 2016-08-08)
PROC: 0DJ08ZZ Inspection of Upper Intestinal Tract, Via Natural or Artificial Opening Endoscopic (ICD-10-PCS; 2016-08-09)
DX: N30.01 Acute cystitis with hematuria (principal); K57.91 Diverticulosis of intestine, part unspecified, without perforation or abscess with bleeding; I69.351 Hemiplegia and hemiparesis following cerebral infarction affecting right dominant side; I48.1 Persistent atrial fibrillation; N17.9 Acute kidney failure, unspecified; I13.0 Hypertensive heart and chronic kidney disease with heart failure and stage 1 through stage 4 chronic kidney disease, or unspecified chronic kidney disease; D62 Acute posthemorrhagic anemia; D68.9 Coagulation defect, unspecified; B96.5 Pseudomonas (aeruginosa) (mallei) (pseudomallei) as the cause of diseases classified elsewhere; Z79.01 Long term (current) use of anticoagulants; Z85.51 Personal history of malignant neoplasm of bladder; E11.9 Type 2 diabetes mellitus without complications; N40.0 Benign prostatic hyperplasia without lower urinary tract symptoms; I25.119 Atherosclerotic heart disease of native coronary artery with unspecified angina pectoris; D47.3 Essential (hemorrhagic) thrombocythemia; R10.9 Unspecified abdominal pain; N18.9 Chronic kidney disease, unspecified; I50.9 Heart failure, unspecified; D46.9 Myelodysplastic syndrome, unspecified; I69.320 Aphasia following cerebral infarction; R26.81 Unsteadiness on feet; Z79.84 Long term (current) use of oral hypoglycemic drugs
CPT/HCPCS: 36415; 36430; 71010-TC; 74176-TC; 76856-TC; 80048; 80053; 80162; 81003; 81015; 82272; 82436; 82570; 82607; 82728; 83540; 83550; 83735; 83880; 83970; 84100; 84133; 84300; 85025; 85027; 85044; 85610; 85730; 86850; 86900; 86901; 86922; 87040; 87086; 87186; 93005; 93010; 93971; 93975; 97116-GP; 97161-GP; 99285-25; J8999; P9017; P9038; P9051; P9058